=== PATIENT | male | born 1975 | race Caucasian/White ===

== ENCOUNTER 2022-08-17 10:25 | Outpatient (OUT) | payer MEDICAID, SELFPAY ==
[2022-08-17 21:49] LABS: Anion Gap 12.4; BUN Creatinine Ratio 14.3; Calcium 9.8 mg/dL (8.5-10.1); Carbon Dioxide 28.3 mmol/L (21.0-32.0); Chloride 104 mmol/L (98-107); Estimated GFR (African America >60 (>=60); Estimated GFR (Non-African Ame >60 (>=60); Glucose 88 mg/dL (74-106); Potassium 4.7 mmol/L (3.5-5.1); Sodium 140 mmol/L (136-145)
== END 2022-08-17 10:26 ==
LOC: LAB 10:29
PROVIDERS: PCP Family Medicine
DX: I10 Essential (primary) hypertension (principal)
CPT/HCPCS: 36415; 80048

== ENCOUNTER 2022-08-18 07:37 | Outpatient (OUT) | payer MEDICAID, SELFPAY ==
--- NOTE | 2022-08-18 07:45 | US_ITS ---
[address] [address] Patient Name: MARISELA HAHN MRN: [id number] date: 1975 Sex: M Assigned Patient Location: [place] Current Patient Location: Accession/Order Number: [id number] Exam Date: 08/18/2022 07:45 Report Date: 08/18/2022 12:55 At the request of: NON-STAFF PHYSICIAN Procedure: US renal doppler EXAMINATION: US renal doppler HISTORY: Essential Hypertension I10 COMPARISON: No relevant comparison available. TECHNIQUE: Ultrasound examination was performed of the kidneys and bladder. FINDINGS: Right Kidney: Height: 6.0 cm Length: 14.2 cm Width: 5.4 cm Right Renal Artery Proximal PSV: Obscured by bowel gas. Mid PSV: 197.3 cm/s Mid EDV: 52.0 cm/s Distal PSV: 211.9 cm/s Distal EDV: 57.9 cm/s Right Arcuate Artery Superior PSV: 29.2 cm/s Superior EDV: 12.2 cm/s Middle PSV: 17.4 cm/s Middle EDV: 9.1 cm/s Inferior PSV: 19.1 cm/s Inferior EDV: 8.7 cm/s Left Kidney: Height: 6.6 cm Length: 13.9 cm Width: 5.7 cm Left Renal Artery Proximal PSV: 157.1 cm/s Proximal EDV: 32.2 cm/s Mid PSV: 121.1 cm/s Mid EDV: 28.9 cm/s Distal PSV: 89.2 cm/s Distal EDV: 29.0 cm/s Left Arcuate Artery Superior PSV: 19.9 cm/s Superior EDV: 9.5 cm/s Middle PSV: 23.2 cm/s Middle EDV: 8.9 cm/s Inferior PSV: 19.3 cm/s Inferior EDV: 8.4 cm/s Aorta PSV: 133 cm/s Aorta EDV: 10 cm/s IMPRESSION: 1. Limited examination due to patient body habitus and overlying bowel gas. 2. 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 3. Blood flow velocity as detailed above. Electronically authenticated by: SOHAIL SHIPMAN Date: 08/18/2022 12:55
== END 2022-08-18 07:38 ==
LOC: US 07:38
PROVIDERS: PCP Family Medicine
DX: I10 Essential (primary) hypertension (principal)
CPT/HCPCS: 76775; 93975

== ENCOUNTER 2022-12-12 09:21 | Outpatient (RCR) | payer MEDICAID, SELFPAY | END 2023-01-03 16:44 | disposition home or self-care (01) | LOC: PT 09:21 | PROVIDERS: PCP Family Medicine; Visit Provider Anesthesiology | DX: M54.2 Cervicalgia (principal) | CPT/HCPCS: 20561; 97012; 97110; 97140; 97161 ==

== ENCOUNTER 2023-05-15 09:05 | Outpatient (OUT) | payer MEDICAID, SELFPAY ==
--- OUTSIDE RECORDS SUMMARY | 2023-05-15 09:08 | XMS_ITS | CCD ---
Author Name Unknown Address [address] [place] [address] Organization [facility] Care Team Providers Care Utility Worker [place] Name Role Phone NICOLASA BULLOCK Primary Care Unavailable BINDU CRAVEN Attending Unavailable BINDU CRAVEN Admitting Unavailable NONE, XXXX Primary Care Physician Unavailab NICOLASA Miller Primary Care Physician Nicolasa Bullock Unavailable KOBE, DR NICOLASA Brooks Attending Unavailable KOBE, DR NICOLASA Brooks Consulting Unavailable KOBE, DR NICOLASA Brooks Primary Care Unavailable BULLOCK, DR NICOLASA Brooks Admitting Unavailable BAILEY FRYE Admitting Unavailable KENNER, DR MARCELLA Emmanuel Consulting Unavailable KOBE, DR NICOLASA Brooks Primary Care Unavailable BAILEY FRYE Attending Unavailable HEJOSE L LEMON Consulting Unavailable BAILEY FRYE Consulting Unavailable MISC, DR ZAMORA Admitting Unavailable BULLOCK, DR NICOLASA Brooks Primary Care Unavailable MISC, DR ZAMORA Attending Unavailable MISC, DR ZAMORA Consulting Unavailable NALDO ., DR ONEILL Admitting Unavailable BULLOCK, DR NICOLASA Brooks Primary Care Unavailable HAY ., DR ONEILL Attending Unavailable HAY ., DR ONEILL Consulting Unavailable JOSE GENTILE Consulting Unavailable KOBE, DR NICOLASA Brooks Primary Care Unavailable ANTHONY HURTADO Admitting Unavailable ANTHONY HURTADO Attending Unavailable ANTHONY HURTADO Consulting Unavailable KOBE, DR NICOLASA Brooks Attending Unavailable BULLOCK, DR NICOLASA Brooks Consulting Unavailable KOBE, DR NICOLASA Brooks Admitting Unavailable KOBE, DR NICOLASA Brooks Primary Care Unavailable Sam GARDUNO Attending Unavailable Sam GARDUNO Attending Unavailable Sam GARDUNO Attending Unavailable Sam GARDUNO Admitting Unavailable MD Nicolasa Bullock Primary Care Provider [phone] MD Rivera Bermudez Attending Provider [phone] Rivera Bermudez Unavailable Deann Ortega Unavailable MD Nicolasa Bullock Primary Care Provider MD Rivera Bermudez Attending Provider [phone] DARRELL Ortega Attending Provider Pattie Hardin Unavailable MD Nicolasa Bullock Primary Care Provider MD Rivera Bermudez Attending Provider ANTHONY HURTADO Attending Unavailable ANTHONY HURTADO Attending Unavailable RUPERTO CANTRELL Attending Unavailable DONALD NGO Attending Unavailable [place] Attending Unavailable Nicolasa Bullock Primary Care Unavailable Rivera Bermudez Attending Unavailable Rivera Bermudez Admitting Unavailable Nicolasa Bullock Primary Care Unavailable Deann Ortega Attending Unavailable Deann Ortega Admitting Unavailable Rivera Bermudez Attending Unavailable Rivera Bermudez Admitting Unavailable Nicolasa Bullock Primary Care Unavailable Allergies Allergy Classification Reported Allergen(s) Allergy Type Date of Onset Reaction(s) Facility (7 sources) Cephalexin; Translations: [CEPHALEXIN] Drug Allergy 02-16-2020 Unknown [facility] Repository (12 sources) Cephalexin; Translations: [Keflex] Drug Allergy 09-26-2012 Unknown [facility] Repository Medications Current Medications Medication Drug Class(es) Dates Sig (Normalized) Sig (Original) acetaminophen 500 mg oral tablet (6 sources) Start: 04-26-2023 take 1 tablet by mouth every six hours as needed Acetaminophen Active 1 TAB PO Every 6 hours April 26, 2023 12:00am FreeTextSi tablet as needed Orally every 6 hrs; Note: Source Status: Taking; Provider: Lara Stafford ( ) take 1 tablet by mouth every six hours Acetaminophen 500 MG 1 tablet as needed Orally every 6 hrs Active acetaminophen 325 mg / HYDROcodone bitartrate 5 mg oral tablet (2 sources) Opioid Agonist Start: 08-13-2021 take 1 tablet by mouth every six hours for pain [place] 325 mg-5 mg oral tablet 1 tab(s), Oral, q6hr for pain, 10 tab(s), Refill(s) 0, Take 1 every 6 hours for pain, [id number], 185, cm, 08/13/21 10:20:00 EDT, Height/Length Dosing, 123, kg, 08/13/21 10:20:00 EDT, Weight Dosing Start Date: 08/13/21 Status: Ordered amLODIPine 5 mg oral tablet (5 sources) Dihydropyridine Calcium Channel Sisi Start: 08-13-2021 take 1 mg by mouth once daily amLODIPine 5 mg Tab mg tab(s), Oral, Daily, Refills(s) 0 Start Date: 08/13/21 Status: Ordered take 1 tablet by mouth twice ceasar ly amLODIPine Besylate 5 MG 5 mg. tablet Orally twice a day Active aspirin 81 mg delayed release oral tablet (6 sources) Platelet Aggregation Inhibitor, Nonsteroidal Anti-inflammatory Drug Start: 04-26-2023 take 1 tablet by mouth once daily Aspirin Active 81 MG PO Daily April 26, 2023 12:00am FreeTextSi tablet Orally Once a day; Note: Source Status: Taking; Provider: Lara Stafford ( ) take 1 tablet by giedon th every twenty-four hours Aspirin 81 MG 1 tablet Orally Once a day Active busPIRone hydrochloride 10 mg oral tablet (15 sources) Start: 04-26-2023 take 1 tablet by mouth twice daily Buspirone Active 1 TAB PO Twice daily April 26, 2023 12:00am FreeTextSi tablet Orally Twice a day; Note: Source Status: Taking; Provider: Lara Stafford ( ) Start: 08-13-2021 take 1 mg by mouth twice daily busPIRone 10 mg Tab mg tab(s), Oral, BID, Refills(s) 0 Start Date: 08/13/21 Status: Ordered carvedilol 25 mg oral tablet (15 sources) alpha-Adrenergic Sisi, beta-Adrenergic Sisi Start: 04-26-2023 take 1 tablet by mouth twice daily at mealtime Carvedilol Active 25 MG PO Twice daily April 26, 2023 12:00am FreeTextSi tablet with food Orally Twice a day; Note: Source Status: Taking; Provider: Lara Stafford ( ) Start: 08-13-2021 take 1 mg by mouth twice daily carvedilol 25 mg Tab mg tab(s), Oral, BID, Refills(s) 0 Start Date: 08/13/21 Status: Ordered chlorthalidone 25 mg oral tablet (12 sources) Thiazide-like Diuretic Start: 04-26-2023 take 1 tablet by mouth once daily at mealtime Chlorthalidone Active 25 MG PO Daily April 26, 2023 12:00am FreeTextSi tablet in the morning with food Orally Once a day; Note: Source Status: Taking; Provider: Lara Stafford ( ) take 1 tablet by gideon th every twenty-four hours Chlorthalidone 25 MG 1 tablet in the morning with food Orally Once a day Active Chlorthalidone 2 5 MG 1/2 tab q am Orally Once a day Active ciprofloxacin 500 mg oral tablet (1 source) Quinolone Antimicrobial Start: 08-13-2021 End: 08-18-2021 take 1 tablet by mouth twice daily at mealtime Cipro 500 mg Tab 500 mg = 1 tab(s), Oral, BID, Start with first meal after procedure is completed, X 5 day(s), # 10 tab(s), Refills(s) 0, Pharmacy: [id number], 185, cm, 08/13/21 10:20:00 EDT, Height/Length Dosing, 123, kg, 08/13/21 10:20:00 EDT, Weight Dosing Start Date: 08/13/21 Stop Date: 08/18/21 Status: Ordered diazePAM 10 mg oral tablet (2 sources) Benzodiazepine Start: 08-13-2021 take 1 tablet by mouth once daily Valium 10 mg Tab 10 mg = 1 tab(s), Oral, Daily, take 30 minutes prior to procedure, # 1 tab(s), Refills(s) 0, Pharmacy: [id number], 185, cm, 08/13/21 10:20:00 EDT, Height/Length Dosing, 123, kg, 08/13/21 10:20:00 EDT, Weight Dosing Start Date: 08/13/21 Status: Ordered escitalopram 20 mg oral tablet (17 sources) Serotonin Reuptake Inhibitor Start: 04-19-2023 End: 04-26-2023 take 1 tablet by mouth once daily Escitalopram Oxalate Active 20 MG PO Daily April 26, 2023 12:00am FreeTextSi tablet Orally Once a day; Note: Source Status: Taking; Refills: 3; Qty: 90 Tablet; Provider: Kobe Brooks Start: 08-13-2021 take 1 mg by mouth once daily escitalopram 10 mg Tab mg tab(s), Oral, Daily, Refills(s) 0 Start Date: 08/13/21 Status: Ordered lisinopril 40 mg oral tablet (17 sources) Angiotensin Converting Enzyme Inhibitor Start: 08-13-2021 End: 04-26-2023 take 1 tablet by mouth once daily Lisinopril Active 40 MG PO Daily April 26, 2023 12:00am FreeTextSig: Take 1 tablet by mouth once daily for 90 days; Note: Source Status: Taking; Refills: 2; Qty: 90 Tablet; Provider: Kobe Badlwin ( ) NIFEdipine 10 mg oral capsule (3 sources) Dihydropyridine Calcium Channel Sisi Start: 04-26-2023 take 10 mg by mouth twice daily Nifedipine Active 10 MG PO Twice daily April 26, 2023 12:00am Start: 04-19-2023 End: 04-26-2023 take 60 mg by mouth once daily Nifedipine Discontinued 60 MG PO Daily April 19, 2023 12:00am April 26, 2023 3:50pm NIFEdipine ER Osmotic (5 sources) NIFEdipine ER Os motic Active predniSONE 10 mg oral tablet (5 sources) Start: predniSONE 10 MG Take 3 tablets by mouth for 3 days then 2 tablets by mouth for 3 days then 1 tablet by mouth for 3 days Orally Once a day for 9 Feb, Active spironolactone 25 mg oral tablet (8 sources) Aldosterone Antagonist Start: End: Spironolactone Active 25 MG PO April 26, 2023 12:00am FreeTextSi tablet Orally; Note: Source Status: Taking; Provider: Lara Stafford ( ) sulfamethoxazole 800 mg / trimethoprim 160 mg oral tablet (2 sources) Dihydrofolate Reductase Inhibitor Antibacterial, Sulfonamide Antimicrobial Start: 023 take 1 tablet by mouth every twelve hours Bactrim DS 800-160 MG 1 tablet Orally Twice a day for 10 day(s) Apr, Active SZSTANDARD1-Topical (1 source) Start: 024 SZSTANDARD1-Topical Active TOPICAL April 26, 2023 12:00am SZSTANDARD1-Topical Cream Baclofen 2%, Cyclobenzaprine HCL 2%, Diclofenac Na 3%, Gabapentin 6%, Lidocaine HCL 2% Cream (8 sources) Start: 023 SZSTANDARD1-Topical Cream Baclofen 2%, Cyclobenzaprine HCL 2%, Diclofenac Na 3%, Gabapentin 6%, Lidocaine HCL 2% Cream NEEDED TOPICALLY APPLY 1-2 GRAMS FOR 2-3 MINUTES EVERY 6-8 HOURS for 30 days Nov, Active tamsulosin hydrochloride 0.4 mg oral capsule (2 sources) alpha-Adrenergic Sisi Start: 022 take 1 capsule by mouth once daily tamsulosin 0.4 mg Cap 0.4 mg = 1 cap(s), Oral, Daily, # 30 cap(s), Refills(s) 11, Pharmacy: [id number], 185, cm, 08/13/21 10:20:00 EDT, Height/Length Dosing, 123, kg, 08/13/21 10:20:00 EDT, Weight Dosing Start Date: 11/05/21 Status: Ordered tiZANidine 4 mg oral tablet (9 sources) Central alpha-2 Adrenergic Agonist Start: 024 Tizanidine Active 6 MG PO April 26, 2023 12:00am FreeTextSi/2-1 tablet as needed Orally at bedtime; Note: Source Status: Taking; Refills: 1; Qty: 30 tablets; Provider: Lara Suero Start: 12-05-2022 tiZANidine HCl 4 MG 1/2-1 tablet as needed Orally at bedtime for 30 days Nov, Active 24 hr venlafaxine 75 mg extended release oral capsule (17 sources) Serotonin and Norepinephrine Reuptake Inhibitor Start: 04-19-2023 End: 04-26-2023 take 1 capsule by mouth once daily Venlafaxine Active 75 MG PO Daily April 26, 2023 12:00am FreeTextSig: Take 1 capsule by mouth once daily; Note: Source Status: Taking; Refills: 0; Qty: 180 Capsule; Provider: Kobe Baldwin ( ) Start: 08-13-2021 take 1 mg by mouth once daily venlafaxine 150 mg Cap-ER mg cap(s), Oral, Daily, Refills(s) 0 Start Date: 08/13/21 Status: Ordered Start: 08-13-2021 take 1 mg by mouth once daily venlafaxine 150 mg Cap-ER mg cap(s), Oral, Daily, Refills(s) 0 Start Date: 08/13/21 Status: Ordered Completed/Discontinued Medications Medication Drug Class(es) Dates Sig (Normalized) Sig (Original) Acetaminophen / Codeine (2 sources) Opioid Agonist Start: 02-10-2016 take 1 tablet by mouth every six hours as needed for pain Tylenol with Codeine #3 300-30 MG 1 tablet as needed Orally every 6 hrs prn pain Jan, Not-Taking amoxicillin 875 mg oral tablet (2 sources) Penicillin-class Antibacterial Start: 02-10-2016 take 1 tablet by mouth every twelve hours Amoxicillin 875 MG 1 tablet Orally every 12 hrs for 10 day(s) Jan, Not-Taking buPROPion hydrochloride 75 mg oral tablet (2 sources) Aminoketone buPROPion HCl 75 MG Orally Twice a day Not-Taking Hydrochlorothiazide -12.5 mg 12.5 mg (2 sources) Hydrochlorothiaz i de-12.5 mg 12.5 mg Orally Once a day Not-Taking omeprazole 20 mg delayed release oral capsule (2 sources) Proton Pump Inhibitor Omeprazole 20 MG Orally Once a day Not-Taking Robaxin-750 750 MG (2 sources) Robaxin-750 750 MG 1 or 2 tablets Orally at bedtime as needed for muscle spasm Not-Taking simvastatin 20 mg oral tablet (2 sources) HMG-CoA Reductase Inhibitor Simvastatin 20 MG Orally Once a day Not-Taking triamcinolone acetonide 40 mg/ml injectable suspension (4 sources) Corticosteroid Start: 03-03-2023 Kenalog-40 Feb, 30 mg Problems Active Problems Problem Classification Problem Date Documented Date Episodic/Chronic Anxiety disorders (11 sources) Mixed anxiety and depressive disorder; Translations: [Anxiety disorder, unspecified] Chronic Contraceptive and procreative management (1 source) Contraception status; Translations: [Encounter for other general counseling and advice on contraception] Onset: 08-13-2021 Episodic Disorders of lipid metabolism (13 sources) Mixed hyperlipidemia; Translations: [Mixed hyperlipidemia] Onset: 11-24-2021 Chronic Diverticulosis and diverticulitis (11 sources) Diverticular disease of colon; Translations: [Diverticulosis of intestine, part unspecified, without perforation or abscess without bleeding] Chronic Essential hypertension (20 sources) Hypertensive disorder; Translations: [Essential hypertension] Onset: 05-21-2022 08-13-2021 Chronic Headache; including migraine (19 sources) Intractable chronic tension headache; Translations: [Chronic tension-type headache, intractable] Chronic Hyperplasia of prostate (5 sources) Benign prostatic hypertrophy without outflow obstruction; Translations: [Benign prostatic hyperplasia without lower urinary tract symptoms] Onset: 08-13-2021 Chronic Mood disorders (3 sources) Depressive disorder 08-13-2021 Chronic Nervous system congenital anomalies (3 sources) Spina bifida 08-13-2021 Chronic Other ear and sense organ disorders (3 sources) Hearing loss 08-13-2021 Chronic Other hereditary and degenerative nervous system conditions (11 sources) Resting tremor; Translations: [Other specified forms of tremor] Chronic Other hereditary and degenerative nervous system conditions (2 sources) Other specified forms of tremor; Translations: [OTHER SPECIFIED FORMS OF TREMOR] Onset: 08-16-2021 Chronic Other nervous system disorders (9 sources) Chronic pain; Translations: [Other chronic pain] 04-26-2023 Chronic Other nervous system disorders (4 sources) Other chronic pain; Translations: [Other chronic pain] Chronic Other nervous system disorders (1 source) Other chronic pain; Translations: [Other chronic pain] Onset: 04-19-2023 Chronic Other nutritional; endocrine; and metabolic disorders (2 sources) Morbid (severe) obesity due to excess calories; Translations: [Morbid (severe) obesity due to excess calories] Onset: 11-24-2021 Chronic Other nutritional; endocrine; and metabolic disorders (2 sources) Body mass index (BMI) 40.0-44.9, adult; Translations: [Body mass index (BMI) 40.0-44.9, adult] Onset: 11-24-2021 Chronic Other nutritional; endocrine; and metabolic disorders (11 sources) Abnormal weight gain; Translations: [Abnormal weight gain] Episodic Residual codes; unclassified (1 source) Transient alteration of awareness; Translations: [TRANSIENT ALTERATION OF AWARENESS] Onset: 07-20-2022 Episodic Spondylosis; intervertebral disc disorders; other back problems (13 sources) Cervical spondylosis; Translations: [Spondylosis without myelopathy or radiculopathy, cervical region] Onset: 02-17-2023 Chronic Sprains and strains (11 sources) Lumbar sprain; Translations: [Lumbar sprain] Episodic Syncope (17 sources) Syncope and collapse; Translations: [Syncope and collapse] Onset: 10-22-2021 Episodic Unclassified (3 sources) Patient encounter status 08-13-2021 Unclassified (1 source) Resistant hypertension; Translations: [Resistant hypertension] Onset: 05-21-2022 Past or Other Problems Problem Classification Problem Date Documented Da te Episodic/Chronic Headache; including migraine (1 source) Headache; including migraine Other aftercare (1 source) long-term (current) use of aspirin; Translations: [[facility] CURRENT USE OF ASPIRIN] Onset: 04-21-2022 Episodic Other connective tissue disease (3 sources) Pain in left finger(s); Translations: [PAIN IN LEFT FINGERS] Onset: 04-20-2022 Episodic Skin and subcutaneous tissue infections (2 sources) Cellulitis of left finger; Translations: [CELLULITIS OF LEFT FINGER] Onset: 04-21-2022 Episodic Spondylosis; intervertebral disc disorders; other back problems (7 sources) Occipital neuralgia; Translations: [Cervicalgia] Onset: 12-05-2022 Episodic Unclassified (1 source) Resistant hypertension; Translations: [Resistant hypertension] Onset: 04-21-2023 Results Test Name Value Interpretation Reference Range Facility Office Visiton 04-21-2023 Follow-up visit [id number] Alexei Hahn 1975 M Date Provider Department Center 04/21/2023 [facility] Family History Problem Relation Age of Onset Hypertension Mother Hypertension Father Hypertension Sister Other Maternal Grandfather Diabetes type II Maternal Grandfather Family Status - Relation Status Age at Mother Father Sister Maternal Grandfather Level of Service:42195 [place] OFFICE/OUTPATIENT ESTABLISHED MOD MDM 30 MIN Normal [facility] MR cervical spine wo conon 1 04-21-2022 MR cervical spine wo con [facility] [address] [address] MRI Report Signed Patient: Marisela Hahn MR#: [id number] : 1975 Acct:[id number] Age/Sex: 47 / M ADM Date: 02/17/23 Loc: Room: Type: [facility] Attending Dr: Deann Ortega NP Copies to: Deann Ortega NP Ordering Provider: Deann Ortega NP Date of Service: 02/17/23 MR/MR cervical spine wo con: [id number] EXAMINATION: MRI OF THE CERVICAL SPINE WITHOUT CONTRAST CLINICAL DATA: Frontal headache and neck pain for 2 years. TECHNIQUE: Multiecho imaging was performed in the sagittal and axial plane without contrast administration. Comparison: Cervical spine 12/05/2022 FINDINGS: Vertebral body heights appear maintained without abnormal bone marrow edema. No prevertebral soft tissue swelling. Cervicomedullary junction appears normal. No abnormal cord signal is seen. No paraspinal mass is noted. C2-3: No posterior disc pathology. No significant canal or neural foraminal stenosis. C3-4: No posterior disc pathology. No significant canal or neural foraminal stenosis. C4-5: No posterior disc pathology. No significant canal or neural foraminal stenosis. C5-6: Minimal disc osteophyte complex present causing no significant canal or neural foraminal stenosis. C6-7: Minimal disc osteophyte complex present causing no significant stenosis. Mild left-sided neural foraminal stenosis. C7-T1: Disc osteophyte complex present causing no significant canal or neural foraminal stenosis. MR/MR cervical spine wo con IMPRESSION: DEGENERATIVE CHANGES INVOLVING THE CERVICAL SPINE DESCRIBED ABOVE, WITHOUT SIGNIFICANT CANAL OR NEURAL FORAMINAL STENOSIS. Impression dictated by: Jorge Mosley Jr., D.ORas02/18/2023 8:57 AM Dictation Location: [place] [address] Transcribed By: [facility] 02/18/23856 Dictated By: Jorge Mosley Jr, DO 02/18/2353 Signed By: 02/18/2357 [facility] XR cervical spine w flex/ext on 12-05-2022 XR cervical spine w flex/ext [facility] [place] [address] XRay Report Signed Patient: Marisela Hahn MR#: [id number] : 1975 Acct:[id number] Age/Sex: 47 / M ADM Date: 12/05/22 Loc: XD Room: Type: [facility] Attending Dr: Rivear Bermudez MD Copies to: Rivera Bermudez MD Ordering Provider: Rivera Bermudez MD Date of Service: 12/05/22 XR/XR cervical spine w flex/ext: Neck pain CERVICAL SPINE 7 views: CLINICAL HISTORY: Persistent headaches. COMPARISON: None FINDINGS: Vertebral body heights appear maintained. There is straightening of the normal cervical lordosis which may relate to muscle spasm. Mild spondylosis C5-C7 with scattered endplate, uncovertebral and facet joint degenerative changes. No significant bony neural foraminal narrowing. No prevertebral soft tissue swelling. There is 3 mm of posterior subluxation of C4 on C5 and C5 on C6 which resolves on neutral and flexion imaging suggesting pathological motion. XR/XR cervical spine w flex/ext IMPRESSION: MILD SPONDYLOSIS C5-C7. POSTERIOR SUBLUXATION OF C4 ON C5 AND C5 ON C6 OF APPROXIMATELY 3 MM ON EXTENSION WHICH RESOLVES ON FLEXION AND NEUTRAL IMAGING SUGGESTIVE OF PATHOLOGICAL MOTION. Impression dictated by: Jorge Mosley Jr., D.O.12/05/2022 3:46 PM Dictation Location: [place] [address] Transcribed By: [facility] 12/05/22 1546 Dictated By: Jorge Mosley Jr, DO 12/05/22 1543 Signed By: 12/05/22 1546 [facility] Office Visiton 11-01-2022 Follow-up visit [id number] Alexei Hahn 1975 M Date Provider Department Center 11/01/2022 DONALD HATCH [facility] Family History Problem Relation Age of Onset Hypertension Mother Hypertension Father Hypertension Sister Other Maternal Grandfather Diabetes type II Maternal Grandfather Family Status - Relation Status Age at Mother Father Sister Maternal Grandfather Level of Service:75710 [place] OFFICE/OUTPATIENT ESTABLISHED MOD MDM 30-39 MIN [facility] 36on 09-05-2022 36 Reviewed his recent renal ultrasound with Dr. Severino, can let him know this showed no significant findings. Thank you! [facility] Telephoneon 09-05-2022 Telephone [id number] [facility] ic D 1975 M Provider Department Center 09/05/[address] Family History Problem Relation Age of Onset Hypertension Mother Hypertension Father Hypertension Sister Other Maternal Grandfather Diabetes type II Maternal Grandfather Family Status - Relation Status Age at Mother Father Sister Maternal Grandfather [facility] 36on 08-31-2022 36 Are we able to try t o send it to a pharmacy where he is located? Normal [facility] Office Visiton 08-17-2022 Follow-up visit [id number] Indio ic D 1975 M Provider Department Center 08/17/2022 RUPERTO DUNN Family History Problem Relation Age of Onset Hypertension Mother Hypertension Father Hypertension Sister Other Maternal Grandfather Diabetes type II Maternal Grandfather Family Status - Relation Status Age at Mother Father Sister Maternal Grandfather Level of Service:[id number] [place] OFFICE/OUTPATIENT ESTABLISHED MOD MDM 30-39 MIN Reason for Visit and Comments: Hypertension [[id number]] [facility] Office Visiton 08-09-2022 Follow-up visit [id number] Alexei Hahn ic D 1975 Provider Department Center 08/09/2022 ANTHONY PAZ Family History Problem Relation Age of Onset Hypertension Mother Hypertension Father Hypertension Sister Other Maternal Grandfather Diabetes type II Maternal Grandfather Family Status - Relation Status Age at Mother Father Sister Maternal Grandfather Level of Service:96924 [place] OFFICE/OUTPATIENT ESTABLISHED MOD MDM 30-39 MIN [facility] MRI BRAIN WO W CONon 023 MRI BRAIN WO W CON EXAM: MRI of the bra in without and with IV contrast utilizing 20 mL of IV gadolinium contrast. REASON FOR EXAM: Episodes of syncope and dizziness COMPARISON: None FINDINGS: No intracranial masses or abnormal enhancement. No abnormal restricted diffusion or evidence of evolving infarct. No evidence of intracranial hemorrhage. No hydrocephalus. Mild generalized cerebral and cerebellar volume loss. Minimal small vessel gliosis. Paranasal sinuses and mastoid air cells are clear. Remainder unremarkable. IMPRESSION: No acute intracranial abnormalities. Electronically authenticated by: JOSE L WATSON Date: 2022-07-15 08:08 Normal [facility] XR FOREIGN BODY EYEon 2022 XR FOREIGN BODY EYE EXAMINATION: XR FOREIGN BODY EYE HISTORY: Foreign body in eye COMPARISON: No relevant comparison available. FINDINGS: ORBITS: Negative for a metallic foreign body. OTHER: Negative. IMPRESSION: No metallic foreign body in orbits Electronically authenticated by: MARCELLA CLEVELAND Date: 2022-07-14 14:42 Normal [facility] PROF CHEM 8 (BAS METB)on Anion gap [Moles/Vol] 11.9 mmol/L Normal [facility] Comment on above: Performed By: #### B MP #### [facility] [address] [place] [address] [address] Tiana Luong Calcium [Mass/Vol] 9.3 mg/dL Normal 8.5-10.1 [facility] Comment on above: Performed By: #### B MP #### [facility] [address] [place] [address] Dr. Tiana Luong Chloride [Moles/Vol] 108 mmol/L Critically high 98-107 [facility] Comment on above: Performed By: #### B MP #### [facility] [address] [address] [address] Tiana Luong CO2 [Moles/Vol] 27.9 mmol/L Normal 21.0-32.0 [facility] Comment on above: Performed By: #### B MP #### [facility] [address] [address] [address] Tiana Luong Creatinine [Mass/Vol] 1.07 mg/dL Normal 0.70-1.30 [facility] Comment on above: Performed By: #### B MP #### [facility] [address] [address] [address] Tiana Luong EGFR-AF BURKINAN >60 Normal >=60 [facility] Comment on above: Performed By: #### B MP #### [facility] [address] [address] [address] Tiana Luong EGFR-NON AF BURKINAN >60 Normal >=60 [facility] Comment on above: Performed By: #### B MP #### [facility] [address] [address] [address] Tiana Luong Glucose [Mass/Vol] 99 mg/dL Normal 74-106 [facility] Comment on above: Performed By: #### B MP #### [facility] [address] [address] [address] Tiana Luong Potassium [Moles/Vol] 3.8 mmol/L Normal 3.5-5.1 [facility] Comment on above: Performed By: #### B MP #### [facility] [address] [address] [address] Tiana Luong Sodium [Moles/Vol] 144 mmol/L Normal 136-145 [facility] Comment on above: Performed By: #### B MP #### [facility] [address] [address] [address] Tiana Luong Urea nitrogen [Mass/Vol] 20.0 mg/dL Critically high 7.0-18.0 [facility] Comment on above: Performed By: #### B MP #### [facility] [address] [address] [address] Tiana Luong Urea nitrogen/Creatinin e [Mass ratio] 18.7 mg/mg Normal [facility] Comment on above: Performed By: #### B MP #### [facility] [address] [address] [address] Tiana Luong 36on 06-30-2022 36 Per notes from Anthony - patient was supposed to have had BMP done after May appointment, and then 1 month later. Patient still hasn't had 1st set of labs done. He is requesting refill of his spironolactone. Next appt is 08/09 w/ Anthony. Left message for patient to return call. Needs to get labs done now and then 1 month after, just before next appt on 08/09. We should only fill 2 months, if able, since, according to the notes, we are supposed to be monitoring his labs on this medication as well. [facility] Office Visiton 05-11-2022 Follow-up visit [id number] Alexei Hahn 1975 M Date Provider Department Center 05/11/2022 Kassandra6-ANTHONY HURTADO CARD [facility] Family History Problem Relation Age of Onset Hypertension Mother Hypertension Father Hypertension Sister Other Maternal Grandfather Diabetes type II Maternal Grandfather Family Status - Relation Status Age at Mother Father Sister Maternal Grandfather Level of Service:53501 [place] OFFICE/OUTPATIENT ESTABLISHED MOD MDM 30-39 MIN Reason for Visit and Comments: Follow-up [517020] Normal [facility] PROF CHEM 8 (BAS METB)on Anion gap [Moles/Vol] 12.9 mmol/L Normal [facility] Comment on above: Performed By: #### B MP #### [facility] [address] [place] [address] Dr. Tiana Luong Calcium [Mass/Vol] 9.2 mg/dL Normal 8.5-10.1 [facility] Comment on above: Performed By: #### B MP #### [facility] [address] [place] [address] Dr. Tiana Luong Chloride [Moles/Vol] 105 mmol/L Normal 98-107 [facility] Comment on above: Performed By: #### B MP #### [facility] [address] [place] [address] Dr. Tiana Luong CO2 [Moles/Vol] 26.1 mmol/L Normal 21.0-32.0 [facility] Comment on above: Performed By: #### B MP #### [facility] [address] [place] [address] Dr. Tiana Luong Creatinine [Mass/Vol] 1.17 mg/dL Normal 0.70-1.30 [facility] Comment on above: Performed By: #### B MP #### [facility] [address] [place] [address] Dr. Tiana Luong EGFR-AF BURKINAN >60 Normal >=60 [facility] Comment on above: Performed By: #### B MP #### [facility] [address] [place] [address] Dr. Tiana Luong EGFR-NON AF BURKINAN >60 Normal >=60 [facility] Comment on above: Performed By: #### B MP #### [facility] [address] [address] [address] Tiana Luong Glucose [Mass/Vol] 93 mg/dL Normal 74-106 [facility] Comment on above: Performed By: #### B MP #### [facility] [address] [place], [place] [address] Dr. Tiana Luong Potassium [Moles/Vol] 4.4 mmol/L Normal 3.5-5.1 [facility] Comment on above: Performed By: #### B MP #### [facility] [address] [address] [address] Tiana Luong Sodium [Moles/Vol] 140 mmol/L Normal 136-145 [facility] Comment on above: Performed By: #### B MP #### [facility] [address] [address] [address] Tiana Luong Urea nitrogen [Mass/Vol] 20.0 mg/dL Critically high 7.0-18.0 [facility] Comment on above: Performed By: #### B MP #### [facility] [address] [address] [address] Tiana Luong Urea nitrogen/Creatinin e [Mass ratio] 17.1 mg/mg Normal [facility] Comment on above: Performed By: #### B MP #### [facility] [address] [address] [address] Tiana Luong XR FINGER MIN 2 VIEWSon XR FINGER MIN 2 VIEWS EXAMINATION: XR FINGER MIN 2 VIEWS, 04/20/2022 1:47 PM EST HISTORY: Crush injury of left index finger COMPARISON: None. TECHNIQUE: 3 views of left second digit/index finger FINDINGS: Bones are of normal configuration, visualized joints are normally aligned, without acute fracture or dislocation. There is a tiny 1-2 mm corticated ossicle projecting along the ulnar aspect of the middle phalangeal base, only seen on the oblique view, possibly degenerative in etiology versus sequela of remote injury. No radiodense foreign body or appreciable soft tissue gas. IMPRESSION: 1. No acute osseous abnormalities. Electronically authenticated by: JOSE GENTILE Date: 2022-04-20 15:00 Normal [facility] Patient Educationon 11-17-19 Patient Education Infectious Disease Preventing HIV Infection and AIDS HIV (human immunodeficiency virus) infection is a long-term (chronic) viral infection. HIV kills white blood cells that help to control the body's defense (immune) system and fight infection. HIV spreads through semen, blood, breast milk, rectal fluid, and vaginal fluid. HIV is commonly spread through sexual contact and sharing needles or syringes, because these behaviors involve exchanging bodily fluids. Without treatment, HIV can turn into AIDS (acquired immunodeficiency syndrome), which is an advanced stage of HIV infection. AIDS is a very serious illness and can be life-threatening. What changes can I make to protect myself from HIV infection? Sexual contact To protect yourself from HIV through sexual contact: ? Use devices that prevent body fluids from passing between partners (barrier protection) every time you have sex. Barrier protection can be used during oral, vaginal, or anal sex. Commonly used barrier methods include: ? Male condom. ? Female condom. ? Dental dam. ? If you are at risk, ask your health care provider about taking medicine that can prevent HIV infection (pre-exposure prophylaxis, PrEP). ? Get tested for HIV and know the HIV status of your sexual partner(s). Avoid having sex with partners without a known HIV status. If you or your partner is HIV-positive, use protection during sex. ? Practice monogamy. This means you have only one sexual partner in your lifetime or only one partner at a time (serial monogamy). ? Get tested and treated for STIs (sexually transmitted infections). Having an STI increases your risk for getting HIV. The only way to completely prevent HIV from being spread through sexual contact is not to have any kind of sex (abstinence), including oral, vaginal, or anal sex. Drug use To protect yourself from HIV through drug use: ? Do not use drugs, especially drugs that are injected. ? Avoid having sex while under the influence of alcohol and drugs. Alcohol and drugs can affect your ability to make good decisions and may lead you to engage in high risk behaviors. ? Do not share needles or syringes with anyone else. If you do share needles or syringes, consider taking PrEP to prevent HIV infection. Blood and bodily fluid To protect yourself from HIV through exposure to blood and bodily fluids from a person who has HIV: ? Cover any sores or wounds on yourself or the person with HIV. ? If you need to touch blood or bodily fluids from an infected person, use gloves and wash your hands afterward. ? Do not share items that touch bodily fluids or blood, such as toothbrushes or razors. What can happen if I do not make these changes? If you do not make these changes: ? You put yourself at risk of getting HIV from an infected person. HIV is a serious, life-threatening illness that cannot be cured. Having HIV makes it easier to get sick and more difficult to get well. ? You can pass HIV on to others even if you don't know that you have it. An infected mother can also pass it to her children through , childbirth, or . ? You expose yourself to complications from the virus. Without treatment, the virus progresses. As it multiplies in your body, it causes the immune system to stop protecting you from infections and other health problems. You may get infections that you would not normally get if your immune system was healthy and working properly (opportunistic diseases). ? You put yourself at risk of side effects from HIV medicines. HIV medicines (antiretroviral therapy, ART) can help slow the virus from progressing and prevent its spread to others. People with HIV must take these medicines on a daily basis in order to live long, healthy lives. However, these medicines have side effects. Long-term use of ART medicines can lead to chronic health conditions, such as damage to the liver and kidneys, diabetes, and heart disease. People who take HIV medicines must use protection during sex because they can still pass the virus on to sexual partners. ? You could also put yourself at high risk for getting other sexually transmitted infections. ? You put yourself at risk of having an unintended . Where to find support To get support preventing HIV infection and AIDS: ? Talk with your health care provider. ? Visit your local health department or clinic. ? Consider joining a support group. Where to find more information Learn more about HIV and AIDS from: ? U.S. Department of Health and Human Services: www.aids.gov ? Centers for Disease Control and Prevention: ? More information about preventing HIV: www.cdc.gov/hiv/basics /prevention.html ? How to find a location where you can get sexual health materials and treatment for free or for a low cost: gettested.cdc.gov Summary ? HIV spreads through semen, blood, breast milk, rectal fluid, and vaginal fluid. ? HIV is commonly spread through sexual contact and sharing needles or (more content not included)... Normal [facility] Urology Office/Clinic Noteon 11-16-2021 Urology Office/Clinic Note Chief Complaint post op vasectomy HPI Staff Pt is here for f/u to vasectomy done 11/05/21. Dysuria: no Incomplete bladder emptying: no Hematuria: no Frequency: no Urgency: no Nocturia: 5x Stream: good no straining Leaking: no Post void dripping: no Wearing pads/ Depends: no Urge incontinence: no Stress incontinence: no Incontinence without Sensory Awareness: no Abdominal pain: a little sensitivity in the lower abdomen Flank pain: no Sexual complaints: no History of Present Illness I have reviewed and verified the staff HPI to be accurate for this encounter. I have reviewed the previous health record information and history for this patient from Dr. Garduno There have been no associated fever, chills, flank pain, or blood in the urine. Denies any urinary infections since last encounter. Review of Systems PHQ Score Initial Depression Screen Score: 0 ROS - Provider Constitutional: denies weight loss, denies hot flashes. Eyes: denies eye problems. Gastrointestinal: denies nausea, denies vomiting. Cardiovascular: denies chest pain or angina. Integumentary: no dryness Musculoskeletal: denies musculoskeletal symptoms. ENMT: denies otolaryngeal symptoms. Respiratory: no shortness of breath. Heme/Lymph: denies easy bleeding tendency, denies easy bruising tendency. Psychiatric: no confusion, no anxiety. Genitourinary: denies dysuria, denies hematuria, denies discharge, denies urinary frequency, denies urinary hesitancy, denies nocturia, denies incontinence, denies genital sores, denies decreased libido, and denies erectile dysfunction. Physical Exam Vitals & Measurements HR: 70(Peripheral) RR: 16 BP: 130/88 HT: 185 cm HT: 185.0 cm WT: 136 kg WT: 136.0 kg BMI: 39.74 General Appearance: alert, no distress, well nourished, well developed male. Genitourinary: normal scrotum, normal testes, normal urethra, normal epididymis, normal vas deferens/spermatic cord. Flank Pain: none. Bladder: nonpalpable. Assessment/Plan 1. Status post vasectomy (Z98.52: Vasectomy status) The patient tolerated the procedure well without complications. He should refrain from strenuous activity for the next 4-5 days and ice the scrotum as needed. The antibiotic course should be completed. The post-vasectomy instruction sheet is given to the patient. 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 Pain medicines have been provided. He is aware that he is not sterile until he has a negative semen analysis which will be checked after about two months and after 20-30 ejaculations. He should deliver the semen specimen to the lab within 30 min. of ejaculation and he will call one week later to get the results. 2. BPH without obstruction/lower urinary tract symptoms (N40.0: Benign prostatic hyperplasia without lower urinary tract symptoms) Cysto 11/05/21 Pt was started on Flomax 0.4mg qd Pt stated he was doing fine for a couple of days after starting this therapy and wasn't getting up as frequently. Pt stated now he is back to getting up 3-4x a night. Discussed with pt doing a voiding diary to see how much urine he is making at night. Pt stated his frequency is not too much bothersome during the day, only at night. Explained to pt to do this voiding diary for about 3-4 times at night. Explained to pt how to keep track of his urine output. At this time pt will continue taking Flomax therapy, and starting a different medication will be based on his voiding diary results. Pt is leaving for the winter so he will have a follow up appt via phone. Overall the patient tolerates the vasectomy well. He knows to get the semen analysis in a couple months. He is given the instruction sheet. Regarding his urinary difficulties. Not much help with Flomax. His main issue still has urgency and nocturia. Sheet to document urine and when he is voiding in the cup to measure. He would do this for couple days per week over the next 2 to 3 weeks to let me know results. He will be going to [place] over the next 2 to 3 weeks and we will have to contact him by phone to go over the results. He should remain on the Flomax 0.4mg. He knows that urine output may be the main issue but hopefully the voiding diary will help elucidate the etiology. He agrees with the plan as outlined. Follow-up With When Contact Information SHAAN HALE, Sam Velazco, URL [address] [facility] [address] [address]- Additional Instructions: Patient Education Preventing HIV Infection and AIDS I, Jada Crowder, personally scribed for Dr. Garduno on 11/16/2021 08:26:54. . Documentation recorded by the scribe, Jada Crowder, accurately reflects the services(s) I performed and decisions made by me. Authenticated by Dr. Garduno on 11/16/2021 08:27:25. Problem List/Past Medical History Ongoing BPH without obstruction/lower urinary tract symptoms Deafness Depression Hypertension Spina bifida (more content not included)... Normal [facility] Comment on above: Result Comment: Elec tronically Signed By: Sam GARDUNO MD\.br\Date and Time Signed: 11/16/21 08:29 EDT\.br\Electronically Co-Signed By: Jada Crowder\.br\Date and Time Co-Signed: 11/16/21 08:27 EDT Coding Summary.on 11-08-2021 Coding Summary. CD:[id number] Gh 0bWw+PGhlYWQ+UV4IVNBwF 48ukMDopN0QN5wYHV5YJXY UTZMTPH1FQC2zoOB1OHacJ 2VybiAv CgxasRMdDM51LWq6PLE2fY viPYrirC1rxDNnS1r7LsQk XG99kH05JVhiTXOkBrP7Hb ZpbjsgbWFy V4nlPcAroYRfDdr+PHRhYm xlIHdpZHRoPScxMDAlJyBz pTrjEW6lOu7yGAWuWHDvlY xhcHNlOiBj w0gzLNNzRGviWA0jlCytE5 YoiIR2ANMlo1v2Qq76yTN+ SVSuNBM2gLjwXLrsi016Ba Ajh2toOZJ6 jRFjIBvjHRD3J62al6F2NI CgUXGkUBE5kSS4nP3xwUog jehbB8CssXRhMqY6DMM1aK LucL3xsLxd wwkycF5kFxb+S42WWW9FFS JHNG1ELri0V3KgJpfyjEH+ QH16VLSaEK86eTXbaYQug7 nxiRq6AcYi XEDzWDX1lThdMAmqv2OwRZ PrX85zbRBbh9C3KTAvaNyk jMJtNgBcjOO7jF7aSKwncq ilg0ncisve Argvt1txrd17eC27Y15gJZ fuCUAhYJK0JWMtCPGddTqt vw4ctT6mDg8+TWpth8wpn7 sagIh7BrWo GUJldaKneUboRUN1b8CoIi 18Z8TkpRoyq4QcDyp7ff56 lCZfv8C6wBB7PAdcZKXguT 9eGAtkTwU6 AVEvCgDtrV71yPEtEEzbOn 0tlFzgpDkpLN0eEMLzncpp FVUitI7xRVRxaPDglZjzCI 4wNTBpbjtm b794WoJnRSW4URHpkOEcO2 PpuE7qAoWfETJmFINpO6Cg oDIlDMnsK631AWtmFwC6FK DiraYkU7Td WJAzoVxeQfQ0a3Q0Px7El0 CwbvvaOSF6GHgxNRK7FsF4 HiWuVrN0H4WrVvc1VBUzeJ otWM2qP7Bl BBUhgekzahdqnUJ3DIQyTM VzqA94pRFvBYmhOg5qt4I4 s181LBXhAWPciC77Mo4bhQ ogMTBwdCBU vK3iserqx6rguavtBrKxKC IrBAm1TVp8XDJxjJdxXvAb GQT4EkX0VZE0jXActU0doD drwsaeaA9h Oyc+N82jxF0kFKV8UOG4um mjBQWofwXnYH97QS68P4Wg PjwvdGFibGU+PGRpdiBzdH cbMX5zJdIj l6mjp3ZhQOrmZ1TsLXOqXA voLuf2GTZqVAC4eFF4hO8w MYGjZSecm3V4fWI7G8Mdcj Smhq0zr2wj OENjHTtlV32vbUKjw2X4KU LnkRZ3FHTktXdcJqVbtQ90 Oyc+FOJsuLcrx7KjLmcsk4 hcv6yilFv1 ZoHeZGVtdbZauQmzRYX8t8 OwGr90O53zSQfzVREjCUUg SMBlEONpcPudmh4emE9eWi 8+PGNvbCB3 nQN0pB6xXZStRaA3JCkfT7 00LhNbgHRyWzssv2dhv6kq oAx0LcPlKYCtbmCtpLahMM F7o9EqSg54 J10gZFjvIXUsDPRpXJBmOE ZswXzsrh0keD4xMs9+PC9j n5fyrz86bH08wVY+PHRkIH N9wEksVGbc XDHojU8bIIcdPcA0LUYhVo GevM69kYKrBTffYt6viKkc uFuoLK4yJDKvzgnov977Oe Qxl3qzANVh rKOmZTgsZAK6K08hg3L1WP PaPEPhFJV5cTO0sW4zpLgq bjogbGVmdDsgdmVydGljYW ebIEguP550 IHRvcDsnPlBhdGllbnQgTm LiYTi4P2XpDzs9DBZgyGos DG0riKYoCOvlVe1hnJhlfU auHU3tJOZg xbxgn096DsFyn5znOXCpnX XvGNnlBRD0D55js8R2MOUy WEPzZYQ5lDW7mY1hbHhwfk ogbGVmdDsg qtNgfJmhAHlzBBbrL092ZF RvcDsnPkJpcnRoIERhdGU6 MW77MW46cCQpm6S2gEF2G5 BhZGRpbmct edlkcZP0OOHsEYKbcQ72Ul 8mmJtoKv8uMGRgZVY7CIAe qHKnI5XimX4bVfEbTFNtVH WzH0XnnRSu HAvdI587XWpeAaH4KIKwpu YgG4WhEZTmeOlmHuJ3j0E7 Bx9UV0S4UQ39VG43bONjk4 N8kIF8C1Yg DROqewmwadpzsTR5XVHdZI TfwK46Oz6gsPikNo8nSXMj GBZ3DVHogVWfU7EcjI8zGi AjMDAwMDAw N3IvrJJzDWimL818XTadMo K0LUDazzUwK9SmACTkuPfb FdC4m3X5Xn9ELRq5GC02TL 87zUTte0R2 lWH9T6AqRMEjpwghsghajT V5PUPwFHOqsC14Ta1yjHly Gd7tDLMbXBH2PJGarPTbK8 QncX4tPkJa NIDsBZBvW7VhxLJjNBvxZ2 15MBeeFpV9CDDwwaOuS0Vz DQSfjZvaKgF7o4N2Lg5YYE VuVE84LDT3 vPH7MT72QF32R3PwSiqmfL FibGU+PHRhYmxlIHdpZHRo QQuvOKFtZmKwdLskPG0yZs 9yZGVyLWNv oKvtpSOsFwQvh0sxKEJoZT ooWK6nqLezB3IlcDN3NAZm f6b7Il25S60eO2RuwML+PG XukWA0eTW7 mF5dJkDbSeY6TWsaU035Yx XwoRAtLfwge1udt7kcuUz5 RoW2QBKwyvPebCdhBIH9w4 XcPw48D34o IHdpZHRoPSIxNSUiIHZhbG rsbl0toT4jWm7+PGNvbCB3 bDC7lZ7aQgDbHgH2AEbjF3 49InRvcCIv Pbcdo5kqq5coeKc2CtJtAX UhtgJvuHpaAMR7x6RwEf70 W5ThiFyvo3JeKsf4qz05mB Lfw5J1uQN4 R1EyXKBqmquuqVMkwZocRM 7dVLYjwhfhRYKlzT7eASPm R0w3QoOjAcT6DQatU0Tkgp X5UUJdjTHv PRzjOHT8O92sd1I7UOZgOU KaPKO9mQX6mI9jgVminwam bGVmdDsgdmVydGljYWwtYW nwW387UKGr nUwfYQFcmK1oUNZyvIYgnQ ldTV0wNKKcuxlyCitMXTaL GO7XFAPYOjdMIB42LP36kP Tji7Q6lUY9 R4HjUEVtymtlcguhuHV6XH FxEVSwsX27bMBqRYvgQb8v l2K8p613ONKjDOCroM15Oz 9udDogMTBw dWHVbU2epunac1sxulkxSj ThBKZnUEq0FPs3ANOpmVir RaKpQYC1YnS7VFO4qTUnyW 1hbGlnbjog pE5qMuu+QVDqLNJyTWx2Cg wvdGQ+WNOnKXF4eVvqAHdv ZLJkoH6cWITpY5t0NmGzOo P8FKecW0Of HHXfjqigPq22zR9qHsWeUi N7IOjiZ6ZazdL2LEOtzDUp KRrjMPA5O20vi7K0EIGnFW AeZTJ8fIN6 qD6ozCcqqlvhsIRhyYqhhy CcqVqrSSbkFYacS710CCEf gLkmOvV1XYocIOMuMN39HP 74xAYul4M4 mOS3I7DxKEFlenouhefysD N4ZMXiXIKpjM06jOGnVEdn An4da7O8x274PHOfLLFyxP 23Tv4nlFkm LQSokMLSmF8eoxrlk1dthh gsZiDrENXiDOz5TBq7WZRk aPbvTuUaEDB7ZhP8UOX0kJ DblF6dvLrd hnksiT0dUfs+TWFsZTwvdG Q+CNPoMHL0pNtzWEjjHZCn zZ8nTGLoD2i7FnOvJrH7SA bnM7AzVOKw mesrQd49fT8cHzXvUeT6XC vrG7WjioW5SLFgvJYgOXyr EGV4Y02zr3E6RAQgKZNlDH E4rYO2cW7j bGlnbjogbGVmdDsgdmVydG rtWWswAOdtW949NZTppQkv SrmdCjYXui6yGG6eWexjyL Q+KW34pb48 I3JgUzhmDfs4WYHxIMZ1nG T1fK5kUKKeSNvug9U6yOA5 R0YhevZdhe9uw2gpSLTcSP rpR86uqNHr w0J3BDOilRO5CSLdxNmiUd DbeL22Skg+TGBcwFvnx8Bp Svpdu6tmp7ifpHd3WbUvJO IgdmFsaWdu KGW3z8QyLg75P67zDGtqZW VrLEFuOCDtIEAvrRsdmr0d pD1hEl3+NKVjrEH3rOP1mS 5eJlAxEvN0 EKmxJ149XxZwtHSkRipvm2 gzw4ejoWq4JdSyOLGtplUk bAaoNSU8e9UnCg00D1PevG hmf9IsDjs2 rj92iZGcd5D0cJT2K6KuLX QnzejvaCQelLekIW8jKCZg nptoCZSrnW4iCDIsF3k6Vu GaIvE8WYyg N9VkotX8EJWceFUvXTUsmG QMrU8gugixn5zgepvpVuBz FTQeHKq6QIg3AXVczUbnVd LjEVE2HkY2 WFT2bSLyzK3hmZhboubknH 9wOyc+POe2m0weyBCbOW3q fJO5WT18ME65dJMep2D5yR N4V5VlASWz cprmliuinZR6PWFbAZEglB 82Rb8ysPvuRh6wLYPaTFX8 RBHahCPuI5XybS4vYrJpCR WdZBCoM4Af tPPfOJnhP488LVihTaI8QI IzarVmH5RhTGLtvDcrGeT1 r1T0Vh7MCG21VW30WS25yE Jtc4W5nVK8 R7PzXGDzvbnmbbjssST5UM QiRIPptF05Eu2ivHoePk0u DKQoFDB3RZBfuOJdZ5JqwI 9yOiAjMDAw FSMfS2PdbRNuWNfmC316HA ztLyO9TCDkpzBcP2DnWEXu tRmwRgK6m3X2Ei6VEu49QZ 23WH32iOCk l6R1iRZ7Q2TzZJTeucktmf eukUN9BYLlVRRcnQ02Ut7u xDrhEw1tSYTkRUS1FXExoO LrZ5DtfQ3z BgMfEOMpITZyM0JxaIBdFB fnA304YEjqVuM4MZUmrcCr O0QrILGbtSdbZgE6j6G5Jc 4XGNmxwxi4 M7LgPkeeyXE+XK39BMXfFB 73cZHduRXns7uweVf3QwUh HHZfVWM1sGbiNChir7KkRI SiY95qhNRv c2U6 (more content not included)... Normal [facility] Ambulatory Visit Summaryon 0 11-05-2021 Ambulatory Visit Summary MARISELA HAHN :1975 Visit Date:11/05/2021 Ambulatory Visit Instructions Your Diagnosis Encounter for vasectomy BPH without obstruction/lower urinary tract symptoms Your Care Team Attending Physician - SHAAN HALE, Sam Velazco Primary Care Physician - NONE, XXXX This Is Your Medications List tamsulosin (tamsulosin 0.4 mg Cap) Contact prescribing physician if questions or concerns acetaminophen-hydrocod one (B[place] 325 mg-5 mg oral tablet) amlodipine (amLODIPine 5 mg Tab) busPIRone (busPIRone 10 mg Tab) carvedilol (carvedilol 25 mg Tab) diazepam (Valium 10 mg Tab) escitalopram (escitalopram 10 mg Tab) lisinopril (lisinopril 40 mg Tab) venlafaxine (venlafaxine 150 mg Cap-ER) Procedures Performed Cystoscope (11/05/2021), Vasectomy (11/05/2021). What to do next Scheduled Follow-Up Appointments Monday 8:30 AM EDT With: SHAAN HALE, Sam Velazco Where: [facility] Consent for Procedure/Surger yon 11-05-2021 Consent for Procedure/Surgery [id number] 0CD:[id number] [facility] Patient Educationon 11-06-19 22 Patient Education Urology Vasectomy, Care After This sheet gives you information about how to care for yourself after your procedure. Your health care provider may also give you more specific instructions. If you have problems or questions, contact your health care provider. What can I expect after the procedure? After your procedure, it is common to have: ? Mild pain, swelling, redness, or discomfort in your scrotum. ? Some blood coming from your incisions or puncture sites for one or two days. ? Blood in your semen. Follow these instructions at home: Medicines ? Take zqga-xbs-jtxmown and prescription medicines only as told by your health care provider. ? Avoid taking NSAIDs such as aspirin and ibuprofen, because these medicines can make bleeding worse. Activity ? For the first 2 days after surgery, avoid physical activity and exercise that require a lot of energy. Ask your health care provider what activities are safe for you. ? Do not participate in sports or perform heavy physical labor until your pain has improved, or until your health care provider says it is okay. ? Do not ejaculate for at least 1 week after the procedure, or as long as directed. ? You may resume sexual activity 7?10 days after your procedure, or when your health care provider approves. Use a different method of control (contraception) until you have had test results that confirm that there is no sperm in your semen. Scrotal support ? Use scrotal support, such as a jock strap or underwear with a supportive pouch, as needed for one week after your procedure. ? If you feel discomfort in your scrotum, you may remove the scrotal support to see if the discomfort is relieved. Sometimes scrotal support can press on the scrotum and cause or worsen discomfort. ? If your skin gets irritated, you may add some germ-free (sterile), fluffed bandages or a clean washcloth to the scrotal support. General instructions ? Put ice on the injured area: ? Put ice in a plastic bag. ? Place a towel between your skin and the bag. ? Leave the ice on for 20 minutes, 2?3 times a day. ? Check your incisions or puncture sites every day for signs of infection. Check for: ? Redness, swelling, or pain. ? Fluid or blood. ? Warmth. ? Pus or a bad smell. ? Leave stitches (sutures) in place. The sutures will dissolve on their own and do not need to be removed. ? Keep all follow-up visits as told by your health care provider. This is important because you will need a test to confirm that there is no sperm in your semen. Multiple ejaculations are needed to clear out sperm that were beyond the vasectomy site. You will need one test result showing that there is no sperm in your semen before you can resume unprotected sex. This may take 2?4 months after your procedure. ? Do not drive for 24 hours if you were given a sedative to help you relax. Contact a health care provider if: ? You have redness, swelling, or more pain around your incision or puncture site, or in your scrotum area in general. ? You have bleeding from your incision or puncture site. ? You have pus or a bad smell coming from your incision or puncture site. ? You have a fever. ? Your incision or puncture site opens up. Get help right away if: ? You develop a rash. ? You have difficulty breathing. Summary ? After your procedure it is common to have mild pain, swelling, redness, or discomfort in your scrotum. ? Avoid physical activity and exercise that requires a lot of energy for the first 2 days after surgery. ? Put ice on the injured area. Leave the ice on for 20 minutes, 2?3 times a day. ? Do not drive for 24 hours if you were given a sedative to help you relax. This information is not intended to replace advice given to you by your health care provider. Make sure you discuss any questions you have with your health care provider. Document Released: 09/16/2005 Document Revised: 02/09/2018 Document Reviewed: 05/26/2017 [employer]2 Patient Education ? 2019 [email or web address]. Normal [facility] Urology Office/Clinic Noteon 11-05-2021 Urology Office/Clinic Note Chief Complaint Cysto/vasectomy HPI Staff This is a 46 year old male here for Cysto/vasectomy. History of Present Illness Tests reviewed: none. I have reviewed the previous health record information and history for this patient from Dr. Garduno. I have reviewed and verified the staff HPI to be accurate for this encounter. There have been no associated fever, chills, flank pain, or blood in the urine. Denies any urinary infections since last encounter. Review of Systems ROS - Provider Constitutional: denies weight loss, denies hot flashes. Eyes: denies eye problems. Gastrointestinal: denies nausea, denies vomiting. Cardiovascular: denies chest pain or angina. Integumentary: no dryness Musculoskeletal: denies musculoskeletal symptoms. ENMT: denies otolaryngeal symptoms. Respiratory: no shortness of breath. Heme/Lymph: denies easy bleeding tendency, denies easy bruising tendency. Psychiatric: no confusion, no anxiety. Genitourinary: denies dysuria, denies hematuria, denies discharge, denies urinary frequency, denies urinary hesitancy, denies nocturia, denies incontinence, denies genital sores, denies decreased libido, and denies erectile dysfunction. Procedure Operative Information Anesthesia Type: Local Procedure: Local Cystoscopy Complications: None Surgical risks, benefits, details of the procedure have been explained to the patient. Full informed consent has been obtained. Intraoperative Information Prepped: Patient is brought back to the endoscopy suite. Patient is placed in supine position. Patient prepped in the usual fashion with Betadine solution. 2% Xylocaine Jelly is placed per Urethra. After waiting several minutes, the Cystoscope is introduced. The Urethra is: Normal The Prostatic Urethra is: Moderate Hypertrophy, 3 cm, moderate lateral lobe, no median lobe The Bladder: no tumors, no stones, Trabeculated: Mild (1) The Ureteral orifices: Show efflux of clear urine Specimens Removed: None Removal: Cystoscope is removed. The patient tolerated it well. Postoperative Information Patient is discharged home with antibiotic coverage. Follow up arranged. Operative Information Anesthesia Type: Local Procedure: Bilateral Segmental Vasectomy Complications: None Surgical risks, benefits, details of the procedure have been explained to the patient. Full informed consent has been obtained. Intraoperative Information The patient is brought back to the operating room and placed in the supine position. He is prepped appropriately and draped. The skin and vas deferens are then anesthetized and the incision is made and carried down through the scrotal skin down to the level of the vas deferens which has been isolated. The bilateral segmental vasectomy is performed and the proximal and distal ends are ligated, isolated from each other, and allowed to fall back into the scrotal incision. The skin is then closed with interrupted sutures after hemostasis is achieved with electrocautery. Postoperative Information He tolerated the procedure well and is subsequently discharged home on oral antibiotics and with the discharge instructions. Assessment/Plan 1. Encounter for vasectomy (Z30.2: Encounter for sterilization) Vasectomy IO today without complications, pt tolerated well. The patient tolerated the procedure well without complications. He should refrain from strenuous activity for the next 4-5 days and ice the scrotum as needed. The antibiotic course should be completed. The post-vasectomy instruction sheet is given to the patient. 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 Pain medicines have been provided. He is aware that he is not sterile until he has a negative semen analysis which will be checked after about two months and after 20-30 ejaculations. He should deliver the semen specimen to the lab within 30 min. of ejaculation and he will call one week later to get the results. Pt to follow up in 2 weeks. 2. BPH without obstruction/lower urinary tract symptoms (N40.0: Benign prostatic hyperplasia without lower urinary tract symptoms) Cysto in office today. Pt voids about 500 cc twice per night. Will start Tamsulosin 0.4mg qd. Discussed the medication side effects, and the patient will monitor closely for these, as well as for symptom improvement. If severe side effects occur, the medication should be stopped and the office notified. Overall the patient tolerates the vasectomy and cystoscopy without difficulty. We discussed the options regarding his very minimal prostatic enlargement and the significant nocturia and BPH symptoms. He does have obstructive sleep apnea so it is certainly possible that increased urine output at night which she has actually documented, up to 1 L, may be the etiology of nocturia. He may be interested in seeking out a sleep study to see if he is a candidate for BiPAP/CPAP. He would however like to try some tamsulosin so we did speak about this and sent a prescription to the (more content not included)... Normal [facility] Comment on above: Result Comment: Elec tronically Signed By: Sam GARDUNO MD\.br\Date and Time Signed: 11/05/21 08:24 EDT\.br\Electronically Co-Signed By: Tomeka Montalvo\.br\Date and Time Co-Signed: 11/05/21 08:19 EDT ECHOCARDIO M/2D COMPLETEon 0 10-22-2021 ECHOCARDIO M/2D COMPLETE Patient: MARISELA HAHNRas Exam Date: 10/22/2021 : 1975 Gender:M Ordering : DR NICOLASA BULLOCK M.D. Admission #: [id number] Family : Order #: [id number] CLICK HERE TO VIEW EXAM ECHOCARDIOGRAM REPORT PROCEDURE: CARDIO PULMONARY ECHOCARDIO M/2D COMP INDICATIONS: Syncope COMPARISON: None. DESCRIPTION: COMPLETE ECHOCARDIOGRAM Real-time transthoracic echocardiography with 2D, M-mode, spectral and color flow Doppler performed. QUALITY: Technical quality was good. LEFT VENTRICLE: Normal chamber size. Moderate concentric left ventricular hypertrophy. The interventricular septum measures 1.7 cm in the posterior wall measures 1.6 cm. Global left ventricular systolic function is normal. LV EF: Calculated left ventricular ejection fraction is 58%. DIASTOLIC: Grade I diastolic dysfunction. ATRIAL SEPTUM: LEFT ATRIUM: Mild dilatation. RIGHT ATRIUM: Mild dilatation. RIGHT VENTRICLE: Normal chamber size. Normal right ventricular systolic function. TRICUSPID VALVE: Normal mobility and thickness. No stenosis with trivial regurgitation. No evidence of pulmonary hypertension. RVSP 29 mmHg. MITRAL VALVE: Normal mobility and thickness. No mitral valve prolapse. No evidence of mitral valve stenosis. There is no mitral annular calcification. Trivial mitral regurgitation. AORTIC VALVE: Normal trileaflet appearance. No visible sclerosis. Normal leaflet mobility. No evidence of aortic valve stenosis. No aortic regurgitation. AORTIC ROOT: Normal diameter and appearance. PULMONIC VALVE: Normal thickness and mobility. No stenosis. Trivial regurgitation. PERICARDIUM: No evidence of pericardial effusion. IVC: Collapses with inspirations. Normal size. PLEURA: CONCLUSION: 1. Moderate concentric left ventricular hypertrophy. 2. Normal ventricular systolic function. LVEF is 55 to 60%. 3. Mild diastolic dysfunction. 4. No significant valvular dysfunction. 5. Normal right-sided pressures. 6. No pericardial effusion. Dictated by: Edouard Severino M.D. on 10/22/2021 at 16:22 Approved by: Edouard Severino M.D. on 10/22/2021 at 16:29 Normal [facility] CBC AUTO DIFFon 08-06-2021 BASO # 0.0 103/ul Normal 0.0-0.1 [facility] Comment on above: Performed By: #### C BC #### [facility] [address] [place] [address] Dr. Tiana Luong Basophils/100 WBC (Bld) 0.8 % Normal 0.2-2.0 [facility] Comment on above: Performed By: #### C BC #### [facility] [address] [address] [address] Tiana Luong EO # 0.1 103/ul Normal 0.0-0.7 [facility] Comment on above: Performed By: #### C BC #### [facility] [address] [address] [address] Tiana Luong Eosinophils/100 WBC (Bld) 1.4 % Normal 0.9-7.0 [facility] Comment on above: Performed By: #### C BC #### [facility] [address] [address] [address] Tiana Luong Erythrocyte distribution width (RBC) [Ratio] 14.6 % Normal 11.0-15.0 [facility] Comment on above: Performed By: #### C BC #### [facility] [address] [place] [address] Dr. Tiana Luong Hematocrit (Bld) [Volume fraction] 49.2 % Normal 42.0-54.0 [facility] Comment on above: Performed By: #### C BC #### [facility] [address] [address] [address] Tiana Luong Hemoglobin (Bld) [Mass/Vol] 16.0 g/dL Normal 14.0-18.0 [facility] Comment on above: Performed By: #### C BC #### [facility] [address] [address] [address] Tiana Luong IG # 0.03 10e3/ul Normal 0.00-0.03 [facility] Comment on above: Performed By: #### C BC #### [facility] [address] [place] [address] Dr. Tiana Luong IG % 0.6 % Critically high 0.0-0.5 [facility] Comment on above: Performed By: #### C BC #### [facility] [address] [place] [address] Dr. Tiana Luong LYMPH # 0.9 103/ul Critically low 1.2-3.8 [facility] Comment on above: Performed By: #### C BC #### [facility] [address] [place] [address] Dr. Tiana Luong Lymphocytes/100 WBC (Bld) 18.8 % Critically low 20.5-60.0 [facility] Comment on above: Performed By: #### C BC #### [facility] [address] [place] [address] Dr. Tiana Luong MANUAL DIFF REQ NO Normal [facility] Comment on above: Performed By: #### C BC #### [facility] [address] [place] [address] Dr. Tiana Luong MCH (RBC) [Entitic mass] 28.4 pg Normal 25.9-34.0 [facility] Comment on above: Performed By: #### C BC #### [facility] [address] [place] [address] Dr. Tiana Luong MCHC (RBC) [Mass/Vol] 32.5 g/dL Normal 29.9-35.2 [facility] Comment on above: Performed By: #### C BC #### [facility] [address] [address] [address] Tiana Luong MCV (RBC) [Entitic vol] 87.4 fL Normal 80.0-94.0 [facility] Comment on above: Performed By: #### C BC #### [facility] [address] [address] [address] Tiana Luong MONO # 0.4 103/ul Normal 0.3-0.8 [facility] Comment on above: Performed By: #### C BC #### [facility] [address] [place] [address] Dr. Tiana Luong Monocytes/100 WBC (Bld) 8.7 % Normal 1.7-12.0 [facility] Comment on above: Performed By: #### C BC #### [facility] [address] [place] [address] Dr. Tiana Luong NEUT # 3.4 103/ul Normal 1.4-6.5 [facility] Comment on above: Performed By: #### C BC #### [facility] [address] [place] [address] Dr. Tiana Luong Neutrophils/100 WBC (Bld) 69.7 % Normal 43.0-75.0 [facility] Comment on above: Performed By: #### C BC #### [facility] [address] [place] [address] Dr. Tiana Luong Platelet mean volume (Bld) [Entitic vol] 9.7 fL Normal 9.5-13.5 [facility] Comment on above: Performed By: #### C BC #### [facility] [address] [place] [address] Dr. Tiana Luong PLT 167 103/ul Normal 150-450 [facility] Comment on above: Performed By: #### C BC #### [facility] [address] [place] [address] Dr. Tiana Luong RBC 5.63 106/ul Normal 4.70-6.10 [facility] Comment on above: Performed By: #### C BC #### [facility] [address] [place] [address] Dr. Tiana Luong WBC 4.9 103/ul Normal 4.0-11.0 [facility] Comment on above: Performed By: #### C BC #### [facility] [address] [place] [address] Dr. Tiana Luong FREE T4on 08-06-2021 Free T4 [Mass/Vol] 0.80 ng/dL Normal 0.76-1.46 [facility] Comment on above: Performed By: #### F T4 #### [facility] [address] [place] [address] Dr. Tiana Luong PROF 14(COMP METB)on 022 Albumin [Mass/Vol] 3.9 g/dL Normal 3.4-5.0 [facility] Comment on above: Performed By: #### C MP, TSH #### [facility] [address] [place] [address] Dr. Tiana Luong Albumin/Globulin [Mass ratio] 1.3 {ratio} Normal [facility] Comment on above: Performed By: #### C MP, TSH #### [facility] [address] [place] [address] Dr. Tiana Luong ALP [Catalytic activity/Vol] 60 U/L Normal 46-116 [facility] Comment on above: Performed By: #### C MP, TSH #### [facility] [address] [place] [address] Dr. Tiana Luong ALT [Catalytic activity/Vol] 21 U/L Normal 16-63 [facility] Comment on above: Performed By: #### C MP, TSH #### [facility] [address] [place] [address] Dr. Tiana Luong Anion gap [Moles/Vol] 11.0 mmol/L Normal [facility] Comment on above: Performed By: #### C MP, TSH #### [facility] [address] [place] [address] Dr. Tiana Luong AST [Catalytic activity/Vol] 17 U/L Normal 15-37 [facility] Comment on above: Performed By: #### C MP, TSH #### [facility] [address] [address] [address] Tiana Luong Bilirubin [Mass/Vol] 0.5 mg/dL Normal 0.2-1.0 [facility] Comment on above: Performed By: #### C MP, TSH #### [facility] [address] [place] [address] Dr. Tiana Luong Calcium [Mass/Vol] 9.0 mg/dL Normal 8.5-10.1 [facility] Comment on above: Performed By: #### C MP, TSH #### [facility] [address] [place] [address] Dr. Tiana Luong Chloride [Moles/Vol] 106 mmol/L Normal 98-107 [facility] Comment on above: Performed By: #### C MP, TSH #### [facility] [address] [place] [address] Dr. Tiana Luong CO2 [Moles/Vol] 27.2 mmol/L Normal 21.0-32.0 [facility] Comment on above: Performed By: #### C MP, TSH #### [facility] [address] [place] [address] Dr. Tiana Luong Creatinine [Mass/Vol] 0.93 mg/dL Normal 0.70-1.30 [facility] Comment on above: Performed By: #### C MP, TSH #### [facility] [address] [place] [address] Dr. Tiana Luong EGFR-AF BURKINAN >60 Normal >=60 [facility] Comment on above: Performed By: #### C MP, TSH #### [facility] [address] [place] [address] Dr. Tiana Luong EGFR-NON AF BURKINAN >60 Normal >=60 [facility] Comment on above: Performed By: #### C MP, TSH #### [facility] [address] [place] [address] Dr. Tiana Luong Globulin (S) [Mass/Vol] 3.1 g/dL Normal [facility] Comment on above: Performed By: #### C MP, TSH #### [facility] [address] [address] [address] Tiana Luong Glucose [Mass/Vol] 96 mg/dL Normal 74-106 [facility] Comment on above: Performed By: #### C MP, TSH #### [facility] [address] [address] [address] Tiana Luong Potassium [Moles/Vol] 4.2 mmol/L Normal 3.5-5.1 [facility] Comment on above: Performed By: #### C MP, TSH #### [facility] [address] [place] [address] Dr. Tiana Luong Protein [Mass/Vol] 7.0 g/dL Normal 6.4-8.2 [facility] Comment on above: Performed By: #### C MP, TSH #### [facility] [address] [place] [address] Dr. Tiana Luong Sodium [Moles/Vol] 140 mmol/L Normal 136-145 [facility] Comment on above: Performed By: #### C MP, TSH #### [facility] [address] [place] [address] Dr. Tiana Luong Urea nitrogen [Mass/Vol] 19.0 mg/dL Critically high 7.0-18.0 [facility] Comment on above: Performed By: #### C MP, TSH #### [facility] [address] [place] [address] Dr. Tiana Luong Urea nitrogen/Creatinin e [Mass ratio] 20.4 mg/mg Normal [facility] Comment on above: Performed By: #### C MP, TSH #### [facility] [address] [place] [address] Dr. Tiana Luong TSHon 08-06-2021 TSH 1.417 uIU/mL Normal 0.358-3.740 [facility] Comment on above: Performed By: #### C MP, TSH #### [facility] [address] [place] [address] Dr. Tiana Luong TSH RANGE SEE BELOW Normal [facility] Comment on above: Result Comment: <0.3 4 UIU/ml HYPERTHYROID 0.34-5.60 UIU/ml EUTHYROID >5.60 UIU/ml HYPOTHYROID Performed By: #### C MP, TSH #### [facility] [address] [address] [address] Tiana Luong COVID-19/INFLUENZA A,B ANGELI Aliciasergo 02-18-2020 COVID-19/INFLUENZA A,B MOLECULAR SARS-COV-2 (NATALYA): Not Detected INFLUENZA A (NATALYA): Not Detected INFLUENZA B (NATALYA): Not Detected Normal Not Detected [facility] Comment on above: Order Comment: This test was performed under the FDA's Emergency Use Authorization (EUA). Testing was performed using the Pooja melchor SARS-CoV-2 AND Influenza A/B Nucleic Acid Test on the melchor Natayla System. This test has not been approved for use in asymptomatic patients and its performance in this patient population has not been evaluated. Negative results do not rule out the presence of SARS-CoV-2, influenza A, and/or influenza B. Fact sheets for the EUA can be found at the following links: For Healthcare Providers: https://www.fda.gov/media/716431/download For Patients: https://www.fda.gov/media/580034/download Performed By: #### L [id number] #### [facility] [address] [address] Mike King MD [id number] PED CT DISSECTION WITH PELVISon 02-18-2020 CT DISSECTION WITH PELVIS EXAMINATION: CTA DISSECTION CHEST ABDOMEN PELVIS WITHOUT AND WITH CONTRAST 02/18/2020 12:25 am TECHNIQUE: CTA of the chest, abdomen and pelvis was performed before and after the administration of intravenous contrast as per dissection protocol. Multiplanar reformatted images are provided for review. MIP images are provided for review. Dose modulation, iterative reconstruction, and/or weight based adjustment of the mA/kV was utilized to reduce the radiation dose to as low as reasonably achievable. COMPARISON: None. HISTORY: ORDERING SYSTEM PROVIDED HISTORY: back pain worsening for 2 weeks; abdominal pain and tenderness; TECHNOLOGIST PROVIDED HISTORY: Illness/Other Acuity: Acute Reason for Exam: back pain worsening for 2 weeks; abdominal pain and tenderness Type of Encounter: Initial Additional signs and symptoms: n FINDINGS: CTA CHEST: There is no aortic aneurysm or dissection. The heart size is normal. There is no pericardial effusion or mediastinal hematoma. There is no adenopathy. The central airways are patent. There is no pneumothorax or pleural effusion. The lungs are clear. There is no acute osseous abnormality. CTA ABDOMEN/PELVIS: There is no aneurysm or dissection. No retroperitoneal hemorrhage is seen. There is fatty infiltration of the liver. The gallbladder is contracted. The spleen, pancreas and kidneys are grossly negative. There are bilateral adrenal gland nodules which measure 2.0 cm on the right and 1.7 cm on the left. Small bowel and the appendix are unremarkable. Sigmoid colon diverticula are noted without evidence for diverticulitis. There is no adenopathy or mesenteric stranding. The bladder is grossly negative. No acute osseous abnormality is identified. IMPRESSION: 1. No aneurysm or dissection. 2. No acute findings in the chest, abdomen or pelvis. 3. Indeterminate bilateral adrenal gland nodules, probably benign. Adrenal protocol CT scan or MRI is recommended in 12 months. 4. Diverticulosis without scan evidence for diverticulitis. Workstation ID: [id number] Dictated by: JENNIFER AGUILA on MonFeb 18, 2020 1:23:37 AM EST Transcribed by: JENNIFER AGUILA on MonFeb 18, 2020 1:23:37 AM EST Finalized by: JENNIFER AGUILA on MonFeb 18, 2020 1:23:[address] [facility] Comment on above: Order Comment: Injur y/Trauma or Illness?:Illness/Other How long have you had these symptoms (acute/chronic)?:Acute Reason for exam?:back pain worsening for 2 weeks; abdominal pain and tenderness Type of Exam?:Initial Additional signs and symptoms?:n XR LUMBAR SPINE 2-3 VIEWS (S TANDARD)on 02-17-2020 XR LUMBAR SPINE 2-3 VIEWS (STANDARD) EXAMINATION: THREE XRAY VIEWS OF THE LUMBAR SPINE 02/17/2020 9:16 pm COMPARISON: None. HISTORY: ORDERING SYSTEM PROVIDED HISTORY: back pain; TECHNOLOGIST PROVIDED HISTORY: Illness/Other Acuity: Acute Reason for Exam: back pain Cancer History: n Surgery, Radiation History: n Type of Encounter: Initial Additional signs and symptoms: x many weeks but much worse pain today FINDINGS: Three views of the lumbar spine demonstrate no acute fracture or dislocation. Alignment is anatomic. Moderate degenerative disc disease at L5-S1 with vacuum disc phenomena present. Xmwh-ci-rwvtpaoe facet arthropathy of the lumbar spine which is most pronounced distally. IMPRESSION: 1. No acute osseous abnormality of the lumbar spine. 2. Xabe-cj-oelmvlil degenerative changes which are most pronounced distally at L5-S1. Workstation ID: [id number] Dictated by: MAKENNA BOYKIN on MonFeb 17, 2020 9:29:23 PM EST Transcribed by: MAKENNA BOYKIN on MonFeb 17, 2020 9:29:23 PM EST Finalized by: MAKENNA BOYKIN on MonFeb 17, 2020 9:29:[address] [facility] Comment on above: Order Comment: Injur y/Trauma or Illness?:Illness/Other How long have you had these symptoms (acute/chronic)?:Acute Reason for exam?:back pain History of cancer?:n Surgeries, chemotherapy, or radiation?:n Type of Exam?:Initial Additional signs and symptoms?:x many weeks but much worse pain today Vital Signs Date Time Vital Sign Value Performing Clinician Facility 04-26-2023 15:53-0500 Body height 185.42 cm MD Nicolasa Bullock Work Phone: [facility] 04-26-2023 15:53-0500 Body mass index (BMI) [Ratio] 43.5 kg/m2 MD Nicolasa Bullock Work Phone: [facility] 04-26-2023 15:53-0500 Body weight 149.68 kg MD Nicolasa Bullock Work Phone: [facility] 04-26-2023 15:53-0500 Heart rate 84 /min MD Nicolasa Bullock Work Phone: [facility] 04-26-2023 15:53-0500 Respiratory rate 18 /min MD Nicolasa Bullock Work Phone: [facility] 04-26-2023 15:53-0500 SaO2% (BldA) [Mass fraction] 95 % MD Nicolasa Bullock Work Phone: [facility] 04-19-2023 09:23-0500 Diastolic blood pressure 88 mm[Hg] MD Nicolasa Bullock Work Phone: [facility] 04-19-2023 09:23-0500 Heart rate 82 /min MD Nicolasa Bullock Work Phone: [facility] 04-19-2023 09:23-0500 Respiratory rate 16 /min MD Nicolasa Bullock Work Phone: [facility] 04-19-2023 09:23-0500 SaO2% (BldA) [Mass fraction] 97 % MD Nicolasa Bullock Work Phone: [facility] 04-19-2023 09:23-0500 Systolic blood pressure 139 mm[Hg] MD Nicolasa Bullock Work Phone: [facility] 04-19-2023 08:05-0500 Body height 185.42 cm MD Nicolasa Bullock Work Phone: [facility] 04-19-2023 08:05-0500 Body weight 149.68 kg MD Nicolasa Bullock Work Phone: [facility] 04-03-2023 11:45-0500 Body height 181.61 cm MD Nicolasa Bullock Work Phone: [facility] 04-03-2023 11:45-0500 Diastolic blood pressure 92 mm[Hg] MD Nicolasa Bullock Work Phone: [facility] 04-03-2023 11:45-0500 Systolic blood pressure 156 mm[Hg] MD Nicolasa Bullock Work Phone: [facility] 03-03-2023 08:30-0500 Body height 181.61 cm Rivera Bermudez Other [facility] 03-03-2023 08:30-0500 Body mass index (BMI) [Ratio] 46.75 kg/m2 Rivera Bermudez Other [employer] [facility] [employer] Other 03-03-2023 08:30-0500 Body weight 154.22 kg Rivera Bermudez Other [facility] 03-03-2023 08:30-0500 Diastolic blood pressure 98 mm[Hg] Rivera Lara Other [facility] 03-03-2023 08:30-0500 Systolic blood pressure 150 mm[Hg] Riveraroge Bermudez Other [facility] 02-21-2023 09:00-0500 Body height 181.61 cm Riveraroge Bermudez Other [facility] 02-21-2023 09:00-0500 Body mass index (BMI) [Ratio] 46.48 kg/m2 Rviera Lara Other [facility] [employer] Other 02-21-2023 09:00-0500 Body weight 153.32 kg Rivera Bermudez Other [facility] [employer] Other 02-21-2023 09:00-0500 Body weight 153.31 kg MD Nicolasa Bullock Work Phone: [facility] 02-21-2023 09:00-0500 Diastolic blood pressure 90 mm[Hg] Riveraroge Bermudez Other [facility] 02-21-2023 09:00-0500 SaO2% (BldA) [Mass fraction] 97 % Rivera Lara Other [facility] [employer] Other 02-21-2023 09:00-0500 Systolic blood pressure 160 mm[Hg] Rivera Bermudez Other [facility] 02-20-2023 08:20-0500 Body height 181.61 cm Pattie Hardni Other [facility] 02-20-2023 08:20-0500 Body mass index (BMI) [Ratio] 46.34 kg/m2 Pattie Hardin Other [employer] Other 02-20-2023 08:20-0500 Body weight 152.86 kg Pattie Hardin Other [facility] 01-24-2023 13:30-0500 Body height 181.61 cm Deann Ortega Other [employer] Other 01-24-2023 13:30-0500 Body mass index (BMI) [Ratio] 46.64 kg/m2 Deann Ortega Other [employer] Other 01-24-2023 13:30-0500 Body weight 153.86 kg Deann Ortega Other [employer] Other 01-24-2023 13:30-0500 Diastolic blood pressure 96 mm[Hg] Deann Ortega Other [employer] Other 01-24-2023 13:30-0500 SaO2% (BldA) [Mass fraction] 98 % Deann Ortega Other [employer] Other 01-24-2023 13:30-0500 Systolic blood pressure 154 mm[Hg] Deann Ortega Other [employer] Other 11-02-2022 09:15-0400 Body height 181.61 cm Nicolasa Bullock Other [employer] Other 11-02-2022 09:15-0400 Body mass index (BMI) [Ratio] 45.38 kg/m2 Nicolasa Bullock Other [employer] Other 11-02-2022 09:15-0400 Body weight 149.69 kg Nicolasa Bullock Other [employer] Other 11-02-2022 09:15-0400 Diastolic blood pressure 86 mm[Hg] Nicolasa Bullock Other [employer] Other 11-02-2022 09:15-0400 Systolic blood pressure 150 mm[Hg] Nicolasa Bullock Other [employer] Other 05-16-2022 09:00-0500 Body height 181.61 cm Nicolasa Bullock Other [employer] Other 05-16-2022 09:00-0500 Body mass index (BMI) [Ratio] 43.73 kg/m2 Nicolasa Bullock Other [employer] Other 05-16-2022 09:00-0500 Body weight 144.24 kg Nicolasa Bullock Other [employer] Other 05-16-2022 09:00-0500 Diastolic blood pressure 100 mm[Hg] Nicolasa Bullock Other [employer] Other 05-16-2022 09:00-0500 SaO2% (BldA) [Mass fraction] 97 % Nicolasa Bullock Other [employer] Other 05-16-2022 09:00-0500 Systolic blood pressure 160 mm[Hg] Nicolasa Bullock Other [employer] Other 05-09-2022 09:00-0500 Body height 181.61 cm Nicolasa Bullock Other [employer] Other 05-09-2022 09:00-0500 Body mass index (BMI) [Ratio] 44.28 kg/m2 Nicolasa Bullock Other [employer] Other 05-09-2022 09:00-0500 Body weight 146.06 kg Nicolasa Bullock Other [employer] Other 05-09-2022 09:00-0500 Diastolic blood pressure 102 mm[Hg] Nicolasa Bullock Other [facility] [employer] Other 05-09-2022 09:00-0500 SaO2% (BldA) [Mass fraction] 97 % Nicolasa Bullock Other [facility] [employer] Other 05-09-2022 09:00-0500 Systolic blood pressure 162 mm[Hg] Nicolasa Bullock Other [facility] [employer] Other 11-16-2021 08:12-0400 Blood Pressure Location [employer] [facility] 11-16-2021 08:12-0400 Diastolic blood pressure 88 mm[Hg] Sam COOK [facility] 11-16-2021 08:12-0400 Heart rate 70 /min Sam [employer] [facility] 11-16-2021 08:12-0400 Respiratory rate 16 /min Sam [employer] [facility] 11-16-2021 08:12-0400 Systolic blood pressure 130 mm[Hg] Sam COOK [facility] 08-13-2021 10:19-0400 Blood Pressure Location Sam COOK [facility] 08-13-2021 10:19-0400 Diastolic blood pressure 89 mm[Hg] Sam COOK [facility] 08-13-2021 10:19-0400 Heart rate 77 /min Sam COOK [facility] 08-13-2021 10:19-0400 Systolic blood pressure 133 mm[Hg] Sam GARDUNO [facility] Encounters Encounter Date Encounter Type Care Provider Facility Start: 04-26-2023 End: 04-26-2023 ambulatory MD Nicolasa Bullock Work Phone: [facility] Work Phone: Start: 04-26-2023 End: 04-26-2023 Patient encounter procedure MD Nicolasa Bullock Work Phone: [facility] Work Phone: Start: 04-21-2023 End: 04-21-2023 ambulatory [facility] Start: 04-19-2023 (PROC) PROCEDURE Rivera Bermudez [facility] Start: 04-19-2023 End: 04-19-2023 ambulatory Rivera Bermudez Facility:[facility] Start: 04-19-2023 End: 04-19-2023 Admission to same day surgery center MD Nicolasa Bullock Work Phone: [facility] Work Phone: Start: 04-19-2023 End: 04-19-2023 ambulatory MD Nicolasa Bullock Work Phone: [facility] Work Phone: Start: 04-03-2023 End: 04-03-2023 Patient encounter procedure MD Nicolasa Bullock Work Phone: [facility]- Start: 03-03-2023 End: 03-03-2023 ambulatory Rivera Bermudez Other [employer] Other Start: 03-03-2023 Patient encounter procedure Rivera Bermudez [facility] Start: 03-03-2023 End: 03-03-2023 Patient encounter procedure MD Nicolasa Bullock Work Phone: [facility] Work Phone: Start: 02-28-2023 End: 02-28-2023 ambulatory Deann Ortega Other [employer] Other Start: 02-28-2023 Telephone encounter Deann Ortega [facility] Start: 02-21-2023 End: 02-21-2023 ambulatory Rivera Lara Other [employer] Other Start: 02-21-2023 Office outpatient vi sit 25 minutes Rivera Bermudez [facility] Start: 02-21-2023 End: 02-21-2023 Patient encounter procedure MD Nicolasa Bullock Work Phone: [facility] Work Phone: Start: 02-20-2023 End: 02-20-2023 ambulatory Pattie Hardin Other [employer] Other Start: 02-20-2023 Office outpatient ne w 45 minutes Pattie Hardin [facility] Start: 02-20-2023 End: 02-20-2023 Patient encounter procedure MD Nicolasa Bullock Work Phone: [facility] Work Phone: Start: 02-17-2023 End: 02-17-2023 ambulatory Nicolasa Bullock Facility:[facility] Start: 02-17-2023 End: 02-17-2023 ambulatory MD Nicolasa Bullock Work Phone: [facility] Work Phone: Start: 02-17-2023 End: 02-17-2023 Patient encounter procedure MD Nicolasa Bullock Work Phone: [facility] [place] Work Phone: Start: 01-24-2023 End: 01-24-2023 ambulatory Deann Ortega Other [employer] Other Start: 01-24-2023 Office outpatient vi sit 15 minutes Deannbecka Ortega [facility] Start: 01-24-2023 End: 01-24-2023 Patient encounter procedure MD Nicolasa Bullock Work Phone: [facility] Work Phone: Start: 12-06-2022 End: 12-06-2022 ambulatory Rivera Lara Other [facility] [employer] Other Start: 12-06-2022 Telephone encounter Rivera Bermudez [facility] Start: 12-05-2022 End: 12-05-2022 ambulatory Nicolasa Bullock Facility:[facility] Start: 12-05-2022 End: 12-05-2022 ambulatory MD Nicolasa Bullock Work Phone: [facility] Work Phone: Start: 12-05-2022 End: 12-05-2022 Patient encounter procedure MD Nicolasa Bullock Work Phone: [facility] Work Phone: Start: 11-02-2022 End: 11-02-2022 ambulatory Nicolasa Bullock Other [facility] [employer] Other Start: 11-02-2022 Office outpatient vi sit 15 minutes Nicolasa Bullock [facility] Start: 11-01-2022 End: 11-01-2022 ambulatory DONALD NGO [facility] Start: 08-17-2022 End: 08-17-2022 ambulatory RUPERTO CANTRELL [facility] Start: 08-09-2022 End: 08-09-2022 ambulatory ANTHONY [facility] Start: 07-20-2022 Encounter for other specified special examinations BAILEY FRYE [facility] Start: 07-14-2022 End: 07-15-2022 ambulatory BAILEY FRYE Facility:[facility] Start: 07-14-2022 End: 07-15-2022 Encounter for other specified special examinations BAILEY FRYE Facility:[facility] Start: 07-01-2022 End: 07-02-[address] DOCTOR NAVAS Facility:[facility] Start: 05-16-2022 End: 05-16-2022 ambulatory Nicolasa Bullock Other [employer] Other Start: 05-16-2022 Office outpatient vi sit 15 minutes Nicolasa Bullock [facility] Start: 05-11-2022 End: 05-12-[address] NICOLASA BULLOCK Facility:[facility] Start: 05-09-2022 End: 05-09-2022 ambulatory Nicolasa Bullock Other [employer] Other Start: 05-09-2022 Office outpatient vi sit 15 minutes Nicolasa Bullock [facility] Start: 04-20-2022 End: 04-20-[address] MAI HITCHCOCK . Facility:[facility] Start: 11-16-2021 End: 11-17-2021 ambulatory Sam GARDUNO Facility:[facility] Start: 11-16-2021 End: 11-16-2021 Patient encounter procedure Sam GARDUNO [facility] [place] Start: 11-05-2021 End: 11-06-2021 ambulatory Sam GARDUNO Facility:[facility] Start: 11-05-2021 End: 11-06-2021 ambulatory Sam GARDUNO Facility:[facility] Start: 11-05-2021 End: 11-05-2021 Lab Drop off Sam GARDUNO [facility] Start: 10-22-2021 End: 10-23-[address] NICOLASA BULLOCK Facility:[facility] Start: 08-13-2021 End: 08-13-2021 Patient encounter procedure Sam GARDUNO [facility] Start: 08-06-2021 End: 08-07-[address] NICOLASA BULLOCK Facility: Start: 02-17-2020 End: 02-18-2020 Emergency department patient visit NICOLASA BULLOCK [facility] Procedures Date Procedure Procedure Detail Performing Clinician Start: 04-19-2023 Local anesthetic lum bar facet joint nerve block MD Nicolasa Bullock Work Phone: Start: 02-17-2023 MRI of cervical spin e without contrast MD Nicolasa Bullock Work Phone: Start: 12-05-2022 X-ray of cervical spine MD Nicolasa Bullock Work Phone: Start: 11-16-2021 H/O: vasectomy Sam GARDUNO Start: 11-05-2021 Cystoscope, device (physical object) Sam GARDUNO Start: 11-05-2021 Vasectomy Sam LINCOLN Plan of Treatment Date Care Activity Detail Author Start: 04-19-2023 [facility] Start: 02-17-2023 MR Cervical spine WO contrast [facility] Start: 02-17-2023 MRI of cervical spin e without contrast MR cervical spine wo con [facility] Patient Education Lara Diagnostic Block F [facility] Work Phone: Patient referral [facility] Work Phone: Immunizations Immunization Date Immunization Notes Care Provider Fa jerry 08-12-2021 SARS-CoV-2 mRNA (tozinameran 5y-11y) vaccine Sam GARDUNO [facility] [place] 03-13-2021 SARS-CoV-2 mRNA (tozinameran 5y-11y) vaccine Sam GARDUNO [facility] 06-11-2020 SARS-CoV-2 mRNA (tozinameran 5y-11y) vaccine Sam GARDUNO [facility] [place] 05-11-2020 SARS-CoV-2 mRNA (tozinameran 5y-11y) vaccine Sam GARDUNO [facility] [place] Payers Date Payer Category Payer Self-pay 2021 Medicaid [id number]. [id number] 2020 Medicaid [id number] 1975 Unknown [id number] 2.16.8 [id number] 1975 Unknown [id number] 2.16.84 [id number] 1975 Unknown [id number] 2.16.84 [id number] 1975 Unknown [id number] 2.16.84 [id number] 1975 Unknown [id number] 2.16.84 [id number] 1975 Unknown [id number] 2.16.84 [id number] 1975 Unknown [id number] 2.16.84 [id number] 1975 Unknown [id number] 2.16.8 [id number] 1975 Unknown [id number] 2.16.8 [id number] 1975 Unknown [id number] 2.16.8 [id number] 1959 Unknown [id number] Unknown [id number] 2.16.8 [id number] Unknown [id number] 2.16.8 [id number] Unknown [id number] 2.16.8 [id number] Social History Date Type Detail Facility Start: 08-13-2021 Tobacco smoking status Never s moked tobacco (finding) [facility] Tobacco smoking status Never [facility] Sex Assigned At Male [facility] Start: 1975 Sex Assigned At Male F [facility] Start: 04-03-2023 Tobacco smoking stat NHIS Ex-smoker (finding) [facility] Goals Date Patient Goal Desired Activity /State Functional Status Date Assessment Result Facility 11-16-2021 Functional Status N/A [facility] Clinical Notes 08-13-2021 to 04-21-2023 Note Date & Type Note Facility 04-21-2023 Note [facility] CARDIOLOGY PROGR ESS NOTE HPI: Marisela Hahn is a 48 y.o. male here for f/U for uncontrolled HTN HPI Pt presents to clinic for HTN evaluation. Patient adamantly denies any cardiac complaints or concerns. Patient denies any chest pain or shortness of breath. Patient denies any lower extremity edema, orthopnea, or proximal nocturnal dyspnea. No near-syncope or syncope. No dizziness or lightheadedness. He states that his blood pressure is much better controlled at home. No additional complaints or concerns. He is not taking sprinolactone because he thinks it was not refilled in error. Review of Systems 10 point ROS is performed and is negative unless otherwise specified per HPI Visit Vitals BP (!) 140/93 (BP Location: Right arm, Patient Position: Sitting) Pulse 70 Ht 1.854 m (6' 1 ) Wt (!) 150 kg (330 lb) SpO2 97% BMI 43.54 kg/m??? Smoking Status Never BSA 2.78 m??? Allergies Allergen Reactions Keflex [Cephalexin] Rash Medications: Current Outpatient Medications on File Prior to Visit Medication Sig Dispense Refill aspirin 81 mg EC tablet Take 81 mg by mouth in the morning. busPIRone (Buspar) 10 mg tablet Take 10 mg by mouth in the morning and at bedtime. carvedilol (Coreg) 25 mg tablet Take 25 mg by mouth with breakfast and with evening meal. chlorthalidone (Hygroton) 25 mg tablet TAKE 1 TABLET BY MOUTH IN THE MORNING 90 tablet 3 escitalopram (Lexapro) 10 mg tablet Take 10 mg by mouth in the morning. lisinopril 40 mg tablet Take 40 mg by mouth in the morning. NIFEdipine XL (Procardia XL) 60 mg 24 hr tablet Take 1 tablet (60 mg) by mouth in the morning. Do not crush, chew, or split. Stop taking amlodipine. Start with taking nifedipine 60mg once daily. Continue to monitor BP. 180 tablet 3 tamsulosin (Flomax) 0.4 mg 24 hr capsule Take 0.4 mg by mouth in the morning. tiZANidine (Zanaflex) 4 mg tablet TAKE 1/2 TO 1 (ONE-HALF TO ONE) TABLET BY MOUTH AT BEDTIME venlafaxine XR (Effexor-XR) 150 mg 24 hr capsule Take 150 mg by mouth in the morning. Do not crush or chew. spironolactone (Aldactone) 25 mg tablet Take 1 tablet (25 mg) by mouth in the morning. (Patient not taking: Reported on 04/21/2023) 90 tablet 3 No current facility-administered medications on file prior to visit. Physical Exam: Constitutional: Appearance: Normal appearance. Without apparent distress, obese HENT: Head: Normocephalic and atraumatic. Nose: Nose normal. Mouth/Throat: Mouth: Mucous membranes are moist. Eyes: Extraocular Movements: Extraocular movements intact. Conjunctiva/sclera: Conjunctivae normal. Neck: Vascular: No JVD. Cardiovascular: Rate and Rhythm: Normal rate and regular rhythm. Pulses: Dorsalis pedis pulses are 3 on the right side and 3on the left side. Posterior tibial pulses are 3 on the right side and 3 on the left side. Heart sounds: Normal heart sounds, S1 normal and S2 normal. Pulmonary: Effort: Pulmonary effort is normal. Breath sounds: Normal breath sounds. Abdominal: General: Bowel sounds are normal. Palpations: Abdomen is soft. Musculoskeletal: General: Normal range of motion. Cervical back: Normal range of motion. Right lower leg: No edema. Left lower leg: No edema. Skin: General: Skin is warm and dry. Capillary Refill: Capillary refill takes less than 2 seconds. Neurological: General: No focal deficit present. Mental Status: he is alert and oriented to person, place, and time. Psychiatric: Mood and Affect: Mood normal. Behavior: Behavior normal. Thought Content: Thought content normal. Judgment: Judgment normal. Labs: 08/18/22 Last lab values have been reviewed CV Testing: ECHO 10/22/2021 Moderate LVH Normal ventricular systolic function, LVEF 55-60% Mild diastolic dysfunction No significant valvular dysfunction Normal right-sided pressures No pericardial effusion A/P: Resistant HTN Syncope and collapse Morbid Obesity Plan: -Blood pressure is much better improved as per patient report. At this time, would continue taking chlorthalidone, nifedipine, lisinopril and Coreg at current doses. He has been off Aldactone for at least several months. Will restart Aldactone 25 mg daily and check BMP in 5 to 7 days. -Instructed the patient to check his blood pressure 2 hours after taking his medications and to maintain a daily blood pressure log. He will contact cardiology if blood pressures above discuss target range. -Patient reports taking [id number] Motrin for musculoskeletal pain. This could be contributing to resistant hypertension. At this time, would recommend avoiding NSAIDs if able. -Additionally, would recommend sleep apnea testing for possible JESSICA as cause of resistant hypertension -Patient denies any recurrent syncope over the past several years. There were no arrhythmias noted on event monitor. -Emphasized the importance of daily exercise and lifestyle modification. Patient vo (more content not included)... [facility] 04-21-2023 Note Patient here for 6 m o follow up resistant hypertension and syncope. He has been getting neck injections with pain management to help with headaches. Says his BP averages around 150/90, but has been as low as 127 systolic. He doesn't think he's taking spironolactone and he isn't sure why. Review of Systems Constitutional: Positive for malaise/fatigue and night sweats. Musculoskeletal: Positive for back pain and stiffness. Neurological: Positive for headaches (improving) and tremors. All other systems reviewed and are negative. [facility] 03-03-2023 Evaluation note Encounter Date Diagnosis Assessment Notes Feb, Cervical spondylosis (ICD-10 - M47.812) Consider cervical facet medial branch RFA in the future if needed Feb, Occipital neuralgia (ICD-10 - M54.81) 47 y/o male here for follow up to discuss her chronic pain. He continues to complain of pain in the back of the skull. He also complains of neck pain. We will proceed with the bilateral greater and lesser occipital nerve block today as previously discussed. He is encouraged to follow up in 1 month to assess his response to this injection. Feb, Chronic pain (ICD-10 - G89.29) Continue with current treatment plan [facility] Other 12-12-2023 Evaluation note* Encounter Date Diagnosis Assessment Notes Treatment Notes Treatment Clinical Notes Feb, Cervical spondylosis (ICD-10 - M47.812) Pertinent imaging of the lumbar spine was reviewed and discussed in detail with the patient which showed mild arthritic changes. Different treatment options were discussed in detail with the patient and I recommend he continue to work on ROM exercises. I also recommend he use the previously prescribed topical cream as ordered. Feb, Occipital neuralgia (ICD-10 - M54.81) 47 year old male here for follow up to discuss chronic pain. He voices continued complaints of axial neck pain. He also has a temporal headache today. He was seen by Pattie Hardin yesterday and surgical intervention was not recommended. Pattie Hardin ordered blood work and a prednisone taper. He states he has not started the oral steroids yet. Different treatment options were discussed in detail with the patient, and I recommend we proceed with a bilateral greater & lesser occipital nerve block. Risks and benefits of procedure explained to patient; patient verbalizes understanding. Feb, Chronic pain (ICD-10 - G89.29) Continue with current treatment plan [facility] Other 12-11-2023 Evaluation note* Encounter Date Diagnosis Assessment Notes Treatment Notes Treatment Clinical Notes Feb, Cervicalgia (ICD-10 - M54.2) Independently reviewed the MRI of the cervical spine from 02/17/2023 [id number] with the patient and which shows at C5-C6 minimal disc osteophyte complex present causing no significant canal or neuroforaminal narrowing. At C6-C7 minimal disc osteophyte complex causing no significant stenosis mild left-sided neuroforaminal stenosis. C7-T1 disc osteophyte complex present causing no significant canal or neuroforaminal stenosis. I advised patient that i do not see any surgical interventions at this time. Patient has had significant complaints of recent syncopal episodes, dizziness, headaches, tremors which states has had a full complete cardiac workup and neurology workup. I reviewed the MRI of the brain from 07/14/2022 and which shows no intracranial masses or abnormality enhancements. No abnormal restriction diffusion is or evidence of evolving infarct. No evidence of intracranial hemorrhage. No hydrocephalus. Mild generalized cerebral and cerebellar volume loss. Minimal small vessel gliosis. Will get release of information from [facility] for continuity of care. Patient has completed physical therapy for neck pain 12/13/2019 3/7 sessions with minimal relief. Patient has seen Dr. Bermudez pain mangement, denies any injections at this time. Will order labs: CBC, CMP, Sed, [facility] and RF. Pharmacological management will order a prednisone taper dose. Follow up in 8 weeks. Feb, Mild degeneration of cervical intervertebral disc (ICD-10 - M50.30) Feb, Nonintractable episodic headache, unspecified headache type (ICD-10 - R51.9) [facility] Other 11-14-2023 Evaluation note* Encounter Date Diagnosis Assessment Notes Treatment Notes Treatment Clinical Notes Jan, Occipital neuralgia (ICD-10 - M54.81) If his pain persists we can consider proceeding with a bilateral occipital nerve block in the future, if applicable. Jan, Cervical spondylosis (ICD-10 - M47.812) 47 year old male here for follow up to discuss chronic pain. He voices continued complaints of neck pain with daily headaches that originate in the back of the head but can also be in the temples. He denies radicular symptoms. He recently completed 10 sessions of physical therapy with minimal relief of his symptoms. Anatomy of spine as well as different treatment options were discussed in detail with patient in regards to patients condition. He is encouraged to proceed with advanced imaging of the cervical spine for further evaluation. I will also send a referral to neurosurgery for consultation. He can continue with conservative treatment in the meantime. Jan, Chronic pain (ICD-10 - G89.29) Continue with current treatment plan [facility] Other 08-23-2023 Evaluation note* Encounter Date Diagnosis Assessment Notes Treatment Notes Treatment Clinical Notes Oct, Chronic tension-type headache, intractable (ICD-10 - G44.221) Patient already established with advanced neurology. We will forward notes to their office for review. Denies having a standing appointment. He will call their office for follow-up. Oct, Essential hypertension (ICD-10 - I10) Above goal. Established with cardiology. New medication changes noted. Advised low-salt diet advised daily exercise as tolerated. [facility] Other 08-22-2023 NoteD/W pt that with now controlled B/P and HTN he needs to speak with PCP regarding seeing a Headache specialist for his daily headaches and management. Reports he has been evaluated by neurology- has had MRI and testing in the past. [facility]08-22-2023 NoteAdmits occasional lightheadedness/dizziness but denied any syncopal episodes [facility] NoteRecommended weight loss- f/U with [facility]CPUn[facility]08-[facility]-2023 Note Hypertension is improved and overall well controlled Continue coreg, chlorthalidone, lisinopril, aldactone and nifedipine. Renal function and electrolytes normal Continue to monitor b/p at home and call if > 130/80 consistently RTC 6monthsUnOhio [facility] Hospital08-22-2023 NoteUTP CARDIOLOGY PROGRESS NOTE HPI: Marisela Hahn is a 47 y.o. male here for f/U for uncontrolled HTN HPI Pt presents to clinic for HTN evaluation. Review of his b/p log shows B/P has been much better controlled with just a couple outliers- but overall b/p is typically stuart than 130/80 Repeat labs since last visit show renal function was normal and electrolytes normal C/O headache daily with occasional vision changes, and is taking motrin daily for relief. Review of Systems Cardiovascular: Positive for near-syncope. Neurological: Positive for dizziness and headaches. Visit Vitals BP 150/89 (BP Location: Right arm, Patient Position: Sitting) Wt (!) 150 kg (331 lb) BMI 43.67 kg/m??? Smoking Status Never BSA 2.78 m??? Allergies Allergen Reactions Keflex [Cephalexin] Rash Medications: Current Outpatient Medications on File Prior to Visit Medication Sig Dispense Refill aspirin 81 mg EC tablet Take 81 mg by mouth in the morning. busPIRone (Buspar) 10 mg tablet Take 10 mg by mouth in the morning and at bedtime. carvedilol (Coreg) 25 mg tablet Take 25 mg by mouth with breakfast and with evening meal. chlorthalidone (Hygroton) 25 mg tablet Take 1 tablet (25 mg) by mouth in the morning. 30 tablet 5 escitalopram (Lexapro) 10 mg tablet Take 10 mg by mouth in the morning. lisinopril 40 mg tablet Take 40 mg by mouth in the morning. NIFEdipine XL (Procardia XL) 60 mg 24 hr tablet Take 1 tablet (60 mg) by mouth in the morning. Do not crush, chew, or split. Stop taking amlodipine. Start with taking nifedipine 60mg once daily. Continue to monitor BP. 180 tablet 3 spironolactone (Aldactone) 25 mg tablet Take 1 tablet (25 mg) by mouth in the morning. 90 tablet 3 tamsulosin (Flomax) 0.4 mg 24 hr capsule Take 0.4 mg by mouth in the morning. venlafaxine XR (Effexor-XR) 150 mg 24 hr capsule Take 150 mg by mouth in the morning. Do not crush or chew. No current facility-administered medications on file prior to visit. Physical Exam: Constitutional: Appearance: Normal appearance. Without apparent distress, obese HENT: Head: Normocephalic and atraumatic. Nose: Nose normal. Mouth/Throat: Mouth: Mucous membranes are moist. Eyes: Extraocular Movements: Extraocular movements intact. Conjunctiva/sclera: Conjunctivae normal. Neck: Vascular: No JVD. Cardiovascular: Rate and Rhythm: Normal rate and regular rhythm. Pulses: Dorsalis pedis pulses are 3 on the right side and 3on the left side. Posterior tibial pulses are 3 on the right side and 3 on the left side. Heart sounds: Normal heart sounds, S1 normal and S2 normal. Pulmonary: Effort: Pulmonary effort is normal. Breath sounds: Normal breath sounds. Abdominal: General: Bowel sounds are normal. Palpations: Abdomen is soft. Musculoskeletal: General: Normal range of motion. Cervical back: Normal range of motion. Right lower leg: No edema. Left lower leg: No edema. Skin: General: Skin is warm and dry. Capillary Refill: Capillary refill takes less than 2 seconds. Neurological: General: No focal deficit present. Mental Status: he is alert and oriented to person, place, and time. Psychiatric: Mood and Affect: Mood normal. Behavior: Behavior normal. Thought Content: Thought content normal. Judgment: Judgment normal. Labs: 08/18/22 Last lab values have been reviewed CV Testing: ECHO 10/22/2021 Moderate LVH Normal ventricular systolic function, LVEF 55-60% Mild diastolic dysfunction No significant valvular dysfunction Normal right-sided pressures No pericardial effusion No echocardiogram results found for the past 12 months Assessment/Plan: Resistant hypertension Hypertension is improved and overall well controlled Continue coreg, chlorthalidone, lisinopril, aldactone and nifedipine. Renal function and electrolytes normal Continue to monitor b/p at home and call if > 130/80 consistently RTC 6months Morbid obesity with body mass index (BMI) of 40.0 to 44.9 in adult (CMS/[facility]) Recommended weight loss- f/U with PCP Syncope and collapse Admits occasional lightheadedness/dizziness but denied any syncopal episodes since last visit Other headache syndrome D/W pt that with now controlled B/P and HTN he needs to speak with PCP regarding seeing a Headache specialist for his daily headaches and management. Reports he has been evaluated by neurology- has had MRI and testing in the past. [facility]06-07-2023 NotePatient here for 1 week follow up hypertension. He is scheduled for renal duplex tomorrow. He was started on chlorthalidone last week by Anthony Hurtado DNP. Had BMP drawn this morning so no result yet. Says his RAMOS has resolved. Denies lightheadedness/syncope and chest pain. Review of Systems Constitutional: Positive for malaise/fatigue, night sweats and weight loss (14# since 08/09/22). Cardiovascular: Positive for leg swelling. Musculoskeletal: Positive for back pain and stiffness.[facility]06-07-2023 NoteCardiovascular Medicine [facility] SUBJECTIVE Chief Complaint Patient presents with Hypertension Marisela Hahn is a 47 y.o. male here for follow-up on his hypertension. HPI He reports is BP remains elevated at home, running 160s/100s despite starting chlorthalidone. He is following with a neurologist. He will be started on tizanidine. He denies any cardiac sx's including CP, dyspnea, palpitations, dizziness/LH, orthopnea, PND, leg swelling, syncope. He is traveling this week to [place]. 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 Last HPI per DARRELL Hurtado: 05/11/2022 HPI: Marisela Hahn is a 47 y.o. year old with past medical history of refractory hypertension, syncope and obesity. patient was last seen November 24, 2021 for syncope and collapse. he typically hikes 5 miles multiple times a week in the last year has had several syncopal episodes. during his last visit he was given an event monitor for 3 days which has not showed any arrhythmia that could have caused his syncope nor did he have any syncopal events during the time of wearing the monitor. he states since last seen he has had a few syncopal episodes. he has refractory hypertension which appears to be well controlled on several medications which has been managed by PCP. he has not had any recent lab work done and was supposed to have lab work done from previous visit which was not completed after starting Aldactone. patient was moving to [place] at the time and then returned back to [place]. he denies chest pain, RAMOS, shortness of breath, orthopnea Patient Active Problem List Diagnosis Resistant hypertension Syncope and collapse Anxiety Mixed hyperlipidemia GERD (gastroesophageal reflux disease) Morbid obesity with body mass index (BMI) of 40.0 to 44.9 in adult ([facility]/HCC) Spina bifida ([facility]) Depressive disorder Benign prostatic hyperplasia Deafness Vasectomy evaluation Past Medical History: Diagnosis Date Anxiety Essential hypertension GERD (gastroesophageal reflux disease) Mixed hyperlipidemia Morbid obesity with BMI of 40.0-44.9, adult ([facility]/HCC) Syncope and collapse Family History Problem Relation Name Age of Onset Hypertension Mother Hypertension Father Hypertension Sister Other (CVA) Maternal Grandfather Diabetes type II Maternal Grandfather Social History Tobacco Use Smoking status: Never Smokeless tobacco: Never Substance Use Topics Alcohol use: Yes Comment: 1-2 drinks/week Drug use: Never Allergies Allergen Reactions Keflex [Cephalexin] Rash ROS Constitutional: Positive for malaise/fatigue, night sweats and weight loss (14# since 08/09/22). Cardiovascular: Positive for leg swelling. Musculoskeletal: Positive for back pain and stiffness. OBJECTIVE Visit Vitals BP (!) 147/98 (BP Location: Right arm, Patient Position: Sitting) Pulse 68 Ht 1.854 m (6' 1 ) Wt (!) 145 kg (319 lb) SpO2 96% BMI 42.09 kg/m??? Smoking Status Never BSA 2.73 m??? Medications: Current Outpatient Medications: aspirin 81 mg EC tablet, Take 81 mg by mouth in the morning., Disp: , Rfl: busPIRone (Buspar) 10 mg tablet, Take 10 mg by mouth in the morning and at bedtime., Disp: , Rfl: carvedilol (Coreg) 25 mg tablet, Take 25 mg by mouth with breakfast and with evening meal., Disp: , Rfl: chlorthalidone (Hygroton) 25 mg tablet, Take 1 tablet (25 mg) by mouth in the morning., Disp: 30 tablet, Rfl: 5 escitalopram (Lexapro) 10 mg tablet, Take 10 mg by mouth in the morning., Disp: , Rfl: lisinopril 40 mg tablet, Take 40 mg by mouth in the morning., Disp: , Rfl: spironolactone (Aldactone) 25 mg tablet, Take 1 tablet (25 mg) by mouth in the morning., Disp: 90 tablet, Rfl: 3 tamsulosin (Flomax) 0.4 mg 24 hr capsule, Take 0.4 mg by mouth in the morning., Disp: , Rfl: venlafaxine XR (Effexor-XR) 150 mg 24 hr capsule, Take 150 mg by mouth in the morning. Do not crush or chew., Disp: , Rfl: NIFEdipine XL (Procardia XL) 60 mg 24 hr tablet, Take 1 tablet (60 mg) by mouth in the morning. Do not crush, chew, or split. Stop taking amlodipine. Start with taking nifedipine 60mg once daily. Continue to monitor BP., Disp: 180 tablet, Rfl: 3 Physical Exam Constitutional: Appearance: Normal appearance. He is obese. HENT: Head: Normocephalic and atraumatic. Right Ear: External ear normal. Left Ear: External ear normal. Eyes: Extraocular Movements: Extraocular movements intact. Pupils: Pupils are equal, round, and reactive to light. Neck: Vascular: No carotid bruit. Cardiovascular: Rate and Rhythm: Normal rate and regular rhythm. Pulses: Normal pulses. Heart sounds: Normal heart sounds. Pulmonary: Effort: Pulmonary effort is normal. Breath sounds: Normal breath sounds. Abdominal: General: Bowel sounds are normal. Palpations: Abdomen is soft. Musculoskeletal: General: Norm (more content not included)...[facility] 08-09-2022 NotePatient here for follow up hypertension and event monitor. Denies chest pain and SOB. C/o fatigue and slight SOB w/ exertion. Says his BP usually runs around 156/100. Has daily headaches. Review of Systems Constitutional: Positive for malaise/fatigue and night sweats. HENT: Positive for nosebleeds. Cardiovascular: Positive for dyspnea on exertion ( slight ) and leg swelling (feet). Musculoskeletal: Positive for joint pain and stiffness. Neurological: Positive for headaches. All other systems reviewed and are negative.[facility] 08-09-2022 NoteUT Electrophysiology Note [facility] Reason for visit: follow up syncope last seen with event monitor HPI: Patient for follow-up regarding event monitor and hypertension. and monitor not show anything significant. Patient continues to be hypertensive despite starting chlorthalidone. denies chest pain, shortness of breath, RAMOS. 05/11/2022 HPI: Marisela Hahn is a 47 y.o. year old with past medical history of refractory hypertension, syncope and obesity. patient was last seen November 24, 2021 for syncope and collapse. he typically hikes 5 miles multiple times a week in the last year has had several syncopal episodes. during his last visit he was given an event monitor for 3 days which has not showed any arrhythmia that could have caused his syncope nor did he have any syncopal events during the time of wearing the monitor. he states since last seen he has had a few syncopal episodes. he has refractory hypertension which appears to be well controlled on several medications which has been managed by PCP. he has not had any recent lab work done and was supposed to have lab work done from previous visit which was not completed after starting Aldactone. patient was moving to [place] at the time and then returned back to [place]. he denies chest pain, RAMOS, shortness of breath, orthopnea PMH: Past Medical History: Diagnosis Date Anxiety Essential hypertension GERD (gastroesophageal reflux disease) Mixed hyperlipidemia Morbid obesity with BMI of 40.0-44.9, adult ([facility]) Syncope and collapse PSH: Past Surgical History: Procedure Laterality Date MYRINGOTOMY W/ TUBES SH: Social Determinants of Health Tobacco Use: Low Risk Smoking Tobacco Use: Never Smokeless Tobacco Use: Never Passive Exposure: Not on file Alcohol Use: Not on file Financial Resource Strain: Not on file Food Insecurity: Not on file Transportation Needs: Not on file Physical Activity: Not on file Stress: Not on file Social Connections: Not on file Intimate Partner Violence: Not on file Depression: Not on file Housing Stability: Not on file Allergies: Allergies Allergen Reactions Keflex [Cephalexin] Rash Weight: No weight available Visit Vitals Smoking Status Never Meds: Current Outpatient Medications on File Prior to Visit Medication Sig Dispense Refill amLODIPine (Norvasc) 5 mg tablet Take 10 mg by mouth in the morning and at bedtime. Per dr. bullock aspirin 81 mg EC tablet Take 81 mg by mouth in the morning. busPIRone (Buspar) 10 mg tablet Take 10 mg by mouth in the morning and at bedtime. carvedilol (Coreg) 25 mg tablet Take 25 mg by mouth with breakfast and with evening meal. chlorthalidone (Hygroton) 25 mg tablet Take 0.5 tablets (12.5 mg) by mouth in the morning. 15 tablet 5 escitalopram (Lexapro) 10 mg tablet Take 10 mg by mouth in the morning. lisinopril 40 mg tablet Take 40 mg by mouth in the morning. spironolactone (Aldactone) 25 mg tablet Take 1 tablet (25 mg) by mouth in the morning. 90 tablet 3 sulfamethoxazole-trimethoprim (Bactrim DS) 800-160 mg tablet Take 1 tablet by mouth in the morning and at bedtime. for 10 days tamsulosin (Flomax) 0.4 mg 24 hr capsule Take 0.4 mg by mouth in the morning. venlafaxine XR (Effexor-XR) 150 mg 24 hr capsule Take 150 mg by mouth in the morning. Do not crush or chew. No current facility-administered medications on file prior to visit. ROS: Cardio Basic Cardiovascular Symptoms: no lightheadedness, no leg edema, no syncope, no orthopnea, no PND, no claudication, Constitutional Constitutional: no fever, no night sweats, no significant weight gain, no significant weight loss, no exercise intolerance Eyes Eyes: no dry eyes, no irritation, no vision change ENMT Ears: no difficulty hearing, no ear pain Nose: no frequent nosebleeds, Mouth/Throat: no sore throat, no bleeding gums, no snoring, no dry mouth, no mouth ulcers, no oral abnormalities, no teeth problems Respiratory Respiratory: no cough, no wheezing, no coughing up blood, no sleep apnea Musculoskeletal Musculoskeletal: no muscle aches, no muscle weakness, joint pain+, no back pain, no swelling in the extremities Integumentary Skin no rash, no ulcer, no varicosities, no discoloration, no pruritus Neurologic Neurologic: no loss of consciousness, no weakness, no numbness, no seizures, no dizziness, no headaches Psychiatric Psych: no depression, feeling safe in relationship, no alcohol abuse, Hematologic/Lymphatic Hematologic/Lymphatic no swollen glands, no bruising Physical Exam: Constitutional General Appearance: well-nourished, well-developed, appears stated age Level of Distress: comfortable Psychiatric Mental Status: alert, normal affect Orientation: oriented to time, place, and person Insight: good judgement Eyes Lids and Conjunctivae: non-injected, no (more content not included)...[facility]03-11-2023 Note- we will get a 30-day event monitor as patient has had recent syncopal events and 3-day monitor did not find anything and he did not have events with [facility]03-11-2023 Note- discussed with patient the need to continue exercise but also pursue lifestyle changes related to dietUnBellevue Hospitalo [facility] [id number] Notepatient is hypertensive today - there is no appropriate follow-up with lab work and starting Aldactone despite his tolerance of the medication - will have patient get BMP first and repeat 2 weeks after starting chlorthalidone - following BMP we will start chlorthalidone; I will call patient once he gets his BMP and I received results on Monday start chlorthalidone - continue Aldactone 25 mg, lisinopril 40 mg, Coreg 25 mg twice daily, amlodipine 10 mg twice dailyUnOhio [facility] Hospital03-06-2023 Evaluation note* Encounter Date Diagnosis Assessment Notes Treatment Notes Treatment Clinical Notes May, Resting tremor (ICD-10 - G25.2) Will set up w Neurology for further diagnosis and treatment May, Essential hypertension (ICD-10 - I10) BP remains elevated. Will see cardio next month. On several medications. [facility] Other 03-01-2023 NoteUT Electrophysiology Note [facility] Reason for visit: follow up syncope last seen with event monitor HPI: Marisela Hahn is a 47 y.o. year old with past medical history of refractory hypertension, syncope and obesity. patient was last seen November 24, 2021 for syncope and collapse. he typically hikes 5 miles multiple times a week in the last year has had several syncopal episodes. during his last visit he was given an event monitor for 3 days which has not showed any arrhythmia that could have caused his syncope nor did he have any syncopal events during the time of wearing the monitor. he states since last seen he has had a few syncopal episodes. he has refractory hypertension which appears to be well controlled on several medications which has been managed by PCP. he has not had any recent lab work done and was supposed to have lab work done from previous visit which was not completed after starting Aldactone. patient was moving to [place] at the time and then returned back to [place]. he denies chest pain, RAMOS, shortness of breath, orthopnea PMH: Past Medical History: Diagnosis Date Anxiety Essential hypertension GERD (gastroesophageal reflux disease) Mixed hyperlipidemia Morbid obesity with BMI of 40.0-44.9, adult (CMS/HCC) Syncope and collapse PSH: Past Surgical History: Procedure Laterality Date MYRINGOTOMY W/ TUBES SH: Social Determinants of Health Tobacco Use: Low Risk Smoking Tobacco Use: Never Smokeless Tobacco Use: Never Passive Exposure: Not on file Alcohol Use: Not on file Financial Resource Strain: Not on file Food Insecurity: Not on file Transportation Needs: Not on file Physical Activity: Not on file Stress: Not on file Social Connections: Not on file Intimate Partner Violence: Not on file Depression: Not on file Housing Stability: Not on file Allergies: Allergies Allergen Reactions Keflex [Cephalexin] Rash Weight: 146kg Visit Vitals BP (!) 163/98 (BP Location: Right arm, Patient Position: Sitting, BP Cuff Size: Large adult) Pulse 63 Ht 1.854 m (6' 1 ) Wt (!) 146 kg (320 lb 12.8 oz) SpO2 96% BMI 42.32 kg/m??? Smoking Status Never BSA 2.74 m??? Meds: Current Outpatient Medications on File Prior to Visit Medication Sig Dispense Refill amLODIPine (Norvasc) 5 mg tablet Take 10 mg by mouth in the morning and at bedtime. Per dr. bullock aspirin 81 mg EC tablet Take 81 mg by mouth in the morning. busPIRone (Buspar) 10 mg tablet Take 10 mg by mouth in the morning and at bedtime. carvedilol (Coreg) 25 mg tablet Take 25 mg by mouth with breakfast and with evening meal. escitalopram (Lexapro) 10 mg tablet Take 10 mg by mouth in the morning. lisinopril 40 mg tablet Take 40 mg by mouth in the morning. meloxicam (Mobic) 7.5 mg tablet Take 7.5 mg by mouth in the morning and at bedtime. spironolactone (Aldactone) 25 mg tablet Take 1 tablet (25 mg) by mouth in the morning. 30 tablet 5 sulfamethoxazole-trimethoprim (Bactrim DS) 800-160 mg tablet Take 1 tablet by mouth in the morning and at bedtime. for 10 days tamsulosin (Flomax) 0.4 mg 24 hr capsule Take 0.4 mg by mouth in the morning. venlafaxine XR (Effexor-XR) 150 mg 24 hr capsule Take 150 mg by mouth in the morning. Do not crush or chew. [DISCONTINUED] nabumetone (Relafen) 750 mg tablet Take 750 mg by mouth every 12 (twelve) hours if needed. No current facility-administered medications on file prior to visit. ROS: Cardio Basic Cardiovascular Symptoms: no lightheadedness, no leg edema, no syncope, no orthopnea, no PND, no claudication, Constitutional Constitutional: no fever, no night sweats, no significant weight gain, no significant weight loss, no exercise intolerance Eyes Eyes: no dry eyes, no irritation, no vision change ENMT Ears: no difficulty hearing, no ear pain Nose: no frequent nosebleeds, Mouth/Throat: no sore throat, no bleeding gums, no snoring, no dry mouth, no mouth ulcers, no oral abnormalities, no teeth problems Respiratory Respiratory: no cough, no wheezing, no coughing up blood, no sleep apnea Musculoskeletal Musculoskeletal: no muscle aches, no muscle weakness, joint pain+, no back pain, no swelling in the extremities Integumentary Skin no rash, no ulcer, no varicosities, no discoloration, no pruritus Neurologic Neurologic: no loss of consciousness, no weakness, no numbness, no seizures, no dizziness, no headaches Psychiatric Psych: no depression, feeling safe in relationship, no alcohol abuse, Hematologic/Lymphatic Hematologic/Lymphatic no swollen glands, no bruising Physical Exam: Constitutional General Appearance: well-nourished, well-developed, appears stated age Level of Distress: comfortable Psychiatric Mental Status: alert, normal affect Orientation: oriented to time, place, and person Insight: good judgement Eyes Lids and Conjunctivae: non-injected, no xanthelasma ENMT (more content not included)...[facility]03-01-2023 NotePatient is here today for a follow up. Patient stated his hands and arms have been shacking for 5-10 minutes everyday Review of Systems Constitutional: Positive for malaise/fatigue, night sweats and weight gain. HENT: Positive for nosebleeds. Musculoskeletal: Positive for joint pain and stiffness. Neurological: Positive for dizziness and headaches. All other systems reviewed and are negative.[facility] 05-09-2022 Evaluation note* Encounter Date Diagnosis Assessment Notes Treatment Notes Treatment Clinical Notes Apr, Paronychia of finger of left hand (ICD-10 - L03.012) Restart antibiotic. Call if area worsens. Could need referral to ortho if continues. Apr, Essential hypertension (ICD-10 - I10) Continues to be elevated. Has first appt w cardio on 05/11. [email or web address] Other 09-06-2022 Evaluation + Plan note Diagnostic Tests Pending * Semen Analysis Post Vasectomy 11/16/21 [facility] 09-06-2022 Hospital Discharge instructions Patient Education 11/16/2021 08:12:46 Preventing HIV Infection and AIDS Preventing HIV Infection and AIDS HIV (human immunodeficiency virus) infection is a long-term (chronic) viral infection. HIV kills white blood cells that help to control the body's defense (immune) system and fight infection. HIV spreads through semen, blood, breast milk, rectal fluid, and vaginal fluid. HIV is commonly spread through sexual contact and sharing needles or syringes, because these behaviors involve exchanging bodily fluids. Without treatment, HIV can turn into AIDS (acquired immunodeficiency syndrome), which is an advanced stage of HIV infection. AIDS is a very serious illness and can be life-threatening. What changes can I make to protect myself from HIV infection? Sexual contact To protect yourself from HIV through sexual contact: Use devices that prevent body fluids from passing between partners (barrier protection) every time you have sex. Barrier protection can be used during oral, vaginal, or anal sex. Commonly used barrier methods include: ?Male condom. ?Female condom. ?Dental dam. If you are at risk, ask your health care provider about taking medicine that can prevent HIV infection (pre-exposure prophylaxis, PrEP). Get tested for HIV and know the HIV status of your sexual partner(s). Avoid having sex with partners without a known HIV status. If you or your partner is HIV-positive, use protection during sex. Practice monogamy. This means you have only one sexual partner in your lifetime or only one partnerat a time (serial monogamy). Get tested and treated for STIs (sexually transmitted infections). Having an STI increases your risk for getting HIV. The only way to completely prevent HIV from being spread through sexual contact is not to have any kind of sex (abstinence), including oral, vaginal, or anal sex. Drug use To protect yourself from HIV through drug use: Do not use drugs, especially drugs that are injected. Avoid having sex while under the influence of alcohol and drugs. Alcohol and drugs can affect your ability to make good decisions and may lead you to engage in high risk behaviors. Do not share needles or syringes with anyone else. If you do share needles or syringes, consider taking PrEP to prevent HIV infection. Blood and bodily fluid To protect yourself from HIV through exposure to blood and bodily fluids from a person who has HIV: Cover any sores or wounds on yourself or the person with HIV. If you need to touch blood or bodily fluids from an infected person, use gloves and wash your handsafterward. Do not share items that touch bodily fluids or blood, such as toothbrushes or razors. What can happen if I do not make these changes? If you do not make these changes: You put yourself at risk of getting HIV from an infected person. HIV is a serious, life-threateningillness that cannot be cured. Having HIV makes it easier to get sick and more difficult to get well. You can pass HIV on to others even if you don't know that you have it. An infected mother can also pass it to her children through , childbirth, or . You expose yourself to complications from the virus. Without treatment, the virus progresses. As itmultiplies in your body, it causes the immune system to stop protecting you from infections and other health problems. You may get infections that you would not normally get if your immune system washealthy and working properly (opportunistic diseases). You put yourself at risk of side effects from HIV medicines. HIV medicines (antiretroviral therapy,ART) can help slow the virus from progressing and prevent its spread to others. People with HIV must take these medicines on a daily basis in order to live long, healthy lives. However, these medicines have side effects. Long-term use of ART medicines can lead to chronic health conditions, such as damage to the liver and kidneys, diabetes, and heart disease. People who take HIV medicines must useprotection during sex because they can still pass the virus on to sexual partners. You could also put yourself at high risk for getting other sexually transmitted infections. You put yourself at risk of having an unintended . Where to find support To get support preventing HIV infection and AIDS: Talk with your health care provider. Visit your local health department or clinic. Consider joining a support group. Where to find more information Learn more about HIV and AIDS from: U.S. Department of Health and Human Services: www.aids.gov Centers for Disease Control and Prevention: ?More information about preventing HIV: www.cdc.gov/hiv/basics/prevention.html ?How to find a location where you can get sexual health materials and treatment for free or for a low cost: gettested.cdc.gov Summary HIV spreads through semen, blood, breast milk, rectal fluid, and vaginal fluid. HIV is commonly spread through sexual contact and sharing needles or syringes, because these behaviors lead to an exchange of bodily fluids. To protect yourself from HIV through sexual contact, use a barrier protection method every time youhave sex. Avoid having sex while under the influence of alcohol and drugs. These substances may lead you to engage in high risk behaviors. Get tested for HIV and make sure your sexual partner(s) get tested too. This information is not intended to replace advice given to you by your health care provider. Make sure you discuss any questions you have with your health care provider. Document Released: 02/14/2017 Document Revised: 06/21/2019 Document Reviewed: 02/14/2017 Peak Rx #2 Patient Education 2020 [email or web address]. Follow Up Care 08/13/2021 11:00:11 With:SHAAN HALE, Sam Velazco, URL Address: [address] [place], [place] [id number]- When: Unknown [facility] [id number] Hospital Discharge instructions Patient Education 08/13/2021 10:36:04 Vasectomy, Care After Vasectomy, Care After This sheet gives you information about how to care for yourself after your procedure. Your health care provider may also give you more specific instructions. If you have problems or questions, contact your health care provider. What can I expect after the procedure? After your procedure, it is common to have: Mild pain, swelling, redness, or discomfort in your scrotum. Some blood coming from your incisions or puncture sites for one or two days. Blood in your semen. Follow these instructions at home: Medicines Take lwhk-mbt-wubxvur and prescription medicines only as told by your health care provider. Avoid taking NSAIDs such as aspirin and ibuprofen, because these medicines can make bleeding worse. Activity For the first 2 days after surgery, avoid physical activity and exercise that require a lot of energy. Ask your health care provider what activities are safe for you. Do not participate in sports or perform heavy physical labor until your pain has improved, or untilyour health care provider says it is okay. Do not ejaculate for at least 1 week after the procedure, or as long as directed. You may resume sexual activity 7 10 days after your procedure, or when your health care provider approves. Use a different method of control (contraception) until you have had test results thatconfirm that there is no sperm in your semen. Scrotal support Use scrotal support, such as a jock strap or underwear with a supportive pouch, as needed for one week after your procedure. If you feel discomfort in your scrotum, you may remove the scrotal support to see if the discomfortis relieved. Sometimes scrotal support can press on the scrotum and cause or worsen discomfort. If your skin gets irritated, you may add some germ-free (sterile), fluffed bandages or a clean washcloth to the scrotal support. General instructions Put ice on the injured area: ?Put ice in a plastic bag. ?Place a towel between your skin and the bag. ?Leave the ice on for 20 minutes, 2 3 times a day. Check your incisions or puncture sites every day for signs of infection. Check for: ?Redness, swelling, or pain. ?Fluid or blood. ?Warmth. ?Pus or a bad smell. Leave stitches (sutures) in place. The sutures will dissolve on their own and do not need to be removed. Keep all follow-up visits as told by your health care provider. This is important because you will need a test to confirm that there is no sperm in your semen. Multiple ejaculations are needed to clear out sperm that were beyond the vasectomy site. You will need one test result showing that there is no sperm in your semen before you can resume unprotected sex. This may take 2 4 months after your procedure. Do not drive for 24 hours if you were given a sedative to help you relax. Contact a health care provider if: You have redness, swelling, or more pain around your incision or puncture site, or in your scrotum area in general. You have bleeding from your incision or puncture site. You have pus or a bad smell coming from your incision or puncture site. You have a fever. Your incision or puncture site opens up. Get help right away if: You develop a rash. You have difficulty breathing. Summary After your procedure it is common to have mild pain, swelling, redness, or discomfort in your scrotum. Avoid physical activity and exercise that requires a lot of energy for the first 2 days after surgery. Put ice on the injured area. Leave the ice on for 20 minutes, 2 3 times a day. Do not drive for 24 hours if you were given a sedative to help you relax. This information is not intended to replace advice given to you by your health care provider. Make sure you discuss any questions you have with your health care provider. Document Released: 09/16/2005 Document Revised: 02/09/2018 Document Reviewed: 05/26/2017 Peak Rx #2 Patient Education 2020 [email or web address]. Follow Up Care 06/07/2021 11:43:46 With:Sam GARDUNO MD, URL Address: [address] [place], [place] [id number]- When: Unknown [facility] Evaluation + Plan note Future Appointments Appointment Date:11/05/2021 07:30:00 AM Scheduled Provider:Sam GARDUNO MD Location:[facility] Appointment Type:URO Office Visit Appointment Date:11/16/2021 08:30:00 AM Scheduled Provider:Sam GARDUNO MD Location:[facility] Appointment Type:URO Office Visit [facility] Evaluation + Plan note Future Appointments Appointment Date:11/16/2021 08:30:00 AM Scheduled Provider:Sam GARDUNO [facility] assessment information available [facility] Work Phone: Evalubnpcx noteNo InformationNort [employer] Other Evaluzeynq note* Diagnosis Onset Date Resolution Status Cervical spondylosis acute Chronic pain acute Occipital neuralgia acute [facility] Work Phone: Hisjsaf general Narrative - Reported* Type Description Date Medical History Gastroesophageal reflux disease Medical History Hypercholesterolemia Medical History Depression Medical History Essential hypertension Medical History Anxiety and depression Medical History Syncope and collapse Medical History Resting tremor Medical History Abnormal weight gain Medical History Diverticulosis Medical History Hyperlipemia, mixed Surgical History MYRINGOTOMY WITH TUBE REPLACEME NT - BILATERAL 2019 Hospitalization History SEE SURGICAL HX [facility] [employer] Other Hiscbnx general Narrative - Reported* Type Description Date Medical History Gastroesophageal reflux disease Medical History Hypercholesterolemia Medical History Depression Medical History Essential hypertension Medical History Anxiety and depression Medical History Syncope and collapse Medical History Resting tremor Medical History Abnormal weight gain Medical History Diverticulosis Medical History Hyperlipemia, mixed Medical History anxiety Medical History obesity Surgical History MYRINGOTOMY WITH TUBE REPLACEME NT - BILATERAL 2018 Hospitalization History SEE SURGICAL HX [facility] [employer] Other Hospital course Narrative No data available for this section [facility] Hospital Discharge instructions No data available for this section [facility] No data available for this section [facility] Summary Purpose Family History No Family History Records FoundNo Family History Records FoundNo Family History Records FoundNo Family History Records FoundNo Family History Records Found Advance Directives No Advanced Directives Records Found Advance Directive Response Recorded Date/ Time Advance Directives No November 2:11pm Advance Directive Response Recorded Date/ Time Advance Directives No November 1:11pm Reason for Referral Reason *Waiting for appt Please evaluate and treat for cervical spodylosis- subluxaion on XR in notes Diagnosis 1 Cervical spondylosis (M47.812) Referral Organization [facility] Referring Provider First Name Deann Referring Provider Last Name Jordan Referring Provider Specialty Nurse Pract itioner Referred Organization [facility] uros[facility]gery Referred Provider Martín Bullock Referred Address [address],[phone] Referred Provider Specialty Neurological Surgery Referral Priority Routine General Notes Jose Gomez 01/25 04:00:11 PM > Referral received, sent P2P Clinical Notes Angel Carrillo 2022 02:20:15 PM >XR cervical spine 2022-12-05: MILD SPONDYLOSIS C5-C7. POSTERIOR SUBLUXATION OF C4 ON C5 AND C5 ON C6 OF APPROXIMATELY 3 MM ON EXTENSION WHICH RESOLVES ON FLEXION AND NEUTRAL IMAGING SUGGESTIVE OF PATHOLOGICAL MOTION. Reason 06/15/22 [place] office. Labs scanned in from 2021. Resting tremor. Also had labs last week from Cardiology. Thank you Diagnosis 1 Resting tremor (G25. 2) Referral Organization [facility] Fredy christie Referring Provider First Name Nicolasa Referring Provider Last Name Kobe Referring Provider Specialty Family [facility] Referred Organization [facility] Referred Provider Bailey Frye Referred Address [address] [place] Referred Provider Specialty Neurology Referral Priority Routine Referral Appointment Date 2022-06-15 General Notes Kaley Cabrera 03:23:11 PM >RECEIVED TODAY, ATTACHMENTS MADE, REFERRAL FAXED Kaley Cabrera 05/23/2022 10:08:54 AM >faxed first attempt letter Chief Complaint and Reason for Visit Chief Complaint M54.2 Chief Complaint M54.2 M47.812 Chief Complaint Follow Up After Pt F or Neck M47.812 Ref By Deann Ortega For For Cervical Spody Review Mri Colin Occipital Nb Follow Up After Occipital Nb Neck pain Chief Complaint M47.812 Ref By Deann Ortega For For Cervical Spody Review Mri Colin Occipital Nb Follow Up After Occipital Nb Neck pain FOLLOW UP AFTER CERVICAL FACET MBB Reason for Visit Cervical spondylosis Chronic pain Occipital neuralgia Additional Source Comments (unrecognized sect ion and content) No Status Records FoundNo Status Records FoundNo Status Records FoundNo Status Records FoundNo Status Records Found INFORMATION SOURCE (unrecogn ized section and content) DATE CREATED AUTHOR 02/21/2020 [facility] DATE CREATED AUTHOR AUTHOR'S ORGANIZ ATION 07/21/2022 [facility] DATE CREATED AUTHOR AUTHOR'S ORGANIZ ATION 08/23/2022 [facility] DATE CREATED AUTHOR AUTHOR'S ORGANIZ ATION 04/22/2023 [facility] DATE CREATED AUTHOR AUTHOR'S ORGANIZ ATION 04/26/2023 [facility] Care Team (unrecognized sect ion and content) Team Status: Active Member Role Status Dates Nicolasa Bullock MD Primary Care Provider Active Team Status: Inactive Member Role Status Dates Nicolasa Bullock MD Primary Care Provider Active Rivera Bermudez MD Attending Provider Active Personnel Name: NICOLASA BULLOCK MD Address: [address] [place] [address] REASON FOR VISIT (unrecogniz ed section and content) SMASHED FINGER, CHECK UP AFT ER ERCheck UpReferralPain management office noteReferralFOLLOW UP AFTER PT FOR NECKREVIEW MRIRef by Deann Ortega for for cervical spodylosis- subluxaion on XR in notes; [place] [facility] [place] NBr cervical facet mbb C2,C3,C4 Goals (unrecognized section and content) Goals may be documented in a n alternate section FOR RECORDS PERTAINING TO PATIENTS WHO ARE OR HAVE BEEN ENROLLED IN A CHEMICAL DEPENDENCY/SUBSTANCEABUSE PROGRAM, SOME INFORMATION MAY BE OMITTED. This clinical summary was aggregated from multiple sources. Caution should be exercised in using it in the provision of clinical care. This summary normalizes information from multiple sources, and as a consequence, information in this document may materially change the coding, format and clinical context of patient data. In addition, data may be omitted in some cases. CLINICAL DECISIONS SHOULD BE BASED ON THE PRIMARY CLINICAL RECORDS. [employer] provides no warranty or guarantee of the accuracy or completeness of information in this document.
[2023-05-15 09:42] LABS: Anion Gap 12.6; BUN Creatinine Ratio 15.5; Calcium 9.1 mg/dL (8.5-10.1); Carbon Dioxide 29.5 mmol/L (21.0-32.0); Chloride 103 mmol/L (98-107); Estimated GFR (African America >60 (>=60); Estimated GFR (Non-African Ame 59 (>=60); Glucose 97 mg/dL (74-106); Potassium 4.1 mmol/L (3.5-5.1); Sodium 141 mmol/L (136-145)
--- NOTE | 2023-05-15 10:00 | CA_ITS ---
Patient Name: MARISELA HAHN MR#: [id number] : 1975 Exam Date: 05/15/2023 Ordering Doctor: RICO ORONA M.D. ECHOCARDIOGRAM REPORT PROCEDURE: CA ECHO DOPPLER COMPLETE INDICATIONS: Syncope COMPARISON: None. DESCRIPTION: COMPLETE ECHOCARDIOGRAM Real-time transthoracic echocardiography with 2D, M-mode, spectral and color flow Doppler performed. QUALITY: Technical quality was good. LEFT VENTRICLE: Normal chamber size. Mildly increased left ventricular wall thickness. LV EF: Global left ventricular systolic function is normal; visually estimated ejection fraction is 60 to 65%. No regional wall motion abnormalities. DIASTOLIC: Normal diastolic function. ATRIAL SEPTUM: Inadequately seen. LEFT ATRIUM: Moderate dilatation. RIGHT ATRIUM: Mild dilatation. RIGHT VENTRICLE: Mild dilatation. Normal right ventricular systolic function. TRICUSPID VALVE: Normal mobility and thickness. No stenosis with trivial regurgitation. No evidence of pulmonary hypertension. RVSP 23mmHg MITRAL VALVE: Normal mobility and thickness. No evidence of mitral valve stenosis. There is no mitral annular calcification. Trivial mitral regurgitation. AORTIC VALVE: Normal trileaflet appearance. No visible sclerosis. Normal leaflet mobility. No evidence of aortic valve stenosis. No aortic regurgitation. AORTIC ROOT: Normal diameter and appearance. PULMONIC VALVE: Normal thickness and mobility. No stenosis. Trivial regurgitation. PERICARDIUM: No evidence of pericardial effusion. IVC: Collapses with inspirations. Normal size CONCLUSION: 1. Global left ventricular systolic function is normal; visually estimated ejection fraction is 60 to 65% 2. The right ventricle is mildly dilated with normal systolic function 3. Normal diastolic function 4. Mildly increased left ventricular wall thickness 5. Biatrial enlargement 6. Valves are poorly seen; no significant valvular abnormalities Adult Echocardiography Procedure Report Left Ventricle LVEDD (3.7 - 5.6 cm): 4.71 cm LVESD (2.2 - 4.0 cm): 3.31 cm LVIVS thickness (0.6 - 1.2 cm): 1.96 cm LVPW thickness (0.5 - 1.0 cm): 1.26 cm e': 0.11 m/s E - e': 4.58 LVOT Max Gradient: 1.99 mm[Hg] LVOT Area (cm2): 0.71 m/s Peak Velocity (LVOT): 0.71 m/s Mean Velocity (LVOT): 0.53 m/s LVOT Diameter 1.98 cm Left Ventricular Ejection Fraction: 60.99 % Left Atrium LA Volume Index (2D A2C): 47.79 ml/m2 Left Atrium Systolic Dimension: 4.82 cm Mitral Valve MV E to A Ratio: 0.92 Mitral Valve A-Wave Peak Velocity: 0.55 m/s Mitral Valve E-Wave Peak Velocity: 0.51 m/s Right Ventricle RV Internal Diastolic Dimension: 4.06 cm Aorta AO Root Diam: 3.73 cm Ascending Ao Diam: 3.36 cm Aortic Valve AoV Area (Peak Gera): 1.85 cm2, 1.85 cm2 AoV Area (VTI): 1.94 cm2, 1.94 cm2 Peak Velocity(Antegrade Flow): 1.17 m/s Peak Gradient(Antegrade Flow): 5.49 mm[Hg] Mean Velocity(Antegrade Flow): 0.84 m/s Mean Gradient(Antegrade Flow): 3.16 mm[Hg] Velocity Time Integral: 23.08 cm Tricuspid Valve Peak Velocity (Regurgitant Flow): 2.26 m/s, 1.93 m/s, 2.40 m/s Pulmonic Valve Mean Gradient: 1.85 mm[Hg], 1.77 mm[Hg] Mean Velocity: 0.63 m/s, 0.61 m/s Peak Velocity: 0.97 m/s Peak Gradient: 3.74 mm[Hg], 3.85 mm[Hg] Right Atrium Right Atrium Systolic Pressure: 74.67 ml, 74.67 ml Dictated by: Leonard Miranda M.D. on 05/15/2023 at 13:59 Approved by: Leonard Miranda M.D. on 05/15/2023 at 14:03
== END 2023-05-15 09:06 | disposition home or self-care (01) ==
LOC: LAB 09:05
PROVIDERS: PCP Family Medicine; Visit Provider Internal Medicine Cardiovascular Disease
DX: R55 Syncope and collapse (principal); I1A.0 Resistant hypertension
CPT/HCPCS: 36415; 80048; 93306

== ENCOUNTER 2023-08-27 21:00 | Outpatient (OUT) | payer MEDICAID, SELFPAY ==
--- OUTSIDE RECORDS SUMMARY | 2023-08-28 08:16 | XMS_ITS | CCD ---
Author Organization [facility] Care Team Providers Care Medical Education Coordinator Name Role Phone BENITO BULLOCK Primary Care Unavailable BINDU CRAVEN Attending Unavailable BINDU CRAVEN Admitting Unavailable NONE, XXXX Primary Care Physician Unavailab BENITO Miller Primary Care Physician Benito Bullock Unavailable DR BENITO BULLOCK Attending Unavailable BULLOCK, DR BENITO Brooks Consulting Unavailable BULLOCK, DR BENITO Brooks Primary Care Unavailable BULLOCK, DR BENITO Brooks Admitting Unavailable BAILEY FRYE Admitting Unavailable BUTTERNUT, DR MARCELLA Emmanuel Consulting Unavailable BULLOCK, DR BENITO Brooks Primary Care Unavailable BAILEY FRYE Attending Unavailable HEGG, JOSE L Consulting Unavailable BAILEY FRYE Consulting Unavailable MISC, DR ZAMORA Admitting Unavailable BULLOCK, DR BENITO Brooks Primary Care Unavailable MISC, DR ZAMORA Attending Unavailable MISC, DR ZAMORA Consulting Unavailable HAY ., DR ONEILL Admitting Unavailable BULLOCK, DR BENITO Brooks Primary Care Unavailable HAY ., DR ONEILL Attending Unavailable HAY ., DR ONEILL Consulting Unavailable JOSE GENTILE Consulting Unavailable KOBE, DR BENITO Brooks Primary Care Unavailable ANTHONY HURTADO Admitting Unavailable ANTHONY HURTADO Attending Unavailable ANTHONY HURTADO Consulting Unavailable BULLOCK, DR BENITO Brooks Attending Unavailable BULLOCK, DR BENITO Brooks Consulting Unavailable BULLOCK, DR BENITO Brooks Admitting Unavailable BULLOCK, DR BENITO Brooks Primary Care Unavailable Sam GARDUNO Attending Unavailable Sam GARDUNO Attending Unavailable Sam GARDUNO Attending Unavailable Sam GARDUNO Admitting Unavailable MD Benito Bullock Primary Care Provider [phone] MD Rivera Bermudez Attending Provider [phone] Rivera Bermudez Unavailable Deann Ortega Unavailable MD Benito Bullock Primary Care Provider MD Rivera Bermudez Attending Provider [phone] DARRELL Ortega Deann Attending Provider [phone] Pattie Hardin Unavailable MD Benito Bullock Primary Care Provider [phone] MD Rivera Bermudez Attending Provider [phone] MD Benito Bullock Primary Care Provider MD Rivera Bermudez Attending Provider RUPERTO CANTRELL Attending Unavailable ANTHONY HURTADO Attending Unavailable RICO ORONA Attending Unavailable RICO ORONA Attending Unavailable DONALD NGO Attending Unavailable MD Benito Bullock Primary Care Provider MD Rivera Bermudez Attending Provider [phone] NAM BEAR Attending Unavailable MARGO MAGALLON Attending Unavailable MD Benito Bullock Primary Care Provider MD Rivera Bermudez Attending Provider SUHAS Magallon-[employer] INSTRUCTOR-Joan Brooks Attending Provider Troy Bermudezif Pio Attending Unavailable Kobe Benito E Primary Care Unavailable Lara, Rivera S Admitting Unavailable Lara, Rivera S Attending Unavailable Bullock, Benito E Primary Care Unavailable Lara, Rivera S Admitting Unavailable Lara, Rivera S Admitting Unavailable Bullock, Benito E Primary Care Unavailable Lara, Rivera S Attending Unavailable Lara, Rivera S Attending Unavailable Ubllock, Benito E Primary Care Unavailable Lara, Rivera S Admitting Unavailable Ortega, Deann Attending Unavailable Kobe, Benito E Primary Care Unavailable Ortega, Deann Admitting Unavailable Lara, Rivera S Admitting Unavailable Bullock, Benito E Primary Care Unavailable Lara, Rivera S Attending Unavailable Kobe, Benito E Primary Care Unavailable Margo Magallon Attending Unavailable Margo Magallon Admitting Unavailable Allergies Allergy Classification Reported Allergen(s) Allergy Type Date of Onset Reaction(s) Facility (7 sources) Cephalexin; Translations: [CEPHALEXIN] Drug Allergy 02-16-2020 Unknown [facility] Repository (12 sources) Cephalexin; Translations: [Keflex] Drug Allergy 09-26-2012 Unknown [facility] Repository Medications Current Medications Medication Drug Class(es) Dates Sig (Normalized) Sig (Original) acetaminophen 500 mg oral tablet (13 sources) Start: 04-26-2023 take 1 tablet by mouth every six hours as needed Acetaminophen Active 1 TAB PO Every 6 hours April 26, 2023 1:00am FreeTextSi tablet as needed Orally every 6 hrs; Note: Source Status: Taking; Provider: Lara Stafford ( ) take 1 tablet by mouth every six hours Acetaminophen 500 MG 1 tablet as needed Orally every 6 hrs Active acetaminophen 325 mg / HYDROcodone bitartrate 5 mg oral tablet (2 sources) Opioid Agonist Start: 08-13-2021 take 1 tablet by mouth every six hours for pain [place] 325 mg-5 mg oral tablet 1 tab(s), Oral, q6hr for pain, 10 tab(s), Refill(s) 0, Take 1 every 6 hours for pain, [facility], 185, cm, 08/13/21 10:20:00 [...] aspirin 81 mg delayed release oral tablet (13 sources) Platelet Aggregation Inhibitor, Nonsteroidal Anti-inflammatory Drug Start: 04-26-2023 take 1 tablet by mouth once daily Aspirin Active 81 MG PO Daily April 26, 2023 1:00am FreeTextSi tablet Orally Once a day; Note: Source Status: Taking; Provider: Lara Stafford ( ) take 1 tablet by gideon th every twenty-four hours Aspirin 81 MG 1 tablet Orally Once a day Active chlorthalidone 25 mg oral tablet (19 sources) Thiazide-like Diuretic Start: 04-26-2023 take 1 tablet by mouth once daily at mealtime Chlorthalidone Active 25 MG PO Daily April 26, 2023 1:00am FreeTextSi tablet in the morning with food [...] day(s), # 10 tab(s), Refills(s) 0, Pharmacy: [facility] 1628, 185, cm, 08/13/21 10:20:00 [...] procedure, # 1 tab(s), Refills(s) 0, Pharmacy: [facility]28, 185, cm, 08/13/21 10:20:00 EDT, Height/Length Dosing, 123, kg, 08/13/21 10:20:00 EDT, Weight Dosing Start Date: 08/13/21 Status: Ordered NIFEdipine ER Osmotic (5 sources) NIFEdipine ER Osmotic Active predniSONE 10 mg oral tablet (5 sources) Start: 02-20-2023 predniSONE 10 MG Take 3 tablets by mouth for 3 days then 2 tablets by mouth for 3 days then 1 tablet by mouth for 3 days Orally Once a day for Feb, Active spironolactone 25 mg oral tablet (20 sources) Aldosterone Antagonist Start: 04-19-2023 End: 04-26-2023 take 1 tablet by mouth once daily Spironolactone Active 25 MG PO Daily April 26, 2023 1:00am FreeTextSi tablet Orally; Note: Source Status: Taking; Provider: Lara Stafford ( ) sulfamethoxazole 800 mg / trimethoprim 160 mg oral tablet (2 sources) Dihydrofolate Reductase Inhibitor Antibacterial, Sulfonamide Antimicrobial Start: 05-09-2022 take 1 tablet by mouth every twelve hours Bactrim DS 800-160 MG 1 tablet Orally Twice a day for 10 day(s) Apr, Active SZSTANDARD1-Topical (8 sources) Start: 04-26-2023 SZSTANDARD1-Topica l Active 1 DOSE TOPICAL April 26, 2023 1:00am Start: 04-26-2023 SZSTANDARD1-To pical Active TOPICAL April 26, 2023 12:00am SZSTANDARD1-Topical Cream Baclofen 2%, Cyclobenzaprine HCL 2%, Diclofenac Na 3%, Gabapentin 6%, Lidocaine HCL 2% Cream (8 sources) Start: 12-05-2022 SZSTANDARD1-Topical Cream Baclofen 2%, Cyclobenzaprine HCL 2%, Diclofenac Na 3%, Gabapentin 6%, Lidocaine HCL 2% Cream NEEDED TOPICALLY APPLY 1-2 GRAMS FOR 2-3 MINUTES EVERY 6-8 HOURS for 30 days Nov, Active tamsulosin hydrochloride 0.4 mg oral capsule (2 sources) alpha-Adrene rgic Sisi Start: 11-05-2021 take 1 capsule by mouth once daily tamsulosin 0.4 mg Cap 0.4 mg = 1 cap(s), Oral, Daily, # 30 cap(s), Refills(s) 11, Pharmacy: [facility], 185, cm, 08/13/21 10:20:00 EDT, Height/Length Dosing, 123, kg, 08/13/21 10:20:00 EDT, Weight Dosing Start Date: 11/05/21 Status: Ordered topiramate 25 mg oral capsule (7 sources) Start: 07-19-2023 take 2 tablets by mouth at bedtime Topiramate Active 25 MG PO .COMPLEX July 19, 2023 1:17pm 25 mg orally 1 tab in the AM and 2 tabs at HS; Start: 07-18-2023 End: 07-19-2023 take 25 mg by mouth twice daily Topiramate Discontinued 25 MG PO Twice daily July 18, 2023 12:00am July 19, 2023 1:17pm venlafaxine (20 sources) Serotonin and Norepinephrine Reuptake Inhibitor Start: 07-10-2023 take 1 capsule by mouth once daily Venlafaxine Active 0 .ROUTE .COMPLEX 180 July 10, 2023 12:23pm Take 1 capsule by mouth once daily Start: 04-19-2023 End: 07-10-2023 take 1 capsule by mouth once daily Venlafaxine Discontinued 75 MG PO Daily April 26, 2023 1:00am July 10, 2023 12:23pm FreeTextSig: Take 1 capsule by mouth once [...] 75 MG Orally Twice a day Not-Taking busPIRone hydrochloride 10 mg oral tablet (20 sources) Start: 04-26-2023 End: 07-18-2023 take 1 tablet by mouth twice daily Buspirone Discontinued 1 TAB PO Twice daily April 26, 2023 1:00am July 18, 2023 10:13am FreeTextSi tablet Orally Twice a day; Note: Source Status: Taking; Provider: Lara Stafford ( ) Start: 08-13-2021 take 1 mg by mouth twice daily busPIRone 10 mg Tab mg tab(s), Oral, BID, Refills(s) 0 Start Date: 08/13/21 Status: Ordered carvedilol 25 mg oral tablet (20 sources) alpha-Adrenergic Sisi, beta-Adrenergic Sisi Start: 04-26-2023 End: 07-18-2023 take 1 tablet by mouth once daily at mealtime Carvedilol Discontinued 25 MG PO Daily April 26, 2023 1:00am July 18, 2023 10:13am FreeTextSi tablet with food Orally Twice a day; Note: Source Status: Taking; Provider: Lara Stafford ( ) Start: 04-26-2023 take 1 tablet by gideon th twice daily at mealtime Carvedilol Active 25 MG PO Twice daily April 26, 2023 12:00am FreeTextSi tablet with food Orally Twice a day; Note: Source Status: Taking; Provider: Lara Stafford ( ) Start: 08-13-2021 take 1 mg by mouth twice daily carvedilol 25 mg Tab mg tab(s), Oral, BID, Refills(s) 0 Start Date: 08/13/21 Status: Ordered escitalopram 20 mg oral tablet (20 sources) Serotonin Reuptake Inhibitor Start: 04-19-2023 End: 06-16-2023 take 1 tablet by mouth once daily Escitalopram Oxalate Discontinued 20 MG PO Daily April 26, 2023 1:00am June 16, 2023 10:15am FreeTextSi tablet Orally Once a day; Note: Source Status: Taking; Refills: 3; Qty: 90 Tablet; Provider: Kobe Brooks Start: 08-13-2021 take 1 mg by mouth once daily escitalopram 10 mg Tab mg tab(s), Oral, Daily, Refills(s) 0 Start Date: 08/13/21 Status: Ordered Hydrochlorothiazide-12.5 mg 12.5 mg (2 sources) Hydrochlorothiaz jm-12.5 mg 12.5 mg Orally Once a day Not-Taking lisinopril 40 mg oral tablet (20 sources) Angiotensin Converting Enzyme Inhibitor Sta rt: 2 End : 4 take 40 mg by mouth once daily Lisinopril Discontinued 40 MG PO Daily April 19, 2023 1:00am April 26, 2023 4:50pm NIFEdipine 10 mg oral capsule (20 sources) Dihydropyridine Calcium Channel Sisi Sta rt: 4 End : 4 take 30 mg by mouth twice daily Nifedipine Discontinued 30 MG PO Twice daily June 16, 2023 10:16am July 18, 2023 10:13am Start: 06-16-2023 take 60 mg by mouth once daily Nifedipine Active 60 MG PO Daily June 16, 2023 12:00am Start: 04-26-2023 End: 06-16-2023 take 10 mg by mouth twice daily Nifedipine Discontinued 10 MG PO Twice daily April 26, 2023 1:00am June 16, 2023 10:17am Start: 04-19-2023 End: 04-26-2023 take 60 mg by mouth once daily Nifedipine Discontinued 60 MG PO Daily April 19, 2023 1:00am April 26, 2023 4:50pm omeprazole 20 mg delayed release oral capsule (2 sources) Proton Pump Inhibitor Omeprazole 20 MG Orally Once a day Not-Taking Robaxin-750 750 MG (2 sources) Robaxin-750 750 MG 1 or 2 tablets Orally at bedtime as needed for muscle spasm Not-Taking simvastatin 20 mg oral tablet (2 sources) HMG-CoA Reductase Inhibitor Simvastatin 20 MG Orally Once a day Not-Taking tiZANidine 4 mg oral tablet (16 sources) Central alpha-2 Adrenergic Agonist Start: 4 End: 4 take 0.5-1 tablets by mouth once daily as needed Tizanidine Discontinued 6 MG PO Daily April 26, 2023 1:00am June 16, 2023 10:17am FreeTextSi/2-1 tablet as needed Orally at bedtime; Note: Source Status: Taking; Refills: 1; Qty: 30 tablets; Provider: Lara Suero Start: 12-05-2022 tiZANidine HCl 4 MG 1/2-1 tablet as needed Orally at bedtime for 30 days Nov, Active triamcinolone acetonide 40 mg/ml injectable suspension (4 [...] Onset: 05-21-2022 08-13-2021 Chronic Headache; including migraine (20 sources) Intractable chronic tension headache; Translations: [Chronic tension-type headache, intractable] Chronic Hyperplasia of prostate (5 sources) Benign prostatic hypertrophy without outflow obstruction; Translations: [Benign prostatic hyperplasia without lower urinary tract symptoms] Onset: 08-13-2021 Chronic Mood disorders (11 sources) Depressive disorder; Translations: [Depression] 08-13-2021 Chronic Nervous system congenital anomalies (3 [...] Onset: 08-16-2021 Chronic Other nervous system disorders (20 sources) Chronic pain; Translations: [Other chronic pain] 04-26-2023 Chronic Other nervous system disorders (20 sources) Other chronic pain; Translations: [Other chronic pain] Onset: 05-31-2023 Chronic Other nervous system disorders (3 sources) Meralgia paresthetica; Translations: [Meralgia paresthetica, unspecified lower limb] 07-19-2023 Chronic Other nervous system disorders (4 sources) Meralgia paresthetica, unspecified lower limb; Translations: [Meralgia paresthetica] Onset: 08-18-2023 07-19-2023 Chronic Other nervous system disorders (1 source) [...] Spondylosis; intervertebral disc disorders; other back problems (20 sources) Cervical spondylosis; Translations: [Spondylosis without myelopathy or radiculopathy, cervical region] Onset: 02-17-2023 Chronic Sprains and strains (11 sources) Lumbar sprain; Translations: [Lumbar sprain] Episodic Syncope (17 sources) Syncope and collapse; Translations: [Syncope and collapse] Onset: 10-22-2021 Episodic Unclassified (3 sources) Patient encounter status 08-13-2021 Unclassified (1 source) Resistant hypertension; Translations: [Resistant hypertension] Onset: 05-21-2022 Unclassified (10 sources) Finding related to ability to perform occupation and employment activities; Translations: [Physically able to work] 06-16-2023 Past or Other Problems Problem Classification Problem Date Documented Da te Episodic/Chronic Headache; including migraine (1 source) Headache; including migraine Other aftercare (1 source) residential (current) use of aspirin; Translations: [LONGTERM CURRENT USE OF ASPIRIN] Onset: 04-21-2022 Episodic Other connective tissue disease (3 sources) Pain in left finger(s); Translations: [PAIN IN LEFT FINGERS] Onset: 04-20-2022 Episodic Skin and subcutaneous tissue infections (2 sources) Cellulitis of left finger; Translations: [CELLULITIS OF LEFT FINGER] Onset: 04-21-2022 Episodic Spondylosis; intervertebral disc disorders; other back problems (20 sources) Occipital neuralgia; Translations: [Cervicalgia] Onset: 12-05-2022 Episodic Unclassified (1 source) Resistant hypertension; Translations: [Resistant hypertension] Onset: 04-21-2023 Results Test Name Value Interpretation Reference Range Facility Folate [Mass/volume] in Seru m or PlasmaOrdered By: Margo Magallon on 08-22-2023 Folate [Mass/Vol] 17.7 ng/mL >5.9 [facility] Comment on above: Folate reference ran ge: >5.9 ng/mlThe WHO technical consultation on folate and vitamin [id number] has determined that folate concentrations lessthan 4 ng/ml are considered deficient. Thyrotropin [Units/volume] i n Serum or PlasmaOrdered By: Margo Magallon on 08-22-2023 TSH Qn 1.47 m[IU]/L Normal 0.45-5.33 [facility] Comment on above: Result Comment: PERF ORMED BY: [place] [address] PATHOLOGIST PRICE ACCURACY SUPERVISOR NATHANAEL MCCLELLAND M.D. Performed By: #### T SH3, [id number] #### [facility] [address] [place] [address] Vit. B12/Folate Profileon Folate 17.7 ng/mL Normal >5.9 [facility] Comment on above: Result Comment: Madalyn te reference range: >5.9 ng/ml The WHO technical consultation on folate and vitamin b12 deficiencies has determined that folate concentrations less than 4 ng/ml are considered deficient. Performed By: #### T SH3, [id number] #### [facility] [address] [place] [address] Vitamin B12 ser/plasOrdered By: Margo Magallon on 08-22-2023 Cobalamin (Vitamin B12) [Mass/Vol] 304 pg/mL Normal 180-914 [facility] Comment on above: Performed By: #### T SH3, [id number] #### [facility] [address] [id number] [facility] XR lumbar spine AP/LAT/FLX/E XTon 08-18-2023 XR lumbar spine AP/LAT/FLX/EXT [facility] [place] [address] [id number] XRay Report Signed Patient: Marisela Hahn MR#: [id number] 573 : 1975 Acct:[id number] Age/Sex: 48 / M ADM Date: 08/18/23 Loc: XD Room: Type: [facility] Attending Dr: Rivera Bermudez MD Copies to: Rivera Bermudez MD Ordering Provider: Rivera Bermudez MD Date of Service: 08/18/23 XR/XR lumbar spine AP/LAT/FLX/EXT: G57.10 - Meralgia paresthetica, unspecified lower limb AP with lateral neutral, flexion extension views Lumbar Spine HISTORY: Lateral left thigh pain COMPARISON: 10/02/2012 POSTSURGICAL CHANGES: None BONY ALIGNMENT: Stable HYPERMOBILITY:No hypermobility LISTHESIS:None FRACTURE: None DEGENERATIVE CHANGES: Similar extensive L5-S1 spondylosis. Multilevel hypertrophic facet changes. SOFT TISSUES: Unremarkable BONY MINERALIZATION:[place] te XR/XR lumbar spine AP/LAT/FLX/EXT IMPRESSION: No hypermobility. Extensive lower lumbar degeneration. Impression dictated by: Eligio Hidalgo M.D.08/18/2023 4:27 PM Dictation Location: [place] [address] Transcribed By: [facility] 08/18/23 1627 Dictated By: Eligio Hidalgo DO 08/18/23 1626 Signed By: 08/18/23 1627 Normal [facility] Office Visiton 06-12-2023 Follow-up visit [id number] Marisela Hahn 1975 M Date Provider Department Center 06/12/2023 3848-RICO ORONA CHUCK [place] Family History Problem Relation Age of Onset Hypertension Mother Hypertension Father Hypertension Sister Other Maternal Grandfather Diabetes type II Maternal Grandfather Family Status - Relation Status Age at Mother Father Sister Maternal Grandfather Level of Service:12750 ME OFFICE/OUTPATIENT ESTABLISHED LOW MDM 20 MIN Reason for Visit and Comments: Follow-up [390972] - Review labs and echo Normal [facility] Estimated glomerular filtrat ion rate (GFR) non- Americanon 05-15-2023 GFR/1.73 sq M.predicted among non-blacks MDRD (S/P/Bld) [Vol rate/Area] 59 mL/min/{1.73_m2} >=60 [facility] - Chemistry and C hemistry - challengeon 05-15-2023 Calcium [Mass/Vol] 9.1 mg/dL 8.5-10.1 [facility] Chloride [Moles/Vol] 103 mmol/L 98-107 [facility] CO2 [Moles/Vol] 29.5 mmol/L 21.0-32.0 [facility] Creatinine [Mass/Vol] 1.29 mg/dL 0.70-1.30 [facility] GFR/1.73 sq M.predicted MDRD (S/P/Bld) [Vol rate/Area] mL/min/{1.73_m2} >=60 [facility] Glucose [Mass/Vol] 97 mg/dL 74-106 [facility] Potassium [Moles/Vol] 4.1 mmol/L 3.5-5.1 [facility] Sodium [Moles/Vol] 141 mmol/L 136-145 [facility] Urea nitrogen [Mass/Vol] 20.0 mg/dL 7.0-18.0 [facility] Urea nitrogen/Creatinine [Mass ratio] 15.5 mg/mg [facility] Serum or plasma anion gap de terminationon 05-15-2023 Anion gap [Moles/Vol] 12.6 mmol/L [facility] Office Visiton 04-21-2023 Follow-up visit [id number] Marisela Hahn 1975 M Date Provider Department Center 04/21/2023 3848-RICO ORONA Family History Problem Relation Age of Onset Hypertension Mother Hypertension Father Hypertension Sister Other Maternal Grandfather Diabetes type II Maternal Grandfather Family Status - Relation Status Age at Mother Father Sister Maternal Grandfather Level of Service:21307 ME OFFICE/OUTPATIENT ESTABLISHED MOD MDM 30 MIN Normal [facility] MR cervical spine wo conon 1 04-21-2022 MR cervical spine wo con [facility] Main [address] [address] MRI Report Signed Patient: Marisela Hahn MR#: [id number] 573 : 1975 Acct:[id number] Age/Sex: 47 / M ADM Date: 02/17/23 Loc: MR Room: Type: [facility] Attending Dr: Deann Ortega SEAMAN OFFICER Copies to: Deann Ortega NP Ordering Provider: [...] STENOSIS. Impression dictated by: Jorge Mosley Jr., D.O.02/18/2023 8:57 AM Dictation Location: [place] [address] Transcribed By: [facility] 02/18/23 0857 Dictated By: Jorge Mosley Jr, DO 02/18/23 0853 Signed By: 02/18/23 0857 Normal [facility] XR cervical spine w flex/ext on 12-05-2022 XR cervical spine w flex/ext [facility] [place] [address] [place] [address] XRay Report Signed Patient: Marisela Hahn MR#: [id number] 573 : 1975 Acct:[id number] Age/Sex: 47 / M ADM Date: 12/05/22 Loc: XD Room: [facility] Att[facility] Dr: Rivera Bermudez MD Copies to: Rivera Bermudez MD [...] MOTION. Impression dictated by: Jorge Mosley Jr., D.ORas12/05/2022 3:46 PM Dictation Location: [place] [address] Transcribed By: [facility] 12/05/22 1546 Dictated By: Jorge Mosley Jr, DO 12/05/22 1543 Signed By: 12/05/22 1546 Normal [facility] Office Visiton 11-01-2022 Follow-up visit [id number] Marisela Hahn 1975 M Date Provider Department Center 11/01/2022 DONALD HATCH CARD [facility] Family History Problem Relation Age of Onset Hypertension Mother Hypertension Father Hypertension Sister Other Maternal Grandfather Diabetes type II Maternal Grandfather Family Status - Relation Status Age at Mother Father Sister Maternal Grandfather Level of Service:68608 ME OFFICE/OUTPATIENT ESTABLISHED MOD [facility] 30-39 MIN [facility] 36on 09-05-2022 36 Reviewed his recent renal ultrasound with Dr. Severino, can let him know this showed no significant findings. Thank you! [facility] Telephoneon 09-05-2022 Telephone [id number] Marisela Hahn 1975 M Date Provider Department Center 09/05/2022 RUPERTO DUNN CHUCK [facility] Family History Problem Relation Age of Onset Hypertension Mother Hypertension Father Hypertension Sister Other Maternal Grandfather Diabetes type II Maternal Grandfather Family Status - Relation Status Age at Mother Father Sister Maternal Grandfather [facility] 36on 08-31-2022 36 Are we able to try t o send it to a pharmacy where he is located? [facility] Office Visiton 08-17-2022 Follow-up visit [id number] Marisela Hahn 1975 M [facility] Provider Department Center 08/17/2022 RUPERTO DUNN Family History Problem Relation Age of Onset Hypertension Mother Hypertension Father Hypertension Sister Other Maternal Grandfather Diabetes type II Maternal Grandfather Family Status - Relation Status Age at Mother Father Sister Maternal Grandfather Level of Service:15016 ME OFFICE/OUTPATIENT ESTABLISHED MOD [facility] 30-39 MIN Reason for Visit and Comments: Hypertension [269405] [facility] Office Visiton 08-09-2022 Follow-up visit [id number] Marisela Hahn 1975 M [facility] Provider Department Center 08/09/2022 ANTHONY PAZ CHUCK [facility] Family History Problem Relation Age of Onset Hypertension Mother Hypertension Father Hypertension Sister Other Maternal Grandfather Diabetes type II Maternal Grandfather Family Status - Relation Status Age at Mother Father Sister Maternal Grandfather Level of Service:17437 ME OFFICE/OUTPATIENT ESTABLISHED MOD [facility] 30-39 MIN [facility] MRI BRAIN WO W CONon 023 MRI BRAIN WO W CON EXAM: MRI of the brain without and with IV contrast utilizing 20 [...] JOSE L WATSON Date: 2022-07-15 08:[address] [facility] XR FOREIGN BODY EYEon 2022 XR FOREIGN BODY EYE EXAMINATION: XR FOREIGN BODY EYE HISTORY: Foreign body in eye COMPARISON: No relevant comparison available. FINDINGS: ORBITS: Negative for a metallic foreign body. OTHER: Negative. IMPRESSION: No metallic foreign body in orbits Electronically authenticated by: MARCELLA CLEVELAND Date: 2022-07-14 14:[address] [facility] PROF CHEM 8 (BAS METB)on Anion gap [Moles/Vol] 11.9 mmol/L Normal [facility] Comment on above: Performed By: #### B MP #### [facility] [address] [place] [address] Dr[address] Tiana Luong Calcium [Mass/Vol] 9.3 mg/dL Normal 8.5-10.1 [facility] Comment on above: Performed By: #### B MP #### [facility] [address] [address] [address] Tiana Luong Chloride [Moles/Vol] 108 mmol/L Critically high 98-107 [facility] Comment on above: Performed By: #### B MP #### [facility] [address] [address] [address] Tiana Luong CO2 [Moles/Vol] 27.9 mmol/L Normal 21.0-32.0 [facility] Comment on above: Performed By: #### B MP #### [facility] [address] [address] [address] Tiana Luong Creatinine [Mass/Vol] 1.07 mg/dL Normal 0.70-1.30 [facility] Comment on above: Performed By: #### B MP #### [facility] [address] [address] [address] Tiana Luong EGFR-AF LIBYAN >60 Normal >=60 [facility] Comment on above: Performed By: #### B MP #### [facility] [address] [address] [address] Tiana Luong EGFR-NON AF LIBYAN >60 Normal >=60 [facility] Comment on above: Performed By: #### B MP #### [facility] [id number] Tiana Luong Glucose [Mass/Vol] 99 mg/dL Normal 74-106 [facility] Comment on above: Performed By: #### B MP #### [facility] [id number] Tiana Luong Potassium [Moles/Vol] 3.8 mmol/L Normal 3.5-5.1 [facility] Comment on above: Performed By: #### B MP #### [facility] [address] [address] [address] Tiana Luong Sodium [Moles/Vol] 144 mmol/L Normal 136-145 [facility] Comment on above: Performed By: #### B MP #### [facility] [address] [address] [address] Tiana Luong Urea nitrogen [Mass/Vol] 20.0 mg/dL Critically high 7.0-18.0 [facility] Comment on above: Performed By: #### B MP #### [facility] [id number] Tiana Luong Urea nitrogen/Creatinine [Mass ratio] 18.7 mg/mg Normal [facility] Comment on above: Performed By: #### B MP #### [facility] [id number] Tiana Luong 36on 06-30-2022 36 Per [...] his labs on this medication as well. Normal [facility] PROF CHEM 8 (BAS METB)on Anion gap [Moles/Vol] 12.9 mmol/L Normal [facility] Comment on above: Performed By: #### B MP #### [facility] [address] [address] [address] Tiana Luong Calcium [Mass/Vol] 9.2 mg/dL Normal 8.5-10.1 [facility] Comment on above: Performed By: #### B MP #### [facility] [address] [place] [address] Dr. Tiana Luong Chloride [Moles/Vol] 105 mmol/L Normal 98-107 [facility] Comment on above: Performed By: #### B MP #### [facility] [address] [place] [address] Dr. Tiana Luong CO2 [Moles/Vol] 26.1 mmol/L Normal 21.0-32.0 [facility] Comment on above: Performed By: #### B MP #### [facility] [address] [place] [address] Dr. Tiana Luong Creatinine [Mass/Vol] 1.17 mg/dL Normal 0.70-1.30 [facility] Comment on above: Performed By: #### B MP #### [facility] [address] [place] [address] Dr. Tiana Luong EGFR-AF LIBYAN >60 Normal >=60 [facility] Comment on above: Performed By: #### B MP #### [facility] [address] [address] [address] Tiana Luong EGFR-NON AF LIBYAN >60 Normal >=60 [facility] Comment on above: Performed By: #### B MP #### [facility] [address] [place] [address] Dr. Tiana Luong Glucose [Mass/Vol] 93 mg/dL Normal 74-106 [facility] Comment on above: Performed By: #### B MP #### [facility] [address] [address] [address] Tiana Luong Potassium [Moles/Vol] 4.4 mmol/L Normal 3.5-5.1 [facility] Comment on above: Performed By: #### B MP #### [facility] [address] [address] [address] Tiana Luong Sodium [Moles/Vol] 140 mmol/L Normal 136-145 [facility] Comment on above: Performed By: #### B MP #### [facility] [address] [address] [address] Tiana Luong Urea nitrogen [Mass/Vol] 20.0 mg/dL Critically high 7.0-18.0 [facility] Comment on above: Performed By: #### B MP #### [facility] [address] [address] [address] Tiana Luong Urea nitrogen/Creatinine [Mass ratio] 17.1 mg/mg Normal [facility] Comment on above: Performed By: #### B MP #### [facility] [address] [address] [address] Tiana Luong XR FINGER MIN 2 [...] by: JOSE GENTILE Date: 2022-04-20 15:00 Normal [facility] Patient Educationon 11-17-19 Patient Education [...] Prevention: ? More information about preventing HIV: www.cdc.gov/hiv/basic s/prevention.html ? How to find a location where you can get sexual health materials and treatment for free or for a low cost: gettested.cdc.gov Summary ? HIV spreads through semen, blood, breast milk, rectal fluid, and vaginal fluid. ? HIV is commonly spread through sexual contact and sharing needles or (more content not included)... [facility] Urology Office/Clinic Noteon 11-16-2021 Urology Office/Clinic Note [...] the patient. 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 Pain medicines have been provided. [...] know results. He will be going to [place] over the next 2 to 3 weeks [...] Information SHAAN HALE, Sam Velazco, URL [address] [facility] [address] [place] [id number]- Additional Instructions: Patient Education Preventing HIV Infection [...] Spina bifida (more content not included)... Normal [facility] Comment on above: Result Comment: Elec tronically Signed By: Sam GARDUNO MD\.br\Date and Time Signed: 11/16/21 08:29 EDT\.br\Electronically Co-Signed By: Jada Crowder\.br\Date and Time Co-Signed: 11/16/21 08:27 EDT Coding Summary.on 11-08-2021 Coding Summary. CD:[id number] G h0bWw+PGhlYWQ+RR8VYPU yP89fqPFogZ0FR9uCGD6V OBPBCJNRHP7MNJ4nkRP3A OsxD4VwbuYo PmpbeFZfBY42OTd5KLB6h QloXXdtyK1ikFAsX0f7Gy PyVI56jM35DSxzAEBxQkF 3LjZpbjsgbWFy C2cbFnNocRRaVel+PHRhY mxlIHdpZHRoPScxMDAlJy PniBvoUV3oSl2sTSMwOXK vbGxhcHNlOiBj o4lkAXJdQLhiTZ7yjIbhK 9IniDO5HLVbl5p3Yl24wM I+ZLZlQRK4cHrlVGubn62 4YpEtn2mhETU0 oSRcMXflVRS5W26hf4U0Q QRhCTRqQWE3uKS5qT9ocO hgzrxiF6WodSFmPmE3ICN 2eRNsgU8obWnf qrtwdD0uLqj+D60EXK1EB DEEZS8ZTyp6I3KdZnpdrN I+AE65DHEjQB89bOWabCK df8suqHo3QiWe TSUaSHJ9hGafHOvgw5RjQ JYfS70ymYUni5F1TLUgiT dziNImPeIrmTQ3pJ0cSKx onvjzq1hxqdjv Ieywj8bdvb59pQ65N01eA TrfKBHvLCP9FCIyXUBtiK mukb0vtF5cWp6+XDeci0i di8oijPq8ZaLw QGUiyqVyeQcgDHC8e3JuH i08P8QuzRvts2EtUrz1it 47wLRuf7V6aOH3LAuuJRV jiX7rCEtfQiB2 PDOuLyWeaK87jQJfTEhkS p5hgSygoFuxJZ9vGWSeas adCAVomT5iXBUbbROraFu fOO9bXYKojxty d887NoFmZQN4TUXarSOeM 9NlpD2nXmAcOWXzEIRqM2 PxnFSjUIqbH724RFbzOqL 6QERyxkXrM0Fn VPLhqZowLuD1g7E1Jh2Hg 6OkwivyNVZ1SSioFSU3Ha V8HeYqVwJ2B7HkQmm8HZV zyYnaRG9tT3Gg OQAgdywfaaeudGP3IPRzR JLcoX76zXGaOPwdAw6tr0 N8y762XLOzONMfwH61Qo8 udDogMTBwdCBU mG8xunxzz8dpyqvzSrMiQ EVtXDf5XLn7DIMkrCssMl HjLPM0SvH7XQG7dQThfV5 lbOwzwdvkhA7i Oyc+X85rhH5pXUD1DMJ6c zbrYADfeoQxGI71IU67L2 RyPjwvdGFibGU+PGRpdiB wkWuuJA2iWpAs n6kmn7LjDJgpX7GpVTKvN UjgJyg8SRBaHPC2iJS4gX 4cODFbFWeeg9B1xDL2W9N jcdBdrz3sh1to BLWlJUpuW64enWQjl9T7L XMzgVA8HOYuiMiyGuLlrY 93Oyc+YZWguEbsn0CaWfy fl9wwb5wpjTp4 SaRpJLEiecDoqXejZQI8g 3UyGw37M73nODwaVLKlLE XhCGPiGKOocWqbkt2cqJ8 wIi8+PGNvbCB3 nZW5zE9zBPGvNtT4ELhoH 594FvVkuNVgUjqdm5mqw6 vteWh2XmCyBCExrnEanSp wUAS8d0AhJu09 D00xBVaiXROgDREaDXGmI IZocYmihr8fzK4yUg5+PC 7ob2uwnd01mI19iDM+PHR qXOH4fKqxIVml CGJvzO6wLBobSpY3BJYkR fPgjH16eWVkDWcpXw6bfA vceKcqOK7sUDEozjkem75 1IdWqd4sfEYUt iVDjOKdyBCP6T01fv1C5S SYwVSLqZKM4fBE4dW6jiS lnbjogbGVmdDsgdmVydGl bLAljPMmjI961 IHRvcDsnPlBhdGllbnQgT nKnPNy9C5VcLfm7JVPrfA ovKS6kbEIuPVfhFx6hlXo koUdmGF1dHQCv gofvt444TtSie2bpYCIlp ZLzNTjwWBB2N42zj1O0AX AtFRKpZYJ6lHB9kA6hiRr nbjogbGVmdDsg vjRgnFuqSCtoMWiqN711K HRvcDsnPkJpcnRoIERhdG B6JO44AA10vCIya4N1tRW 2T0MoMUDoledo zbzlnOU6GSZgOVWmdT90H u1biRimXd7mCBFfRYF7VN IgwOOcF2CqmZ7aIzQfIES aAZFmU9NtpAQz VVzbV629DHzaLeL1NVLlj fRvB4AdTHKwxZlvVyW8w6 Z3Vt2GD5Y8EO21VW45lDD da0L2jEP2A2Dr MNRhsrkgwqntrHJ6YGYtD UHewW52Ak9xeRbpDn1oDC MzBEH6IMKosQBaU9IdxD7 yOiAjMDAwMDAw F1EizSCgPGorM612QFmkP bP7CWWylhCiE9OyXXKgjX lqVcJ4d8A1Rz6TBJm1CF3 1EU50iPQsy2A7 jBZ4D0CfYKRvliozaamic OH9OKOxPJZngO02Fz7ugS peTk2hXSZeAQQ8TOThnCN jX8JevY1ySmWj CLIrRYNsW6TxwWUiEDdnW 709MZqbEcM9HZBpfdAxI8 HaXGBxlHwuRuY4j7J3Ns9 QJCLxIU26MAA1 cWA9EN69BK23K9SrDfhgv GFibGU+PHRhYmxlIHdpZH RoPScxMDAlJyBzdHlsZT0 oUt5mZTSvFDTu pWgcnTNdAcLdy6ynPPKfL EetPI0mcKthS3EvmVI7CD Isl1f9Qk74J86qA0CfrVR +IGDloZT8yQZ1 hQ9yOgUnChB6LTbzU305M cMdsXKgCzmsw0arr4yafI g0DoY9BPKipgSgjAsrPKC 3c7AvOu91A24d IHdpZHRoPSIxNSUiIHZhb Fcfwl0peO3jMk8+PGNvbC B2cVH0dP0wMrZtMkN7RNk xD128MzPcaDPl Fysel9pxd0zjdTh0RmIxO KShkvEurPypSNL3z5ZyQr 67Z0ZorOryk9QcSol8oy6 4vNAmf6Z5uJY2 P5VcNYHbmqsnnVEibThaS Z9cDELousmrELEjmS1cCD YlF4j9HeGhTvN0NZshE7S iacK1GNQifFHn CJytAEB6D82pp8X9CTSeR IZrUCG3pRZ6zB7ozBzrfn ogbGVmdDsgdmVydGljYWw nQZqjU049SPRo cLyaIGRaqF6cWIBaoNDvk AgiFU3hVJTemhgiQjxWEQ fDIG6UWKBTThqAYH78FP0 8wXJmy2H4rLY0 M7VtIHJovbcwxbybnOK2K RUxHTLkpZ30cSRaLFexIa 7ua7M9c631CNJsYBSkpA9 8Oi4ucTumVMLl jKTAmA6ljbuwi0ynxyryV hZmTCQrHXr8BRi3NECnrP hfKhJwSZI9YeB8DWD9eGJ thP7enLtuuiqc hA9wNvh+CMLdMMOcTBa7P jwvdGQ+QZMsMEA6wKyrIO noPVLpgZ8yZCFgH0l8XzU wGpN4GDbfJ6Nu TFZrtpkcCb19aX5yViJmL dR4RBpyA5ZzfdO5GXHuyG DhPErtJVY3F32mq7H8PLB eELAwVZL0hOH2 kX9enTdcoqtfyVOskEdjk yDxfZkfXRnwFZwyA587DH VdwIxfEsZ0WZzxYKSyKJ9 2IO70vYIhe3S1 cSA1W5WuPXIswvxngkmev BO8MYTwACCmjD60xOXxAX jrDg8nx6C7e948XDAeIOJ lrI59Sr0uuXhu ZBNyhRJUiY0vpzgim4mby qldCqTzYRTkXMr5ETv8VM FsgHpeNoAvFFD7QaL0YPZ 8iAMheY5ytGrm wygxdE5xJll+TWFsZTwvd GQ+PPOeQUB9nLfcGIpmUR ImkK4uXQWqI3k9SnHmSeO 2OCxzM4RhEZNz pmxbFc40iK0fKfKtRrK4Z ClaC9EnjjG8HSPipDHaMC vfOGV2S57sw6Y0NKQtFGF uYWT5zVG7iA0t bGlnbjogbGVmdDsgdmVyd JrsAUogHHmwS823UITqhV lkDetdRrDCry2bWR6eYvl vdGQ+ZX29nt90 Y9BzTevqUhb5BJPoCIV5v BU5oT2gEZPoLJavg6E5bQ M9G6FdstEizm0rf2twVTR fKJtiS60weTUl t4V5RZZtrEY6SYKjrOncK vRdyC33Eaq+PGNvbGdyb3 YbUtjbp2xqh2lgpYz1SsW wJSIgdmFsaWdu ARA7u7OgHr93P36fPBceK HRoPSIzMCUiIHZhbGlnbj 8faD0zRj8+KREhcLJ2mLE 7iP7gWpJhCrW5 RRcmC139AqKzuEBgQtdgu 5ufl7lbdMl3ExOmCEVqov QfkJaxXZP5k6BzAm32I4C izQpsg5RbDtq8 cy58sCOme2V0dYL8X1LwJ AAtybnjlGYjuGbrKB9iRC IalfqsDFYuwY4cBXMvH3e 6QnHyBfD1WQub F9DckoX0YACxhURsEJMmd ORFdC3lmbhfu2eahmzaCu CfLLGfYMo1SVv3UUGatOq gEsKfCGU4QhL3 BDO5eBJloN1gdVrnlcdwg G9wOyc+VAn5x4iqaBFgBN 9qvLX8OS22CE07tRCsy3N 0vNH2T3AgMQBz allwceudhRA8SOUqISAfy D99Cv5nkRuvVm3zEZOfUF G1KMMfkIVbV9GgfX1lMfJ dJXZnPTVaQ5Mr vQOsQTjmL291XLxyCwV6I FNvkaQwS0NlMMWfaZciDl O5t9Y6Hq5ZTW31MM55FS9 2rWYna9H8xPF6 T5MsFAPahqldbldbiLC9I NYlTXTmdZ16Dh3xfJbbMn 7nDBSzSNT9CHOnlQDfW7V uiN1jJwVgVUWz MXPnV5SilJTqPSlmY580K IauDeK3EOOkeqLkM3MsCP IdoOhnAaH2j5B2Dt3IZm3 6MU26EP56kQYj h8Q4bFX2W2GqKZPbtuvxz ckfuQU7KIQnZNQikB62Mc 2vdBjeFf0tFGExPEB0RZJ xnMJuU7WvmQ5x PfQhQVRhXVKdG9OtuDPpG DpxO629BDkwRsK2EUYhwl HtP3NoTNOluHofKnF5b7G 4Hf9ILFukdzz7 R1IsXldspZK+XJ02AYFqQ D42jIWgrQFid5hwiUq7Zo NtEIErMUQ1yQllTLkyd2U iMKVzJ45qqIPs c2U6 (more content not included)... Normal [facility] Ambulatory Visit Summaryon 0 11-05-2021 Ambulatory Visit Summary JOVANIELVIRAIC :1975 Visit Date:11/05/2021 Ambulatory Visit Instructions Your Diagnosis Encounter for vasectomy BPH without obstruction/lower urinary tract symptoms Your Care Team Attending Physician - SHAAN HALE, Sam Velazco Primary Care Physician - NONE, XXXX This Is Your Medications List tamsulosin (tamsulosin 0.4 mg Cap) Contact prescribing physician if questions or concerns acetaminophen-hydroco done ([place] 325 mg-5 mg oral tablet) amlodipine (amLODIPine [...] HALE, Sam Velazco Where: [facility] Franky Normal [facility] Consent for Procedure/Surger yon 11-05-2021 Consent for Procedure/Surgery [id number]:127 Normal [facility] Patient Educationon 11-06-19 22 Patient Education Urology [...] these instructions at home: Medicines ? Take bieu-yng-xekuwti and prescription medicines only as told by [...] 09/16/2005 Document Revised: 02/09/2018 Document Reviewed: 05/26/2017 [employer] Patient Education ? 2020 [employer] Paula Rosen [facility] Urology Office/Clinic Noteon 11-05-2021 Urology Office/Clinic Note [...] the patient. 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 Pain medicines have been provided. [...] to the (more content not included)... Normal [facility] Comment on above: Result Comment: Elec tronically Signed By: Sam GARDUNO MD\.br\Date and Time Signed: 11/05/21 08:24 EDT\.br\Electronically Co-Signed By: Tomeka Montalvo\.br\Date and Time Co-Signed: 11/05/21 08:19 EDT ECHOCARDIO M/2D COMPLETEon 0 10-22-2021 ECHOCARDIO M/2D COMPLETE Patient: MARISELA HAHN Exam Date: 10/22/2021 : 1975 Gender:M Ordering : DR BENITO BULLOCK M.D. Admission #: [id number] Family : Order #: [id number] CLICK HERE TO VIEW EXAM ECHOCARDIOGRAM REPORT [...] M.D. on 10/22/2021 at 16:[address] [facility] CBC AUTO DIFFon 08-06-2021 BASO # 0.0 103/ul Normal 0.0-0.1 [facility] Comment on above: Performed By: #### C BC #### [facility] [address] [address] [address] Tiana Luong Basophils/100 WBC (Bld) 0.8 % Normal 0.2-2.0 [facility] Comment on above: Performed By: #### C BC #### [facility] [address] [address] [address] Tiana Luong EO # 0.1 103/ul Normal 0.0-0.7 [facility] Comment on above: Performed By: #### C BC #### [facility] [address] [address] [address] Tiana Luong Eosinophils/100 WBC (Bld) 1.4 % Normal 0.9-7.0 [facility] Comment on above: Performed By: #### C BC #### [facility] [address] [address] [address] Tiana Luong Erythrocyte distribution width (RBC) [Ratio] 14.6 % Normal 11.0-15.0 [facility] Comment on above: Performed By: #### C BC #### [facility] [address] [address] [address] Tiana Luong Hematocrit (Bld) [Volume fraction] 49.2 % Normal 42.0-54.0 [facility] Comment on above: Performed By: #### C BC #### [facility] [address] [address] [address] Tiana Luong Hemoglobin (Bld) [Mass/Vol] 16.0 g/dL Normal 14.0-18.0 [facility] Comment on above: Performed By: #### C BC #### [facility] [address] [place] [address] Dr. Tiana Luong IG # 0.03 10e3/ul Normal 0.00-0.03 [facility] Comment on above: Performed By: #### C BC #### [facility] [address] [place] [address] Dr. Tiana Luong IG % 0.6 % Critically high 0.0-0.[address] [facility] Comment on above: Performed By: #### C BC #### [facility] [address] [place] [address] Dr. Tiana uLong LYMPH # 0.9 103/ul Critically low 1.2-3.8 [facility] Comment on above: Performed By: #### C BC #### [facility] [address] [place] [address] Dr. Tiana Luong Lymphocytes/100 WBC (Bld) 18.8 % Critically low 20.5-60.0 [facility] Comment on above: Performed By: #### C BC #### [facility] [address] [place] [address] Dr. Tiana Luong MANUAL DIFF REQ NO Normal [facility] Comment on above: Performed By: #### C BC #### [facility] [address] [place] [address] Dr. Tiana Luong MCH (RBC) [Entitic mass] 28.4 pg Normal 25.9-34.0 [facility] Comment on above: Performed By: #### C BC #### [facility] [address] [place] [address] Dr. Tiana Luong MCHC (RBC) [Mass/Vol] 32.5 g/dL Normal 29.9-35.2 [facility] Comment on above: Performed By: #### C BC #### [facility] [address] [place] [address] Dr. Tiana Luong MCV (RBC) [Entitic vol] 87.4 fL Normal 80.0-94.0 [facility] Comment on above: Performed By: #### C BC #### [facility] [address] [address] [address] Tiana Luong MONO # 0.4 103/ul Normal 0.3-0.[address] [facility] Comment on above: Performed By: #### C BC #### [facility] [address] [address] [address] Tiana Luong Monocytes/100 WBC (Bld) 8.7 % Normal 1.7-12.0 [facility] Comment on above: Performed By: #### C BC #### [facility] [address] [address] [address] Tiana Luong NEUT # 3.4 103/ul Normal 1.4-6.[address] [facility] Comment on above: Performed By: #### C BC #### [facility] [address] [place] [address] Dr. Tiana Luong Neutrophils/100 WBC (Bld) 69.7 % Normal 43.0-75.0 [facility] Comment on above: Performed By: #### C BC #### [facility] [address] [place] [address] Dr. Tiana Luong Platelet mean volume (Bld) [Entitic vol] 9.7 fL Normal 9.5-13.5 [facility] Comment on above: Performed By: #### C BC #### [facility] [address] [place] [address] Dr. Tiana Luong PLT 167 103/ul Normal 150-[address] [facility] Comment on above: Performed By: #### C BC #### [facility] [address] [place] [address] Dr. Tiana Luong RBC 5.63 106/ul Normal 4.70-6.[address] [facility] Comment on above: Performed By: #### C BC #### [facility] [address] [place] [address] Dr. Tiana Luong WBC 4.9 103/ul Normal 4.0-11.[address] [facility] Comment on above: Performed By: #### C BC #### [facility] [address] [address] [address] Tiana Luong FREE T4on 08-06-2021 Free T4 [Mass/Vol] 0.80 ng/dL Normal 0.76-1.46 [facility] Comment on above: Performed By: #### F T4 #### [facility] [address] [place] [address] Dr. Tiana Luong PROF 14(COMP METB)on 022 Albumin [Mass/Vol] 3.9 g/dL Normal 3.4-5.0 [facility] Comment on above: Performed By: #### C MP, TSH #### [facility] [address] [place] [address] Dr. Tiana Luong Albumin/Globulin [Mass ratio] 1.3 {ratio} Normal [facility] Comment on above: Performed By: #### C MP, TSH #### [facility] [address] [place] [address] Dr. Tiana Luong ALP [Catalytic activity/Vol] 60 U/L Normal 46-116 [facility] Comment on above: Performed By: #### C MP, TSH #### [facility] [address] [place] [address] Dr. Tiana Luong ALT [Catalytic activity/Vol] 21 U/L Normal 16-63 [facility] Comment on above: Performed By: #### C MP, TSH #### [facility] [address] [address] [address] Tiana Luong Anion gap [Moles/Vol] 11.0 mmol/L Normal [facility] Comment on above: Performed By: #### C MP, TSH #### [facility] [address] [place] [address] Dr. Tiana Luong AST [Catalytic activity/Vol] 17 U/L Normal 15-37 [facility] Comment on above: Performed By: #### C MP, TSH #### [facility] [address] [place] [address] Dr. Tiana Luong Bilirubin [Mass/Vol] 0.5 mg/dL Normal 0.2-1.0 [facility] Comment on above: Performed By: #### C MP, TSH #### [facility] [address] [address] [address] Tiana Luong Calcium [Mass/Vol] 9.0 mg/dL Normal 8.5-10.1 [facility] Comment on above: Performed By: #### C MP, TSH #### [facility] [address] [address] [address] Tiana Luong Chloride [Moles/Vol] 106 mmol/L Normal 98-[address] [facility] Comment on above: Performed By: #### C MP, TSH #### [facility] [address] [address] [address] Tiana Luong CO2 [Moles/Vol] 27.2 mmol/L Normal 21.0-32.0 [facility] Comment on above: Performed By: #### C MP, TSH #### [facility] [address] [address] [address] Tiana Luong Creatinine [Mass/Vol] 0.93 mg/dL Normal 0.70-1.30 [facility] Comment on above: Performed By: #### C MP, TSH #### [facility] [address] [address] [address] Tiana Luong EGFR-AF LIBYAN >60 Normal >=60 [facility] Comment on above: Performed By: #### C MP, TSH #### [facility] [address] [address] [address] Tiana Luong EGFR-NON AF LIBYAN >60 Normal >=[address] [facility] Comment on above: Performed By: #### C MP, TSH #### [facility] [address] [address] [address] Tiana Luong Globulin (S) [Mass/Vol] 3.1 g/dL Normal [facility] Comment on above: Performed By: #### C MP, TSH #### [facility] [address] [address] [address] Tiana Luong Glucose [Mass/Vol] 96 mg/dL Normal 74-106 [facility] Comment on above: Performed By: #### C MP, TSH #### [facility] [address] [address] [address] Tiana Luong Potassium [Moles/Vol] 4.2 mmol/L Normal 3.5-5.1 [facility] Comment on above: Performed By: #### C MP, TSH #### [facility] [address] [place] [address] Dr. Tiana Luong Protein [Mass/Vol] 7.0 g/dL Normal 6.4-8.2 [facility] Comment on above: Performed By: #### C MP, TSH #### [facility] [address] [place] [address] Dr. Tiana Luong Sodium [Moles/Vol] 140 mmol/L Normal 136-145 [facility] Comment on above: Performed By: #### C MP, TSH #### [facility] [address] [place] [address] Dr. Tiana Luong Urea nitrogen [Mass/Vol] 19.0 mg/dL Critically high 7.0-18.0 [facility] Comment on above: Performed By: #### C MP, TSH #### [facility] [address] [place] [address] Dr. Tiana Luong Urea nitrogen/Creatinine [Mass ratio] 20.4 mg/mg Normal [facility] Comment on above: Performed By: #### C MP, TSH #### [facility] [address] [place] [address] Dr. Tiana Luong TSHon 08-06-2021 TSH 1.417 uIU/mL Normal 0.358-3.740 [facility] Comment on above: Performed By: #### C MP, TSH #### [facility] [address] [place] [address] Dr. Tiana Luong TSH RANGE SEE BELOW Normal [facility] Comment on above: Result Comment: <0.3 4 UIU/ml HYPERTHYROID 0.34-5.60 UIU/ml EUTHYROID >5.60 UIU/ml HYPOTHYROID Performed By: #### C MP, TSH #### [facility] [address] [place] [address] Dr. Tiana Luong COVID-19/INFLUENZA A,B ANGELI [place] 02-18-2020 COVID-19/INFLUENZA A,B MOLECULAR SARS-COV-2 (NATALYA): Not Detected INFLUENZA A (NATALYA): Not Detected INFLUENZA B (NATALYA): Not Detected Normal Not Detected [facility] Comment on above: Order Comment: This test was performed under the FDA's Emergency Use Authorization (EUA). Testing was performed using the Pooja melchor SARS-CoV-2 AND Influenza A/B Nucleic Acid Test on the melchor Natalya System. This test has not been approved for use in asymptomatic patients and its performance in this patient population has not been evaluated. Negative results do not rule out the presence of SARS-CoV-2, influenza A, and/or influenza B. Fact sheets for the EUA can be found at the following links: For Healthcare Providers: https://www.fda.gov/media/020225/download For Patients: https://www.fda.gov/media/832551/download Performed By: #### L [id number] #### PMC [place] [address] Mike King MD [id number] PED CT DISSECTION WITH PELVISon 02-18-2020 CT [...] 2020 1:23:[address] [facility] Comment on above: Order Comment: [...] at L5-S1 with vacuum disc phenomena present. Edpx-wv-zzfuimmy facet arthropathy of the lumbar spine which is most pronounced distally. IMPRESSION: 1. No acute osseous abnormality of the lumbar spine. 2. Qbgw-do-uwvjfvba degenerative changes which are most pronounced distally at L5-S1. Workstation ID: [id number] Dictated by: MAKENNA BOYKIN on MonFeb 17, 2020 9:29:23 PM EST Transcribed by: MAKENNA BOYKIN on MonFeb 17, 2020 9:29:23 PM EST Finalized by: MAKENNA BOYKIN on MonFeb 17, 2020 9:29:[address] [facility] Comment on above: Order Comment: Injur y/Trauma or Illness?:Illness/Other How long have you had these symptoms (acute/chronic)?:Acute Reason for exam?:back pain History of cancer?:n Surgeries, chemotherapy, or radiation?:n Type of Exam?:Initial Additional signs and symptoms?:x many weeks but much worse pain today Vital Signs Date Time Vital Sign Value Performing Clinician Facility 07-19-2023 13:16-0400 Body weight 151.1 kg MD Benito Bullock Work Phone: [facility] 07-19-2023 13:16-0400 Diastolic blood pressure 90 mm[Hg] MD Benito Bullock Work Phone: [facility] 07-19-2023 13:16-0400 Heart rate 92 /min MD Benito Bullock Work Phone: [facility] 07-19-2023 13:16-0400 SaO2% (BldA) [Mass fraction] 98 % MD Benito Bullock Work Phone: [facility] 07-19-2023 13:16-0400 Systolic blood pressure 150 mm[Hg] MD Benito Bullock Work Phone: [facility] 07-18-2023 10:06-0400 Body height 185.42 cm MD Benito Bullock Work Phone: [facility] 07-18-2023 10:06-0400 Body mass index (BMI) [Ratio] 43.2 kg/m2 MD Benito Bullock Work Phone: [facility] 07-18-2023 10:06-0400 Body weight 148.77 kg MD Benito Bullock Work Phone: [facility] 07-18-2023 10:06-0400 Diastolic blood pressure 85 mm[Hg] MD Benito Bullock Work Phone: [facility] 07-18-2023 10:06-0400 Heart rate 73 /min MD Benito Bullock Work Phone: [facility] 07-18-2023 10:06-0400 Systolic blood pressure 123 mm[Hg] MD Benito Bullock Work Phone: [facility] 06-21-2023 10:07-0400 Body height 185.42 cm MD Benito Bullock Work Phone: [facility] 06-21-2023 10:07-0400 Body mass index (BMI) [Ratio] 43.4 kg/m2 MD Benito Bullokc Work Phone: [facility] 06-21-2023 10:07-0400 Body weight 149.23 kg MD Benito Bullock Work Phone: [facility] 06-21-2023 10:07-0400 Diastolic blood pressure 92 mm[Hg] MD Benito Bullock Work Phone: [facility] 06-21-2023 10:07-0400 Heart rate 75 /min MD Benito Bullock Work Phone: [facility] 06-21-2023 10:07-0400 SaO2% (BldA) [Mass fraction] 97 % MD Benito Bullock Work Phone: [facility] 06-21-2023 10:07-0400 Systolic blood pressure 138 mm[Hg] MD Benito Bullock Work Phone: [facility] 06-16-2023 10:10-0400 Body height 185.42 cm MD Benito Bullock Work Phone: [facility] 06-16-2023 10:10-0400 Body mass index (BMI) [Ratio] 43.4 kg/m2 MD Benito Bullock Work Phone: [facility] 06-16-2023 10:10-0400 Body weight 149.23 kg MD Benito Bullock Work Phone: [facility] 06-16-2023 10:10-0400 Diastolic blood pressure 85 mm[Hg] MD Benito Bullock Work Phone: [facility] 06-16-2023 10:10-0400 Heart rate 78 /min MD Benito Bullock Work Phone: [facility] 06-16-2023 10:10-0400 Systolic blood pressure 122 mm[Hg] MD Benito Bullock Work Phone: [facility] 05-31-2023 10:50-0400 Diastolic blood pressure 79 mm[Hg] MD Benito Bullock Work Phone: [facility] 05-31-2023 10:50-0400 Heart rate 71 /min MD Benito Bullock Work Phone: [facility] 05-31-2023 10:50-0400 Respiratory rate 18 /min MD Benito Bullock Work Phone: [facility] 05-31-2023 10:50-0400 SaO2% (BldA) [Mass fraction] 96 % MD Benito Bullock Work Phone: [facility] 05-31-2023 10:50-0400 Systolic blood pressure 131 mm[Hg] MD Benito Bullock Work Phone: [facility] 05-31-2023 09:34-0400 Body height 185.42 cm MD Benito Bullock Work Phone: [facility] 05-31-2023 09:34-0400 Body weight 149.68 kg MD Benito Bullock Work Phone: [facility] 05-17-2023 15:27-0500 Diastolic blood pressure 102 mm[Hg] MD Benito Bullock Work Phone: [facility] 05-17-2023 15:27-0500 Heart rate 101 /min MD Bneito Bullock Work Phone: [facility] 05-17-2023 15:27-0500 SaO2% (BldA) [Mass fraction] 96 % MD Benito Bullock Work Phone: [facility] 05-17-2023 15:27-0500 Systolic blood pressure 158 mm[Hg] MD Benito Bullock Work Phone: [facility] 05-10-2023 10:22-0500 Diastolic blood pressure 96 mm[Hg] MD Benito Bullock Work Phone: [facility] 05-10-2023 10:22-0500 Heart rate 73 /min MD Benito Bullock Work Phone: [facility] 05-10-2023 10:22-0500 Respiratory rate 16 /min MD Benito Bullock Work Phone: [facility] 05-10-2023 10:22-0500 SaO2% (BldA) [Mass fraction] 98 % MD Benito Bullock Work Phone: [facility] 05-10-2023 10:22-0500 Systolic blood pressure 151 mm[Hg] MD Benito Bullock Work Phone: [facility] 05-10-2023 09:01-0500 Body height 185.42 cm MD Benito Bullock Work Phone: [facility] 05-10-2023 09:01-0500 Body weight 145.14 kg MD Benito Bullock Work Phone: [facility] 04-26-2023 15:53-0500 Body height 185.42 cm MD Benito Bullock Work Phone: [facility] 04-26-2023 15:53-0500 Body mass index (BMI) [Ratio] 43.5 kg/m2 MD Benito Bullock Work Phone: [facility] 04-26-2023 15:53-0500 Body weight 149.68 kg MD Benito Bullock Work Phone: [facility] 04-26-2023 15:53-0500 Heart rate 84 /min MD Benito Bullock Work Phone: [facility] 04-26-2023 15:53-0500 Respiratory rate 18 /min MD Benito Bullock Work Phone: [facility] 04-26-2023 15:53-0500 SaO2% (BldA) [Mass fraction] 95 % MD Benito Bullock Work Phone: [facility] 04-19-2023 09:23-0500 Diastolic blood pressure 88 mm[Hg] MD Benito Bullock Work Phone: [facility] 04-19-2023 09:23-0500 Heart rate 82 /min MD Benito Bullock Work Phone: [facility] 04-19-2023 09:23-0500 Respiratory rate 16 /min MD Benito Bullock Work Phone: [facility] 04-19-2023 09:23-0500 SaO2% (BldA) [Mass fraction] 97 % MD Benito Bullock Work Phone: [facility] 04-19-2023 09:23-0500 Systolic blood pressure 139 mm[Hg] MD Benito Bullock Work Phone: [facility] 04-19-2023 08:05-0500 Body height 185.42 cm MD Benito Bullock Work Phone: [facility] 04-19-2023 08:05-0500 Body weight 149.68 kg MD Benito Bullock Work Phone: [facility] 04-03-2023 11:45-0500 Body height 181.61 cm MD Benito Bullock Work Phone: [facility] 04-03-2023 11:45-0500 Diastolic blood pressure 92 mm[Hg] MD Benito Bullock Work Phone: [facility] 04-03-2023 11:45-0500 Systolic blood pressure 156 mm[Hg] MD Benito Bullock Work Phone: [facility] 03-03-2023 08:30-0500 Body height 181.61 cm Rivera Bermudez Other [facility] 03-03-2023 08:30-0500 Body mass index (BMI) [Ratio] 46.75 kg/m2 Rivera Lara Other [facility] [employer] Other 03-03-2023 08:30-0500 Body weight 154.22 kg Rivera Lara Other [facility] 03-03-2023 08:30-0500 Diastolic blood pressure 98 mm[Hg] Rivera Lara Other [facility] 03-03-2023 08:30-0500 Systolic blood pressure 150 mm[Hg] Rivera Lara Other [facility] 02-21-2023 09:00-0500 Body height 181.61 cm Riveraroge Bermudez Other [facility] 02-21-2023 09:00-0500 Body mass index (BMI) [Ratio] 46.48 kg/m2 Riveraroge Bermudez Other [facility] [employer] Other 02-21-2023 09:00-0500 Body weight 153.32 kg Rivera Lara Other [facility] [employer] Other 02-21-2023 09:00-0500 Body weight 153.31 kg MD Benito Bullock Work Phone: [facility] 02-21-2023 09:00-0500 Diastolic blood pressure 90 mm[Hg] Riveraroge Bermudez Other [facility] 02-21-2023 09:00-0500 SaO2% (BldA) [Mass fraction] 97 % Riveraroge Bermudez Other [facility] [employer] Other 02-21-2023 09:00-0500 Systolic blood pressure 160 mm[Hg] Rivera Lara Other [facility] 02-20-2023 08:20-0500 Body height 181.61 cm Pattie Hardin Other [facility] 02-20-2023 08:20-0500 Body mass index (BMI) [Ratio] 46.34 kg/m2 Pattie Hardin Other [employer] Other 02-20-2023 08:20-0500 Body weight 152.86 kg Pattie Hardin Other [facility] 01-24-2023 13:30-0500 Body height 181.61 cm Deann Ortega Other [employer] Other 01-24-2023 13:30-0500 Body mass index (BMI) [Ratio] 46.64 kg/m2 Deann Ortega Other [employer] Other 01-24-2023 13:30-0500 Body weight 153.86 kg Deann Ortega Other [employer] Other 01-24-2023 13:30-0500 Diastolic blood pressure 96 mm[Hg] Deann Ortega Other [employer] Other 01-24-2023 13:30-0500 SaO2% (BldA) [Mass fraction] 98 % Deann Ortega Other [employer] Other 01-24-2023 13:30-0500 Systolic blood pressure 154 mm[Hg] Deann Ortega Other [employer] Other 11-02-2022 09:15-0400 Body height 181.61 cm Benito Bullock Other [employer] Other 11-02-2022 09:15-0400 Body mass index (BMI) [Ratio] 45.38 kg/m2 Benito Bullock Other [employer] Other 11-02-2022 09:15-0400 Body weight 149.69 kg Benito Bullock Other [employer] Other 11-02-2022 09:15-0400 Diastolic blood pressure 86 mm[Hg] Benito Bullock Other [employer] Other 11-02-2022 09:15-0400 Systolic blood pressure 150 mm[Hg] Benito Bullock Other [employer] Other 05-16-2022 09:00-0500 Body height 181.61 cm Benito Bullock Other [employer] Other 05-16-2022 09:00-0500 Body mass index (BMI) [Ratio] 43.73 kg/m2 Benito Bullock Other [employer] Other 05-16-2022 09:00-0500 Body weight 144.24 kg Benito Bullock Other [employer] Other 05-16-2022 09:00-0500 Diastolic blood pressure 100 mm[Hg] Benito Bullock Other [employer] Other 05-16-2022 09:00-0500 SaO2% (BldA) [Mass fraction] 97 % Benito Bullock Other [employer] Other 05-16-2022 09:00-0500 Systolic blood pressure 160 mm[Hg] Benito Bullock Other [employer] Other 05-09-2022 09:00-0500 Body height 181.61 cm Benito Bullock Other [employer] Other 05-09-2022 09:00-0500 Body mass index (BMI) [Ratio] 44.28 kg/m2 Benito Bullock Other [employer] Other 05-09-2022 09:00-0500 Body weight 146.06 kg Benito Bullock Other [employer] Other 05-09-2022 09:00-0500 Diastolic blood pressure 102 mm[Hg] Benito Bullock Other [employer] Other 05-09-2022 09:00-0500 SaO2% (BldA) [Mass fraction] 97 % Benito Bullock Other [employer] Other 05-09-2022 09:00-0500 Systolic blood pressure 162 mm[Hg] Benito Bullock Other [employer] Other 11-16-2021 08:12-0400 Blood Pressure Location [employer] [facility] 11-16-2021 08:12-0400 Diastolic blood pressure 88 mm[Hg] [employer] [facility] 11-16-2021 08:12-0400 Heart rate 70 /min Sam [employer] [facility] 11-16-2021 08:12-0400 Respiratory rate 16 /min [employer] [facility] 11-16-2021 08:12-0400 Systolic blood pressure 130 mm[Hg] Sam [employer] [facility] 08-13-2021 10:19-0400 Blood Pressure Location [facility] 08-13-2021 10:19-0400 Diastolic blood pressure 89 mm[Hg] Sam GARDUNO [facility] 08-13-2021 10:19-0400 Heart rate 77 /min Sam GARDUNO [facility] 08-13-2021 10:19-0400 Systolic blood pressure 133 mm[Hg] Sam GARDUNO [facility] Encounters Encounter Date Encounter Type Care Provider Facility Start: 08-22-2023 End: 08-22-2023 Patient encounter procedure MD Benito Bullock Work Phone: [facility] Work Phone: Start: 08-22-2023 End: 08-22-2023 ambulatory MD Benito Bullock Work Phone: [facility] Work Phone: Start: 08-18-2023 End: 08-18-2023 Patient encounter procedure MD Benito Bullock Work Phone: [facility] Work Phone: Start: 08-18-2023 End: 08-18-2023 ambulatory MD Benito Bullock Work Phone: [facility] Work Phone: Start: 07-19-2023 End: 07-19-2023 ambulatory MD Benito Bullock Work Phone: [facility] Work Phone: Start: 07-19-2023 End: 07-19-2023 Patient encounter procedure MD Benito Bullock Work Phone: [facility] Work Phone: Start: 07-18-2023 End: 07-18-2023 ambulatory MARGO MAGALLON Not Available Start: 07-18-2023 End: 07-18-2023 ambulatory MD Benito Bullock Work Phone: [facility] Work Phone: Start: 07-18-2023 End: 07-18-2023 Patient encounter procedure MD Benito Bullock Work Phone: [facility] Work Phone: Start: 07-05-2023 End: 07-05-2023 ambulatory NAM BEAR Not Available Start: 07-03-2023 End: 07-03-2023 ambulatory NAM THEODOREBESTEN Not Available Start: 06-21-2023 End: 06-21-2023 ambulatory MD Benito Bullock Work Phone: [facility] Work Phone: Start: 06-21-2023 End: 06-21-2023 Patient encounter procedure MD Benito Bullock Work Phone: [facility] Work Phone: Start: 06-16-2023 End: 06-16-2023 ambulatory MD Benito Bullock Work Phone: [facility] Work Phone: Start: 06-16-2023 End: 06-16-2023 Patient encounter procedure MD Benito Bullock Work Phone: [facility] Work Phone: Start: 06-12-2023 End: 06-12-2023 ambulatory [facility] Start: 05-31-2023 Non-patient / Non-visit MD Sherri Bullock Work Phone: [facility] Work Phone: Start: 05-31-2023 End: 05-31-2023 Admission to same day surgery center MD Benito Bullock Work Phone: [facility] Work Phone: Start: 05-31-2023 End: 05-31-2023 ambulatory MD Benito Bullock Work Phone: [facility] Work Phone: Start: 05-17-2023 End: 05-17-2023 Patient encounter procedure MD Benito Bullock Work Phone: [facility] Work Phone: Start: 05-15-2023 Non-patient / Non-visit MD Sherri Bullock Work Phone: [facility] Work Phone: Start: 05-10-2023 Non-patient / Non-visit MD Sherri Bullock Work Phone: [facility] Work Phone: Start: 05-10-2023 End: 05-10-2023 Admission to same day surgery center MD Benito Bullock Work Phone: [facility] Work Phone: Start: 05-10-2023 End: 05-10-2023 ambulatory Rivera Bermudez Facility:[facility] Start: 04-26-2023 End: 04-26-2023 ambulatory MD Benito Bullock Work Phone: [facility] Work Phone: Start: 04-26-2023 End: 04-26-2023 Patient encounter procedure MD Benito Bullock Work Phone: [facility] Work Phone: Start: 04-21-2023 End: 04-[facility] Start[facility] 04-19-2023 (PROC) PROCEDURE Rivera Bermudez [facility] Start: 04-19-2023 End: 04-19-2023 Admission to same day surgery center MD Benito Bullock Work Phone: [facility] Work Phone: Start: 04-19-2023 End: 04-19-2023 ambulatory MD Benito Bullock Work Phone: [facility] Work Phone: Start: 04-03-2023 End: 04-03-2023 Patient encounter procedure MD Benito Bullock Work Phone: [facility]- Start: 03-03-2023 End: 03-03-2023 ambulatory Riveraroge Bermudez Other [employer] Other Start: 03-03-2023 Patient encounter procedure Riveraroge Bermudez [facility] Start: 03-03-2023 End: 03-03-2023 Patient encounter procedure MD Benito Bullock Work Phone: [facility] Work Phone: Start: 02-28-2023 End: 02-28-2023 ambulatory Deann Ortega Other [employer] Other Start: 02-28-2023 Telephone encounter Deann Ortega [facility] Start: 02-21-2023 End: 02-21-2023 ambulatory Riveraroge Bermudez Other [employer] Other Start: 02-21-2023 Office outpatient vi sit 25 minutes Rivera Lara [facility] Start: 02-21-2023 End: 02-21-2023 Patient encounter procedure MD Benito Bullock Work Phone: [facility] Work Phone: Start: 02-20-2023 End: 02-20-2023 ambulatory Pattie Hardin Other [employer] Other Start: 02-20-2023 Office outpatient ne w 45 minutes Pattie Hardin [facility] Start: 02-20-2023 End: 02-20-2023 Patient encounter procedure MD Benito Bullock Work Phone: [facility] Work Phone: Start: 02-17-2023 End: 02-17-2023 Patient encounter procedure MD Benito Bullock Work Phone: [facility] [place] Work Phone: Start: 02-17-2023 End: 02-17-2023 ambulatory MD Benito Bullock Work Phone: [facility] Work Phone: Start: 01-24-2023 End: 01-24-2023 ambulatory Deann Ortega Other [facility] [employer] Other Start: 01-24-2023 Office outpatient vi sit 15 minutes Deann Ortega [facility] Start: 01-24-2023 End: 01-24-2023 Patient encounter procedure MD Benito Bullock Work Phone: [facility] Work Phone: Start: 12-06-2022 End: 12-06-2022 ambulatory Rivera Bermudez Other [employer] Other Start: 12-06-2022 Telephone encounter Rivera Bermudez [facility] Start: 12-05-2022 End: 12-05-2022 Patient encounter procedure MD Benito Bullock Work Phone: [facility] [place] Work Phone: Start: 12-05-2022 End: 12-05-2022 ambulatory MD Benito Bullock Work Phone: [facility] Work Phone: Start: 11-02-2022 End: 11-02-2022 ambulatory Benito Bullock Other [employer] Other Start: 11-02-2022 Office outpatient vi sit 15 minutes Benito Bullock [facility] Start: 11-01-2022 End: 11-01-2022 ambulatory DONALD NGO [facility] Start: 08-17-2022 End: 08-17-2022 ambulatory RUPERTO CANTRELL [facility] Start: 08-09-2022 End: 08-09-2022 ambulatory ANTHONY HURTADO [facility] Start: 07-20-2022 Encounter for other specified special examinations BAILEY FRYE [facility] Start: 07-14-2022 End: 07-15-2022 ambulatory BAILEY FRYE Facility:[facility] Start: 07-14-2022 End: 07-15-2022 Encounter for other specified special examinations BAILEY FRYE Facility:[facility] Start: 07-01-2022 End: 07-02-[address] DOCTOR NAVAS Facility:[facility] Start: 05-16-2022 End: 05-16-2022 ambulatory Bentio Bullock Other [employer] Other Start: 05-16-2022 Office outpatient vi sit 15 minutes Benito Bullock [facility] Start: 05-11-2022 End: 05-12-[address] BENITO BULLOCK Facility:[facility] Start: 05-09-2022 End: 05-09-2022 ambulatory Benito Bullock Other [employer] Other Start: 05-09-2022 Office outpatient vi sit 15 minutes Benito Bullock [facility] Start: 04-20-2022 End: 04-20-[address] MAI HITCHCOCK . Facility:[facility] Start: 11-16-2021 End: 11-17-2021 ambulatory Sam GARDUNO Facility: [place] Start: 11-16-2021 End: 11-16-2021 Patient encounter procedure Sam GARDUNO [facility] Start: 11-05-2021 End: 11-06-2021 ambulatory Sam GARDUNO Facility:[facility] Start: 11-05-2021 End: 11-06-2021 ambulatory Sam GARDUNO Facility: [place] Start: 11-05-2021 End: 11-05-2021 Lab Drop off Sam GARDUNO [facility] Start: 10-22-2021 End: 10-23-[address] BENITO BULLOCK Facility:[facility] Start: 08-13-2021 End: 08-13-2021 Patient encounter procedure Sam GARDUNO [facility] Start: 08-06-2021 End: 08-07-[address] BENITO BULLOCK Facility: Start: 02-17-2020 End: 02-18-2020 Emergency department patient visit EBNITO BULLOCK [facility] Procedures Date Procedure Procedure Detail Performing Clinician Start: 08-18-2023 X-ray of lumbar spin e, four views MD Benito Bullock Work Phone: Start: 06-12-2023 Follow-up visit Follow-up RICO ORONA Start: 05-31-2023 Radiofrequency destr uction of peripheral nerve MD Benito Bullock Work Phone: Start: 05-10-2023 Local anesthetic lum bar facet joint nerve block MD Benito Bullock Work Phone: Start: 04-19-2023 Local anesthetic lum bar facet joint nerve block MD Benito Bullock Work Phone: Start: 02-17-2023 MRI of cervical spin e without contrast MD Benito Bullock Work Phone: Start: 12-05-2022 X-ray of cervical spine MD Benito Bullock Work Phone: Start: 11-16-2021 H/O: vasectomy Sam GARDUNO Start: 11-05-2021 Cystoscope, device (physical object) Sam GARDUNO Start: 11-05-2021 Vasectomy Sam [place] Plan of Treatment Date Care Activity Detail Author Start: 07-18-2023 Patient referral [facility] Work Phone: Start: 05-31-2023 [facility] Start: 05-10-2023 [facility] Start: 04-19-2023 [facility] Start: 02-17-2023 MR Cervical spine WO contrast [facility] Start: 02-17-2023 MRI of cervical spin e without contrast MR cervical spine wo con [facility] Patient Education [facility] Work Phone: Patient referral [facility] Work Phone: XR Lumbar spine 4 Views [facility] Immunizations Immunization Date Immunization Notes Care Provider Fa cility 12-05-2022 COVID-19 (PFIZER) 12Y and older MD Benito Bullock Work Phone: [facility] 11-15-2022 Influenza, injectabl e, Madin [place] Canine Kidney, preservative free, quadrivalent MD Benito Bullock Work Phone: [facility] 11-12-2021 influenza, injectabl e, quadrivalent, preservative free MD Benito Bullock Work Phone: [facility] 08-12-2021 COVID-19 Comirnaty (Pfizer) Tri-Sucrose 12+ MD Benito Bullock Work Phone: [facility] 08-12-2021 SARS-CoV-2 mRNA (tozinameran 5y-11y) vaccine Sam GARDUNO [facility] 03-13-2021 SARS-CoV-2 mRNA (tozinameran 5y-11y) vaccine Sam GARDUNO [facility] 11-24-2020 influenza, injectabl e, quadrivalent, preservative free MD Benito Bullock Work Phone: [facility] 11-24-2020 tetanus toxoid, redu latrice diphtheria toxoid, and acellular pertussis vaccine, adsorbed MD Benito Bullock Work Phone: [facility] 06-28-2020 COVID-19 mRNA Comirnatfeliz (Pfizer) MD Benito Bullock Work Phone: [facility] 06-11-2020 SARS-CoV-2 mRNA (tozinameran 5y-11y) vaccine Sam GARDUNO [facility] 06-07-2020 COVID-19 mRNA, Comirchristoph (Pfizer) MD Benito Bullock Work Phone: [facility] 05-11-2020 SARS-CoV-2 mRNA (tozinameran 5y-11y) vaccine Sam GARDUNO [facility] 02-16-2020 Influenza, injectabl e, Madin Tonya Canine Kidney, preservative free, quadrivalent MD Benito Bullock Work Phone: [facility] Payers Date Payer Category Payer Self-pay 2021 Medicaid [id number] . [id number] 2020 Medicaid [id number] 1975 Unknown [id number] 2.16.8 40.1.295485.3.579.2.902 1975 Unknown [id number] 2.16.84 0.1.885477.3.579.2.593 1975 Unknown [id number] 2.16.84 0.1.877411.3.579.2.593 1975 Unknown [id number] 2.16.84 0.1.611687.3.579.2.593 1975 Unknown [id number] 2.16.84 0.1.361238.3.579.2.593 1975 Unknown [id number] 2.16.84 0.1.254132.3.579.2.593 1975 Unknown [id number] 2.16.84 0.1.575933.3.579.2.593 1975 Unknown [id number] 2.16.8 40.1.379638.3.579.2.727 1975 Unknown [id number] 2.16.8 40.1.066198.3.579.2.727 1975 Unknown [id number] 2.16.8 40.1.927893.3.579.2.727 1975 Unknown [id number] 2.16.84 0.1.822053.3.579.2.1259 1975 Unknown [id number] 2.16.84 0.1.988890.3.579.2.1259 1975 Unknown [id number] 2.16.84 0.1.681741.3.579.2.1259 1959 Unknown [id number] Unknown [id number] 2.16.8 40.1.004155.3.579.2.531 Unknown [id number] 2.16.8 40.1.128168.3.579.2.531 Unknown [id number] 2.16.8 40.1.426176.3.579.2.531 Unknown [id number] 2.16.8 40.1.612412.3.579.2.531 Unknown [id number] 2.16.8 40.1.952825.3.579.2.531 Unknown [id number] 2.16.8 40.1.063103.3.579.2.531 Unknown [id number] 2.16.8 40.1.390658.3.579.2.531 Social History Date Type Detail Facility Start: 08-13-2021 End: 05-10-2023 Tobacco smoking status Never smoked tobacco (finding) [facility] Tobacco smoking status Never [facility] Sex Assigned At Male [facility] Start: 1975 Sex Assigned At Male F [facility] Start: 04-03-2023 Tobacco smoking stat us NHIS Ex-smoker (finding) [facility] Goals Date Patient Goal Desired Activity /State Functional Status Date Assessment Result Facility 11-16-2021 Functional Status N/A [facility] Clinical Notes 08-13-2021 to 06-12-2023 Note Date & Type Note Facility 06-12-2023 Note [facility] CARDIOLOGY PROGR ESS NOTE HPI: Marisela Hahn is a 48 y.o. male here for f/U for uncontrolled HTN HPI Pt presents to clinic for follow up regarding HTN. He states that overall, his blood pressures have been well-controlled at home. He denies any significant derangements in blood pressure. He adamantly denies any cardiac complaints or concerns. Patient denies any chest pain or shortness of breath. Patient denies any lower extremity edema, orthopnea, or proximal nocturnal dyspnea. No near-syncope or syncope. No dizziness or lightheadedness. All of his medications as prescribed. No issues with medications. No dizziness or lightheadedness. Review of Systems 10 point ROS is performed and is negative unless otherwise specified per HPI Visit Vitals BP 118/90 (BP Location: Left arm, Patient Position: Sitting, BP Cuff Size: Adult) Pulse 76 Resp 11 Ht 1.854 m (6' 1 ) Wt 129 kg (283 lb 9.6 oz) SpO2 98% BMI 37.42 kg/m??? Smoking Status Never BSA 2.58 m??? Allergies Allergen Reactions Keflex [Cephalexin] Rash [...] mouth in the morning. 90 tablet 3 spironolactone (Aldactone) 25 mg tablet Take 1 tablet (25 mg) by mouth in the morning. 90 tablet 3 tamsulosin (Flomax) 0.4 mg 24 hr capsule Take 0.4 mg by mouth in the morning. tiZANidine (Zanaflex) 4 mg tablet TAKE 1/2 TO 1 (ONE-HALF TO ONE) TABLET BY MOUTH AT BEDTIME topiramate (Topamax) 25 mg tablet 25 mg. venlafaxine XR (Effexor-XR) 150 mg 24 hr [...] right-sided pressures No pericardial effusion A/P: Resistant HTN, well controlled Syncope and collapse Morbid Obesity Plan: -Blood pressure is well controlled on current medications. Continue taking chlorthalidone, nifedipine, lisinopril and Coreg at current doses. Continue aldactone 25 mg daily. -Reminded patient to check his blood pressure 2 hours after taking his medications and to maintain a daily blood pressure log. He will contact cardiology if blood pressures above discuss target range. -Reminded patient to avoid NSAIDs if able. -Emphasized importance of sleep apnea testing for possible JESSICA as cause of resistant hypertension. There is evidence of atrial enlargement on echo which could be a result of JESSICA. -Patient denies any recurrent syncope over the past several years. There were no arrhythmias noted on event monitor. -Emphasized the importance of daily exercise and lifestyle modific (more content not included)... [facility] 05-31-2023 Procedure note [facility] 04-21-2023 Note [facility] CARDIOLOGY PROGR ESS NOTE [...] above discuss target range. -Patient reports taking edas-nod-jzyijut Motrin for musculoskeletal pain. This could be [...] modification. Patient vo (more content not included)... [facility] 04-21-2023 Note Patient here for 6 [...] All other systems reviewed and are negative. [facility] 03-03-2023 Evaluation note Encounter Date Diagnosis [...] - G89.29) Continue with current treatment plan [facility] Other 12-12-2023 Evaluation note* Encounter Date Diagnosis [...] - G89.29) Continue with current treatment plan [facility] Other 12-11-2023 Evaluation note* Encounter Date Diagnosis Assessment Notes Treatment Notes Treatment Clinical Notes Feb, Cervicalgia (ICD-10 - M54.2) Independently reviewed the MRI of the cervical spine from 02/17/2023 [id number] with the patient and which shows at [...] with minimal relief. Patient has seen Dr. Lara chauhan, denies any injections at this time. Will order labs: CBC, CMP, Sed, JOSE E and RF. Pharmacological management will order a prednisone taper dose. Follow up in 8 weeks. Feb, Mild degeneration of cervical intervertebral disc (ICD-10 - M50.30) Feb, Nonintractable episodic headache, unspecified headache type (ICD-10 - R51.9) [facility] Other 11-14-2023 Evaluation note* Encounter Date Diagnosis [...] - G89.29) Continue with current treatment plan [facility] Other 08-23-2023 Evaluation note* Encounter Date Diagnosis [...] low-salt diet advised daily exercise as tolerated. [facility] Other 08-22-2023 NoteD/W pt that with now controlled B/P and HTN he needs to speak with PCP regarding seeing a Headache specialist for his daily headaches and management. Reports he has been evaluated by neurology- has had MRI and testing in the past. [facility]08-22-2023 NoteAdmits occasional lightheadedness/dizziness but denied any syncopal episodes since [facility] NoteRecommended weight loss- f/U with PCPUnPrem[facility]08-22-2023 Note Hypertension is improved and overall well controlled Continue coreg, chlorthalidone, lisinopril, aldactone and nifedipine. Renal function and electrolytes normal Continue to monitor b/p at home and call if > 130/80 consistently RTC 6monthsUnPremier Health [facility]08-22-2023 NoteUTP CARDIOLOGY PROGRESS NOTE HPI: Marisela Hahn [...] (BMI) of 40.0 to 44.9 in adult ([facility]) Recommended weight loss- f/U with PCP Syncope [...] had MRI and testing in the past. [facility]06-07-2023 NoteCardiovascular Medicine [facility] SUBJECTIVE Chief Complaint Patient presents with [...] syncope. He is traveling this week to [place]. 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 Last HPI per DARRELL Hurtado: 05/11/2022 [...] after starting Aldactone. patient was moving to [place] at the time and then returned back to [place]. he denies chest pain, RAMOS, shortness of breath, orthopnea Patient Active Problem List Diagnosis Resistant hypertension Syncope and collapse Anxiety Mixed hyperlipidemia GERD (gastroesophageal reflux disease) Morbid obesity with body mass index (BMI) of 40.0 to 44.9 in adult ([facility]) Spina bifida ([facility]) Depressive disorder Benign prostatic hyperplasia Deafness Vasectomy evaluation Past Medical History: Diagnosis Date Anxiety Essential hypertension GERD (gastroesophageal reflux disease) Mixed hyperlipidemia Morbid obesity with BMI of 40.0-44.9, adult ([facility]) Syncope and collapse Family History Problem Relation [...] soft. Musculoskeletal: General: Norm (more content not included)...[facility] 08-17-2022 NotePatient here for 1 week follow up [...] swelling. Musculoskeletal: Positive for back pain and stiffness.[facility]05-30-2023 NotePatient here for follow up hypertension and [...] headaches. All other systems reviewed and are negative.[facility] 08-09-2022 NoteUT Electrophysiology Note [facility] Reason for visit: follow up syncope last seen with event monitor HPI: Patient for follow-up regarding event monitor and hypertension. and monitor not show anything significant. Patient continues to be hypertensive despite starting chlorthalidone. denies chest pain, shortness of breath, RAMOS. 05/11/2022 HPI: Marisela Lencho Hahn is a 47 y.o. year old [...] after starting Aldactone. patient was moving to [place] at the time and then returned back to [place]. he denies chest pain, RAMOS, shortness of breath, orthopnea PMH: Past Medical History: Diagnosis Date Anxiety Essential hypertension GERD (gastroesophageal reflux disease) Mixed hyperlipidemia Morbid obesity with BMI of 40.0-44.9, adult ([facility]) Syncope and collapse PSH: Past Surgical History: [...] and Conjunctivae: non-injected, no (more content not included)...[facility]03-06-2023 Evaluation note* Encounter Date Diagnosis Assessment Notes Treatment Notes Treatment Clinical Notes May, Resting tremor (ICD-10 - G25.2) Will set up w Neurology for further diagnosis and treatment May, Essential hypertension (ICD-10 - I10) BP remains elevated. Will see cardio next month. On several medications. [facility] Other 02-27-2023 Evaluation note* Encounter Date Diagnosis Assessment Notes Treatment Notes Treatment Clinical Notes Apr, Paronychia of finger of left hand (ICD-10 - L03.012) Restart antibiotic. Call if area worsens. Could need referral to ortho if continues. Apr, Essential hypertension (ICD-10 - I10) Continues to be elevated. Has first appt w cardio on 05/11. [facility] Other 09-06-2022 Evaluation + Plan note Diagnostic Tests Pending * Semen Analysis Post Vasectomy 11/16/21 [facility] 09-06-2022 Hospital Discharge instructions Patient Education 11/16/2021 [...] 02/14/2017 Document Revised: 06/21/2019 Document Reviewed: 02/14/2017 Elsevier Patient Education 2020 [employer] Follow Up Care 08/13/2021 11:00:11 With:SHAAN HALE, Sam Velazco, URL Address: [address] [address]- When: Unknown [facility] [id number] Hospital Discharge instructions Patient Education 08/13/2021 10:36:04 [...] Follow these instructions at home: Medicines Take ftlg-lab-hdycogk and prescription medicines only as told by [...] 09/16/2005 Document Revised: 02/09/2018 Document Reviewed: 05/26/2017 [employer] Patient Education 2020 [employer] Follow Up Care 06/07/2021 11:43:46 With:SHAAN HALE, Sam Velazco, URL Address: [address] [place] [id number]- When: Unknown [facility] Chief complaint+Reason for visit Narrative* Chief Complaint Arthritis Arthritis Form for work follow up after cervical facet RFA mental health referral 6 week follow up after cervical facet RFA G57.10 Reason for Visit Physically able to w ork Cervical spondylosis Chronic pain Occipital neuralgia Chronic tension-type headache, intractable Depression Essential hypertension Cervical spondylosis Chronic pain Meralgia paraesthetica [facility] Work Phone: Chief complaint+Reason for visit Narrative* Chief Complaint Arthritis Arthritis Form for work follow up after cervical facet RFA mental health referral 6 week follow up after cervical facet RFA G57.10 F09 Reason for Visit Physically able to w ork Cervical spondylosis Chronic pain Occipital neuralgia Chronic tension-type headache, intractable Depression Essential hypertension Cervical spondylosis Chronic pain Meralgia paraesthetica [facility] Work Phone: evaluation + Plan note Future Appointments Appointment Date:11/05/2021 07:30:00 AM Scheduled Provider:Sam GARDUNO MD Location:[facility] Appointment Type:URO Office Visit Appointment Date:11/16/2021 08:30:00 AM Scheduled Provider:Sam GARDUNO MD Location[facility] JOSLYN Wilkins Appointment Type:URO Office Visit [facility] Evaluation + Plan note Future Appointments Appointment Date:11/16/2021 08:30:00 AM Scheduled Provider:Sam GARDUNO [facility] noteNo assessment information available [facility] Work Phone: evaluation noteNo InformationNosaint [facility] [employer] Other evaluation note* Diagnosis Onset Date Resolution Status Cervical spondylosis acute Chronic pain acute Occipital neuralgia acute [facility] Work Phone: evaluation note* Diagnosis Onset Date Resolution Status Cervical spondylosis acute Chronic pain acute Occipital neuralgia acute Cervical spondylosis acute Chronic pain acute Occipital neuralgia acute [facility] Work Phone: evaluation note* Diagnosis Onset Date Resolution Status Cervical spondylosis acute Chronic pain acute Occipital neuralgia acute Cervical spondylosis acute Chronic pain acute Occipital neuralgia acute Physically able to work acut e Cervical spondylosis acute Chronic pain acute Occipital neuralgia acute [facility] Work Phone: evaluation note* Diagnosis Onset Date Resolution Status Cervical spondylosis acute Chronic pain acute Occipital neuralgia acute Cervical spondylosis acute Chronic pain acute Occipital neuralgia acute Physically able to work acut e Cervical spondylosis acute Chronic pain acute Occipital neuralgia acute Chronic tension-type headache, intractable acute Depression acute Essential hypertension acute [facility] Work Phone: Evaluation note* Diagnosis Onset Date Resolution Status Cervical spondylosis acute Chronic pain acute Occipital neuralgia acute Cervical spondylosis acute Chronic pain acute Occipital neuralgia acute Physically able to work acut e Cervical spondylosis acute Chronic pain acute Occipital neuralgia acute Chronic tension-type headache, intractable acute Depression acute Essential hypertension acute Cervical spondylosis acute Chronic pain acute Meralgia paraesthetica acute [facility] Work Phone: Evaluation note* Diagnosis Onset Date Resolution Status Physically able to work acut e Cervical spondylosis acute Chronic pain acute Occipital neuralgia acute Chronic tension-type headache, intractable acute Depression acute Essential hypertension acute Cervical spondylosis acute Chronic pain acute Meralgia paraesthetica acute [facility] Work Phone: History general Narrative - Reported* Type Description Date Medical History Gastroesophageal reflux disease Medical History Hypercholesterolemia Medical History Depression Medical History Essential hypertension Medical History Anxiety and depression Medical History Syncope and collapse Medical History Resting tremor Medical History Abnormal weight gain Medical History Diverticulosis Medical History Hyperlipemia, mixed Surgical History MYRINGOTOMY WITH TUBE REPLACEME NT - BILATERAL 2019 Hospitalization History SEE SURGICAL [facility] Other [place] general Narrative - Reported* Type Description Date [...] BILATERAL 2019 Hospitalization History SEE SURGICAL HX [facility] Other Hospital course Narrative No data available for this section [facility] Hospital Discharge instructions No data available for this section [facility] instructionsAmb[facility] Orders* Referral to Psychiatry Time Frame: 07/18/23, Location: None [facility] Work Phone: Progress note No data available for this section [facility] Summary Purpose Family History No Family History Records Found Relationship Condition Age at Onset Recorded Date/T pavan father Hypertension Unknown Not Specified Hypertension Unknown Advance Directives No Advanced Directives Records Found Advance Directive Response Recorded Date/ Time Advance Directives No November 2:11pm Advance Directive Response Recorded Date/ Time Advance Directives No November 1:11pm Reason for Referral Reason *Waiting for appt Please evaluate and treat for cervical spodylosis- subluxaion on XR in notes Diagnosis 1 Cervical spondylosis (M47.812) Referral Organization [facility] Pain Managemen t Referring Provider First Name Deann Referring Provider Last Name Jordan Referring Provider Specialty Nurse Pract itioner Referred Organization [facility] urosurgery Referred Provider Martín Bullock Referred Address [address] ,[place], [place],[address] Referred Provider Specialty Neurological Surgery Referral Priority Routine General Notes Jose Gomez 01/25 04:00:11 PM > Referral received, sent P2P Clinical Notes Angel Carrillo 2022 02:20:15 PM >XR cervical spine 2022-12-05: MILD SPONDYLOSIS C5-C7. POSTERIOR SUBLUXATION OF C4 ON C5 AND C5 ON C6 OF APPROXIMATELY 3 MM ON EXTENSION WHICH RESOLVES ON FLEXION AND NEUTRAL IMAGING SUGGESTIVE OF PATHOLOGICAL MOTION. Reason 06/15/22 [place] office. Labs scanned in from 2021. Resting tremor. Also had labs last week from Cardiology. Thank you Diagnosis 1 Resting tremor (G25. 2) Referral Organization [facility] Referring Provider First Name Benito Referring Provider Last Name Kobe Referring Provider Specialty [facility] Referred Organization [facility] Referred Provider Bailey Frye Referred Address [address], [place], [place],[address] Referred Provider Specialty Neurology Referral Priority Routine [...] Visit Cervical spondylosis Chronic pain Occipital neuralgia Chief Complaint Follow Up After Occi pital Nb Neck pain FOLLOW UP AFTER CERVICAL FACET MBB NECK PAIN NECK PAIN follow up after cervical mbb Arthritis Arthritis Reason for Visit Cervical spondylosis Chronic pain Occipital neuralgia Cervical spondylosis Chronic pain Occipital neuralgia Chief Complaint Follow Up After Occi pital Nb Neck pain FOLLOW UP AFTER CERVICAL FACET MBB NECK PAIN NECK PAIN follow up after cervical mbb Arthritis Arthritis Form for work Reason for Visit Cervical spondylosis Chronic pain Occipital neuralgia Cervical spondylosis Chronic pain Occipital neuralgia Chief Complaint Follow Up After Occi pital Nb Neck pain FOLLOW UP AFTER CERVICAL FACET MBB NECK PAIN NECK PAIN follow up after cervical mbb Arthritis Arthritis Form for work follow up after cervical facet RFA Reason for Visit Cervical spondylosis Chronic pain Occipital neuralgia Cervical spondylosis Chronic pain Occipital neuralgia Physically able to work Cervical spondylosis Chronic pain Occipital neuralgia Chief Complaint FOLLOW UP AFTER CERV ICAL FACET MBB NECK PAIN NECK PAIN follow up after cervical mbb Arthritis Arthritis Form for work follow up after cervical facet RFA mental health referral Reason for Visit Cervical spondylosis Chronic pain Occipital neuralgia Cervical spondylosis Chronic pain Occipital neuralgia Physically able to work Cervical spondylosis Chronic pain Occipital neuralgia Chronic tension-type headache, intractable Depression Essential hypertension Chief Complaint FOLLOW UP AFTER CERV ICAL FACET MBB NECK PAIN NECK PAIN follow up after cervical mbb Arthritis Arthritis Form for work follow up after cervical facet RFA mental health referral 6 week follow up after cervical facet RFA Reason for Visit Cervical spondylosis Chronic pain Occipital neuralgia Cervical spondylosis Chronic pain Occipital neuralgia Physically able to work Cervical spondylosis Chronic pain Occipital neuralgia Chronic tension-type headache, intractable Depression Essential hypertension Cervical spondylosis Chronic pain Meralgia paraesthetica Additional Source Comments (unrecognized sect ion and content) No Status Records FoundNo Status Records FoundNo Status Records FoundNo Status Records FoundNo Status Records FoundNo Status Records Found INFORMATION SOURCE (unrecogn ized section and content) DATE CREATED AUTHOR 02/21/2020 [facility] DATE CREATED AUTHOR AUTHOR'S ORGANIZ ATION 07/21/2022 [facility] DATE CREATED AUTHOR AUTHOR'S ORGANIZ ATION 08/23/2022 Silas Martinez [facility] DATE CREATED AUTHOR AUTHOR'S ORGANIZ ATION 06/12/2023 [facility] DATE CREATED AUTHOR AUTHOR'S ORGANIZ ATION 08/15/2023 [facility] EPIC DATE CREATED AUTHOR AUTHOR'S ORGANIZ ATION 08/23/2023 [facility] Care Team (unrecognized sect ion and content) Team Status: Active Member Role Status Dates Benito Bullock MD Primary Care Provider Active Team Status: Inactive Member Role Status Dates Bentio Bullock MD Primary Care Provider Active Rivera Bermudez MD Attending Provider Active Personnel Name: BENITO BULLOCK MD Address: [address] [place] [address]- REASON FOR VISIT (unrecogniz ed section and content) SMASHED FINGER, CHECK UP AFT ER ERCheck UpReferralPain management office noteReferralFOLLOW UP AFTER PT FOR NECKREVIEW MRIRef by Deann Ortega for for cervical spodylosis- subluxaion on XR in notes; [place] [facility] NBr cervical facet mbb [...] BE BASED ON THE PRIMARY CLINICAL RECORDS. [employer] provides no warranty or guarantee of the accuracy or completeness of information in this document.
== END 2023-08-27 21:01 | disposition home or self-care (01) ==
LOC: SLEEP 08-28 08:04
PROVIDERS: PCP Nurse Practitioner Family; Visit Provider Nurse Practitioner Family
DX: G47.33 Obstructive sleep apnea (adult) (pediatric) (principal)
CPT/HCPCS: 95810

== ENCOUNTER 2024-01-03 17:43 | Emergency (ER) | payer MEDICAID, SELFPAY ==
[2024-01-03 17:52] VITALS: BP 172/95; PULSE 54; TEMP 37.7; O2SAT 94; BMI 41.6
--- NOTE | 2024-01-03 18:01 | ED_ITS ---
HPI - Abdominal Pain General Chief Complaint: Abdominal Pain Stated Complaint: Abdominal Pain Time Seen by Provider: 01/03/24 17:50 Source: patient Mode of arrival: walk-in Limitations: no limitations History of Present Illness HPI narrative: Patient is a 48-year-old male who presents to the emergency department for 2-1/2-week history of low abdominal cramping. He reports most of his pain over the suprapubic abdomen. He denies any back or flank pain. He denies urinary symptoms or diarrhea. He states he has a hemorrhoid so he chronically intermittently has some blood in his stool that is not new or different. He denies any fevers or upper respiratory symptoms. He denies previous abdominal surgeries. No medications taken prior to arrival Related Data Home Medications ?Medication ?Instructions ?Recorded ?Confirmed aspirin 81 mg capsule 81 mg PO DAILY 01/03/24 01/03/24 chlorthalidone 25 mg tablet mg 01/03/24 escitalopram oxalate 20 mg tablet mg 01/03/24 lisinopril 40 mg tablet mg 01/03/24 nifedipine 60 mg tablet,extended mg PO 01/03/24 release 24 hr potassium chloride 20 mEq 10 meq PO DAILY 01/03/24 01/03/24 tablet,extended release(part/cryst) spironolactone 25 mg tablet mg 01/03/24 topiramate 25 mg tablet mg 01/03/24 venlafaxine 75 mg capsule,extended mg PO 01/03/24 release 24 hr Allergies Allergy/AdvReac Type Severity Reaction Status Date / Time cephalexin (From Keflex) Allergy Mild Rash Verified 01/03/24 17:48 Review of Systems ROS Constitutional Denies: fever or chills Ears, nose, mouth, and throat Denies: throat pain or nasal congestion Respiratory Denies: shortness of breath Gastrointestinal Reports: abdominal pain; Denies: nausea, vomiting, diarrhea or constipation Genitourinary Denies: painful urination Musculoskeletal Denies: back pain Integumentary/Breast Denies: rash Neurological Denies: numbness in extremities or weakness in extremities Hematologic/Lymphatic Denies: easy bruising or easy bleeding Exam Narrative Exam Narrative: Gen.: Awake, alert, in no distress Head: Normocephalic, atraumatic ENT: Moist mucous membranes Respiratory: No respiratory distress Gastrointestinal: Abdomen is soft, nondistended and tender to palpation in the suprapubic abdomen with no guarding or rebound Extremities: Moves extremities equally Psych: Normal mood and affect Neuro: No focal neuro deficit Skin: Warm, dry, intact Constitutional Vital Signs, click to edit/add: Last Vital Signs Temp 99.9 F 01/03/24 17:52 Pulse 54 L 01/03/24 17:52 Resp 16 01/03/24 17:52 BP 143/75 H 01/03/24 19:02 Pulse Ox 94 L 01/03/24 17:52 O2 Del Method Room Air 01/03/24 17:52 Course Vital Signs Vital signs: Vital Signs Temperature 99.9 F 01/03/24 17:52 Pulse Rate 54 L 01/03/24 17:52 Respiratory Rate 16 01/03/24 17:52 Blood Pressure 172/95 H 01/03/24 17:52 Pulse Oximetry 94 L 01/03/24 17:52 Oxygen Delivery Method Room Air 01/03/24 17:52 Temperature 99.9 F 01/03/24 17:52 Pulse Rate 54 L 01/03/24 17:52 Respiratory Rate 16 01/03/24 17:52 Blood Pressure 143/75 H 01/03/24 19:02 Pulse Oximetry 94 L 01/03/24 17:52 Oxygen Delivery Method Room Air 01/03/24 17:52 MDM - Abdominal Pain MDM Narrative Medical decision making narrative: 2015: Labs and CT resulted showing the patient has mild leukocytosis with bandemia and evidence of acute appendicitis with perforation and 4 cm periappendiceal abscess. He was initially given Toradol and Levsin for pain, remedicated with Dilaudid and Zofran. Case discussed with Dr. Mcqueen for general surgery who related that due to the periappendiceal abscess with perforation, the patient is better served at a tertiary care facility with IR so the drain can be placed. He was treated with IV Zosyn for antibiotic coverage and he was noted to have hypokalemia, he was given normal saline with IV potassium. Patient was given CT results from attending physician, he is agreeable to transfer to [facility] for general surgery evaluation. 2039: This patient was accepted by general surgery, Dr. Lovell. He requested the patient be transferred to the emergency department, patient was accepted by ER physician, Dr. Campos. Patient will be transported with IV potassium, he received IV Zosyn and pain is well-controlled at this time. Critical care time 35 minutes. SHARED APC VISIT, PHYSICIAN ATTESTATION: [id number] I performed a substantive part of the MDM during the patient?s E/M visit. I personally evaluated and examined the patient. I personally made or approved the documented management plan and acknowledge its risk of complications. Medical Records Attestation: I reviewed the patient's medical records. Lab Data Attestation: I reviewed the patient's lab results. Labs: Lab Results 01/03/24 01/03/24 Range/Units 18:00 19:30 WBC 13.6 H (4.0-11.0) 10^3/uL RBC 5.01 (4.70-6.10) 10^6/uL Hgb 14.2 (14.0-18.0) g/dL Hct 42.8 (42.0-54.0) % MCV 85.4 (80.0-94.0) fL MCH 28.3 (25.9-34.0) pg MCHC 33.2 (29.9-35.2) g/dL RDW 13.2 (11.0-15.0) % Plt Count 313 (150-450) 10^3/uL MPV 9.7 (9.5-13.5) fL Seg Neuts % (Manual) 73.0 (43.0-75.0) Band Neutrophils % 2.0 (0-5) % Lymphocytes % (Manual) 13.0 L (20.5-60.0) % Monocytes % (Manual) 12.0 (1.7-12.0) % Eosinophils % (Manual) 0.0 L (0.9-7.0) % Basophils % (Manual) 0.0 L (0.2-2.0) % Neutrophils # (Manual) 9.92 H (1.4-6.5) 10^3/uL Band Neutrophils # 0.3 (0.0-0.3) 10^3/uL Lymphocytes # (Manual) 1.76 (1.20-3.80) 10^3/uL Monocytes # (Manual) 1.63 H (0.30-0.80) 10^3/uL Eosinophils # (Manual) 0.00 (0.00-0.70) 10^3/uL Basophils # (Manual) 0.00 (0.00-0.10) 10^3/uL Anisocytosis 1+ Microcytosis 1+ PT 11.4 (9.0-11.6) sec INR 1.08 Sodium 139 (136-145) mmol/L Potassium 3.0 L (3.5-5.1) mmol/L Chloride 101 (98-107) mmol/L Carbon Dioxide 24.5 (21.0-32.0) mmol/L Anion Gap 16.5 BUN 24.0 H (7.0-18.0) mg/dL Creatinine 1.49 H (0.70-1.30) mg/dL Est GFR ( Amer) >60 (>=60 mL/min/1.73m^2) Est GFR (Non-Af Amer) 50 L (>=60 mL/min/1.73m^2) BUN/Creatinine Ratio 16.1 Glucose 164 H (74-106) mg/dL Lactate 1.1 (0.4-2.0) mmol/L Calcium 9.7 (8.5-10.1) mg/dL Total Bilirubin 0.4 (0.2-1.0) mg/dL AST 13 L (15-37) U/L ALT 32 (16-63) U/L Alkaline Phosphatase 81 (46-116) U/L Total Protein 7.8 (6.4-8.2) g/dL Albumin 3.2 L (3.4-5.0) g/dL Globulin 4.6 g/dL Albumin/Globulin Ratio 0.7 Lipase 48.0 (16.0-77.0) U/L Urine Color Yellow (YELLOW) Urine Clarity Clear (CLEAR) Urine pH 5.5 (5.0-9.0) Ur Specific [place] 1.015 (1.005-1.025) Urine Protein Negative (NEG/TRACE) mg/dL Urine Glucose (UA) Negative (NEGATIVE) mg/dL Urine Ketones Negative (NEGATIVE) mg/dL Urine Occult Blood Negative (NEGATIVE) Urine Nitrite Negative (NEGATIVE) Urine Bilirubin Negative (NEGATIVE) Urine Urobilinogen 0.2 (0.2-1.0) EU/dL Ur Leukocyte Esterase Negative (NEGATIVE) Imaging Data CT scan - abdomen: Attestation: I have reviewed the pertinent imaging results. Radiologist's impression: ITS Impressions Abdomen/Pelvis CT 01/03/24 18:29 Impression: 1. Evidence of acute appendicitis with distorted appendiceal wall concerning for appendiceal perforation. A 4.0 x 3.3 x 3.6 cm periappendiceal abscess is seen. 2. Stable bilateral adrenal adenomas. Degenerative disc disease at L5-S1 level. Electronically authenticated by: JESUS TENA Date: 01/03/2024 20:03 Critical Care Time Critical Care Time Critical Care Time: Yes Total Critical Care Time: 35 Attestation: 35 minutes of critical care time assessed for evaluation and management of a surgical abdomen with transfer to tertiary care facility Discharge Plan Discharge Chief Complaint: Abdominal Pain Clinical Impression: Acute perforated appendicitis, Abdominal pain Patient Disposition: [facility] Time of Disposition Decision: 20:20 Discharge Location: [facility] Condition: Good Mode of Transportation: EMS
--- OUTSIDE RECORDS SUMMARY | 2024-01-03 18:10 | XMS_ITS | CCD ---
Author Organization [facility] Care Team Providers Care Repairer Helper Name Role Phone BENITO BULLOCK Primary Care Unavailable BINDU CRAVEN Attending Unavailable BINDU CRAVEN Admitting Unavailable NONE, XXXX Primary Care Physician Unavailab BENITO Miller Primary Care Physician Benito Bullock Unavailable KOBE, DR BENITO Brooks Attending Unavailable BULLOCK, DR BENITO Brooks Consulting Unavailable BULLOCK, DR BENITO Brooks Primary Care Unavailable BULLOCK, DR BENITO Brooks Admitting Unavailable BAILEY FRYE Admitting Unavailable WICHITA, DR MARCELLA Emmanuel Consulting Unavailable BULLOCK, DR [...] DR BENITO Brooks Primary Care Unavailable ANTHONY HERNANDEZ Admitting Unavailable ANTHONY HERNANDEZ Attending Unavailable ANTHONY HERNANDEZ Consulting Unavailable BULLOCK, DR BENITO Brooks Attending Unavailable BULLOCK, DR BENITO Brooks Consulting Unavailable BULLOCK, DR BENITO Brooks Admitting Unavailable BULLOCK, DR BENITO Brooks Primary Care Unavailable Sam GARDUNO Attending Unavailable Sam GARDUNO Attending Unavailable Sam GARDUNO Attending Unavailable Sam GARDUNO Admitting Unavailable MD Benito Bullock Primary Care Provider [phone] MD Rivera Bermudez Attending Provider [phone] Rivera Bermudez Unavailable Deann Ortega Unavailable MD Benito Bullock Primary Care Provider MD Rivera Bermudez Attending Provider [phone] Jordan, DARRELL Deann Attending Provider Lashawn Pattie Unavailable MD Benito Bullock Primary Care Provider MD Rivera Bermudez Attending Provider [phone] MD Benito Bullock Primary Care Provider MD Rivera Bermudez Attending Provider [phone] MD Benito Bullock Primary Care Provider MD Rivera Bermudez Attending Provider [phone] MD Benito Bullock Primary Care Provider MD Rivera Bermudez Attending Provider STEVE Magallon Attending Provider Lara, Rivera S Admitting Unavailable Lara, Rivera [...] Unavailable Bullock, Benito E Primary Care Unavailable Ortega, Deann Admitting Unavailable Ortega, Deann Attending Unavailable Bullock, Benito E Primary Care Unavailable Lara, Rivera S Admitting Unavailable Lara, Rivera S Attending Unavailable Bullock, Benito E Primary Care Unavailable Magallon, Margo E Admitting Unavailable Magallon, Margo E Attending Unavailable Bullock, Benito E Primary Care Unavailable MD Benito Bullock Primary Care Provider [phone] MD Rivera Bermudez Attending Provider NAM BEAR Attending Unavailable MAGALLON, MARGO Attending Unavailable ANJU DUNCAN Attending Unavailable MAGALLON, MARGO Attending Unavailable OSCAR DUNCANMY Attending Unavailable BAILEY FRYE Attending Unavailable RICO ORONA Attending Unavailable RICO ORONA Attending Unavailable RICO ORONA Attending Unavailable Allergies Allergy Classification Reported Allergen(s) Allergy Type Date of Onset Reaction(s) Facility (7 sources) Cephalexin; Translations: [CEPHALEXIN] Drug Allergy 02-16-[address] [facility] Repository (12 sources) Cephalexin; Translations: [Keflex] Drug Allergy 09-26-2012 Unknown [facility] Repository Medications Current Medications Medication Drug Class(es) Dates Sig (Normalized) Sig (Original) acetaminophen 325 mg / HYDROcodone bitartrate 5 mg oral tablet (2 sources) Opioid Agonist Start: 08-13-2021 take 1 tablet by mouth every six hours for pain [place] 325 mg-5 mg oral tablet 1 tab(s), Oral, q6hr for pain, 10 tab(s), Refill(s) 0, Take 1 every 6 hours for pain, [facility], 185, cm, 08/13/21 10:20:00 [...] aspirin 81 mg delayed release oral tablet (15 sources) Platelet Aggregation Inhibitor, Nonsteroidal Anti-inflammatory Drug [...] day Active chlorthalidone 25 mg oral tablet (20 sources) Thiazide-like Diuretic Start: 04-26-2023 take 1 [...] day(s), # 10 tab(s), Refills(s) 0, Pharmacy: [facility] 1628, 185, cm, 08/13/21 10:20:00 [...] procedure, # 1 tab(s), Refills(s) 0, Pharmacy: [facility] 1628, 185, cm, 08/13/21 10:20:00 EDT, Height/Length Dosing, 123, kg, 08/13/21 10:20:00 EDT, Weight Dosing Start Date: 08/13/21 Status: Ordered escitalopram 20 mg oral tablet (20 sources) Serotonin Reuptake Inhibitor Start: 09-11-2023 take 20 mg by mouth once daily Escitalopram Oxalate Active 20 MG PO Daily September 11, 2023 12:00am Start: 04-19-2023 End: 06-16-2023 take 1 tablet [...] Refills(s) 0 Start Date: 08/13/21 Status: Ordered NIFEdipine ER [...] oral tablet (20 sources) Aldosterone Antagonist Start: End: take 1 tablet by mouth once daily Spironolactone Active 25 MG PO Daily April 26, 2023 1:00am FreeTextSi tablet Orally; Note: Source Status: Taking; Provider: Lara Stafford ( ) sulfamethoxazole 800 mg / trimethoprim 160 mg oral tablet (2 sources) Dihydrofolate Reductase Inhibitor Antibacterial, Sulfonamide Antimicrobial Start: take 1 tablet by mouth every twelve hours Bactrim DS 800-160 MG 1 tablet Orally Twice a day for 10 day(s) Apr, Active SZSTANDARD1-Topical (10 sources) Start: SZSTANDARD1-Topical Active 1 DOSE TOPICAL April 26, 2023 [...] cap(s), Oral, Daily, # 30 cap(s), Refills(s) Pharmacy: [facility], 185, cm, 08/13/21 10:20:00 EDT, Height/Length Dosing, 123, kg, 08/13/21 10:20:00 EDT, Weight Dosing Start Date: 11/05/21 Status: Ordered topiramate 25 mg oral capsule (11 sources) Start: 07-19-2023 take 2 tablets by [...] Sig (Original) acetaminophen 500 mg oral tablet (15 sources) Start: 04-26-2023 End: 09-11-2023 take 1 tablet by mouth every six hours as needed Acetaminophen Discontinued 1 TAB PO Every 6 hours April 26, 2023 1:00am September 11, 2023 1:11pm FreeTextSi tablet as needed Orally every 6 hrs; Note: Source Status: Taking; Provider: Lara Stafford ( ) take 1 tablet by mouth every six hours Acetaminophen 500 MG 1 tablet as needed Orally every 6 hrs Active Acetaminophen / Codeine (2 sources) Opioid Agonist [...] Start: 04-26-2023 take 1 tablet by gideon twice daily at mealtime Carvedilol Active 25 [...] day Not-Taking tiZANidine 4 mg oral tablet (18 sources) Central alpha-2 Adrenergic Agonist Start: 4 End: take 0.5-1 tablets by mouth once daily [...] and advice on contraception] Onset: 08-13-2021 Episodic Delirium, dementia, and amnestic and other cognitive disorders (1 source) Unspecified mental disorder due to known physiological condition; Translations: [Unspecified mental disorder due to known physiological condition] Onset: 08-22-2023 Chronic Disorders of lipid metabolism (11 sources) Mixed hyperlipidemia; Translations: [Mixed hyperlipidemia] Chronic Diverticulosis and diverticulitis (11 sources) Diverticular disease of colon; Translations: [Diverticulosis of intestine, part unspecified, without perforation or abscess without bleeding] Chronic Essential hypertension (20 sources) Hypertensive disorder; Translations: [Essential hypertension] Onset: 07-01-2022 08-13-2021 Chronic Headache; including migraine (20 sources) Intractable chronic tension headache; Translations: [Chronic tension-type headache, intractable] Chronic Hyperplasia of prostate (5 sources) Benign prostatic hypertrophy without outflow obstruction; Translations: [Benign prostatic hyperplasia without lower urinary tract symptoms] Onset: 08-13-2021 Chronic Mood disorders (15 sources) Depressive disorder; Translations: [Depression] 08-13-2021 Chronic [...] Onset: 05-31-2023 Chronic Other nervous system disorders (5 sources) Meralgia paresthetica; Translations: [Meralgia paresthetica, unspecified lower limb] 07-19-2023 Chronic Other nervous system disorders (6 sources) Meralgia paresthetica, unspecified lower limb; Translations: [...] or radiculopathy, cervical region] Onset: 02-17-2023 Chronic Spondylosis; intervertebral disc disorders; other back problems (20 sources) Occipital neuralgia; Translations: [Cervicalgia] Onset: 12-05-2022 Episodic Sprains and strains (11 sources) Lumbar sprain; Translations: [Lumbar sprain] Episodic Unclassified (3 sources) Patient encounter status 08-13-2021 Unclassified (13 sources) Finding related to ability to perform occupation and employment activities; Translations: [Physically able to work] 06-16-2023 Unclassified (1 source) Resistant hypertension; Translations: [Resistant hypertension] Onset: 05-21-2022 Past or Other Problems Problem Classification Problem Date Documented Da te Episodic/Chronic Headache; including migraine (1 source) Headache; including migraine Other aftercare (1 source) detention (current) use of aspirin; Translations: [CORRECTION CURRENT USE OF ASPIRIN] Onset: 04-21-2022 Episodic Other connective tissue disease (3 sources) Pain in left finger(s); Translations: [PAIN IN LEFT FINGERS] Onset: 04-20-2022 Episodic Skin and subcutaneous tissue infections (2 sources) Cellulitis of left finger; Translations: [CELLULITIS OF LEFT FINGER] Onset: 04-21-2022 Episodic Syncope (17 sources) Syncope and collapse; Translations: [Syncope and collapse] Onset: 10-22-2021 Episodic Unclassified (1 source) Resistant hypertension; Translations: [Resistant hypertension] Onset: 04-21-2023 Results Test Name Value Interpretation Reference Range Facility Office Visiton 12-11-2023 Follow-up visit [id number] Marisela Hahn 1975 M Date Provider Department Center 12/11/2023 Tej8-R[place] CHUCK [facility]n Family History Problem Relation Age of Onset Hypertension Mother Hypertension Father Hypertension Sister Other Maternal Grandfather Diabetes type II Maternal Grandfather Family Status - Relation Status Age at Mother Father Sister Maternal Grandfather Level of Service:78278 SD OFFICE/OUTPATIENT ESTABLISHED LOW MDM 20 MIN Normal [facility] Folate [Mass/volume] in Seru m or PlasmaOrdered By: Margo Magallon on 08-22-2023 Folate [Mass/Vol] 17.7 ng/mL >5.9 [facility] Comment on above: Folate reference ran ge: >5.9 ng/mlThe WHO technical consultation on folate and vitamin [id number] has determined that folate concentrations lessthan 4 ng/ml are considered deficient. Thyrotropin [Units/volume] i n Serum or PlasmaOrdered By: Margo Magallon on 08-22-2023 TSH Qn 1.47 m[IU]/L 0.45-5.33 [facility] Comment on above: Result Comment: PERF ORMED BY: [place] [address] PATHOLOGIST [employer] POLISHER NATHANAEL MCCLELLAND M.D. Performed By: #### T SH3, [id number] #### [address] Vit. B12/Folate Profileon Folate 17.7 ng/mL Normal >5.9 [facility] Comment on above: Result Comment: Madalyn te reference range: >5.9 ng/ml The WHO technical consultation on folate and vitamin b12 deficiencies has determined that folate concentrations less than 4 ng/ml are considered deficient. Performed By: #### T SH3, [id number] #### [address] Vitamin B12 ser/plasOrdered By: Margo Magallon on 08-22-2023 Cobalamin (Vitamin B12) [Mass/Vol] 304 pg/mL 180-914 [facility] Comment on above: Performed By: #### T SH3, [id number] #### [address] XR lumbar spine AP/LAT/FLX/E XTon 08-18-2023 XR lumbar spine AP/LAT/FLX/EXT [facility] [place] [address] [place] [address] XRay Report Signed Patient: Marisela Hahn MR#: [id number] : 1975 Acct:[id number] Age/Sex: 48 / M ADM Date: 08/18/23 Loc: XD Room: Type: [facility] Attending Dr: Rivera Bermudez MD Copies to: [...] Eligio Hidalgo M.D.08/18/2023 4:27 PM Dictation Location: [facility]--08 Transcribed By: [facility] 08/18/23 1627 Dictated By: Eligio Hidalgo DO 08/18/23 1626 Signed By: 08/18/23 1627 Normal [facility] Office Visiton 06-12-2023 Follow-up visit [id number] Marisela Hahn 1975 M Date Provider Department Center 06/12/2023 3848-[facility] [facility] [facility] Family History Problem Relation Age of Onset Hypertension Mother Hypertension Father Hypertension Sister Other Maternal Grandfather Diabetes type II Maternal Grandfather Family Status - Relation Status Age at Mother Father Sister Maternal Grandfather Level of Service:21008 SD OFFICE/OUTPATIENT ESTABLISHED LOW MDM 20 MIN Reason for Visit and Comments: Follow-up [620269] - Review labs and echo Normal [facility] Estimated glomerular filtrat ion rate (GFR) non- Americanon 05-15-2023 GFR/1.73 sq M.predicted among non-blacks MDRD (S/P/Bld) [Vol rate/Area] 59 mL/min/{1.73_m2} >=60 [facility] Laboratory - Chemistry and C hemistry - challengeon 05-15-2023 Calcium [Mass/Vol] 9.1 mg/dL 8.5-10.1 [facility] Chloride [Moles/Vol] 103 mmol/L 98-107 [facility] CO2 [Moles/Vol] 29.5 mmol/L 21.0-32.0 [facility] Creatinine [Mass/Vol] 1.29 mg/dL 0.70-1.30 [facility] GFR/1.73 sq M.predicted MDRD (S/P/Bld) [Vol rate/Area] mL/min/{1.73_m2} >=60 [facility] Glucose [Mass/Vol] 97 mg/dL 74-106 [facility] Potassium [Moles/Vol] 4.1 mmol/L 3.5-5.1 [facility] Sodium [Moles/Vol] 141 mmol/L 136-145 [facility] Urea nitrogen [Mass/Vol] 20.0 mg/dL 7.0-18.0 [facility] Urea nitrogen/Creatinine [Mass ratio] 15.5 mg/mg [facility] Serum or plasma anion gap de terminationon 05-15-2023 Anion gap [Moles/Vol] 12.6 mmol/L [facility] Office Visiton 04-21-2023 Follow-up visit [id number] Marisela Hahn 1975 M Date Provider Department [facility] Family History Problem Relation Age of Onset Hypertension Mother Hypertension Father Hypertension Sister Other Maternal Grandfather Diabetes type II Maternal Grandfather Family Status - Relation Status Age at Mother Father Sister Maternal Grandfather Level of Service:08931 SD OFFICE/OUTPATIENT ESTABLISHED MOD MDM 30 MIN Normal [facility] MR cervical spine wo conon 1 04-21-2022 MR cervical spine wo con [facility] [address] MRI Report Signed Patient: Marisela Hahn MR#: [id number] : 1975 Acct:[id number] Age/Sex: 47 / M ADM Date: 02/17/23 Loc: MR Room: Type: [facility] Attending Dr: Deann Ortega RANGE AIDE Copies to: Deann Ortega NP Ordering Provider: [...] Mosley Jr., D.ORas02/18/2023 8:57 AM Dictation Location: [place] [address] Transcribed By: [facility] 02/18/23 0857 Dictated By: Jorge Mosley Jr, DO 02/18/23 0853 Signed By: 02/18/23 0857 Normal [facility] XR cervical spine w flex/ext on 12-05-2022 XR cervical spine w flex/ext [facility] [place] [address] [place] [address] XRay Report Signed Patient: Marisela Hahn MR#: [id number] : 1975 Acct:[id number] Age/Sex: 47 / M ADM Date: 12/05/22 Loc: XD Room: Type: [facility] Attending Dr: Rivera Bermudez MD Copies to: [...] Mosley Jr., D.O.12/05/2022 3:46 PM Dictation Location: [place] [address] Transcribed By: [facility] 12/05/22 154 Dictated By: Jorge Mosley Jr, DO 12/05/22 154 Signed By: 12/05/22 154 Normal [facility] MRI BRAIN WO W CONon 023 MRI [...] JOSE L WATSON Date: 2022-07-15 08:08 Normal [facility] XR FOREIGN BODY EYEon 2022 XR FOREIGN BODY EYE EXAMINATION: XR FOREIGN BODY EYE HISTORY: Foreign body in eye COMPARISON: No relevant comparison available. FINDINGS: ORBITS: Negative for a metallic foreign body. OTHER: Negative. IMPRESSION: No metallic foreign body in orbits Electronically authenticated by: MARCELLA CLEVELAND Date: 2022-07-14 14:42 Normal [facility] PROF CHEM 8 (BAS METB)on Anion gap [Moles/Vol] 11.9 mmol/L Normal [facility] Comment on above: Performed By: #### B MP #### [facility] [address] [address] [address] Tiana Luong Calcium [Mass/Vol] 9.3 mg/dL Normal 8.5-10.1 [facility] Comment on above: Performed By: #### B MP #### [facility] [address] [address] [address] Tiana Luong Chloride [Moles/Vol] 108 mmol/L Critically high 98-107 [facility] Comment on above: Performed By: #### B MP #### [facility] [address] [address] [address] Tiana Luong CO2 [Moles/Vol] 27.9 mmol/L Normal 21.0-32.0 [facility] Comment on above: Performed By: #### B MP #### [facility] [address] [address] [address] Tiana Luong Creatinine [Mass/Vol] 1.07 mg/dL Normal 0.70-1.30 [facility] Comment on above: Performed By: #### B MP #### [facility] [address] [place] [address] Dr. Tiana Luong EGFR-AF PALAUAN >60 Normal >=60 [facility] Comment on above: Performed By: #### B MP #### [facility] [address] [address] [address] Tiana Luong EGFR-NON AF PALAUAN >60 Normal >=60 [facility] Comment on above: Performed By: #### B MP #### [facility] [address] [place] [address] Dr. Tiana Luong Glucose [Mass/Vol] 99 mg/dL Normal 74-106 [facility] Comment on above: Performed By: #### B MP #### [facility] [address] [address] [address] Tiana Luong Potassium [Moles/Vol] 3.8 mmol/L Normal 3.5-5.1 [facility] Comment on above: Performed By: #### B MP #### [facility] [address] [address] [address] Tiana Luong Sodium [Moles/Vol] 144 mmol/L Normal 136-145 [facility] Comment on above: Performed By: #### B MP #### [facility] [address] [address] [address] Tiana Luong Urea nitrogen [Mass/Vol] 20.0 mg/dL Critically high 7.0-18.0 [facility] Comment on above: Performed By: #### B MP #### [facility] [address] [place] [address] Dr. Tiana Luong Urea nitrogen/Creatinine [Mass ratio] 18.7 mg/mg Normal [facility] Comment on above: Performed By: #### B MP #### [facility] [address] [place] [address] Dr. Tiana Luong PROF CHEM 8 (BAS METB)on Anion gap [Moles/Vol] 12.9 mmol/L Normal [facility] Comment on above: Performed By: #### B MP #### [facility] [address] [place] [address] Dr. Tiana Luong Calcium [Mass/Vol] 9.2 mg/dL Normal 8.5-10.1 [facility] Comment on above: Performed By: #### B MP #### [facility] [address] [place] [address] Dr. Tiana Luong Chloride [Moles/Vol] 105 mmol/L Normal 98-107 [facility] Comment on above: Performed By: #### B MP #### [facility] [address] [place] [address] Dr. Tiana Luong CO2 [Moles/Vol] 26.1 mmol/L Normal 21.0-32.0 [facility] Comment on above: Performed By: #### B MP #### [facility] [address] [place] [address] Dr. Tiana Luong Creatinine [Mass/Vol] 1.17 mg/dL Normal 0.70-1.30 [facility] Comment on above: Performed By: #### B MP #### [facility] [address] [place] [address] Dr. Tiana Luong EGFR-AF PALAUAN >60 Normal >=60 [facility] Comment on above: Performed By: #### B MP #### [facility] [address] [place] [address] Dr. Tiana Luong EGFR-NON AF PALAUAN >60 Normal >=60 [facility] Comment on above: Performed By: #### B MP #### [facility] [address] [address] [address] Tiana Luong Glucose [Mass/Vol] 93 mg/dL Normal 74-106 [facility] Comment on above: Performed By: #### B MP #### [facility] [id number] Taina Luong Potassium [Moles/Vol] 4.4 mmol/L Normal 3.5-5.1 [facility] Comment on above: Performed By: #### B MP #### [facility] [address] [address] [address] Tiana Luong Sodium [Moles/Vol] 140 mmol/L Normal 136-145 [facility] Comment on above: Performed By: #### B MP #### [facility] [address] [address] [address] Tiana Luong Urea nitrogen [Mass/Vol] 20.0 mg/dL Critically high 7.0-18.0 [facility] Comment on above: Performed By: #### B MP #### [facility] [address] [place], [place] [id number] Dr. Tiana Luong Urea nitrogen/Creatinine [Mass ratio] 17.1 mg/mg Normal [facility] Comment on above: Performed By: #### B MP #### [facility] [address] [address] [address] Tiana Luong XR FINGER MIN 2 [...] by: JOSE GENTILE Date: 2022-04-20 15:00 Normal [facility] Patient Educationon 11-17-19 22 Patient Education Infectious Disease Preventing HIV Infection [...] needles or (more content not included)... Normal [facility] Urology Office/Clinic Noteon 11-16-2021 Urology Office/Clinic [...] the patient. 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 Pain medicines have been provided. [...] know results. He will be going to [place] over the next 2 to 3 weeks and we will have to contact him by phone to go over the results. He should remain on the Flomax 0.4mg. He knows that urine output may be the main issue but hopefully the voiding diary will help elucidate the etiology. He agrees with the plan as outlined. Follow-up With When Contact Information Sam GARDUNO MD, URL [address] [address]- Additional Instructions: Patient Education Preventing HIV Infection and AIDS I, Jada Crowder, personally scribed for Dr. Garduno on 11/16/2021 08:26:54. . Documentation recorded by the scribeJada, accurately reflects the services(s) I performed and decisions made by me. Authenticated by Dr. Garduno on 11/16/2021 08:27:25. Problem List/Past Medical History Ongoing BPH without obstruction/lower urinary tract symptoms Deafness Depression Hypertension Spina bifida (more content not included)... Normal [facility] Comment on above: Result Comment: Elec tronically Signed By: Sam GARDUNO MD\.br\Date and Time Signed: 11/16/21 08:29 EDT\.br\Electronically Co-Signed By: Jada Crowder\.br\Date and Time Co-Signed: 11/16/21 08:27 EDT Coding Summary.on 11-08-2021 Coding Summary. CD:[id number] G h0bWw+PGhlYWQ+EG4MXJF fE35ucBPkhX6BE6vWWQ1Y VUTSPYCTYO3EAQ3ziFG3I TixC2FimoZk LucxoDYbYZ10WMj5SVX3q CpoHBvleX8ewKDeM1r9Qx SfLU22pM51JWoeZXYaOlT 3LjZpbjsgbWFy A9icBfWigEKhQhu+PHRhY mxlIHdpZHRoPScxMDAlJy FmbAiqFX5aUi7jDOZbEUT vbGxhcHNlOiBj m0htPJEkFHmpKR0hnNzmE 4NwdPU1RFDog4u0Ik18xE I+UTBcGUY0bIwlMGnqc80 9ViQsi4tiBQP6 bFVgJBzvSVJ7Y15pa5K8F GFxCTErHPE8cHV7qX1dnM joximpJ7KapSMlYpG5JMB 6lYZjaP3wjTih xazqyF4aXug+L97QWD7WN XFVSF0JHlk0V9FgDcgcmM I+VU94IRMoFR16cIDhuAN hu6btyRk3WtFs YMFdTPJ2hNtaZGeld3MjE PNwM95nqODfb0M6XYYulW eukJIgIoNcxRS5fE2uBXu flkarz3uydpbm Vniky1gdug58xM39K00gZ KslOWLuYJH2QTMiVCLfjO oqjk9koA8gZu7+RWzpy6y ct4flzYc6YfOa VWFevpRokKjiGOX5w4QmQ e06D9BzeSzuh6NtOem6vn 17fSXzu9P5zCY3UUzaYSG ulJ7lDYthDvU1 MLDiXvSmhG86jXGlDBtmB k2zrOkxvGohJK8nLQMygv iuZCQyzY1vBVMgvYUvwSj vLZ3dWQYcaemk j788DcDpOOG2PKObgCQdI 5JoqI0nIbOcSIZnDLBuA0 DivKRaKKgyJ069DEjcCvW 3YQYznlDqX8Uv OKBguVqoPqF2z9B6Fe2Jc 1MlxgzqREK0XKjzAPF7Wz V7MhWsGhF7V0NdCad0UNK jpHenIP8nE3Ax MNVnktkahmyyjBX8QZVoJ HZjwE77iWRrYYqzIs5qx7 X6v869LGCsJOYwkU09Ll0 udDogMTBwdCBU sM8ldqiey1kbqvteYhYbH ISmFIx4LJl4VNLcvClwRo PoMOA3LeN6ZXN8wLUvvW0 kvYxffodlrK4c Oyc+D77zkG6uOQM1GAO2q copPKIabqZaBC53PZ24G9 RyPjwvdGFibGU+PGRpdiB baVueKH6gRmCr u8vze0RnSHykL9SqRNGmN VanTne9JGMnNLG7jJK4kR 3iQISpMUqgj2T3sML9B8I hmoQsuj4rg6is KXJrZIebW80jpVEft6U4S OChgMB5HZTooZjqOfZarS 93Oyc+KLPprEmlv4LdTnb xn1jum6ucpNg5 MdJyDVGfniLzpSazJUE8x 7YrUj41L67nOQngNCNhWT MnZBWuRWTheTkljp2xpQ5 wIi8+PGNvbCB3 gHX5aO4fQAUyAlQ1OCeiH 964MbPddDKfUfohm7whp1 ajbJa1XlIiKVTehdRwuHs xCFM0d8GrWz76 B85zVJjyWPCzNSWtZFTzS COwoOkjmc4bfM8zTs6+PC 5tt7juxz87iH51qPX+PHR iWVY2rCanUWok RUUvvA1nCGznRsD5JSLxM aWncG59gFHeKQogTk5ejK rakCpuBV0sTYIfiooxz34 2BzNiq6vzUORc nKEkDWzoVNS5I84pb1H7H GHpPBRbGFK9jUC8mH8hyF lnbjogbGVmdDsgdmVydGl hSFzwBDqbW484 IHRvcDsnPlBhdGllbnQgT rOqHGe9G7XyPmg7LUIxrS eeLZ6auRMiELpcYj2bnTd msUocTM6xAYNh euvcq097SsUhw8fhMEHwj TXuOJdmEUC9B71yj3V5NW PvFPIgRNS8rFP7zT9xwXa nbjogbGVmdDsg gtGvrIvpIQtrPXubH554Q HRvcDsnPkJpcnRoIERhdG J0ZY07JW05uLYjt9H2zPU 4M2OdHIYztfmz wjmfkYX4ZOMdIRMhzY82H q6veVetXx4oOQJhAEV3JD RtaNCxO2DelV1bFgKsKAY cBIPkV9QprESf USuxQ568YIjpPsO0CAQtw vVwU4KvNZYlyJccJxK9p7 R9Ng9WF0C0LW48AS86sVA tx5M2zYK9P0Ro MAOcxydvsadcaIX0OHYzW PFqpI75Gd0lnKhjWy2lNY FrYBR2JHVtpPDaS5MunF2 yOiAjMDAwMDAw F5YjdPQrQSmzH756AIixF sX0LMMfnbErQ5NwSQJusF yoXeI2c8K7Ds7WBKs5KQ1 7IV62uMUce3I2 rYN3C8JlRVZieiqgclrrq NW5JZIzPOFcnJ66Dq6kbR vjTt0vQVEsWAD3CYTrvPA oT2CjpB6uTeKr GLGfLKVmO5UxgPWzFZxcG 324AIvpTmK4JRUkibYcJ2 FyAEMxiDpbWnB5c7C6Js9 KGYKoDW45BML5 eUV5OJ02YZ02S2AwScbbw GFibGU+PHRhYmxlIHdpZH RoPScxMDAlJyBzdHlsZT0 wCc4dVHJxJMXa aNpixHCrZxIuq8xoFSJtK FyfQY7ifLbaQ9NemYN6YQ Oxp4z2Gm91G21pJ5FwiWD +YQPwsXF6cXT6 pF5hDxTaGyJ9RXryA267E mVpkAUiYcdrk4wfi8ecjX l9HsC5SJXcjvQzoPbcBEH 5m0RmDy26V55a IHdpZHRoPSIxNSUiIHZhb Eblmf2wuJ5kTn8+PGNvbC M7iGF0tF1jLpXiMqZ8DYn tF146QvOmoYTn Yoeyr3okj9buuNk2KuWkF KHcpxHnbJdkSWZ1n6TkAg 50U1TkrHuee6SsXmk7qm0 8dOUvy8N1cAT4 V8BfAEMmritvtCKtpUxvE Q6gNCXocdjgSILioB7sLN EpV5i3IpHtKpT9CZdyU8T xtaG9BSPvyGHe BAxlIJN8N61wi3O5GIQfW NSeRHV9qTX1hZ5pbOhljs ogbGVmdDsgdmVydGljYWw sDBmoJ128EWNj cWmgYUEvlN7aCCYulZNfi OmoDP8nACPqzmhuAkpHNM aXCD7GAAWSMycSZE11EF7 9tOIlk9W2eAC0 N9LyYSGpcmaxzwrrmMR8D KHcDYEalP27lHVgBSztLv 4zk8G0q270HUHpJGImqX4 7Sk0udFppWWQc lWBSjC7wyljih2jxymvhT bWfTBQpWUz8UWh8VXQbdM szJnBcCED1IaQ6LDK1tQJ waA5ovFkqwzfm iI4oKfh+VOGlYWNwWSh1Y jwvdGQ+DAGgAWG3mCjzFE wiVZJaeQ1bVPDaM6i9NjT kTrW0POthB3Wk ZIOekutcYh54kP7kVvPiZ gR9BMkaZ0GpydD5YFTpoZ CkUPrvWAR8G07er2P2WMR pYFWfWEJ7mUP3 wU0xoRpqnoohgIUpqNjox sRofDjrXXojPMkqS328QH QzdBrxNeF1OAunRPOsLO3 5JU55tLOyd8Q5 qKQ5O2IaDPGfhykfurfga XJ8YECgVIIdvV40hBCzGL yqIf6gd2L3b689JWYjDBN ikP57Dz5whGaf AWGkfFSEeN0xokgvy0obx pugEjMoVCHxFPr5FYn5TG CwfHbkWrPeYCU2QcL3WME 1bLRntR3pxLtq hhfdzV3yCku+TWFsZTwvd GQ+YEHeHXF1vPwaTNbgYH FplR1kJBNxY9z8XaSzVxH 3XQbpB9RpIMKs gdfnUy48bX3pRdBsDdF3T MyeG7HnqxK4FHZwmWZgSL riHRE8B28ci4C8RKJtIIO nHHU2uKD6lC6z bGlnbjogbGVmdDsgdmVyd OdaILjaIZeuE471RILpzM yeEezbQpEBcy6zQW9oAva vdGQ+CD68to76 T5CeOqfcBpw5HWXuZMG7h YB2cU7jWCTbIMeys8G3qB W7O1DjezMrbt2bo9gwYHT lCJhkI17drMPm m4I5SUPxxPE0OUSmbEyaH wMeoQ05Nbg+PGNvbGdyb3 EgRycvl6uhs8tflKn4PcT wJSIgdmFsaWdu DZR1f7UzUn28D32lEJigF HRoPSIzMCUiIHZhbGlnbj 5nyH5dNc5+ONRqkLG9yPE 5zC3pFlNmYcD6 RQvfA907ItQkvCLpOwiro 0dvj8qlwDg8PcMuXKRbdd SwrMzuBBK1z1UlHx36N8Y cjXcxi7QnYqo7 kh14vZGxi2E8fXW1S0XsZ HLxglnrhBXgxIbaFL6eCI ZyvbisXOGjzG1fDCMiX6v 8QcUcBhE8RRlm N2BxpmE4ZQKlsUWcSWVaf OZGfL1hnwtvm0zrmumyBe AjMMZmWIz1YBh7ZYTucKx aBtWpMPO9NkW1 MZH4bMLtlE8qkEiupxfca G9wOyc+MTc1m5ejtEPqBN 4iyKL7XK33UZ76ySKpr4J 8sDA3W1TkDEWh fqxkjyynmOL5MHGeXBUxj P02Bg6opLliDv5fFETcJB Q1WOZvmKHiZ9JllO3jYcV xSGRcASShI7Eb uKUzRHrzO368AXrcIsX6I RXbxkRbP9AhNJMptUmeLj J6x7B6Il3UPD34WE17AE5 2fDDtw2N0zLH1 L3VdABVupglakuirlIY8T ZFwPQJzoZ92Ip0oxQsuHg 6kTQYxLOW4SMPrqMLgI5C suZ1hAuDfFDQq XFUjD3IazKGvYGjsZ306N IlkUcT1AZAtnsIqO4SeJR MwyQgaEcI5b5M9Co7KAi1 2KR61CR96uHCa g6C2qZA6K4ZtSLXnnrdnm jfkcPP4IEYtNFFypK70Sy 6cfKhjEm5gKGHyGNG7BIS xeUMsQ4AsmV1d MrQoVQDmMAQyQ6HquABcX CjwH256RYkfAlV6RHTvvj EdV5LoGLYpfOhrJhE9e5T 3Xq9SNGvryrn5 U6FrFqehoUM+OQ80ZUKmU Y50yMPrvLGzc1vbyZw3Oe ZpGVVqLCU1qEehYQyvd5N wZPKzX42fyKDl c2U6 (more content not included)... Normal [facility] Ambulatory Visit Summaryon 0 11-05-2021 Ambulatory Visit Summary MARISELA HAHN :1975 Visit Date:11/05/2021 Ambulatory Visit Instructions Your Diagnosis Encounter for vasectomy BPH without obstruction/lower urinary tract symptoms Your Care Team Attending Physician - SHAAN HALE, Sam Velazco Primary Care Physician - NONE, XXXX This Is Your Medications List tamsulosin (tamsulosin 0.4 mg Cap) Contact prescribing physician if questions or concerns acetaminophen-hydroco done ([place] 325 mg-5 mg oral tablet) amlodipine (amLODIPine [...] HALE, Sam Velazco Where: [facility] Consent for Procedure/Surger yon 11-05-2021 Consent for Procedure/Surgery [id number] [facility] Patient Educationon 11-06-19 22 Patient Education Urology [...] these instructions at home: Medicines ? Take ypun-gfx-qsnugjl and prescription medicines only as told by [...] 09/16/2005 Document Revised: 02/09/2018 Document Reviewed: 05/26/2017 [employer] Patient Education ? 2019 [employer]. Paula Rosen [facility] Urology Office/Clinic Noteon 11-05-2021 Urology Office/Clinic [...] the patient. 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 Pain medicines have been provided. [...] to the (more content not included)... Normal [facility] Comment on above: Result Comment: Elec tronically Signed By: Sam GARDUNO MD\.br\Date and Time Signed: 11/05/21 08:24 EDT\.br\Electronically Co-Signed By: Tomeka Montalvo.br\Date and Time Co-Signed: 11/05/21 08:19 EDT ECHOCARDIO M/2D COMPLETEon 0 10-22-2021 ECHOCARDIO M/2D COMPLETE Patient: MARISELA HAHN Exam Date: 10/22/2021 : 1975 Gender:M Ordering : DR BENITO BULLOCK M.D. Admission #: [id number] Family : Order #: [id number] CLICK HERE TO VIEW EXAM ECHOCARDIOGRAM REPORT [...] M.D. on 10/22/2021 at 16:29 Normal [facility] CBC AUTO DIFFon 08-06-2021 BASO # 0.0 103/ul Normal 0.0-0.1 [facility] Comment on above: Performed By: #### C BC #### [facility] [address] [place] [address] Dr. Tiana Luong Basophils/100 WBC (Bld) 0.8 % Normal 0.2-2.0 [facility] Comment on above: Performed By: #### C BC #### [facility] [address] [place] [address] Dr. Tiana Luong EO # 0.1 103/ul Normal 0.0-0.7 [facility] Comment on above: Performed By: #### C BC #### [facility] [address] [place] [address] Dr. Tiana Luong Eosinophils/100 WBC (Bld) 1.4 % Normal 0.9-7.0 [facility] Comment on above: Performed By: #### C BC #### [facility] [address] [place] [address] Dr. Tiana Luong Erythrocyte distribution width (RBC) [Ratio] 14.6 % Normal 11.0-15.0 [facility] Comment on above: Performed By: #### C BC #### [facility] [address] [place] [address] Dr. Tiana Luong Hematocrit (Bld) [Volume fraction] 49.2 % Normal 42.0-54.0 [facility] Comment on above: Performed By: #### C BC #### [facility] [address] [address] [address] Tiana Luong Hemoglobin (Bld) [Mass/Vol] 16.0 g/dL Normal 14.0-18.0 [facility] Comment on above: Performed By: #### C BC #### [facility] [address] [address] [address] Tiana Luong IG # 0.03 10e3/ul Normal 0.00-0.03 [facility] Comment on above: Performed By: #### C BC #### [facility] [address] [place] [address] Dr. Tiana Luong IG % 0.6 % Critically high 0.0-0.5 [facility] Comment on above: Performed By: #### C BC #### [facility] [address] [address] [address] Tiana Luong LYMPH # 0.9 103/ul Critically low 1.2-3.8 [facility] Comment on above: Performed By: #### C BC #### [facility] [address] [place] [address] Dr. Tiana Luong Lymphocytes/100 WBC (Bld) 18.8 % Critically low 20.5-60.0 [facility] Comment on above: Performed By: #### C BC #### [facility] [address] [address] [address] Tiana Luong MANUAL DIFF REQ NO Normal [facility] Comment on above: Performed By: #### C BC #### [facility] [address] [address] [address] Tiana Luong MCH (RBC) [Entitic mass] 28.4 pg Normal 25.9-34.0 [facility] Comment on above: Performed By: #### C BC #### [facility] [address] [place] [address] Dr. Tiana Luong MCHC (RBC) [Mass/Vol] 32.5 g/dL Normal 29.9-35.2 [facility] Comment on above: Performed By: #### C BC #### [facility] [address] [place] [address] Dr. Tiana Luong MCV (RBC) [Entitic vol] 87.4 fL Normal 80.0-94.0 [facility] Comment on above: Performed By: #### C BC #### [facility] [address] [place] [address] Dr. Tiana Luong MONO # 0.4 103/ul Normal 0.3-0.8 [facility] Comment on above: Performed By: #### C BC #### [facility] [address] [place] [address] Dr. Tiana Luong Monocytes/100 WBC (Bld) 8.7 % Normal 1.7-12.0 [facility] Comment on above: Performed By: #### C BC #### [facility] [address] [place] [address] Dr. Tiana Luong NEUT # 3.4 103/ul Normal 1.4-6.5 [facility] Comment on above: Performed By: #### C BC #### [facility] [address] [place] [address] Dr. Tiana Luong Neutrophils/100 WBC (Bld) 69.7 % Normal 43.0-75.0 [facility] Comment on above: Performed By: #### C BC #### [facility] [address] [place] [address] Dr. Tiana Luong Platelet mean volume (Bld) [Entitic vol] 9.7 fL Normal 9.5-13.5 [facility] Comment on above: Performed By: #### C BC #### [facility] [address] [place] [address] Dr. Tiana Luong PLT 167 103/ul Normal 150-450 [facility] Comment on above: Performed By: #### C BC #### [facility] [address] [place] [address] Dr. Tiana Luong RBC 5.63 106/ul Normal 4.70-6.10 [facility] Comment on above: Performed By: #### C BC #### [facility] [address] [place] [address] Dr. Tiana Luong WBC 4.9 103/ul Normal 4.0-11.0 [facility] Comment on above: Performed By: #### C BC #### [facility] [address] [place] [address] Dr. Tiana Lunog FREE T4on 08-06-2021 Free T4 [Mass/Vol] 0.80 ng/dL Normal 0.76-1.46 [facility] Comment on above: Performed By: #### F T4 #### [facility] [address] [place] [address] Dr. Tiana Luong PROF 14(COMP METB)on 022 Albumin [Mass/Vol] 3.9 g/dL Normal 3.4-5.0 [facility] Comment on above: Performed By: #### C MP, TSH #### [facility] [address] [place] [address] Dr. Tiana Luong Albumin/Globulin [Mass ratio] 1.3 {ratio} Normal [facility] Comment on above: Performed By: #### C MP, TSH #### [facility] [address] [place] [address] Dr. Tiana Luong ALP [Catalytic activity/Vol] 60 U/L Normal 46-116 [facility] Comment on above: Performed By: #### C MP, TSH #### [facility] [address] [place] [address] Dr. Tiana Luong ALT [Catalytic activity/Vol] 21 U/L Normal 16-63 [facility] Comment on above: Performed By: #### C MP, TSH #### [facility] [address] [place] [address] Dr. Tiana Luong Anion gap [Moles/Vol] 11.0 mmol/L Normal [facility] Comment on above: Performed By: #### C MP, TSH #### [facility] [address] [place] [address] Dr. Tiana Luong AST [Catalytic activity/Vol] 17 U/L Normal 15-37 [facility] Comment on above: Performed By: #### C MP, TSH #### [facility] [address] [place] [address] Dr. Tiana Luong Bilirubin [Mass/Vol] 0.5 mg/dL Normal 0.2-1.0 [facility] Comment on above: Performed By: #### C MP, TSH #### [facility] [address] [place] [address] Dr. Tiana Luong Calcium [Mass/Vol] 9.0 mg/dL Normal 8.5-10.1 [facility] Comment on above: Performed By: #### C MP, TSH #### [facility] [address] [place] [address] Dr. Tiana Luong Chloride [Moles/Vol] 106 mmol/L Normal 98-107 [facility] Comment on above: Performed By: #### C MP, TSH #### [facility] [address] [place] [address] Dr. Tiana Luong CO2 [Moles/Vol] 27.2 mmol/L Normal 21.0-32.0 [facility] Comment on above: Performed By: #### C MP, TSH #### [facility] [address] [place] [address] Dr. Tiana Luong Creatinine [Mass/Vol] 0.93 mg/dL Normal 0.70-1.30 [facility] Comment on above: Performed By: #### C MP, TSH #### [facility] [address] [place] [address] Dr. Tiana Luong EGFR-AF PALAUAN >60 Normal >=60 [facility] Comment on above: Performed By: #### C MP, TSH #### [facility] [address] [place] [address] Dr. Tiana Luong EGFR-NON AF PALAUAN >60 Normal >=60 [facility] Comment on above: Performed By: #### C MP, TSH #### [facility] [address] [place] [address] Dr. Tiana Luong Globulin (S) [Mass/Vol] 3.1 g/dL Normal [facility] Comment on above: Performed By: #### C MP, TSH #### [facility] [address] [address] [address] Tiana Luong Glucose [Mass/Vol] 96 mg/dL Normal 74-106 [facility] Comment on above: Performed By: #### C MP, TSH #### [facility] [address] [place] [address] Dr. Tiana Luong Potassium [Moles/Vol] 4.2 mmol/L Normal 3.5-5.1 [facility] Comment on above: Performed By: #### C MP, TSH #### [facility] [address] [place] [address] Dr. Tiana Luong Protein [Mass/Vol] 7.0 g/dL Normal 6.4-8.2 [facility] Comment on above: Performed By: #### C MP, TSH #### [facility] [address] [place] [address] Dr. iTana Luong Sodium [Moles/Vol] 140 mmol/L Normal 136-145 [facility] Comment on above: Performed By: #### C MP, TSH #### [facility] [address] [place] [address] Dr. Tiana Luong Urea nitrogen [Mass/Vol] 19.0 mg/dL Critically high 7.0-18.0 [facility] Comment on above: Performed By: #### C MP, TSH #### [facility] [address] [place] [address] Dr. Tiana Luong Urea nitrogen/Creatinine [Mass ratio] 20.4 mg/mg Normal [facility] Comment on above: Performed By: #### C MP, TSH #### [facility] [address] [place] [address] Dr. Tiana Luong TSHon 08-06-2021 TSH 1.417 uIU/mL Normal 0.358-3.740 [facility] Comment on above: Performed By: #### C MP, TSH #### [facility] [address] [place] [address] Dr. Tiana Luong TSH RANGE SEE BELOW Normal [facility] Comment on above: Result Comment: <0.3 4 UIU/ml HYPERTHYROID 0.34-5.60 UIU/ml EUTHYROID >5.60 UIU/ml HYPOTHYROID Performed By: #### C MP, TSH #### [facility] [address] [address] [address] Tiana Luong COVID-19/INFLUENZA A,B ANGELI [place] 02-18-2020 COVID-19/INFLUENZA A,B MOLECULAR SARS-COV-2 (NATALYA): Not Detected INFLUENZA A (NATALYA): Not Detected INFLUENZA B (NATALYA): Not Detected Normal Not Detected [facility] Comment on above: Order Comment: [...] at the following links: For Healthcare Providers: https://www.fda.gov/media/512528/download For Patients: https://www.fda.gov/media/558995/download Performed By: #### L [id number] #### [facility] [facility] [id number] [address] Mike King MD [id number] PED CT DISSECTION WITH PELVISon 02-18-2020 CT [...] 2020 1:23:[address] [facility] Comment on above: Order Comment: [...] at L5-S1 with vacuum disc phenomena present. Fmwt-yd-jqjecusp facet arthropathy of the lumbar spine which is most pronounced distally. IMPRESSION: 1. No acute osseous abnormality of the lumbar spine. 2. Tifj-da-tbsbiwns degenerative changes which are most pronounced distally at L5-S1. Workstation ID: [id number] Dictated by: MAKENNA BOYKIN on MonFeb 17, 2020 9:29:23 PM EST Transcribed by: MAKENNA BOYKIN on MonFeb 17, 2020 9:29:23 PM EST Finalized by: MAKENNA BOYKIN on MonFeb 17, 2020 9:29:[address] [facility] Comment on above: Order Comment: Injur y/Trauma or Illness?:Illness/Other How long have you had these symptoms (acute/chronic)?:Acute Reason for exam?:back pain History of cancer?:n Surgeries, chemotherapy, or radiation?:n Type of Exam?:Initial Additional signs and symptoms?:x many weeks but much worse pain today Vital Signs Date Time Vital Sign Value Performing Clinician Facility 10-16-2023 09:10-0400 Body weight 145.26 kg MD Benito Bullock Work Phone: [facility] 10-16-2023 09:10-0400 Diastolic blood pressure 90 mm[Hg] MD Benito Bullock Work Phone: [facility] 10-16-2023 09:10-0400 Heart rate 83 /min MD Benito Bullock Work Phone: [facility] 10-16-2023 09:10-0400 SaO2% (BldA) [Mass fraction] 98 % MD Benito Bullock Work Phone: [facility] 10-16-2023 09:10-0400 Systolic blood pressure 142 mm[Hg] MD Benito Bullock Work Phone: [facility] 09-11-2023 13:04-0400 Body height 185.42 cm MD Benito Bullock Work Phone: [facility] 09-11-2023 13:04-0400 Body mass index (BMI) [Ratio] 41.9 kg/m2 MD Benito Bullock Work Phone: [facility] 09-11-2023 13:04-0400 Body weight 144.24 kg MD Benito Bullock Work Phone: [facility] 09-11-2023 13:04-0400 Diastolic blood pressure 85 mm[Hg] MD Benito Bullock Work Phone: [facility] 09-11-2023 13:04-0400 Heart rate 79 /min MD Benito Bullock Work Phone: [facility] 09-11-2023 13:04-0400 Systolic blood pressure 135 mm[Hg] MD Benito Bullock Work Phone: [facility] 07-19-2023 13:16-0400 Body weight 151.1 kg MD Benito Bullock Work Phone: [facility] 07-19-2023 13:16-0400 Diastolic blood pressure 90 mm[Hg] MD Benito Bullock Work Phone: [facility] 07-19-2023 13:16-0400 Heart rate 92 /min MD Benito Bullock Work Phone: [facility] 07-19-2023 13:16-0400 SaO2% (BldA) [Mass fraction] 98 % MD Benito Bullock Work Phone: [facility] 07-19-2023 13:16-0400 Systolic blood pressure 150 mm[Hg] MD Benito Bullock Work Phone: [facility] 07-18-2023 10:06-0400 Body height 185.42 cm MD Benito Bullock Work Phone: [facility] 07-18-2023 10:06-0400 Body mass index (BMI) [Ratio] 43.2 kg/m2 MD Benito Bullock Work Phone: [facility] 07-18-2023 10:06-0400 Body weight 148.77 kg MD Benito Bullock Work Phone: [facility] 07-18-2023 10:06-0400 Diastolic blood pressure 85 mm[Hg] MD Benito Bullock Work Phone: [facility] 07-18-2023 10:06-0400 Heart rate 73 /min MD Benito Bullock Work Phone: [facility] 07-18-2023 10:06-0400 Systolic blood pressure 123 mm[Hg] MD Benito Bullock Work Phone: [facility] 06-21-2023 10:07-0400 Body height 185.42 cm MD Benito Bullock Work Phone: [facility] 06-21-2023 10:07-0400 Body mass index (BMI) [Ratio] 43.4 kg/m2 MD Benito Bullock Work Phone: [facility] 06-21-2023 10:07-0400 Body weight 149.23 kg MD Benito Bullock Work Phone: [facility] 06-21-2023 10:07-0400 Diastolic blood pressure 92 mm[Hg] MD Benito Bullock Work Phone: [facility] 06-21-2023 10:07-0400 Heart rate 75 /min MD Benito Bullock Work Phone: [facility] 06-21-2023 10:07-0400 SaO2% (BldA) [Mass fraction] 97 % MD Benito Bullock Work Phone: [facility] 06-21-2023 10:07-0400 Systolic blood pressure 138 mm[Hg] MD Benito Bullock Work Phone: [facility] 06-16-2023 10:10-0400 Body height 185.42 cm MD Benito Bullock Work Phone: [facility] 06-16-2023 10:10-0400 Body mass index (BMI) [Ratio] 43.4 kg/m2 MD Benito Bullock Work Phone: [facility] 06-16-2023 10:10-0400 Body weight 149.23 kg MD Benito Bullock Work Phone: [facility] 06-16-2023 10:10-0400 Diastolic blood pressure 85 mm[Hg] MD Benito Bullock Work Phone: [facility] 06-16-2023 10:10-0400 Heart rate 78 /min MD Benito Bullock Work Phone: [facility] 06-16-2023 10:10-0400 Systolic blood pressure 122 mm[Hg] MD Benito Bullock Work Phone: [facility] 05-31-2023 10:50-0400 Diastolic blood pressure 79 mm[Hg] MD Benito Bullock Work Phone: [facility] 05-31-2023 10:50-0400 Heart rate 71 /min MD Benito Bullock Work Phone: [facility] 05-31-2023 10:50-0400 Respiratory rate 18 /min MD Benito Bullock Work Phone: [facility] 05-31-2023 10:50-0400 SaO2% (BldA) [Mass fraction] 96 % MD Benito Bullock Work Phone: [facility] 05-31-2023 10:50-0400 Systolic blood pressure 131 mm[Hg] MD Benito Bullock Work Phone: [facility] 05-31-2023 09:34-0400 Body height 185.42 cm MD Benito Bullock Work Phone: [facility] 05-31-2023 09:34-0400 Body weight 149.68 kg MD Benito Bullock Work Phone: [facility] 05-17-2023 15:27-0500 Diastolic blood pressure 102 mm[Hg] MD Benito Bullock Work Phone: [facility] 05-17-2023 15:27-0500 Heart rate 101 /min MD Benito Bullock Work Phone: [facility] 05-17-2023 15:27-0500 SaO2% (BldA) [Mass fraction] 96 % MD Benito Bullock Work Phone: [facility] 05-17-2023 15:27-0500 Systolic blood pressure 158 mm[Hg] MD Benito Bullock Work Phone: [facility] 05-10-2023 10:22-0500 Diastolic blood pressure 96 mm[Hg] MD Benito Bullock Work Phone: [facility] 05-10-2023 10:22-0500 Heart rate 73 /min MD Benito Bullock Work Phone: [facility] 05-10-2023 10:22-0500 Respiratory rate 16 /min MD Benito uBllock Work Phone: [facility] 05-10-2023 10:22-0500 SaO2% (BldA) [Mass fraction] 98 % MD Benito Bullock Work Phone: [facility] 05-10-2023 10:22-0500 Systolic blood pressure 151 mm[Hg] MD Benito Bullock Work Phone: [facility] 05-10-2023 09:01-0500 Body height 185.42 cm MD Benito Bullock Work Phone: [facility] 05-10-2023 09:01-0500 Body weight 145.14 kg MD Benito Bullock Work Phone: [facility] 04-26-2023 15:53-0500 Body height 185.42 cm MD Benito Bullock Work Phone: [facility] 04-26-2023 15:53-0500 Body mass index (BMI) [Ratio] 43.5 kg/m2 MD Benito Bullock Work Phone: [facility] 04-26-2023 15:53-0500 Body weight 149.68 kg MD Benito Bullokc Work Phone: [facility] 04-26-2023 15:53-0500 Heart rate 84 /min MD Benito Bullock Work Phone: [facility] 04-26-2023 15:53-0500 Respiratory rate 18 /min MD Benito Bullock Work Phone: [facility] 04-26-2023 15:53-0500 SaO2% (BldA) [Mass fraction] 95 % MD Benito Bullock [facility] Phone: [facility] [facility] 04-19-[facility]23 09:23-0500 Diastolic blood pressure 88 mm[Hg] MD Benito Bullock Work Phone: [facility] 04-19-2023 09:23-0500 Heart rate 82 /min MD Benito Bullock Work Phone: [facility] 04-19-2023 09:23-0500 Respiratory rate 16 /min MD Benito Bullock Work Phone: [facility] 04-19-2023 09:23-0500 SaO2% (BldA) [Mass fraction] 97 % MD Benito Bullock Work Phone: [facility] 04-19-2023 09:23-0500 Systolic blood pressure 139 mm[Hg] MD Benito Bullock Work Phone: [facility] 04-19-2023 08:05-0500 Body height 185.42 cm MD Benito Bullock Work Phone: [facility] 04-19-2023 08:05-0500 Body weight 149.68 kg MD Benito Bullock Work Phone: [facility] 04-03-2023 11:45-0500 Body height 181.61 cm MD Benito Bullock Work Phone: [facility] 04-03-2023 11:45-0500 Diastolic blood pressure 92 mm[Hg] MD Benito Bullock Work Phone: [facility] 04-03-2023 11:45-0500 Systolic blood pressure 156 mm[Hg] MD Benito Bullock Work Phone: [facility] 12-22-2023 08:30-0500 Body height 181.61 cm Rivera Bermudez Other [facility] 03-03-2023 08:30-0500 Body mass index (BMI) [Ratio] 46.75 kg/m2 Rivera Lara Other [facility] Other 03-03-2023 08:30-0500 Body weight 154.22 kg Riveraroge Bermudez Other [facility] 03-03-2023 08:30-0500 Diastolic blood pressure 98 mm[Hg] Rivera Lara Other [facility] 03-03-2023 08:30-0500 Systolic blood pressure 150 mm[Hg] Rivera Lara Other [facility] 02-21-2023 09:00-0500 Body height 181.61 cm Riveraroge Bermudez Other [facility] 02-21-2023 09:00-0500 Body mass index (BMI) [Ratio] 46.48 kg/m2 Riveraroge Bermudez Other [facility] Other 02-21-2023 09:00-0500 Body weight 153.32 kg Rivera Lara Other [facility] Other 02-21-2023 09:00-0500 Body weight 153.31 kg MD Benito Bullock Work Phone: [facility] 02-21-2023 09:00-0500 Diastolic blood pressure 90 mm[Hg] Rivera Lara Other [facility] 02-21-2023 09:00-0500 SaO2% (BldA) [Mass fraction] 97 % Rivera Lara Other [facility] Other 02-21-2023 09:00-0500 Systolic blood pressure 160 mm[Hg] Rivera Lara Other [facility] 02-20-2023 08:20-0500 Body height 181.61 cm Pattie Hardin Other [facility] 02-20-2023 08:20-0500 Body mass index (BMI) [Ratio] 46.34 kg/m2 Pattie Hardin Other [employer] Other 02-20-2023 08:20-0500 Body weight 152.86 kg Pattie Hardin Other [facility] 01-24-2023 13:30-0500 Body height 181.61 cm Deann Ortega Other [employer] Other 01-24-2023 13:30-0500 Body mass index (BMI) [Ratio] 46.64 kg/m2 Deann Ortega Other [employer] Other 01-24-2023 13:30-0500 Body weight 153.86 kg Deann Ortega Other [employer] Other 01-24-2023 13:30-0500 Diastolic blood pressure 96 mm[Hg] Deann Ortega Other [employer] Other 01-24-2023 13:30-0500 SaO2% (BldA) [Mass fraction] 98 % Deann Ortega Other [employer] Other 01-24-2023 13:30-0500 Systolic blood pressure 154 mm[Hg] Deann Ortega Other [employer] Other 11-02-2022 09:15-0400 Body height 181.61 cm Benito Bullock Other [employer] Other 11-02-2022 09:15-0400 Body mass index (BMI) [Ratio] 45.38 kg/m2 Benito Bullock Other [employer] Other 11-02-2022 09:15-0400 Body weight 149.69 kg Benito Bullock Other [employer] Other 11-02-2022 09:15-0400 Diastolic blood pressure 86 mm[Hg] Benito Bullock Other [employer] Other 11-02-2022 09:15-0400 Systolic blood pressure 150 mm[Hg] Benito Bullock Other [employer] Other 05-16-2022 09:00-0500 Body height 181.61 cm Benito Bullock Other [employer] Other 05-16-2022 09:00-0500 Body mass index (BMI) [Ratio] 43.73 kg/m2 Benito Bullock Other [employer] Other 05-16-2022 09:00-0500 Body weight 144.24 kg Benito Bullock Other [employer] Other 05-16-2022 09:00-0500 Diastolic blood pressure 100 mm[Hg] Benito Bullock Other [employer] Other 05-16-2022 09:00-0500 SaO2% (BldA) [Mass fraction] 97 % Benito Bullock Other [employer] Other 05-16-2022 09:00-0500 Systolic blood pressure 160 mm[Hg] Benito Bullock Other [employer] Other 05-09-2022 09:00-0500 Body height 181.61 cm Benito Bullock Other [employer] Other 05-09-2022 09:00-0500 Body mass index (BMI) [Ratio] 44.28 kg/m2 Benito Bullock Other [employer] Other 05-09-2022 09:00-0500 Body weight 146.06 kg Benito Bullock Other [employer] Other 05-09-2022 09:00-0500 Diastolic blood pressure 102 mm[Hg] Benito Bullock Other [employer] Other 05-09-2022 09:00-0500 SaO2% (BldA) [Mass fraction] 97 % Benito Bullock Other [employer] Other 05-09-2022 09:00-0500 Systolic blood pressure 162 mm[Hg] Benito Bullock Other [employer] Other 11-16-2021 08:12-0400 Blood Pressure Location [employer] [facility] 11-16-2021 08:12-0400 Diastolic blood pressure 88 mm[Hg] Sam [employer] [facility] 11-16-2021 08:12-0400 Heart rate 70 /min [employer] [facility] 11-16-2021 08:12-0400 Respiratory rate 16 /min [employer] [facility] 11-16-2021 08:12-0400 Systolic blood pressure 130 mm[Hg] [employer] [facility] 08-13-2021 10:19-0400 Blood Pressure Location Sam GARDUNO [facility] 08-13-2021 10:19-0400 Diastolic blood pressure 89 mm[Hg] Sam GARDUNO [facility] 08-13-2021 10:19-0400 Heart rate 77 /min Sam GARDUNO [facility] 08-13-2021 10:19-0400 Systolic blood pressure 133 mm[Hg] Sam GARDUNO [facility] Encounters Encounter Date Encounter Type Care Provider Facility Start: 12-11-2023 End: 12-11-2023 ambulatory R[facility]BOROLencho [facility] Start: 10-30-2023 End: 10-30-2023 ambulatory BAILEY FRYE Not Available Start: 10-16-2023 End: 10-16-2023 ambulatory MD Benito Bullock Work Phone: [facility] Work Phone: Start: 10-16-2023 End: 10-16-2023 Patient encounter procedure MD Benito Bullock Work Phone: [facility] Work Phone: Start: 09-13-2023 End: 09-13-2023 ambulatory ANJU DUNCAN Not Available Start: 09-11-2023 Patient encounter status MD Benito Bullock Work Phone: [facility] Start: 09-11-2023 End: 09-11-2023 ambulatory MD Benito Bullock Work Phone: [facility] Work Phone: Start: 09-11-2023 End: 09-11-2023 Encounter for general adult medical examination without abnormal findings MD Benito Bullock Work Phone: [facility] Start: 09-11-2023 End: 09-11-2023 Patient encounter procedure MD Benito Bullock Work Phone: [facility] Work Phone: Start: 08-30-2023 End: 08-30-2023 ambulatory MARGO MAGALLON Not Available Start: 08-29-2023 End: 08-29-2023 ambulatory ANJU DUNCAN Not Available Start: 08-22-2023 End: 08-22-2023 Patient encounter procedure MD Benito Bullock Work Phone: [facility] [place] Work Phone: Start: 08-22-2023 End: 08-22-2023 ambulatory MD Benito Bullock Work Phone: [facility] Work Phone: Start: 08-18-2023 End: 08-18-2023 Patient encounter procedure MD Benito Bullock Work Phone: [facility] [place] Work Phone: Start: 08-18-2023 End: 08-18-2023 ambulatory MD Benito Bullock Work Phone: [facility] Work Phone: Start: 07-19-2023 End: 07-19-2023 ambulatory MD Benito Bullock Work Phone: [facility] Work Phone: Start: 07-19-2023 End: 07-19-2023 Patient encounter procedure MD Benito Bullock Work Phone: [facility] Work Phone: Start: 07-18-2023 End: 07-18-2023 ambulatory MARGO SHERITA Not Available Start: 07-18-2023 End: 07-18-2023 ambulatory MD Benito Bullock Work Phone: [facility] Work Phone: Start: 07-18-2023 End: 07-18-2023 Patient encounter procedure MD Benito Bullock Work Phone: [facility] Work Phone: Start: 07-05-2023 End: 07-05-2023 ambulatory NAM DENBESTEN Not Available Start: 07-03-2023 End: 07-03-2023 ambulatory NAM DENBESTEN Not Available Start: 06-21-2023 End: 06-21-2023 ambulatory MD Benito Bullock Work Phone: [facility] Work Phone: Start: 06-21-2023 End: 06-21-2023 Patient encounter procedure MD Benito Bullock Work Phone: [facility] Work Phone: Start: 06-16-2023 End: 06-16-2023 ambulatory MD Benito Bullock Work Phone: [facility] Work Phone: Start: 06-16-2023 End: 06-16-2023 Patient encounter procedure MD Benito Bullock Work Phone: [facility] Work Phone: Start: 06-12-2023 End: 06-12-2023 ambulatory [facility] Start: 05-31-2023 Non-patient / Non-visit MD Sherri Bullock Work Phone: [facility] Work Phone: Start: 05-31-2023 End: 05-31-2023 Admission to same day surgery center MD Benito Bullock Work Phone: [facility] Work Phone: Start: 05-31-2023 End: 05-31-2023 ambulatory MD Benito Bullock Work Phone: [facility] Work Phone: Start: 05-17-2023 End: 05-17-2023 Patient encounter procedure MD Benito Bullock Work Phone: [facility] Work Phone: Start: 05-15-2023 Non-patient / Non-visit MD Sherri Bullock Work Phone: [facility] Work Phone: Start: 05-10-2023 Non-patient / Non-visit MD Sherri Bullock Work Phone: [facility] Work Phone: Start: 05-10-2023 End: 05-10-2023 Admission to same day surgery center MD Benito Bullock Work Phone: [facility] Work Phone: Start: 05-10-2023 End: 05-10-2023 ambulatory Rivera Bermudez Facility:[facility] Start: 04-26-2023 End: 04-26-2023 ambulatory MD Benito Bullock Work Phone: [facility] Work Phone: Start: 04-26-2023 End: 04-26-2023 Patient encounter procedure MD Benito Bullock Work Phone: [facility] Work Phone: Start: 04-21-2023 End: 04-21-2023 [facility] Start: 04-19-2023 (PROC) PROCEDURE Rivera Bermudez [facility] Start: 04-19-2023 End: 04-19-2023 Admission to same day surgery center MD Benito Bullock Work Phone: [facility] Work Phone: Start: 04-19-2023 End: 04-19-2023 ambulatory MD Benito Bullock Work Phone: [facility] Work Phone: Start: 04-03-2023 End: 04-03-2023 Patient encounter procedure MD Benito Bullock Work Phone: [facility]- Start: 03-03-2023 End: 03-03-2023 ambulatory Rivera Bermudez Other [employer] Other Start: 03-03-2023 Patient encounter procedure Rivera Bermudez [facility] Start: 03-03-2023 End: 03-03-2023 Patient encounter procedure MD Benito Bullock Work Phone: [facility] Work Phone: Start: 02-28-2023 End: 02-28-2023 ambulatory Deann Ortega Other [employer] Other Start: 02-28-2023 Telephone encounter Deann Ortega [facility] Start: 02-21-2023 End: 02-21-2023 ambulatory Riveraroge Bermudez Other [employer] Other Start: 02-21-2023 Office outpatient vi sit 25 minutes Riveraroge Bermudez [facility] Start: 02-21-2023 End: 02-21-2023 Patient encounter procedure MD Benito Bullock Work Phone: [facility] Work Phone: Start: 02-20-2023 End: 02-20-2023 ambulatory Pattie Hardin Other [employer] Other Start: 02-20-2023 Office outpatient ne w 45 minutes Pattie Hardin [facility] Start: 02-20-2023 End: 02-20-2023 Patient encounter procedure MD Benito Bullock Work Phone: [facility] Work Phone: Start: 02-17-2023 End: 02-17-2023 Patient encounter procedure MD Benito Bullock Work Phone: [facility] [place] Work Phone: Start: 02-17-2023 End: 02-17-2023 ambulatory MD Benito Bullock Work Phone: [facility] Work Phone: Start: 01-24-2023 End: 01-24-2023 ambulatory Deann Ortega Other [employer] Other Start: 01-24-2023 Office outpatient vi sit 15 minutes Deann Ortega [facility] Start: 01-24-2023 End: 01-24-2023 Patient encounter procedure MD Benito Bullock Work Phone: [facility] Work Phone: Start: 12-06-2022 End: 12-06-2022 ambulatory Rivera Bermudez Other [employer] Other Start: 12-06-2022 Telephone encounter Rivera Bermudez [facility] Start: 12-05-2022 End: 12-05-2022 Patient encounter procedure MD Benito Bullock Work Phone: [facility] [place] Work Phone: Start: 12-05-2022 End: 12-05-2022 ambulatory MD Benito Bullock Work Phone: [facility] Work Phone: Start: 11-02-2022 End: 11-02-2022 ambulatory Benito Bullock Other [employer] Other Start: 11-02-2022 Office outpatient vi sit 15 minutes Benito Bullock [facility] Start: 07-20-2022 Encounter for other specified special examinations BAILEY FRYE [facility] Start: 07-14-2022 End: 07-15-2022 ambulatory BAILEY FRYE Facility: Start: 07-14-2022 End: 07-15-2022 Encounter for other specified special examinations BAILEY FRYE Facility:[facility] Start: 07-01-2022 End: 07-02-[address] DOCTOR NAVAS Facility:[facility] Start: 05-16-2022 End: 05-16-2022 ambulatory Benito Bullock Other [employer] Other Start: 05-16-2022 Office outpatient vi sit 15 minutes Benito Bullock [facility] Start: 05-11-2022 End: 05-12-[address] BENITO BULLOCK Facility:[facility] Start: 05-09-2022 End: 05-09-2022 ambulatory Benito Bullock Other [employer] Other Start: 05-09-2022 Office outpatient vi sit 15 minutes Benito Bullock [facility] Start: 04-20-2022 End: 04-20-[address] MAI Mcginnis Facility:[facility] Start: 11-16-2021 End: 11-17-2021 ambulatory Sam GARDUNO Facility:[facility] [place] Start: 11-16-2021 End: 11-16-2021 Patient encounter procedure Sam GARDUNO [facility] Start: 11-05-2021 End: 11-06-2021 ambulatory Sam GARDUNO Facility:[facility] Start: 11-05-2021 End: 11-06-2021 ambulatory Sam GARDUNO Facility:[facility] [place] Start: 11-05-2021 End: 11-05-2021 Lab Drop off Sma GARDUNO [facility] Start: 10-22-2021 End: 10-23-[address] BENITO BULLOCK Facility:[facility] Start: 08-13-2021 End: 08-13-2021 Patient encounter procedure Sam GARDUNO [facility] Start: 08-06-2021 End: 08-07-[address] BENITO BULLOCK Facility: Start: 02-17-2020 End: 02-18-2020 Emergency department patient visit BENITO BULLOCK [facility] Procedures Date Procedure Procedure Detail Performing Clinician Start: 08-18-2023 X-ray of lumbar spin e, four views MD Benito Bullock Work Phone: Start: 06-12-2023 Follow-up visit Follow-up RINALELencho ORONA Start: 05-31-2023 Radiofrequency destr uction of [...] Activity Detail Author Start: 07-18-2023 Patient referral [facility] Work Phone: Start: 05-31-2023 [facility] Start: 05-10-2023 [facility] Start: 04-19-2023 [facility] Start: 02-17-2023 MR Cervical spine WO contrast [facility] Start: 02-17-2023 MRI of cervical spin e without contrast MR cervical spine wo con [facility] Patient Education [facility] Work Phone: Patient referral [facility] Work Phone: XR Lumbar spine 4 Views [facility] Immunizations Immunization Date Immunization Notes Care Provider Fa jerry 12-05-2022 COVID-19 (PFIZER) 12Y and older MD Benito Bullock Work Phone: [facility] 11-15-2022 Influenza, injectabl e, Madin [place] Canine Kidney, preservative free, quadrivalent MD Benito Bullock Work Phone: [facility] 11-12-2021 influenza, injectabl e, quadrivalent, preservative free MD Benito Bullock Work Phone: [facility] 08-12-2021 COVID-19 Comirnaty (Pfizer) Tri-Sucrose 12+ MD Benito Bullock Work Phone: [facility] 08-12-2021 SARS-CoV-2 mRNA (tozinameran 5y-11y) vaccine Sam GARDUNO [facility] 03-13-2021 SARS-CoV-2 mRNA (tozinameran 5y-11y) vaccine Sam SHAAN [facility] 11-24-2020 influenza, injectabl e, quadrivalent, preservative free MD Benito Bullock Work Phone: [facility] 11-24-2020 tetanus toxoid, redu latrice diphtheria toxoid, and acellular pertussis vaccine, adsorbed MD Benito Bullock Work Phone: [facility] 06-28-2020 COVID-19 mRNA, Comirnaty (Pfizer) MD Benito Bullock Work Phone: [facility] 06-11-2020 SARS-CoV-2 mRNA (tozinameran 5y-11y) vaccine Sam GARDUNO [facility] 06-07-2020 COVID-19 mRNA, Judah (Pfizer) MD Benito Bullock Work Phone: [facility] 05-11-2020 SARS-CoV-2 mRNA (tozinameran 5y-11y) vaccine Sam GARDUNO [facility] 02-16-2020 Influenza, injectabl e, Madin Tonya Canine Kidney, preservative free, quadrivalent MD Benito Bullock Work Phone: [facility] Payers Date Payer Category Payer Self-pay 2021 Medicaid [id number]. [id number] 2020 Medicaid [id number] 1975 Unknown [id number] 2.16.8 [id number] 1975 Unknown [id number] 2.16.84 0.1.261109.3.579.2.593 1975 Unknown [id number] 2.16.84 0.1.173859.3.579.2.593 1975 Unknown [id number] 2.16.84 0.1.278229.3.579.2.593 1975 Unknown [id number] 2.16.84 0.1.504695.3.579.2.593 1975 Unknown [id number] 2.16.84 0.1.343558.3.579.2.593 1975 Unknown [id number] 2.16.84 0.1.650762.3.579.2.593 1975 Unknown [id number] 2.16.8 40.1.107383.3.579.2.727 1975 Unknown [id number] 2.16.8 40.1.593338.3.579.2.727 1975 Unknown [id number] 2.16.8 40.1.226587.3.579.2.727 1975 Unknown [id number] 2.16.84 0.1.378883.3.579.2.9 1975 Unknown [id number] 2.16.84 0.1.780625.3.579.2.9 1975 Unknown [id number] 2.16.84 0.1.342433.3.579.2.1258 1975 Unknown [id number] 2.16.84 0.1.736202.3.579.2.1258 1975 Unknown [id number] 2.16.84 0.1.443395.3.579.2.1258 1975 Unknown [id number] 2.16.84 0.1.602569.3.579.2.9 1975 Unknown [id number] 2.16.84 0.1.016607.3.579.2.9 1959 Unknown [id number] Unknown [id number] 2.16.8 40.1.577970.3.579.2.531 Unknown [id number] 2.16.8 40.1.524206.3.579.2.531 Unknown [id number] 2.16.8 40.1.040215.3.579.2.531 Unknown [id number] 2.16.8 40.1.232547.3.579.2.531 Unknown [id number] 2.16.8 40.1.061726.3.579.2.531 Unknown [id number] 2.16.8 40.1.434803.3.579.2.531 Unknown [id number] 2.16.8 40.1.160990.3.579.2.531 Social History Date Type Detail Facility Start: 08-13-2021 End: 05-10-2023 Tobacco smoking status Never smoked tobacco (finding) [facility] Tobacco smoking status Never [facility] Sex Assigned At Male Execut [facility] Start: 1975 Sex Assigned At Male F [facility] Start: 04-03-2023 Tobacco smoking stat us NHIS Ex-smoker (finding) [facility] Goals Date Patient Goal Desired Activity /State Functional Status Date Assessment Result Facility 11-16-2021 Functional Status N/A [facility] [place] Clinical Notes 08-13-2021 to 12-11-2023 Note Date & Type Note Facility 12-11-2023 Note [facility] PRO[facility] ESS NOTE HPI: Marisela Hahn is a 48 y.o. male here for f/U for uncontrolled HTN HPI Pt presents to clinic for follow up regarding HTN. He is doing well. Patient adamantly denies any cardiac complaints or concerns. Patient denies any chest pain or shortness of breath. Patient denies any lower extremity edema, orthopnea, or proximal nocturnal dyspnea. No near-syncope or syncope. No dizziness or lightheadedness. Patient states that carvedilol was changed to nifedipine. BP is well-controlled at home. He denies any dizziness or lightheadedness. No problems with his medications. Review of Systems 10 point ROS is performed and is negative unless otherwise specified per HPI Visit Vitals BP 130/75 Pulse 72 Ht 1.854 m (6' 1 ) Wt (!) 143 kg (316 lb) SpO2 98% BMI 41.69 kg/m??? Smoking Status Never BSA 2.71 m??? Allergies Allergen Reactions Keflex [Cephalexin] Rash Medications: Current Outpatient Medications on File Prior to Visit Medication Sig Dispense Refill aspirin 81 mg EC tablet Take 81 mg by mouth in the morning. chlorthalidone (Hygroton) 25 mg tablet TAKE 1 TABLET BY MOUTH IN THE MORNING 90 tablet 3 escitalopram (Lexapro) 10 mg tablet Take 20 mg by mouth in the morning. lisinopril 40 mg tablet Take 40 mg by mouth in the morning. NIFEdipine XL (Procardia XL) 60 mg 24 hr tablet Take 1 tablet (60 mg) by mouth in the morning. Do not crush, chew, or split. Stop taking amlodipine. Start with taking nifedipine 60mg once daily. Continue to monitor BP. 90 tablet 3 spironolactone (Aldactone) 25 mg tablet Take 1 tablet (25 mg) by mouth in the morning. 90 tablet 3 topiramate (Topamax) 25 mg tablet 25 mg. venlafaxine XR (Effexor-XR) 150 mg 24 hr capsule Take 75 mg by mouth in the morning. Do not crush or chew. busPIRone (Buspar) 10 mg tablet Take 10 [...] TO ONE) TABLET BY MOUTH AT BEDTIME [DISCONTINUED] carvedilol (Coreg) 25 mg tablet Take 25 mg by mouth with breakfast and with evening meal. No current facility-administered medications on file prior [...] medications. Continue taking chlorthalidone, nifedipine, lisinopril and Spironolactone at current doses. -Reminded patient to check his blood pressure [...] of daily exercise and lifestyle modification. Patient voices understand -Optimize medical management -Aggressive risk factor modification -Plan of care discussed with patient. (more content not included)... [facility] 06-12-2023 Note [facility] CARDIOLOGY PROGR ESS NOTE [...] and lifestyle modific (more content not included)... [facility] 05-31-2023 Procedure note [facility] 04-21-2023 Note Patient here for [...] All other systems reviewed and are negative. [facility] 04-21-2023 Note [facility] CARDIOLOGY PROGR [...] above discuss target range. -Patient reports taking [id number] Motrin for musculoskeletal pain. This could be [...] modification. Patient vo (more content not included)... [facility] 03-03-2023 Evaluation note Encounter Date Diagnosis Assessment [...] - G89.29) Continue with current treatment plan [employer] Other 12-12-2023 Evaluation note* Encounter Date Diagnosis [...] - G89.29) Continue with current treatment plan [employer] Other 12-11-2023 Evaluation note* Encounter Date Diagnosis Assessment Notes Treatment Notes Treatment Clinical Notes Feb, Cervicalgia (ICD-10 - M54.2) Independently reviewed the MRI of the cervical spine from 02/17/2023 [id number] with the patient and which shows at [...] headache, unspecified headache type (ICD-10 - R51.9) [employer] Other 11-14-2023 Evaluation note* Encounter Date Diagnosis [...] - G89.29) Continue with current treatment plan [employer] Other 08-23-2023 Evaluation note* Encounter Date Diagnosis [...] low-salt diet advised daily exercise as tolerated. [employer] Other 03-06-2023 Evaluation note* Encounter Date Diagnosis Assessment Notes Treatment Notes Treatment Clinical Notes May, Resting tremor (ICD-10 - G25.2) Will set up w Neurology for further diagnosis and treatment May, Essential hypertension (ICD-10 - I10) BP remains elevated. Will see cardio next month. On several medications. [employer] Other 02-27-2023 Evaluation note* Encounter Date Diagnosis Assessment Notes Treatment Notes Treatment Clinical Notes Apr, Paronychia of finger of left hand (ICD-10 - L03.012) Restart antibiotic. Call if area worsens. Could need referral to ortho if continues. Apr, Essential hypertension (ICD-10 - I10) Continues to be elevated. Has first appt w cardio on 05/11. [employer] Other 09-06-2022 Evaluation + Plan note Diagnostic Tests Pending * Semen Analysis Post Vasectomy 11/16/21 [facility] [place] 09-06-2022 Hospital Discharge instructions Patient Education 11/16/2021 [...] 02/14/2017 Document Revised: 06/21/2019 Document Reviewed: 02/14/2017 [employer] Patient Education 2019 [place]. Follow Up Care 08/13/2021 11:00:11 With:SHAAN HALE, Sam Velazco, URL Address: [address] [place], [place] [id number]- When: Unknown [facility] [id number] Hospital Discharge instructions Patient Education 08/13/2021 10:36:04 [...] Follow these instructions at home: Medicines Take ioxe-aky-qzbdgsn and prescription medicines only as told by [...] 09/16/2005 Document Revised: 02/09/2018 Document Reviewed: 05/26/2017 [employer] Patient Education 2020 [employer]. Follow Up Care 06/07/2021 11:43:46 With:SHAAN HALE, Sam Velazco, URL Address: [address] [place], [place] [id number]- When: Unknown [facility] chief complaint+Reason for visit Narrative* Chief Complaint Arthritis Arthritis Form for work follow up after cervical facet RFA mental health referral 6 week follow up after cervical facet RFA G57.10 Reason for Visit Physically able to w ork Cervical spondylosis Chronic pain Occipital neuralgia Chronic tension-type headache, intractable Depression Essential hypertension Cervical spondylosis Chronic pain Meralgia paraesthetica [facility] Work Phone: chief complaint+Reason for visit Narrative* Chief Complaint Arthritis Arthritis Form for work follow up after cervical facet RFA mental health referral 6 week follow up after cervical facet RFA G57.10 F09 Reason for Visit Physically able to w ork Cervical spondylosis Chronic pain Occipital neuralgia Chronic tension-type headache, intractable Depression Essential hypertension Cervical spondylosis Chronic pain Meralgia paraesthetica [facility] Work Phone: chief complaint+Reason for visit Narrative* Chief Complaint Form for work follow up after cervical facet RFA mental health referral 6 week follow up after cervical facet RFA G57.10 F09 Wellness Reason for Visit Physically able to w ork Cervical spondylosis Chronic pain Occipital neuralgia Chronic tension-type headache, intractable Depression Essential hypertension Cervical spondylosis Chronic pain Meralgia paraesthetica [facility] Work Phone: Chief complaint+Reason for visit Narrative* Chief Complaint mental health referr al 6 week follow up after cervical facet RFA G57.10 F09 Wellness review imaging Reason for Visit Chronic tension-type headache, intractable Depression Essential hypertension Cervical spondylosis Chronic pain Meralgia paraesthetica Wellness examination Chronic pain Lumbar radiculopathy Lumbosacral spondylosis [facility] Work Phone: Evaluation + Plan note Future Appointments Appointment Date:11/05/2021 07:30:00 AM Scheduled Provider:Sam GARDUNO MD Location:[facility] Appointment Type:URO Office Visit Appointment Date:11/16/2021 08:30:00 AM Scheduled Provider:Sam GARDUNO MD Location:[facility] Appointment Type:URO Office Visit [facility] Evaluation + Plan note Future Appointments Appointment Date:11/16/2021 08:30:00 AM Scheduled Provider:Sam GARDUNO MD Location:[facility] Appointment Type:URO [facility] assessment information available [facility] Work Phone: evaluation noteNo InformationNort Woto Other evalunxpro note* Diagnosis Onset Date Resolution Status Cervical spondylosis acute Chronic pain acute Occipital neuralgia acute [facility] Work Phone: Evaluation note* Diagnosis Onset Date Resolution Status Cervical spondylosis acute Chronic pain acute Occipital neuralgia acute Cervical spondylosis acute Chronic pain acute Occipital neuralgia acute [facility] Work Phone: Evaluation note* Diagnosis Onset Date Resolution Status Cervical spondylosis acute Chronic pain acute Occipital neuralgia acute Cervical spondylosis acute Chronic pain acute Occipital neuralgia acute Physically able to work acut e Cervical spondylosis acute Chronic pain acute Occipital neuralgia acute [facility] Work Phone: Evaluation note* Diagnosis Onset Date Resolution Status Cervical spondylosis acute Chronic pain acute Occipital neuralgia acute Cervical spondylosis acute Chronic pain acute Occipital neuralgia acute Physically able to work acut e Cervical spondylosis acute Chronic pain acute Occipital neuralgia acute Chronic tension-type headache, intractable acute Depression acute Essential hypertension acute [facility] Work Phone: Evaluation note* Diagnosis Onset Date Resolution Status Cervical spondylosis acute Chronic pain acute Occipital neuralgia acute Cervical spondylosis acute Chronic pain acute Occipital neuralgia acute Physically able to work acut e Cervical spondylosis acute Chronic pain acute Occipital neuralgia acute Chronic tension-type headache, intractable acute Depression acute Essential hypertension acute Cervical spondylosis acute Chronic pain acute Meralgia paraesthetica acute [facility] Work Phone: Evaluation note* Diagnosis Onset Date Resolution Status Physically able to work acut e Cervical spondylosis acute Chronic pain acute Occipital neuralgia acute Chronic tension-type headache, intractable acute Depression acute Essential hypertension acute Cervical spondylosis acute Chronic pain acute Meralgia paraesthetica acute [facility] Work Phone: Evaluation note* Diagnosis Onset Date Resolution Status Chronic tension-type headache, intractable acute Depression acute Essential hypertension acute Cervical spondylosis acute Chronic pain acute Meralgia paraesthetica acute Wellness examination acute Chronic pain acute Lumbar radiculopathy acute Lumbosacral spondylosis acut e [facility] Work Phone: Hiswdtx general Narrative - Reported* Type Description Date Medical History Gastroesophageal reflux disease Medical History Hypercholesterolemia Medical History Depression Medical History Essential hypertension Medical History Anxiety and depression Medical History Syncope and collapse Medical History Resting tremor Medical History Abnormal weight gain Medical History Diverticulosis Medical History Hyperlipemia, mixed Surgical History MYRINGOTOMY WITH TUBE REPLACEME NT - BILATERAL 2019 Hospitalization History SEE SURGICAL HX [facility] Other Hisejbe general Narrative - Reported* Type Description Date [...] BILATERAL 2019 Hospitalization History SEE SURGICAL HX [facility] Other Hospital course Narrative No data available for this section [facility] Hospital Discharge instructions No data available for this section [facility] instructionsAmbulatory Orders* Referral to Psychiatry Time Frame: 07/18/23, Location: None [facility] Work Phone: Progress note No data available for this section [facility] Summary Purpose Family History No Family History Records Found Relationship Condition Age at Onset Recorded Date/T pavan father Hypertension Unknown Not Specified Hypertension Unknown Relationship Condition Age at Onset Recorded Date/T pavan father Hypertension Unknown mother Hypertension Unknown Advance Directives No Advanced Directives Records Found Advance Directive Response Recorded Date/ Time Advance Directives No November 2:11pm Advance Directive Response Recorded Date/ Time Advance Directives No November 1:11pm Reason for Referral Reason *Waiting for appt Please evaluate and treat for cervical spodylosis- subluxaion on XR in notes Diagnosis 1 Cervical spondylosis (M47.812) Referral Organization [facility] Pain Managemen t Referring Provider First Name Deann Referring Provider Last Name Jordan Referring Provider Specialty Nurse Pract itioner Referred Organization [facility] u[facility] Referred Provider Martín Bullock Referred Address [address] ,[place],[address] Referred Provider Specialty Neurological Surgery Referral Priority Routine General Notes Jose Gomez 01/25 04:00:11 PM > Referral received, sent P2P Clinical Notes Angel Carrillo 2022 02:20:15 PM >XR cervical spine 2022-12-05: MILD SPONDYLOSIS C5-C7. POSTERIOR SUBLUXATION OF C4 ON C5 AND C5 ON C6 OF APPROXIMATELY 3 MM ON EXTENSION WHICH RESOLVES ON FLEXION AND NEUTRAL IMAGING SUGGESTIVE OF PATHOLOGICAL MOTION. Reason 06/15/22 Mobile office. Labs scanned in from 2021. Resting tremor. Also had labs last week from Cardiology. Thank you Diagnosis 1 Resting tremor (G25. 2) Referral Organization [facility] Referring Provider First Name Benito Referring Provider Last Name Kobe Referring Provider Specialty Family Medi cine Referred Organization [facility] Referred Provider Bailey Frye Referred Address [address] [place],[phone] Referred Provider Specialty Neurology Referral Priority Routine Referral Appointment Date 2022-06-15 General Notes ArdenJasiel leachya 03:23:11 PM >RECEIVED TODAY, ATTACHMENTS MADE, REFERRAL FAXED ArdenJasiel leachya 05/23/2022 10:08:54 AM >faxed first attempt letter [...] CREATED AUTHOR AUTHOR'S ORGANIZ ATION 07/21/2022 [facility] DATE CREATED AUTHOR AUTHOR'S ORGANIZ ATION 08/23/2022 [facility] DATE CREATED AUTHOR AUTHOR'S ORGANIZ ATION 09/03/2023 [facility] DATE CREATED AUTHOR AUTHOR'S ORGANIZ ATION 10/31/2023 [facility] EPIC DATE CREATED AUTHOR AUTHOR'S ORGANIZ ATION 12/11/2023 [facility] Care Team (unrecognized sect ion and content) Team Status: Active Member Role Status Dates Benito Bullock MD Primary Care Provider Active Team Status: Inactive Member Role Status Dates Benito Bullock MD Primary Care Provider Active Rivera eBrmudez MD Attending Provider Active Personnel Name: BENITO BULLOCK MD Address: [address] [place] [address] REASON FOR VISIT (unrecogniz ed section and content) SMASHED FINGER, CHECK UP AFT ER ERCheck UpReferralPain management office noteReferralFOLLOW UP AFTER PT FOR NECKREVIEW MRIRef by Deann Ortega for for cervical spodylosis- subluxaion on XR in notes; MRI done [facility] 02/17/[facility] NBr cervical facet mbb [...] BE BASED ON THE PRIMARY CLINICAL RECORDS. [facility] [employer] [facility]. provides no warranty or guarantee of the accuracy or completeness of information in this document.
[2024-01-03 18:11] LABS: Hematocrit 42.8 % (42.0-54.0); Hemoglobin 14.2 g/dL (14.0-18.0); Mean Corpuscular HGB Conc 33.2 g/dL (29.9-35.2); Mean Corpuscular Hemoglobin 28.3 pg (25.9-34.0); Mean Corpuscular Volume 85.4 fL (80.0-94.0); Mean Platelet Volume 9.7 fL (9.5-13.5); Platelet Count 313 10^3/uL (150-450); Red Blood Count 5.01 10^6/uL (4.70-6.10); Red Cell Distribution Width 13.2 % (11.0-15.0); White Blood Count 13.6 10^3/uL (4.0-11.0)
[2024-01-03] MEDS: KETOROLAC TROMETHAMINE 30 MG/ML VIAL IVP (18:15)
[2024-01-03] MEDS: 0.9 % SODIUM CHLORIDE 500 ML IV (18:16)
[2024-01-03] MEDS: HYOSCYAMINE SULFATE 0.125 MG TAB.SUBL SL (18:16)
[2024-01-03 18:21] LABS: INR 1.08; Prothrombin Time 11.4 sec (9.0-11.6)
[2024-01-03 18:26] LABS: Alanine Aminotransferase 32 U/L (16-63); Albumin Globulin Ratio 0.7; Albumin Level 3.2 g/dL (3.4-5.0); Alkaline Phosphatase 81 U/L (46-116); Anion Gap 16.5; Aspartate Amino Transferase 13 U/L (15-37); BUN Creatinine Ratio 16.1; Bilirubin Total 0.4 mg/dL (0.2-1.0); Calcium 9.7 mg/dL (8.5-10.1); Carbon Dioxide 24.5 mmol/L (21.0-32.0); Chloride 101 mmol/L (98-107); Estimated GFR (African America >60 (>=60 mL/min/1.73m^2); Estimated GFR (Non-African Ame 50 (>=60 mL/min/1.73m^2); Globulin 4.6 g/dL; Glucose 164 mg/dL (74-106); Sodium 139 mmol/L (136-145); Total Protein 7.8 g/dL (6.4-8.2)
[2024-01-03 18:29] LABS: Lactate/Lactic Acid 1.1 mmol/L (0.4-2.0)
--- NOTE | 2024-01-03 18:29 | CT_ITS ---
[address] [address] Patient Name: MARISELA HAHN MRN: [id number] date: 1975 Sex: M Assigned Patient Location: ER Current Patient Location: Accession/Order Number: [id number] Exam Date: 01/03/2024 18:20 Report Date: 01/03/2024 20:03 At the request of: SENAIT CASPER Procedure: CT abdomen pelvis w con Indication: Abdominal pain Comparison: 02/18/2020 exam Procedure: Axial images were made from the diaphragms through the symphysis pubis. No oral contrast was given prior to scanning. 100 mL Omnipaque 300 Intravenous contrast was given. Dose reduction techniques were achieved by using automated exposure control and/or adjustment of mA and/or kV according to patient size and/or use of iterative reconstruction technique. Findings: Liver/Biliary System: No liver masses. No intra or extrahepatic biliary dilatation. No gallstones or cholecystitis. Pancreas/Spleen: No evidence of acute pancreatitis. Pancreatic duct is not dilated. No pancreatic lesions are seen. No splenomegaly or splenic masses. Kidneys/Adrenals: Normal symmetrical nephrograms. No renal masses. No renal or ureteral stones are seen. No hydronephrosis or hydroureter bilaterally. Stable bilateral adrenal adenomas. Aorta/Vessels: No evidence of aortic aneurysm. Patent IVC, renal veins, hepatic veins and portal venous system. Bowel/Fluid/Nodes: Diffusely inflamed appendix with periappendiceal fat stranding consistent with acute appendicitis. The appendix wall is distorted concerning for appendiceal perforation. A 4.0 x 3.3 x 3.6 cm periappendiceal abscess is seen. An appendicolith is seen. No small bowel dilatation or wall thickening. No evidence of bowel obstruction. No ascites. No adenopathy. Lung bases: Clear. Other findings: No aggressive osseous lesions are seen. Degenerative disc disease at L5-S1 level. Pelvis: Bladder, seminal vesicles and prostate are unremarkable. No pelvic adenopathy or masses. Other Findings: No aggressive osseous lesions are seen. CT/CT abdomen pelvis w con Impression: 1. Evidence of acute appendicitis with distorted appendiceal wall concerning for appendiceal perforation. A 4.0 x 3.3 x 3.6 cm periappendiceal abscess is seen. 2. Stable bilateral adrenal adenomas. Degenerative disc disease at L5-S1 level. Electronically authenticated by: JESUS TENA Date: 01/03/2024 20:03
[2024-01-03 18:33] LABS: Anisocytosis 1+; Band Neutrophils Absolute 0.3 10^3/uL (0.0-0.3); Lymphocytes Absolute Manual 1.76 10^3/uL (1.20-3.80); Microcytosis 1+; Monocytes Absolute Manual 1.63 10^3/uL (0.30-0.80); Segmented Neut Absolute Manual 9.92 10^3/uL (1.4-6.5)
[2024-01-03 19:02] VITALS: BP 143/75
[2024-01-03 19:38] LABS: Bilirubin Urine NEGATIVE (NEGATIVE); Blood Urine NEGATIVE (NEGATIVE); Clarity Urine CLEAR (CLEAR); Color Urine YELLOW (YELLOW); Glucose Urine UA NEGATIVE (NEGATIVE); Ketones Urine NEGATIVE (NEGATIVE); Leukocyte Esterase Urine NEGATIVE (NEGATIVE); Nitrite Urine NEGATIVE (NEGATIVE); Protein Urine NEGATIVE (NEG/TRACE); Specific Gravity Urine 1.015 (1.005-1.025); Urobilinogen Urine 0.2 EU/dL (0.2-1.0); pH Urine 5.5 (5.0-9.0)
[2024-01-03 19:39] LABS: Urine Microscopic Indicated NO
[2024-01-03] MEDS: ONDANSETRON PF 4 MG/2 ML VIAL IV (20:29)
[2024-01-03] MEDS: PIPERACILLIN SODIUM/TAZOBACTAM 4.5 GM in 0.9 % SODIUM CHLORIDE 50 ML IV (20:29)
[2024-01-03] MEDS: HYDROMORPHONE HCL 1 MG/ML CARTRIDGE IV (20:29)
[2024-01-03] MEDS: POTASSIUM CHLORIDE IN 0.9%NACL 1,000 ML 250 ML IV (20:29)
[2024-01-03] MEDS: ACETAMINOPHEN 650 MG RECTAL SUPPOSITORY PR (21:59)
[2024-01-03 22:23] VITALS: BP 159/80; PULSE 99; TEMP 37.9; O2SAT 98
== END 2024-01-03 22:23 | disposition short-term general hospital (02) ==
PROVIDERS: Physician Assistant; Emergency Provider Emergency Medicine; PCP Family Medicine
DX: R10.9 Unspecified abdominal pain (principal); K35.33 Acute appendicitis with perforation, localized peritonitis, and gangrene, with abscess; E87.6 Hypokalemia
CPT/HCPCS: 36415; 74177; 80053; 81003; 83605; 83690; 85007; 85027; 85610; 96365; 96366; 96368; 96375; 99285; J1171; J1885; J2405; J2543; Q9967

== ENCOUNTER 2024-02-19 08:05 | Outpatient (OUT) | payer MEDICAID, SELFPAY ==
--- NOTE | 2024-02-19 08:08 | CT_ITS ---
[address] [address] Patient Name: MARISELA HAHN MRN: [id number] date: 1975 Sex: M Assigned Patient Location: CT Current Patient Location: CT Accession/Order Number: [id number] Exam Date: 02/19/2024 08:45 Report Date: 02/19/2024 11:36 At the request of: BENITO BULLOCK Procedure: CT abdomen wo/w con EXAMINATION: CT abdomen wo/w con HISTORY: Adrenal Nodules E27.9 COMPARISON: CT abdomen pelvis 01/03/2024 TECHNIQUE: Axial, Coronal, and Sagittal images were obtained without and/or with IV contrast as indicated by examination type. Dose reduction techniques were achieved by using automated exposure control and/or adjustment of mA and/or kV according to patient size and/or use of iterative reconstruction technique FINDINGS: LUNG BASES: No visible pulmonary or pleural disease. LIVER: No enlargement, atrophy, abnormal density, or significant focal lesion. BILIARY: No visible dilatation or calcification. PANCREAS: No lesion, fluid collection, ductal dilatation, or atrophy. SPLEEN: No enlargement or focal lesion. ADRENALS: Right adrenal nodule 2.8 cm in maximum diameter. Density without contrast, venous, and delayed phase correspond to 13, 50, and 22 Hounsfield units respectively. Absolute washout is 75%; relative washout 56%. Left adrenal nodule 2.3 cm in diameter. Density without contrast, venous phase, and delayed phase correspond to 9, 41, and 15 Hounsfield units respectively. Absolute washout is 81%; relative washout 63% KIDNEYS: No mass, obstruction, or calcification. BOWEL/MESENTERY: No visible mass, obstruction, or bowel wall thickening. AORTA/VASCULAR: No aneurysm or dissection. RETROPERITONEUM: No mass or adenopathy. ABDOMINAL WALL: No mass or hernia. BONES: No bony lesion or fracture. OTHER: Negative. CT/CT abdomen wo/w con IMPRESSION: 1. Stable bilateral adrenal nodules which are most compatible with benign adrenal adenomas. Electronically authenticated by: SOHAIL SHIPMAN Date: 02/19/2024 11:36
== END 2024-02-19 08:06 | disposition home or self-care (01) ==
LOC: CT 08:05
PROVIDERS: PCP Family Medicine; Visit Provider Family Medicine
DX: E27.9 Disorder of adrenal gland, unspecified (principal)
CPT/HCPCS: 74170; Q9967

== ENCOUNTER 2024-04-22 22:33 | Emergency (ER) | payer MEDICAID, SELFPAY ==
--- OUTSIDE RECORDS SUMMARY | 2024-04-22 22:40 | XMS_ITS | CCD ---
Author Organization [facility] Care Team Providers Care Cement Side Laster Name Role Phone BENITO BULLOCK Primary Care Unavailable BINDU CRAVEN Attending Unavailable BINDU CRAVEN Admitting Unavailable NONE, XXXX Primary Care Physician Unavailab BENITO Miller Primary Care Physician [phone] BENITO BULLOCK Attending Unavailable BULLOCK, DR BENITO Brooks Consulting Unavailable BULLOCK, DR BENITO Brooks Primary Care Unavailable BULLOCK, DR BENITO Brooks Admitting Unavailable BAILEY FRYE Admitting Unavailable FILLEY, DR MARCELLA Emmanuel Consulting Unavailable BULLOCK, DR [...] DR BENITO Brooks Primary Care Unavailable Sam JARRELL Attending Unavailable Sam JARRELL Attending Unavailable Sam JARRELL Attending Unavailable Sam JARRELL Admitting Unavailable MD Benito Bullock Primary Care Provider [phone] MD Rivera Bermudez Attending Provider [phone] Rivera Bermudez Unavailable Deann Ortega Unavailable MD Benito Bullock Primary Care Provider MD Rivera Bremudez Attending Provider [phone] Jordan, DARRELL Deann Attending Provider [phone] HardinPattie Unavailable MD Benito Bullock Primary Care Provider MD Rivera Bermudez Attending Provider MD Benito Bullock Primary Care Provider MD Rivera Bermudez Attending Provider MD Benito Bullock Primary Care Provider MD Rivera Bermudez Attending Provider MD Benito Bullock Primary Care Provider MD Rivera Bermudez Attending Provider STEVE Rincon Attending Provider Lara, Rivera S Admitting Unavailable [...] Unavailable Bullock, Benito E Primary Care Unavailable RinconMargo plasencia E Admitting Unavailable Margo Rincon E Attending Unavailable Kobe, Benito E Primary Care Unavailable MD Benito Bullock Primary Care Provider [phone] MD Rivera Bermudez Attending Provider [phone] Benito Bulolck MD Primary Care Provider [phone] Bailey Frye DO Unavailable Sergey RAMÍREZ, Margo Unavailable Jeff Salinas DO Unavailable SERGEY, MARGO Attending Unavailable NAM BEAR Attending Unavailable SERGEY, MARGO Attending Unavailable DAKOTA, ANJU Attending Unavailable RINCON, MARGO Attending Unavailable DAKOTA, ANJU Attending Unavailable BAILEY FRYE Attending Unavailable RINCON, MARGO Attending Unavailable RINCON, MARGO Referring Unavailable JEFF SALINAS Attending Unavailable AURORA, POPPY Referring Unavailable AURORA, POPPY Referring Unavailable KINGSTON, RAFY Referring Unavailable KINGSTON, RAFY Referring Unavailable LUANNE FINK Admitting Unavailable SARAHANNA Attending Unavailable JAMISON, BRITTNI Admitting Unavailable JAMISON, BRITTNI Attending Unavailable CODEY, EDWARDO Admitting Unavailable CODEY, EDWARDO Attending Unavailable POPPY GARNER Referring Unavailable ALEC RODRIGES Admitting Unavailable ALEC RODRIGES Attending Unavailable ELTAHAWY, EHAB Referring Unavailable ALGHOTHANI, RICO Attending Unavailable SARAH, NANA T Referring Unavailable QUEVEDO, RAFY Attending Unavailable ALGHOTHIVAN, RICO Attending Unavailable RICARDOAMANDA Attending Unavailable QUEVEDO, RAFY Attending Unavailable JAMISON, BRITTNI Attending Unavailable AURORA, POPPY Referring Unavailable TOFMARIAH SEWELL Referring Unavailable Allergies Allergy Classification Reported Allergen(s) Allergy Type Date of Onset Reaction(s) Facility (15 sources) Cephalexin; Translations: [CEPHALEXIN] Drug Allergy 02-16-2020 [facility] Repository (12 sources) Cephalexin; Translations: [Keflex] Drug Allergy 09-26-2012 Unknown [facility] Repository Medications Current Medications Medication Drug Class(es) Dates Sig (Normalized) Sig (Original) acetaminophen 325 mg / HYDROcodone bitartrate 5 mg oral tablet (2 sources) Opioid Agonist Start: 08-13-2021 take 1 tablet by mouth every six hours for pain [place] 325 mg-5 mg oral tablet 1 tab(s), Oral, q6hr for pain, 10 tab(s), Refill(s) 0, Take 1 every 6 hours for pain, [id number], 185, cm, 08/13/21 10:20:00 EDT, Height/Length Dosing, 123, kg, 08/13/21 10:20:00 EDT, Weight Dosing Start Date: 08/13/21 Status: Ordered amLODIPine 5 mg oral tablet (13 sources) Dihydropyridine Calcium Channel Sisi Start: 08-13-2021 take 1 mg by mouth once daily amLODIPine 5 mg Tab mg tab(s), Oral, Daily, Refills(s) 0 Start Date: 08/13/21 Status: Ordered take 1 tablet by mouth twice ceasar ly amLODIPine Besylate 5 MG 5 mg. tablet Orally twice a day Active aspirin 81 mg delayed release oral tablet (20 sources) Platelet Aggregation Inhibitor, Nonsteroidal Anti-inflammatory Drug Start: 04-26-2023 take 1 tablet by mouth once daily Aspirin 81 mg tablet,delayed release (DR/EC) Active 81 MG PO Daily April 26, 2023 12:00am FreeTextSi tablet Orally Once a day; Note: Source Status: Taking; Provider: Lara Stafford ( ) take 1 tablet by gideon th every twenty-four hours Aspirin 81 MG 1 tablet Orally Once a day Active chlorthalidone 25 mg oral tablet (20 sources) Thiazide-like Diuretic Start: 01-25-2023 take 1 tablet by mouth once daily at mealtime Chlorthalidone 25 mg tablet Active 25 MG PO Daily April 26, 2023 12:00am FreeTextSi tablet in the morning with food Orally Once a day; Note: Source Status: Taking; Provider: Lara Stafford ( ) Chlorthalidone 2 5 MG 1/2 tab q am Orally Once a day Active ciprofloxacin 500 mg oral tablet (1 source) Quinolone Antimicrobial Start: 08-13-2021 End: 08-18-2021 take 1 tablet by mouth twice daily at mealtime Cipro 500 mg Tab 500 mg = 1 tab(s), Oral, BID, Start with first meal after procedure is completed, X 5 day(s), # 10 tab(s), Refills(s) 0, Pharmacy: [id number], 185, cm, 08/13/21 10:20:00 [...] procedure, # 1 tab(s), Refills(s) 0, Pharmacy: [id number], 185, cm, 08/13/21 10:20:00 EDT, Height/Length Dosing, 123, kg, 08/13/21 10:20:00 EDT, Weight Dosing Start Date: 08/13/21 Status: Ordered 1.5 ml fremanezumab-vfrm 150 mg/ml auto-injector (2 sources) Start: 04-09-2024 End: 10-06-2024 fremanezumab (Ajovy) 225 MG/1.5ML auto-injector Indications: Chronic migraine without aura without status migrainosus, not intractable (CMS/HCC) Inject 1 pen (225 mg) under the skin every 30 (thirty) days 1.5 mL 5 04/09/2024 10/06/2024 Active NIFEdipine ER Osmotic (5 sources) NIFEdipine ER Osmotic Active potassium gluconate 2.35 meq oral tablet (3 sources) Start: 02-14-2024 take 1 tablet by mouth twice daily Potassium Gluconate 550 mg (90 mg) tablet Active 550 MG PO Twice daily February 14, 2024 9:28am Start: 01-11-2024 End: 02-14-2024 take 1 tablet by mouth once daily Potassium Gluconate 550 mg (90 mg) tablet Discontinued 550 MG PO Daily January 10, 2024 11:00pm February 14, 2024 9:29am predniSONE 10 mg oral tablet (5 sources) [...] 1 tablet by mouth once daily Spironolactone 25 mg tablet Active 25 MG PO Daily April 26, 2023 12:00am FreeTextSi tablet Orally; Note: Source Status: Taking; Provider: Lara Stafford ( ) sulfamethoxazole 800 mg / trimethoprim 160 mg oral tablet (2 sources) Dihydrofolate Reductase Inhibitor Antibacterial, Sulfonamide Antimicrobial Start: 05-09-2022 take 1 tablet by mouth every twelve hours Bactrim DS 800-160 MG 1 tablet Orally Twice a day for 10 day(s) Apr, Active SZSTANDARD1-Topical Cream Baclofen 2%, Cyclobenzaprine HCL 2%, Diclofenac Na 3%, Gabapentin 6%, Lidocaine HCL 2% Cream (8 sources) Start: 12-05-2022 SZSTANDARD1-Topical Cream Baclofen 2%, Cyclobenzaprine HCL 2%, Diclofenac Na 3%, Gabapentin 6%, Lidocaine HCL 2% Cream NEEDED TOPICALLY APPLY 1-2 GRAMS FOR 2-3 MINUTES EVERY 6-8 HOURS for 30 days Nov, Active tamsulosin hydrochloride 0.4 mg oral capsule (10 sources) alpha-Adrenergic Sisi Start: 11-05-2021 take 1 capsule by mouth once daily tamsulosin 0.4 mg Cap 0.4 mg = 1 cap(s), Oral, Daily, # 30 cap(s), Refills(s) 11, Pharmacy: [id number], 185, cm, 08/13/21 10:20:00 EDT, Height/Length Dosing, 123, kg, 08/13/21 10:20:00 EDT, Weight Dosing Start Date: 11/05/21 Status: Ordered take 1 capsule by [facility] every twenty-four hours in the morning tamsulosin (Flomax) 0.4 MG 24 hr capsule Take 0.4 mg by mouth in the morning. Active topiramate 25 mg oral capsule (20 sources) Start: 04-11-2024 take 1 capsule by mouth twice daily Topiramate 25 mg capsule, sprinkle Active 25 MG PO Twice daily April 11, 2024 1:25pm Start: 02-13-2024 End: 04-13-2024 take 1 tablet by mouth once daily in the morning topiramate 50 MG tablet Indications: Chronic daily headache Take 50 mg by mouth in the morning and 50 mg before bedtime. 60 tablet 1 02/13/2024 04/13/2024 Active Start: 11-15-2023 End: 02-13-2024 take 1 tablet by mouth once daily in the morning, then take 2 tablets by mouth in the evening topiramate (Topamax) 25 MG tablet Indications: Chronic daily headache , Nonintractable headache, unspecified chronicity pattern, unspecified headache type TAKE 1 TABLET BY MOUTH IN THE MORNING AND 2 IN THE EVENING 90 tablet 2 11/15/2023 02/13/2024 Discontinued (Dose adjustment) Start: 07-19-2023 End: 04-11-2024 take 2 tablets by mouth at bedtime Topiramate 25 mg capsule, sprinkle Discontinued 25 MG PO .COMPLEX July 19, 2023 12:17pm April 11, 2024 1:25pm 25 mg orally 1 tab in the AM and 2 tabs at HS; Start: 07-18-2023 End: 07-19-2023 take 1 capsule by mouth twice daily Topiramate 25 mg capsule, sprinkle Discontinued 25 MG PO Twice daily July 17, 2023 11:00pm July 19, 2023 12:17pm 24 hr venlafaxine 75 mg extended release oral capsule (20 sources) Serotonin and Norepinephrine Reuptake Inhibitor Start: 04-11-2024 take 1 capsule by mouth once daily Venlafaxine 75 mg capsule,extended release 24hr Active 0 .ROUTE .COMPLEX 90 April 11, 2024 1:33pm Take 1 capsule by mouth once daily Start: 07-10-2023 End: 04-11-2024 take 1 capsule by mouth once daily Venlafaxine 75 mg capsule,extended release 24hr Discontinued 0 .ROUTE .COMPLEX 180 July 10, 2023 11:23am April 11, 2024 1:33pm Take 1 capsule by mouth once daily Start: 07-10-2023 take 1 capsule by [facility] once daily Venlafaxine Active 0 .ROUTE .COMPLEX 180 July 10, 2023 12:23pm Take 1 capsule by mouth once daily Start: 04-19-2023 End: 07-10-2023 take 1 capsule by mouth once daily Venlafaxine 75 mg capsule,extended release 24hr Discontinued 75 MG PO Daily April 26, 2023 12:00am July 10, 2023 11:23am FreeTextSig: Take 1 capsule by mouth once [...] Sig (Original) acetaminophen 500 mg oral tablet (20 sources) Start: 04-26-2023 End: 09-11-2023 take 1 tablet by mouth every six hours as needed Acetaminophen 500 mg tablet Discontinued 1 TAB PO Every 6 hours April 26, 2023 12:00am September 11, 2023 12:11pm FreeTextSi tablet as needed Orally every 6 [...] 10 mg oral tablet (20 sources) Start: 08-13-2021 End: 07-18-2023 take 1 tablet by mouth twice daily Buspirone 10 mg tablet Discontinued 1 TAB PO Twice daily April 26, 2023 12:00am July 18, 2023 9:13am FreeTextSi tablet Orally Twice a day; Note: Source Status: Taking; Provider: Lara Stafford ( ) carvedilol 25 mg oral tablet (20 sources) alpha-Adrenergic Sisi, beta-Adrenergic Sisi Start: 04-26-2023 End: 07-18-2023 take 1 tablet by mouth once daily at mealtime Carvedilol 25 mg tablet Discontinued MG PO Daily April 26, 2023 12:00am July 18, 2023 9:13am FreeTextSi tablet with food Orally Twice a [...] 08/13/21 Status: Ordered take 1 tablet by gideon th in the morning carvedilol (Coreg) 12.5 MG tablet Take 12.5 mg by mouth in the morning and 12.5 mg in the evening. Active escitalopram 20 mg oral tablet (20 sources) Serotonin Reuptake Inhibitor Start: 07-02-2023 End: 04-11-2024 take 1 tablet by mouth once daily Escitalopram Oxalate 20 mg tablet Discontinued 20 MG PO Daily September 10, 2023 11:00pm April 11, 2024 1:33pm Start: 04-19-2023 End: 06-16-2023 take 1 tablet by mouth once daily Escitalopram Oxalate 20 mg tablet Discontinued 20 MG PO Daily April 26, 2023 12:00am June 16, 2023 9:15am FreeTextSi tablet Orally Once a day; Note: [...] Enzyme Inhibitor Sta rt: 2 End : take 1 tablet by mouth once daily Lisinopril 40 mg tablet Discontinued 40 MG PO Daily April 26, 2023 12:00am October 16, 2023 3:30pm FreeTextSig: Take 1 tablet by mouth once daily for 90 days; Note: Source Status: Taking; Refills: 2; Qty: 90 Tablet; Provider: Kobe Baldwin ( ) NIFEdipine 10 mg oral capsule (20 sources) Dihydropyridine Calcium Channel Sisi Sta rt: End : take 3 capsules by mouth twice daily Nifedipine 10 mg capsule Discontinued 30 MG PO Twice daily June 16, 2023 9:16am July 18, 2023 9:13am Start: 06-16-2023 End: 07-18-2023 take 30 mg by mouth twice daily Nifedipine Discontinue d 30 MG PO Twice daily June 16, 2023 10:16am July 18, 2023 10:13am Start: 06-16-2023 take 1 tablet by gideon th once daily Nifedipine 60 mg tablet extended release Active 60 MG PO Daily June 15, 2023 11:00pm Start: 04-26-2023 End: 06-16-2023 take 1 capsule by mouth twice daily Nifedipine 10 mg capsule Discontinued 10 MG PO Twice daily April 26, 2023 12:00am June 16, 2023 9:17am Start: 04-19-2023 End: 04-26-2023 take 1 tablet by mouth once daily Nifedipine 60 mg tablet extended release 24hr Discontinued 60 MG PO Daily April 19, 2023 12:00am April 26, 2023 3:50pm omeprazole 20 mg delayed release oral capsule (2 sources) Proton Pump Inhibitor Omeprazole 20 MG Orally Once a day Not-Taking Robaxin-750 750 MG (2 sources) Robaxin-750 750 MG 1 or 2 tablets Orally at bedtime as needed for muscle spasm Not-Taking simvastatin 20 mg oral tablet (2 sources) HMG-CoA Reductase Inhibitor Simvastatin 20 MG Or ally Once a day Not-Taking SZSTANDARD1-Topical (12 sources) Start: 04-26-2023 End: 01-11-2024 SZSTANDARD1-Topical Discontinued 1 DOSE TOPICAL April 26, 2023 12:00am January 11, 2024 12:28pm Start: 04-26-2023 End: 01-11-2024 SZSTANDARD1-Topical Disconti nued 1 DOSE TOPICAL April 26, 2023 1:00am January 11, 2024 1:28pm Start: 04-26-2023 SZSTANDARD1-To pical Active 1 DOSE TOPICAL April 26, 2023 1:00am Start: 04-26-2023 SZSTANDARD1-To pical Active TOPICAL April 26, 2023 12:00am tiZANidine 4 mg oral tablet (20 sources) Central alpha-2 Adrenergic Agonist Start: 04-26-2023 End: 06-16-2023 take 0.5-1 tablets by mouth once daily as needed Tizanidine Discontinued 6 MG PO Daily April 26, 2023 1:00am June 16, 2023 10:17am FreeTextSi/2-1 tablet as needed Orally at bedtime; Note: Source Status: Taking; Refills: 1; Qty: 30 tablets; Provider: Lara Suero Start: 12-05-2022 End: 06-16-2023 take 0.5-1 tablets by mouth once daily as needed Tizanidine 4 mg tablet Discontinued 6 MG PO Daily April 26, 2023 12:00am June 16, 2023 9:17am FreeTextSi/2-1 tablet as needed Orally at bedtime; Note: Source Status: Taking; Refills: 1; Qty: 30 tablets; Provider: Lara Suero triamcinolone acetonide 40 mg/ml injectable suspension (4 sources) Corticosteroid Start: 03-03-2023 Kenalog-40 Feb, 30 mg Problems Active Problems Problem Classification Problem Date Documented Date Episodic/Chronic Anxiety disorders (20 sources) Mixed anxiety and depressive disorder; Translations: [Anxiety disorder, unspecified] Onset: 08-29-2023 08-29-2023 Chronic Appendicitis and other appendiceal conditions (8 sources) Abscess of appendix; Translations: [Acute appendicitis with perforation and localized peritonitis, with abscess] Onset: 01-03-2024 01-19-2024 Episodic Contraceptive and procreative management (1 source) Contraception status; Translations: [Encounter for other general counseling and advice on contraception] Onset: 08-13-2021 Episodic Delirium, dementia, and amnestic and other cognitive disorders (13 sources) Unspecified mental disorder due to known physiological condition; Translations: [Cognitive disorder] Onset: 07-01-2023 02-13-2024 Chronic Disorders of lipid metabolism (11 sources) [...] tract symptoms] Onset: 08-13-2021 Chronic Mood disorders (20 sources) Depressive disorder; Translations: [Depression] Onset: 09-13-2023 08-13-2021 Chronic Nervous system congenital anomalies (3 sources) Spina bifida 08-13-2021 Chronic Other circulatory disease (4 sources) Orthostatic hypotension; Translations: [Orthostatic hypotension] 02-13-2024 Episodic Other ear and sense organ disorders (3 sources) Hearing loss 08-13-2021 Chronic Other endocrine disorders (1 source) Adrenal mass; Translations: [Disorder of adrenal gland, unspecified] 01-19-2024 Chronic Other endocrine disorders (1 source) Disorder of adrenal gland, unspecified; Translations: [Unspecified disorder of adrenal glands] 02-14-2024 Chronic Other hereditary and degenerative nervous system conditions (19 sources) Resting tremor; Translations: [Other specified forms of tremor] Onset: 07-01-2023 07-01-2023 Chronic Other hereditary and degenerative nervous system conditions (2 sources) Other specified forms of tremor; Translations: [OTHER SPECIFIED FORMS OF TREMOR] Onset: 08-16-2021 Chronic Other hereditary and degenerative nervous system conditions (8 sources) Essential tremor; Translations: [Essential tremor] Onset: 07-01-2023 10-24-2023 Chronic Other lower respiratory disease (2 sources) Snoring; Translations: [Snoring] 03-25-2024 Episodic Other nervous system disorders (20 sources) Chronic pain; Translations: [Other chronic pain] 04-26-2023 Chronic Other nervous system disorders (20 sources) Other chronic pain; Translations: [Other chronic pain] Onset: 05-31-2023 Chronic Other nervous system disorders (7 sources) Meralgia paresthetica; Translations: [Meralgia paresthetica, unspecified lower limb] 07-19-2023 Chronic Other nervous system disorders (6 sources) Meralgia paresthetica, unspecified lower limb; Translations: [Meralgia paresthetica] Onset: 08-18-2023 07-19-2023 Chronic Other nervous system disorders (1 source) Other chronic pain; Translations: [Other chronic pain] Onset: 04-19-2023 Chronic Other nervous system disorders (12 sources) Tremor; Translations: [Tremor, unspecified] Onset: 07-18-2023 02-13-2024 Episodic Other nutritional; endocrine; and metabolic disorders (11 sources) Abnormal weight gain; Translations: [Abnormal weight gain] Episodic Residual codes; unclassified (6 sources) Obstructive sleep apnea syndrome; Translations: [Obstructive sleep apnea (adult) (pediatric)] 02-13-2024 Chronic Residual codes; unclassified (2 sources) Hypersomnia; Translations: [Hypersomnia, unspecified] 03-25-2024 Chronic Residual codes; unclassified (13 sources) Transient alteration of awareness; Translations: [Transient alteration of awareness] Onset: 07-20-2022 02-13-2024 Episodic Spondylosis; intervertebral disc disorders; other back problems (20 sources) Cervical spondylosis; Translations: [Spondylosis without myelopathy or radiculopathy, cervical region] Onset: 02-17-2023 Chronic Spondylosis; intervertebral disc disorders; other back problems (20 sources) Occipital neuralgia; Translations: [Cervicalgia] Onset: 12-05-2022 Episodic Sprains and strains (11 sources) Lumbar sprain; Translations: [Lumbar sprain] Episodic Syncope (19 sources) Syncope and collapse; Translations: [Syncope and collapse] Onset: 10-22-2021 Episodic Unclassified (3 sources) Patient encounter status 08-13-2021 Unclassified (15 sources) Finding related to ability to perform occupation and employment activities; Translations: [Physically able to work] 06-16-2023 Unclassified (2 sources) Hospital Follow-up; Translations: [Hospital Follow-up] Onset: 02-12-2024 Unclassified (1 source) Resistant hypertension; Translations: [Resistant hypertension] Onset: 01-04-2024 Unclassified (2 sources) Consult; Translations: [Consult] Onset: 01-11-2024 Past or Other Problems Problem Classification Problem Date Documented Da te Episodic/Chronic Headache; including migraine (20 sources) Chronic daily headache; Translations: [Chronic daily headache] Onset: 07-01-2023 02-13-2024 Episodic Headache; including migraine (1 source) Headache; including migraine Other aftercare (1 source) senior care (current) use of aspirin; 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] Onset: 04-21-2022 Episodic Other connective tissue disease (3 sources) Pain in left finger(s); Translations: [PAIN IN LEFT FINGERS] Onset: 04-20-2022 Episodic Skin and subcutaneous tissue infections (2 sources) Cellulitis of left finger; Translations: [CELLULITIS OF LEFT FINGER] Onset: 04-21-2022 Episodic Unclassified (1 source) Resistant hypertension; Translations: [Resistant hypertension] Onset: 01-17-2024 Results Test Name Value Interpretation Reference Range Facility [facility] 04-17-2024 [facility] Electrophysiology Consult Note [facility] - [facility] Reason for visit: syncope HPI: Marisela Hahn is a 49 y.o. year old with past medical history of spina bifida, morbid obesity, GERD, HTN, syncope, recent perforated appendicitis and associated abscess s/p IR drain placement and removal, here for follow up on syncope and event monitor findings. Patient underwent stress test during admission due to symptoms of sharp chest pain, stress test showed transient ischemic dilatation without perfusion defects. CTA coronary was done that showed minimal coronary artery calcifications. Patient today states he has been feeling well at home. Denies any episodes of syncope since he has been home. He states that nothing precipitates the episodes of syncope, denies chest pain, shortness of breath, dizziness or lightheadedness. Patient states he felt a few instances of palpitations while wearing the monitor. Event monitor showed prevalence of sinus rhythm 99% of the time. Few short episodes of SVT. PMH: Past Medical History: Diagnosis Date Anxiety Essential hypertension GERD (gastroesophageal reflux disease) Mixed hyperlipidemia Morbid obesity with BMI of 40.0-44.9, adult ([facility]) Morbid obesity with body mass index (BMI) of 40.0 to 44.9 in adult ([facility]) 11/24/2021 Resistant hypertension 11/24/2021 Spina bifida ([facility]) 05/11/2022 Syncope and collapse Tobacco dependence 11/24/2021 PSH: Past Surgical History: Procedure Laterality Date MYRINGOTOMY W/ TUBES TONSILLECTOMY SH: Social Determinants of Health Tobacco Use: Low Risk (04/16/2024) Patient History Smoking Tobacco Use: Never Smokeless Tobacco Use: Never Passive Exposure: Not on file Alcohol Use: Not At Risk (02/01/2024) AUDIT-C Frequency of Alcohol Consumption: Monthly or less Average Number of Drinks: 1 or 2 Frequency of Binge Drinking: Never Financial Resource Strain: Low Risk (02/01/2024) Overall Financial Resource Strain (CARDIA) Difficulty of Paying Living Expenses: Not hard at all Food Insecurity: No Food Insecurity (02/01/2024) Hunger Vital Sign Worried About Running Out of Food in the Last Year: Never true Ran Out of Food in the Last Year: Never true Transportation Needs: No Transportation Needs (02/01/2024) Transportation Lack of Transportation (Medical): No Lack of Transportation (Non-Medical): No Physical Activity: Not on file Stress: Stress Concern Present (02/01/2024) [employer] [place] [employer] - Occupational Stress Questionnaire Feeling of Stress : To some extent Social Connections: Moderately Isolated (02/01/2024) Social Connection and Isolation Panel [NHANES] Frequency of Communication with Friends and Family: More than three times a week Frequency of Social Gatherings with Friends and Family: More than three times a week Attends Rastafari Services: Never Active Member of Clubs or Organizations: Yes Attends Club or Organization Meetings: 1 to 4 times per year Marital Status: Intimate Partner Violence: Not At Risk (04/03/2024) Humiliation, Afraid, Rape, and Kick questionnaire Fear of Current or Ex-Partner: No Emotionally Abused: No Physically Abused: No Sexually Abused: No Depression: Not at risk (04/03/2024) PHQ-2 PHQ-2 Score: 0 Housing Stability: Low Risk (02/01/2024) Housing Stability Vital Sign Unable to Pay for Housing in the Last Year: No Number of Times Moved in the Last Year: 1 Homeless in the Last Year: No Utilities: Not At Risk (02/01/2024) [facility] Utilities Threatened with loss of utilities: No Health Literacy: Not on file Allergies: Allergies Allergen Reactions Keflex [Cephalexin] Rash Weight: No weight available Visit Vitals Smoking Status Never Meds: Current Facility-Administered Medications on File Prior to Encounter Medication Dose Route Frequency Provider Last Rate Last Admin [COMPLETED] fentaNYL (Sublimaze) 50 mcg/mL injection - ADS Override Pull [COMPLETED] midazolam (Versed) 1 mg/mL injection - ADS Override Pull [DISCONTINUED] lactated Ringer's infusion 30 mL/hr intravenous Continuous Pato Cruz MD Stopped at 04/16/24 1155 [DISCONTINUED] sodium chloride flush 10 mL 10 mL intravenous q8h PRN Pato Cruz MD Current Outpatient Medications on File Prior to Encounter Medication Sig Dispense Refill [] acetaminophen (Tylenol) 500 mg tablet Take 2 tablets (1,000 mg) by mouth every 8 (eight) hours for 290 doses. 30 tablet 0 aspirin 81 mg EC tablet Take 81 mg by mouth at bedtime. bisacodyl (Dulcolax) 5 mg EC tablet Take all 4 tablets together at 1pm the day prior to your colonoscopy. 4 tablet 0 chlorthalidone (Hygroton) 25 mg tablet Take 1 tablet (25 mg) by mouth in the morning. 90 tablet 3 escitalopram (Lexapro) 10 mg tablet Take 20 mg by mouth in the morning. ibuprofen 200 mg tablet Take 200 mg by mouth every 6 (six) hours if needed for mild pain (1-3 (more content not included)... [facility] NURSNOTEon 04-17-2024 NURSNOTE RN educated pt on d/ c instructions. This included: site care, limited physical activity, resume normal diet, future appointments, and medications. RN educated pt on when to notify physician and when to go to the hospital. RN educated pt on importance of removing dressing in 5 days after the procedure and monitoring site for infection. RN encouraged pt to voice any questions or concerns, and answered any questions or concerns if pt verbalized. Pt walked off of unit with all of belongings. [facility] HISTOLOGY - TISSUE EXAMon LAB AP CASE REPORT [facility] Comment on above: Order Comment: Pre-o p diagnosis:Perforated appendicitis [K35.32] Result Comment: Surg ical Pathology Case: [id number] Authorizing Provider: Brittni Swift MD Collected: 04/16/2024 1136 Ordering Location: [facility] Received: 04/16/2024 1359 [facility] Pathologist: Jeff Carvalho MD Specimen: Large Intestine, Sigmoid Colon Performed By: #### L [id number] ####[facility] ([facility])[address] [facility] [place] [address] LAB AP CLINICAL INFORMATION [facility] Comment on above: Order Comment: Pre-o p diagnosis:Perforated appendicitis [K35.32] Result Comment: Post -Op Diagnoses K35.32 - Perforated appendicitis [ICD-10-CM] Performed By: #### L [id number] ####[facility] ([facility])[address] [facility] [place] [address] LAB AP GROSS DESCRIPTION [facility] Comment on above: Order Comment: Pre-o p diagnosis:Perforated appendicitis [K35.32] Result Comment: A. L arge Intestine, Sigmoid Colon. Part A is received in formalin labeled Marisela Indio and sigmoid colon. It consists of a 0.8 x 0.7 x 0.5 cm garcía-pink polyp. The resection margin is inked black. The specimen is bisected to reveal garcía-pink, smooth cut surfaces. The specimen is submitted entirely in 1 cassette. Magalys Hunt, Pathologists' Inner Layer Scrubber Tender student Jocelyn Nguyễn, Pathologists' Inner Layer Scrubber Tender student Performed By: #### L [id number] ####[facility] [place] [place] [address] LAB AP MICROSCOPIC DESCRIPTION Microscopic examination performed. [facility] Comment on above: Order Comment: Pre-o p diagnosis:Perforated appendicitis [K35.32] Performed By: #### L [id number] ####[facility] [place] [address] LAB AP REPORT FINAL DIAGNOSIS NARRATIVE [facility] Comment on above: Order Comment: Pre-o p diagnosis:Perforated appendicitis [K35.32] Result Comment: [place] n, sigmoid polyp, biopsy: - Tubular adenoma - Completely excised Performed By: #### L [id number] ####[facility] ([facility])[address] [place] [address] HPon 04-16-2024 Marisela Hahn is a 48 y.o. male who presents for Colonoscopy (Wants to see if he needs a colonoscopy ). Marisela Hahn is a 48 y.o. male who presents for Colonoscopy scheduling. 2 weeks ago he had a perforated appendicitis and had a drain placed. The drain is now removed. Overall he feels that the pain has improved but notes some continued RLQ soreness. He denies any other complains. No fevers or chills. His last colonoscopy was 2019 and he does not note any abnormalities. He denies family hx of colon cancer. All of his images and studies were reviewed and the case was discussed with Dr. Quevedo. Review of Systems Constitutional: Negative. HENT: Negative. Eyes: Negative. Respiratory: Negative. Cardiovascular: Negative. Gastrointestinal: Positive for abdominal pain. Genitourinary: Negative. Musculoskeletal: Negative. Neurological: Negative. Hematological: Negative. Objective Visit Vitals BP 130/73 Pulse 85 Temp 36.4 ???C (97.6 ???F) Physical Exam Constitutional: Appearance: Normal appearance. HENT: Head: Normocephalic and atraumatic. Nose: Nose normal. Cardiovascular: Rate and Rhythm: Normal rate. Pulmonary: Effort: Pulmonary effort is normal. Abdominal: General: Abdomen is flat. Palpations: Abdomen is soft. Tenderness: There is abdominal tenderness (RLQ). Musculoskeletal: General: Normal range of motion. Cervical back: Normal range of motion. Skin: General: Skin is warm. Neurological: General: No focal deficit present. Mental Status: He is alert and oriented to person, place, and time. Psychiatric: Mood and Affect: Mood normal. Behavior: Behavior normal. Thought Content: Thought content normal. Judgment: Judgment normal. Assessment/Plan There are no diagnoses linked to this encounter. -Plan to order CT abd pelvis with contrast for continued RLQ pain. Will check a CBC. -Plan for colonoscopy after 6 weeks of no abd pain Normal [facility] OPNOTEon 04-16-2024 OPNOTE COLONOSCOPY with hot snare polypectomy Operative Note Date: 04/16/2024 Location: [facility] OR Name: Marisela Hahn, : 1975, Diagnosis Pre-op Diagnosis * Perforated appendicitis [K35.32] Post-op Diagnosis * Perforated appendicitis [K35.32] Procedures * COLONOSCOPY with hot snare polypectomy Surgeons Primary: Brittni Swift MD Procedure Summary Anesthesia: Monitor Anesthesia Care ASA: II Estimated Blood Loss: 1 mL Total IV Fluids: 250 mL Drains: * None in log * Specimens ID Source Type Tests Collected By Collected At Frozen? Priority Lab ID A Large Intestine, Sigmoid Colon Polyp HISTOLOGY - TISSUE EXAM Brittni Swift MD 04/16/24 1136 Routine Staff: Pediatric Surgeon: Mando Correa RN Scrub Person: Nayeli Cortes CST Indications: Marisela Hahn is an 49 y.o. male who is having surgery for Perforated appendicitis [K35.32]. Procedure Details: The patient was seen in the preoperative area. The risks, benefits, complications, treatment options, non-operative alternatives, expected recovery and outcomes were discussed with the patient. The possibilities of reaction to medication, pulmonary aspiration, injury to surrounding structures, bleeding, recurrent infection, the need for additional procedures, failure to diagnose a condition, and creating a complication requiring transfusion or operation were discussed with the patient. The patient concurred with the proposed plan, giving informed consent. The site of surgery was properly noted/marked if necessary per policy. The patient has been actively warmed in preoperative area. Preoperative antibiotics are not indicated. Venous thrombosis prophylaxis are not indicated. Patient was brought into the operating room placed in left lateral decubitus position under MAC anesthesia. On direct visualization of the anal canal patient has large external skin tags on digital rectal exam no other masses or lesions were palpated. On entrance to the scope patient noted to have a fair prep the cecum was reached without difficulty. 1cm pedunculated polyp seen in sigmoid and removed with hot snare. The removal of the scope took greater than 6 minutes. Patient tolerated procedure well taken to postanesthesia care unit in stable condition they should have a repeat colonoscopy in 1 year due to size of polyp. Findings: sigmoid polyp Complications: None; patient tolerated the procedure well. Disposition: PACU - hemodynamically stable. Condition: stable Brittni Swift [facility] POCT GLUCOSE METER UNSOLICIT ED RESULTSon 04-16-2024 Glucose [Mass/Vol] 88 mg/dL Normal 70-[address] [facility] Comment on above: Order Comment: Waive d Testing in the ED is performed under the ED CLIA certificate #[id number]. Result Comment: jenc [email or web address] Performed By: #### L [id number] ####[facility] ([facility])[address] [place] [address] 36on 04-15-2024 36 Patient has been cleared for surgery by PCP and Cardiology Per Gas Appliance Servicer Helper office they do not give clearances its up to the PCP Patient is scheduled to have colonoscopy 04/16/24 Please advise if its ok to schedule Appendectomy [facility] 36on 04-09-2024 36 PCP office returned call she states clearance request was never received Letter refaxed to [phone] [facility] 36 Lmom for PCP office to return call Neurologist office states they do not give surgery clearance patient would need to follow up with PCP for clearance [facility] 36on 04-05-[address] Ricardo ellis rt note on 04/03/24: #Preoperative cardiovascular clearance -From a cardiac perspective pt may proceed with surgery for appendicitis repair, he is a moderate risk for a low risk procedure. He may hold aspirin for 5-7 days prior if absolutely needed and resume post op, with the knowledge that there is a risk for stroke with holding anticoagulation. Please monitor hemodynamics carefully and prevent any major fluid shifts. Sleeve Presser Operator will call PCP and Neurology for clearance Monday [facility] 36 Added to my note! [facility] 3604-04-2024 36 Yes- I looked for clearance request in media and did not see one yesterday. If they would fax over a request I would be happy to sign, or I can put clearance in my note from yesterday if they prefer. [facility] 36 This patient is scheduled for a colonoscopy with Dr. Swift on 04/16/24 and will be scheduled for an appendectomy after with Dr. Quevedo. Looking for cardiology clearance on this patient. [facility] 36 This patient was see n on 02/12/24 Per note clearance letter was suppose to be sent to PCP Cardiology and nephrology Please confirm if letters were sent out, nothing is scanned in media Patient would like to be scheduled for surgery [facility] Follow-Upon 04-03-2024 Follow-Up [id number] IndioEr ic D 1975 M Date Provider Department Center 04/03/2024 [id number] SILVA [facility] Family History Problem Relation Age of Onset Hypertension Mother Hypertension Father Hypertension Sister Other Maternal Grandfather Diabetes type II Maternal Grandfather Family Status - Relation Status Age at Mother Father Sister Maternal Grandfather Level of Service:86912 [place] OFFICE/OUTPATIENT ESTABLISHED MOD MDM 30 MIN Reason for Visit and Comments: Hospital Follow-up [832] - Event monitor results. Patient states he is doing fine. [facility] Telephoneon 04-03-2024 Telephone [id number] IndioEr ic D 1975 M Date Provider Department Center 04/03/2024 [id number] DANIEL [facility] [place] Family History Problem Relation Age of Onset Hypertension Mother Hypertension Father Hypertension Sister Other Maternal Grandfather Diabetes type II Maternal Grandfather Family Status - Relation Status Age at Mother Father Sister Maternal Grandfather [facility] Follow-Upon 02-12-2024 Follow-Up [id number] Indio ic D 1975 M Date Provider Department Center 02/12/2024 [id number] QUEVEDO [facility] [place] Family History Problem Relation Age of Onset Hypertension Mother Hypertension Father Hypertension Sister Other Maternal Grandfather Diabetes type II Maternal Grandfather Family Status - Relation Status Age at Mother Father Sister Maternal Grandfather Level of Service:70928 SC OFFICE/OUTPATIENT ESTABLISHED LOW MDM 20 MIN Reason for Visit and Comments: Hospital Follow-up [832] - Marisela is here for a hospital follow up for Perforated appendicitis- per D/C note Will need appendectomy no earlier than 6 weeks after initial appendicitis episode.- Dr. Contreras seen patient in hospital. [facility] BASIC METABOLIC PANELon 11-2 Anion gap [Moles/Vol] 13 mmol/L Normal 7-20 [facility] Comment on above: Performed By: #### L [id number] ####[facility] [place] [address] Calcium [Mass/Vol] 9.0 mg/dL Normal 8.6-10.[address] [facility] Comment on above: Performed By: #### L [id number] ####[facility] ([facility] [place] [address] Chloride [Moles/Vol] 108 mmol/L High 98-107 [facility] Comment on above: Performed By: #### L [id number] ####[facility] ([facility])[address] [place] [address] CO2 [Moles/Vol] 22 mmol/L Normal 21-31 [facility] Comment on above: Performed By: #### L [id number] ####[facility] [facility] [address] Creatinine [Mass/Vol] 1.13 mg/dL Normal 0.70-1.30 [facility] Comment on above: Performed By: #### L [id number] ####[facility] ([facility])[address] [place] [address] GLOMERULAR FILTRATION RATE ML/MIN/1.73 SQ M.PREDICTED 80.2 mL/min/1.73m*2 Normal >60.0 [facility] Comment on above: Result Comment: The [facility]???s estimated glomerular filtration rate (eGFR) will no longer include consideration of race in its calculation. The National Kidney Foundation???s eGFR Task Force developed new recommendations for the estimation of the glomerular filtration rate in the [place] They recommend immediate implementation of the new equation refit without the race variable in all laboratories because the calculation does not include race. In addition to not including race in the calculation and reporting, it included diversity in its development, and has acceptable performance characteristics and potential consequences that do not disproportionately affect any one group of individuals. Performed By: #### L [id number] ####[facility] ([facility] [place] [address] Glucose [Mass/Vol] 93 mg/dL Normal 70-[address] [facility] Comment on above: Performed By: #### L [id number] ####[facility] ([facility])[address] [place] [address] Potassium [Moles/Vol] 3.5 mmol/L Normal 3.5-5.1 [facility] Comment on above: Performed By: #### L [id number] ####[facility] ([facility])[address] [place] [address] Sodium [Moles/Vol] 139 mmol/L Normal 136-[address] [facility] Comment on above: Performed By: #### L [id number] ####[facility] ([facility])[address] [place] [address] Urea nitrogen [Mass/Vol] 16 mg/dL Normal 7-25 [facility] Comment on above: Performed By: #### L [id number] ####[facility] ([facility])[address] [place] [address] UREA NITROGEN/CREATININE (MASS RATIO) IN SER/PLAS 14.2 Normal [facility] Comment on above: Performed By: #### L [id number] ####[facility] ([facility])[address] [place] [address] CBC WITH AUTO DIFFERENTIALon 02-07-2024 Basophils (Bld) [#/Vol] 0.04 10*3/uL Normal 0.00-0.20 [facility] Comment on above: Performed By: #### L [id number] #### [facility] ([facility]) [address] [place] [address] Basophils/100 WBC (Bld) 0.7 % Normal 0.0-1.0 [facility] Comment on above: Performed By: #### L [id number] #### [facility] ([facility]) [address] [place] [address] Eosinophils (Bld) [#/Vol] 0.19 10*3/uL Normal 0.00-0.50 [facility] Comment on above: Performed By: #### L [id number] #### [facility] ([facility]) [address] [place] [address] Eosinophils/100 WBC (Bld) 3.4 % Normal 0.0-6.0 [facility] Comment on above: Performed By: #### L [id number] #### [facility] ([facility]) [address] [place] [address] Erythrocyte distribution width (RBC) [Ratio] 14.4 % Normal 11.5-15.0 [facility] Comment on above: Performed By: #### L [id number] #### [facility] ([facility]) [address] [place] [address] ERYTHROCYTE MEAN CORPUSCULAR HEMOGLOBIN CONCENTRATION (G/DL) BY AUTOMATED 32.9 g/dL Normal 32.0-35.0 [facility] Comment on above: Performed By: #### L [id number] #### [facility] ([facility]) [address] [place] [address] Hematocrit (Bld) [Volume fraction] 43.5 % Normal 39.0-55.0 [facility] Comment on above: Performed By: #### L [id number] #### [facility] ([facility]) [address] [place] [address] Hemoglobin (Bld) [Mass/Vol] 14.3 g/dL Normal 13.0-17.0 [facility] Comment on above: Performed By: #### L [id number] #### [facility] [address] [place] [address] Immature granulocytes (Bld) [#/Vol] 0.08 10*3/uL Normal 0.00-0.20 [facility] Comment on above: Performed By: #### L [id number] #### [facility]) [address] [place] [address] Immature granulocytes/100 WBC (Bld) 1.4 % High 0.0-1.0 [facility] Comment on above: Performed By: #### L [id number] #### [facility]) [address] [place] [address] Lymphocytes (Bld) [#/Vol] 1.63 10*3/uL Normal 1.20-4.00 [facility] Comment on above: Performed By: #### L [id number] #### [facility]) [address] [place] [address] Lymphocytes/100 WBC (Bld) 29.1 % Normal 20.0-45.0 [facility] Comment on above: Performed By: #### L [id number] #### [facility]) [address] [place] [address] MCH (RBC) [Entitic mass] 28.4 pg Normal 27.0-33.0 [facility] Comment on above: Performed By: #### L [id number] #### [facility]) [address] [place] [address] MCV (RBC) [Entitic vol] 86.5 fL Normal 82.0-98.0 [facility] Comment on above: Performed By: #### L [id number] #### [facility]) [address] [place] [address] Monocytes (Bld) [#/Vol] 0.55 10*3/uL Normal 0.10-1.00 [facility] Comment on above: Performed By: #### L [id number] #### [facility]) [address] [place] [address] Monocytes/100 WBC (Bld) 9.8 % Normal 5.0-12.0 [facility] Comment on above: Performed By: #### L [id number] #### [facility]) [address] [place] [address] Neutrophils (Bld) [#/Vol] 3.12 10*3/uL Normal 1.60-7.60 [facility] Comment on above: Performed By: #### L [id number] #### [facility] ([facility]) [address] [place] [address] Neutrophils/100 WBC (Bld) 55.6 % Normal 40.0-72.0 [facility] Comment on above: Performed By: #### L [id number] #### [facility] ([facility]) [address] [place] [address] NRBC (PER 100 WBCS) BY AUTOMATED COUNT 0.0 % Normal 0 [facility] Comment on above: Performed By: #### L [id number] #### [facility] ([facility]) [address] [place] [address] PLATELETS (10*3/UL) IN BLOOD AUTOMATED COUNT 210 10*3/uL Normal 150-400 [facility] Comment on above: Performed By: #### L [id number] #### [facility] ([facility]) [address] [place] [address] RBC (Bld) [#/Vol] 5.03 10*6/uL Normal 4.20-5.70 [facility] Comment on above: Performed By: #### L [id number] #### [facility] ([facility]) [address] [place] [address] WBC (Bld) [#/Vol] 5.61 10*3/uL Normal 4.00-10.60 [facility] Comment on above: Performed By: #### L [id number] #### [facility] ([facility]) [address] [place] [address] BASIC METABOLIC PANELon 11-2 -2023 Anion gap [Moles/Vol] 11 mmol/L Normal 7-20 [facility] Comment on above: Performed By: #### L [id number] ####[facility] ([facility])[address] [place] [address] Calcium [Mass/Vol] 9.0 mg/dL Normal 8.6-10.[address] [facility] Comment on above: Performed By: #### L [id number] ####[facility] ([facility])[address] [place] [address] Chloride [Moles/Vol] 110 mmol/L High 98-107 [facility] Comment on above: Performed By: #### L [id number] ####[facility] ([facility])[address] [place] [address] CO2 [Moles/Vol] 22 mmol/L Normal 21-31 [facility] Comment on above: Performed By: #### L [id number] ####[facility] ([facility])[address] [place] [address] Creatinine [Mass/Vol] 1.14 mg/dL Normal 0.70-1.30 [facility] Comment on above: Performed By: #### L [id number] ####[facility] ([facility])[address] [place] [address] GLOMERULAR FILTRATION RATE ML/MIN/1.73 SQ M.PREDICTED 79.3 mL/min/1.73m*2 Normal >60.0 [facility] Comment on above: Result Comment: The [facility]???s estimated glomerular filtration rate (eGFR) will no longer include consideration of race in its calculation. The National Kidney Foundation???s eGFR Task Force developed new recommendations for the estimation of the glomerular filtration rate in the [place] They recommend immediate implementation of the new equation refit without the race variable in all laboratories because the calculation does not include race. In addition to not including race in the calculation and reporting, it included diversity in its development, and has acceptable performance characteristics and potential consequences that do not disproportionately affect any one group of individuals. Performed By: #### L [id number] ####[facility] ([facility])[address] [place] [address] Glucose [Mass/Vol] 121 mg/dL High 70-[address] [facility] Comment on above: Performed By: #### L [id number] ####[facility] ([facility])[address] [place] [address] Potassium [Moles/Vol] 3.2 mmol/L Low 3.5-5.1 [facility] Comment on above: Performed By: #### L [id number] ####[facility])[address] [place] [address] Sodium [Moles/Vol] 140 mmol/L Normal 136-[address] [facility] Comment on above: Performed By: #### L [id number] ####[facility] [place] [address] Urea nitrogen [Mass/Vol] 16 mg/dL Normal 7-25 [facility] Comment on above: Performed By: #### L [id number] ####[facility] ([facility])[address] [place] [address] UREA NITROGEN/CREATININE (MASS RATIO) IN SER/PLAS 14.0 Normal [facility] Comment on above: Performed By: #### L [id number] ####[facility] ([facility])[address] [place] [address] CBC WITH AUTO DIFFERENTIALon 02-06-2024 Basophils (Bld) [#/Vol] 0.04 10*3/uL Normal 0.00-0.20 [facility] Comment on above: Performed By: #### L [id number] ####[facility] ([facility])[address] [place] [address] Basophils/100 WBC (Bld) 0.6 % Normal 0.0-1.0 [facility] Comment on above: Performed By: #### L [id number] ####[facility] ([facility])[address] [place] [address] Eosinophils (Bld) [#/Vol] 0.14 10*3/uL Normal 0.00-0.50 [facility] Comment on above: Performed By: #### L [id number] ####[facility] [place] [address] Eosinophils/100 WBC (Bld) 2.3 % Normal 0.0-6.0 [facility] Comment on above: Performed By: #### L [id number] ####[facility] [place] [address] Erythrocyte distribution width (RBC) [Ratio] 14.2 % Normal 11.5-15.0 [facility] Comment on above: Performed By: #### L [id number] ####[facility] ([facility])[address] [place] [address] ERYTHROCYTE MEAN CORPUSCULAR HEMOGLOBIN CONCENTRATION (G/DL) BY AUTOMATED 32.4 g/dL Normal 32.0-35.0 [facility] Comment on above: Performed By: #### L [id number] ####[facility] [place] [address] Hematocrit (Bld) [Volume fraction] 44.4 % Normal 39.0-55.0 [facility] Comment on above: Performed By: #### L [id number] ####[facility] ([facility])[address] [place] [address] Hemoglobin (Bld) [Mass/Vol] 14.4 g/dL Normal 13.0-17.0 [facility] Comment on above: Performed By: #### L [id number] ####[facility] ([facility])[address] [place] [address] Immature granulocytes (Bld) [#/Vol] 0.06 10*3/uL Normal 0.00-0.20 [facility] Comment on above: Performed By: #### L [id number] ####[facility] ([facility])[address] [place] [address] Immature granulocytes/100 WBC (Bld) 1.0 % Normal 0.0-1.0 [facility] Comment on above: Performed By: #### L [id number] ####[facility] ([facility])[address] [place] [address] Lymphocytes (Bld) [#/Vol] 1.38 10*3/uL Normal 1.20-4.00 [facility] Comment on above: Performed By: #### L [id number] ####[facility] ([facility])[address] [place] [address] Lymphocytes/100 WBC (Bld) 22.4 % Normal 20.0-45.0 [facility] Comment on above: Performed By: #### L [id number] ####[facility] [place] [address] MCH (RBC) [Entitic mass] 28.3 pg Normal 27.0-33.0 [facility] Comment on above: Performed By: #### L [id number] ####[facility] ([facility])[address] [place] [address] MCV (RBC) [Entitic vol] 87.2 fL Normal 82.0-98.0 [facility] Comment on above: Performed By: #### L [id number] ####[facility] ([facility])[address] [place] [address] Monocytes (Bld) [#/Vol] 0.63 10*3/uL Normal 0.10-1.00 [facility] Comment on above: Performed By: #### L [id number] ####[facility] ([facility])[address] [place] [address] Monocytes/100 WBC (Bld) 10.2 % Normal 5.0-12.0 [facility] Comment on above: Performed By: #### L [id number] ####[facility] ([facility])[address] [place] [address] Neutrophils (Bld) [#/Vol] 3.91 10*3/uL Normal 1.60-7.60 [facility] Comment on above: Performed By: #### L [id number] ####[facility] ([facility])[address] [place] [address] Neutrophils/100 WBC (Bld) 63.5 % Normal 40.0-72.0 [facility] Comment on above: Performed By: #### L [id number] ####[facility] ([facility])[address] [place] [address] NRBC (PER 100 WBCS) BY AUTOMATED COUNT 0.0 % Normal 0 [facility] Comment on above: Performed By: #### L [id number] ####[facility] ([facility])[address] [place] [address] PLATELETS (10*3/UL) IN BLOOD AUTOMATED COUNT 223 10*3/uL Normal 150-400 [facility] Comment on above: Performed By: #### L [id number] ####[facility] ([facility])[address] [place] [address] RBC (Bld) [#/Vol] 5.09 10*6/uL Normal 4.20-5.70 [facility] Comment on above: Performed By: #### L [id number] ####[facility] ([facility])[address] [place] [address] WBC (Bld) [#/Vol] 6.16 10*3/uL Normal 4.00-10.60 [facility] Comment on above: Performed By: #### L [id number] ####[facility] ([facility])[address] [place] [address] 30on 02-05-2024 30 Daily Case Managemen t Update Multidisciplinary rounds have been completed. Barriers to Discharge: Per GS. Continue Zosyn while in the hospital followed by 2 weeks of PO augmentin upon discharge. Appendectomy in 2 weeks. TTE WNL. Plan f or Coronary CT today. Will likely need event monitor vs loop recorder on discharge for further evaluation of syncope. Diet: Dietary Orders (From admission, onward) Start Ordered 02/05/241713 Regular Diet Diet effective now Question: Room Service? Answer: Yes 02/05/24 1713 02/05/24 1714 Special Kitchen Request Once Comments: Please send up a tray around 630pm 02/05/24 1714 02/01/24 1634 Special Kitchen Request Once Comments: Stuffed shells, chocolate cake, whole grain dinner roll. 02/01/24 1634 Physician Expected Discharge Date: 02/03/2024 Discharge Delays: PT Six Click Score: 24 OT Six Click Score: PT Recommendations: OT Recommendations: Is expected discharge disposition appropriate for patient?: Yes New Consults: Consult Orders (From admission, onward) Start Ordered 02/01/24 1256 Inpatient consult to Hospitalist Once Specialty: Internal Medicine Provider: (Not yet assigned) Question Answer Comment Consulting Group HOSPITALIST (ADMIT/FLOAT) Reason for Consult? syncope, appendicitis Level of Consultation Consultation and Management 02/01/24 1256 Normal [facility] BASIC METABOLIC PANELon 11-2 Anion gap [Moles/Vol] 12 mmol/L Normal 7-20 [facility] Comment on above: Performed By: #### L [id number] ####[facility] ([facility])[address] [facility] [place] [address] Calcium [Mass/Vol] 9.2 mg/dL Normal 8.6-10.[address] [facility] Comment on above: Performed By: #### L [id number] ####[facility] [place] [facility] [address] Chloride [Moles/Vol] 109 mmol/L High 98-107 [facility] Comment on above: Performed By: #### L [id number] ####[facility] [place] [address] CO2 [Moles/Vol] 23 mmol/L Normal 21-31 [facility] Comment on above: Performed By: #### L [id number] ####[facility] [place] [place] [address] Creatinine [Mass/Vol] 1.35 mg/dL High 0.70-1.30 [facility] Comment on above: Performed By: #### L [id number] ####[facility] [place] [address] GLOMERULAR FILTRATION RATE ML/MIN/1.73 SQ M.PREDICTED 64.8 mL/min/1.73m*2 Normal >60.0 [facility] Comment on above: Result Comment: The [facility]???s estimated glomerular filtration rate (eGFR) will no longer include consideration of race in its calculation. The National Kidney Foundation???s eGFR Task Force developed new recommendations for the estimation of the glomerular filtration rate in the [place] They recommend immediate implementation of the new equation refit without the race variable in all laboratories because the calculation does not include race. In addition to not including race in the calculation and reporting, it included diversity in its development, and has acceptable performance characteristics and potential consequences that do not disproportionately affect any one group of individuals. Performed By: #### L [id number] ####[facility] ([facility])[address] [place] [address] Glucose [Mass/Vol] 90 mg/dL Normal 70-[address] [facility] Comment on above: Performed By: #### L [id number] ####[facility] ([facility])[address] [place] [address] Potassium [Moles/Vol] 3.5 mmol/L Normal 3.5-5.1 [facility] Comment on above: Performed By: #### L [id number] ####[facility] ([facility])[address] [place] [address] Sodium [Moles/Vol] 140 mmol/L Normal 136-[address] [facility] Comment on above: Performed By: #### L [id number] ####[facility] ([facility])[address] [place] [address] Urea nitrogen [Mass/Vol] 15 mg/dL Normal 7-25 [facility] Comment on above: Performed By: #### L [id number] ####[facility] ([facility])[address] [place] [address] UREA NITROGEN/CREATININE (MASS RATIO) IN SER/PLAS 11.1 Normal [facility] Comment on above: Performed By: #### L [id number] ####[facility] ([facility])[address] [place] [address] CBC WITH AUTO DIFFERENTIALon 02-05-2024 Basophils (Bld) [#/Vol] 0.04 10*3/uL Normal 0.00-0.20 [facility] Comment on above: Performed By: #### L [id number] ####[facility] ([facility])[address] [place] [address] Basophils/100 WBC (Bld) 0.8 % Normal 0.0-1.0 [facility] Comment on above: Performed By: #### L [id number] ####[facility] ([facility])[address] [place] [address] Eosinophils (Bld) [#/Vol] 0.19 10*3/uL Normal 0.00-0.50 [facility] Comment on above: Performed By: #### L [id number] ####[facility] ([facility])[address] [place] [address] Eosinophils/100 WBC (Bld) 3.8 % Normal 0.0-6.0 [facility] Comment on above: Performed By: #### L [id number] ####[facility] ([facility])[address] [place] [address] Erythrocyte distribution width (RBC) [Ratio] 14.0 % Normal 11.5-15.0 [facility] Comment on above: Performed By: #### L [id number] ####[facility] ([facility])[address] [place] [address] ERYTHROCYTE MEAN CORPUSCULAR HEMOGLOBIN CONCENTRATION (G/DL) BY AUTOMATED 32.5 g/dL Normal 32.0-35.0 [facility] Comment on above: Performed By: #### L [id number] ####[facility] ([facility])[address] [place] [address] Hematocrit (Bld) [Volume fraction] 44.0 % Normal 39.0-55.0 [facility] Comment on above: Performed By: #### L [id number] ####[facility] [place] [address] Hemoglobin (Bld) [Mass/Vol] 14.3 g/dL Normal 13.0-17.0 [facility] Comment on above: Performed By: #### L [id number] ####[facility] ([facility])[address] [place] [address] Immature granulocytes (Bld) [#/Vol] 0.05 10*3/uL Normal 0.00-0.20 [facility] Comment on above: Performed By: #### L [id number] ####[facility] ([facility])[address] [place] [address] Immature granulocytes/100 WBC (Bld) 1.0 % Normal 0.0-1.0 [facility] Comment on above: Performed By: #### L [id number] ####[facility] ([facility])[address] [place] [address] Lymphocytes (Bld) [#/Vol] 1.46 10*3/uL Normal 1.20-4.00 [facility] Comment on above: Performed By: #### L [id number] ####[facility] [place] [address] Lymphocytes/100 WBC (Bld) 28.9 % Normal 20.0-45.0 [facility] Comment on above: Performed By: #### L [id number] ####[facility] ([facility])[address] [place] [address] MCH (RBC) [Entitic mass] 28.1 pg Normal 27.0-33.0 [facility] Comment on above: Performed By: #### L [id number] ####[facility] ([facility])[address] [place] [address] MCV (RBC) [Entitic vol] 86.4 fL Normal 82.0-98.0 [facility] Comment on above: Performed By: #### L [id number] ####[facility] ([facility])[address] [place] [address] Monocytes (Bld) [#/Vol] 0.49 10*3/uL Normal 0.10-1.00 [facility] Comment on above: Performed By: #### L [id number] ####[facility] ([facility])[address] [place] [address] Monocytes/100 WBC (Bld) 9.7 % Normal 5.0-12.0 [facility] Comment on above: Performed By: #### L [id number] ####[facility] ([facility])[address] [place] [address] Neutrophils (Bld) [#/Vol] 2.82 10*3/uL Normal 1.60-7.60 [facility] Comment on above: Performed By: #### L [id number] ####[facility] ([facility])[address] [place] [address] Neutrophils/100 WBC (Bld) 55.8 % Normal 40.0-72.0 [facility] Comment on above: Performed By: #### L [id number] ####[facility] [place] [address] NRBC (PER 100 WBCS) BY AUTOMATED COUNT 0.0 % Normal 0 [facility] Comment on above: Performed By: #### L [id number] ####[facility] [place] [address] PLATELETS (10*3/UL) IN BLOOD AUTOMATED COUNT 201 10*3/uL Normal 150-400 [facility] Comment on above: Performed By: #### L [id number] ####[facility] ([facility])[address] [place] [address] RBC (Bld) [#/Vol] 5.09 10*6/uL Normal 4.20-5.70 [facility] Comment on above: Performed By: #### L [id number] ####[facility] ([facility])[address] [place] [address] WBC (Bld) [#/Vol] 5.05 10*3/uL Normal 4.00-10.60 [facility] Comment on above: Performed By: #### L [id number] ####[facility] [place] [address] CTA HEART CORONARY W IV CONT RAST W OR WO FFRCTon 02-05-2024 CTA HEART CORONARY W IV CONTRAST W OR WO FFRCT Nonenhanced CT of the chest for calcium scoring. Enhanced CTA of the coronary arteries with 3-D reformats. Evaluation of the ejection fraction and wall motion. Indication: Chest pain Procedure: High-resolution Computed Tomographic imaging of the chest was performed with particular attention paid to the coronary arteries. Images from the examination were analyzed for the presence and extent of coronary artery calcification, using coronary calcium quantification software. Following the intravenous injection of 100 cc of Omnipaque 350, a gated CTA of the coronary arteries was obtained. In addition, 3-D reformatted images were constructed under concurrent physician supervision on an independent workstation for evaluation of the coronary arteries. Computer software was used for left ventricular analysis, and computation of the ejection fraction and analysis of the LV wall motion.Automated exposure control was utilized. Nonenhanced chest CT findings: Enhanced CTA of the coronary arteries: The ascending aorta measures 37 mm and is appropriate No mediastinal or hilar mass or adenopathy. No consolidation pleural effusion or suspicious lung nodules at the levels imaged No cardiomegaly. Coronary arteries show appropriate course without malignant variation Coronary artery evaluation: Left Main: Minimal calcific plaque without stenosis. LAD: Minimal calcific plaque proximally without stenosis Circumflex: No stenosis. Right coronary: Minimal calcified plaque proximally. No significant stenosis Left ventricle wall appears prominent. I recommend correlation with echocardiography results to make certain patient does not have diffuse left ventricular hypertrophy. IMPRESSION: Impression: Minimal coronary artery calcifications but no stenosis identified Left ventricle wall appears prominent. I recommend correlation with echocardiography results to make certain patient does not have diffuse left ventricular hypertrophy. All CT scans at this facility use dose modulation, iterative reconstruction, and/or weight based dosing when appropriate to reduce radiation dose to as low as reasonably achievable. Electronically signed: Nicho Blue. 8 Invalid Interpretation Code [facility] BASIC METABOLIC PANELon 11-2 Anion gap [Moles/Vol] 10 mmol/L Normal 7-20 [facility] Comment on above: Performed By: #### L [id number] ####[facility] ([facility])[address] [place] [address] Calcium [Mass/Vol] 9.1 mg/dL Normal 8.6-10.[address] [facility] Comment on above: Performed By: #### L [id number] ####[facility] ([facility])[address] [place] [address] Chloride [Moles/Vol] 110 mmol/L High 98-107 [facility] Comment on above: Performed By: #### L [id number] ####[facility] ([facility])[address] [place] [address] CO2 [Moles/Vol] 24 mmol/L Normal 21-31 [facility] Comment on above: Performed By: #### L [id number] ####[facility] ([facility])[address] [place] [address] Creatinine [Mass/Vol] 1.46 mg/dL High 0.70-1.30 [facility] Comment on above: Performed By: #### L [id number] ####[facility] ([facility])[address] [place] [address] GLOMERULAR FILTRATION RATE ML/MIN/1.73 SQ M.PREDICTED 59.0 mL/min/1.73m*2 Low >60.0 [facility] Comment on above: Result Comment: The [facility]???s estimated glomerular filtration rate (eGFR) will no longer include consideration of race in its calculation. The National Kidney Foundation???s eGFR Task Force developed new recommendations for the estimation of the glomerular filtration rate in the [place] They recommend immediate implementation of the new equation refit without the race variable in all laboratories because the calculation does not include race. In addition to not including race in the calculation and reporting, it included diversity in its development, and has acceptable performance characteristics and potential consequences that do not disproportionately affect any one group of individuals. Performed By: #### L [id number] ####[facility] ([facility])[address] [place] [address] Glucose [Mass/Vol] 91 mg/dL Normal 70-[address] [facility] Comment on above: Performed By: #### L [id number] ####[facility] ([facility])[address] [place] [address] Potassium [Moles/Vol] 3.7 mmol/L Normal 3.5-5.1 [facility] Comment on above: Performed By: #### L [id number] ####[facility] ([facility])[address] [place] [address] Sodium [Moles/Vol] 140 mmol/L Normal 136-[address] [facility] Comment on above: Performed By: #### L [id number] ####[facility] ([facility])[address] [place] [address] Urea nitrogen [Mass/Vol] 16 mg/dL Normal 7-25 [facility] Comment on above: Performed By: #### L [id number] ####[facility] ([facility])[address] [place] [address] UREA NITROGEN/CREATININE (MASS RATIO) IN SER/PLAS 11.0 Normal [facility] Comment on above: Performed By: #### L [id number] ####[facility] ([facility])[address] [place] [address] CBC WITH AUTO DIFFERENTIALon 02-04-2024 Basophils (Bld) [#/Vol] 0.04 10*3/uL Normal 0.00-0.20 [facility] Comment on above: Performed By: #### L [id number] ####[facility] ([facility])[address] [place] [address] Basophils/100 WBC (Bld) 0.8 % Normal 0.0-1.0 [facility] Comment on above: Performed By: #### L [id number] ####[facility] ([facility])[address] [place] [address] Eosinophils (Bld) [#/Vol] 0.16 10*3/uL Normal 0.00-0.50 [facility] Comment on above: Performed By: #### L [id number] ####[facility] ([facility])[address] [place] [address] Eosinophils/100 WBC (Bld) 3.0 % Normal 0.0-6.0 [facility] Comment on above: Performed By: #### L [id number] ####[facility] ([facility])[address] [place] [address] Erythrocyte distribution width (RBC) [Ratio] 14.2 % Normal 11.5-15.0 [facility] Comment on above: Performed By: #### L [id number] ####[facility] ([facility])[address] [place] [address] ERYTHROCYTE MEAN CORPUSCULAR HEMOGLOBIN CONCENTRATION (G/DL) BY AUTOMATED 31.7 g/dL Low 32.0-35.0 [facility] Comment on above: Performed By: #### L [id number] ####[facility] ([facility])[address] [place] [address] Hematocrit (Bld) [Volume fraction] 42.6 % Normal 39.0-55.0 [facility] Comment on above: Performed By: #### L [id number] ####[facility] ([facility])[address] [place] [address] Hemoglobin (Bld) [Mass/Vol] 13.5 g/dL Normal 13.0-17.0 [facility] Comment on above: Performed By: #### L [id number] ####[facility] ([facility])[address] [place] [address] Immature granulocytes (Bld) [#/Vol] 0.03 10*3/uL Normal 0.00-0.20 [facility] Comment on above: Performed By: #### L [id number] ####[facility] ([facility])[address] [place] [address] Immature granulocytes/100 WBC (Bld) 0.6 % Normal 0.0-1.0 [facility] Comment on above: Performed By: #### L [id number] ####[facility] ([facility])[address] [place] [address] Lymphocytes (Bld) [#/Vol] 1.49 10*3/uL Normal 1.20-4.00 [facility] Comment on above: Performed By: #### L [id number] ####[facility] ([facility])[address] [place] [address] Lymphocytes/100 WBC (Bld) 28.4 % Normal 20.0-45.0 [facility] Comment on above: Performed By: #### L [id number] ####[facility] ([facility])[address] [place] [address] MCH (RBC) [Entitic mass] 27.7 pg Normal 27.0-33.0 [facility] Comment on above: Performed By: #### L [id number] ####[facility] ([facility])[address] [place] [address] MCV (RBC) [Entitic vol] 87.5 fL Normal 82.0-98.0 [facility] Comment on above: Performed By: #### L [id number] ####[facility] ([facility])[address] [place] [address] Monocytes (Bld) [#/Vol] 0.55 10*3/uL Normal 0.10-1.00 [facility] Comment on above: Performed By: #### L [id number] ####[facility] ([facility])[address] [place] [address] Monocytes/100 WBC (Bld) 10.5 % Normal 5.0-12.0 [facility] Comment on above: Performed By: #### L [id number] ####[facility])[address] [place] [address] Neutrophils (Bld) [#/Vol] 2.98 10*3/uL Normal 1.60-7.60 [facility] Comment on above: Performed By: #### L [id number] ####[facility])[address] [place] [address] Neutrophils/100 WBC (Bld) 56.7 % Normal 40.0-72.0 [facility] Comment on above: Performed By: #### L [id number] ####[facility] ([facility])[address] [place] [address] NRBC (PER 100 WBCS) BY AUTOMATED COUNT 0.0 % Normal 0 [facility] Comment on above: Performed By: #### L [id number] ####[facility] ([facility])[address] [place] [address] PLATELETS (10*3/UL) IN BLOOD AUTOMATED COUNT 202 10*3/uL Normal 150-400 [facility] Comment on above: Performed By: #### L [id number] ####[facility] ([facility])[address] [place] [address] RBC (Bld) [#/Vol] 4.87 10*6/uL Normal 4.20-5.70 [facility] Comment on above: Performed By: #### L [id number] ####[facility] ([facility])[address] [place] [address] WBC (Bld) [#/Vol] 5.25 10*3/uL Normal 4.00-10.60 [facility] Comment on above: Performed By: #### L [id number] ####[facility] ([facility])[address] [place] [address] 30on 02-03-2024 30 The patient is Moderately Stable - Low risk of patient condition declining or worsening The patient's goals for the shift include comfort The clinical goals for the shift include safety and VSS Normal [facility] BASIC METABOLIC PANELon 11-2 Anion gap [Moles/Vol] 10 mmol/L Normal 7-20 [facility] Comment on above: Performed By: #### L [id number] ####[facility] ([facility])[address] [place] [address] Calcium [Mass/Vol] 8.7 mg/dL Normal 8.6-10.[address] [facility] Comment on above: Performed By: #### L [id number] ####[facility] [place] [address] Chloride [Moles/Vol] 110 mmol/L High 98-107 [facility] Comment on above: Performed By: #### L [id number] ####[facility] ([facility])[address] [place] [address] CO2 [Moles/Vol] 23 mmol/L Normal 21-31 [facility] Comment on above: Performed By: #### L [id number] ####[facility] [place] [address] Creatinine [Mass/Vol] 1.38 mg/dL High 0.70-1.30 [facility] Comment on above: Performed By: #### L [id number] ####[facility] ([facility])[address] [place] [address] GLOMERULAR FILTRATION RATE ML/MIN/1.73 SQ M.PREDICTED 63.1 mL/min/1.73m*2 Normal >60.0 [facility] Comment on above: Result Comment: The [facility]???s estimated glomerular filtration rate (eGFR) will no longer include consideration of race in its calculation. The National Kidney Foundation???s eGFR Task Force developed new recommendations for the estimation of the glomerular filtration rate in the [place] They recommend immediate implementation of the new equation refit without the race variable in all laboratories because the calculation does not include race. In addition to not including race in the calculation and reporting, it included diversity in its development, and has acceptable performance characteristics and potential consequences that do not disproportionately affect any one group of individuals. Performed By: #### L [id number] ####[facility] ([facility])[address] [place] [address] Glucose [Mass/Vol] 96 mg/dL Normal 70-[address] [facility] Comment on above: Performed By: #### L [id number] ####[facility] ([facility])[address] [place] [address] Potassium [Moles/Vol] 3.8 mmol/L Normal 3.5-5.1 [facility] Comment on above: Performed By: #### L [id number] ####[facility] ([facility])[address] [place] [address] Sodium [Moles/Vol] 139 mmol/L Normal 136-[address] [facility] Comment on above: Performed By: #### L [id number] ####[facility] [place] [address] Urea nitrogen [Mass/Vol] 16 mg/dL Normal 7-25 [facility] Comment on above: Performed By: #### L [id number] ####[facility] ([facility])[address] [place] [address] UREA NITROGEN/CREATININE (MASS RATIO) IN SER/PLAS 11.6 Normal [facility] Comment on above: Performed By: #### L [id number] ####[facility] ([facility])[address] [place] [address] CBC WITH AUTO DIFFERENTIALon 02-03-2024 Basophils (Bld) [#/Vol] 0.03 10*3/uL Normal 0.00-0.20 [facility] Comment on above: Performed By: #### L [id number] ####[facility] ([facility])[address] [place] [address] Basophils/100 WBC (Bld) 0.6 % Normal 0.0-1.0 [facility] Comment on above: Performed By: #### L [id number] ####[facility] ([facility])[address] [place] [address] Eosinophils (Bld) [#/Vol] 0.10 10*3/uL Normal 0.00-0.50 [facility] Comment on above: Performed By: #### L [id number] ####[facility] ([facility])[address] [place] [address] Eosinophils/100 WBC (Bld) 2.1 % Normal 0.0-6.0 [facility] Comment on above: Performed By: #### L [id number] ####[facility] ([facility])[address] [place] [address] Erythrocyte distribution width (RBC) [Ratio] 14.1 % Normal 11.5-15.0 [facility] Comment on above: Performed By: #### L [id number] ####[facility] ([facility])[address] [place] [address] ERYTHROCYTE MEAN CORPUSCULAR HEMOGLOBIN CONCENTRATION (G/DL) BY AUTOMATED 33.1 g/dL Normal 32.0-35.0 [facility] Comment on above: Performed By: #### L [id number] ####[facility] ([facility])[address] [place] [address] Hematocrit (Bld) [Volume fraction] 39.9 % Normal 39.0-55.0 [facility] Comment on above: Performed By: #### L [id number] ####[facility] ([facility])[address] [place] [address] Hemoglobin (Bld) [Mass/Vol] 13.2 g/dL Normal 13.0-17.0 [facility] Comment on above: Performed By: #### L [id number] ####[facility] ([facility])[address] [place] [address] Immature granulocytes (Bld) [#/Vol] 0.02 10*3/uL Normal 0.00-0.20 [facility] Comment on above: Performed By: #### L [id number] ####[facility] ([facility])[address] [place] [address] Immature granulocytes/100 WBC (Bld) 0.4 % Normal 0.0-1.0 [facility] Comment on above: Performed By: #### L [id number] ####[facility] ([facility])[address] [place] [address] Lymphocytes (Bld) [#/Vol] 1.07 10*3/uL Low 1.20-4.00 [facility] Comment on above: Performed By: #### L [id number] ####[facility] ([facility])[address] [place] [address] Lymphocytes/100 WBC (Bld) 22.2 % Normal 20.0-45.0 [facility] Comment on above: Performed By: #### L [id number] ####[facility] ([facility])[address] [place] [address] MCH (RBC) [Entitic mass] 28.1 pg Normal 27.0-33.0 [facility] Comment on above: Performed By: #### L [id number] ####[facility] ([facility])[address] [place] [address] MCV (RBC) [Entitic vol] 84.9 fL Normal 82.0-98.0 [facility] Comment on above: Performed By: #### L [id number] ####[facility] ([facility])[address] [place] [address] Monocytes (Bld) [#/Vol] 0.43 10*3/uL Normal 0.10-1.00 [facility] Comment on above: Performed By: #### L [id number] ####[facility] ([facility])[address] [place] [address] Monocytes/100 WBC (Bld) 8.9 % Normal 5.0-12.0 [facility] Comment on above: Performed By: #### L [id number] ####[facility] ([facility])[address] [place] [address] Neutrophils (Bld) [#/Vol] 3.16 10*3/uL Normal 1.60-7.60 [facility] Comment on above: Performed By: #### L [id number] ####[facility] ([facility])[address] [place] [address] Neutrophils/100 WBC (Bld) 65.8 % Normal 40.0-72.0 [facility] Comment on above: Performed By: #### L [id number] ####[facility] ([facility])[address] [place] [address] NRBC (PER 100 WBCS) BY AUTOMATED COUNT 0.0 % Normal 0 [facility] Comment on above: Performed By: #### L [id number] ####[facility] ([facility])[address] [place] [address] PLATELETS (10*3/UL) IN BLOOD AUTOMATED COUNT 188 10*3/uL Normal 150-400 [facility] Comment on above: Performed By: #### L [id number] ####[facility] ([facility])[address] [place] [address] RBC (Bld) [#/Vol] 4.70 10*6/uL Normal 4.20-5.70 [facility] Comment on above: Performed By: #### L [id number] ####[facility] ([facility])[address] [place] [address] WBC (Bld) [#/Vol] 4.81 10*3/uL Normal 4.00-10.60 [facility] Comment on above: Performed By: #### L [id number] ####[facility] ([facility])[address] [place] [address] MAGNESIUMon 02-03-2024 Magnesium [Mass/Vol] 2.0 mg/dL Normal 1.9-2.7 [facility] Comment on above: Performed By: #### L [id number] ####[facility] ([facility])[address] [place] [address] TSH3 REFLEX TO FT4on 024 THYROTROPIN (MIU/L) IN SER/PLAS BY DETECTION LIMIT <= 0.05 MIU/L 2.82 mIU/L Normal 0.34-5.60 [facility] Comment on above: Performed By: #### L [id number] ####[facility] ([facility])[address] [place] [address] 30on 02-02-2024 30 Daily Case Managemen t Update Multidisciplinary rounds have been completed. Barriers to Discharge: 02/01: ER admit. Syncope/CP/ABD pain. +stress test today. Plan for coronary CTA on Mon instead of cath as pt has recent infection (perf appendicitis in Dec) GS plan to perform appendectomy in 2 weeks. From home, currently staying with Mother Diet: Dietary Orders (From admission, onward) Start Ordered 02/02/24 1558 Regular Diet Heart Healthy/HTN, CABG,Stroke, (2gNA, low fat, low cholesterol) Diet effective now Question Answer Comment Room Service? Yes Fat restriction: Heart Healthy/HTN, CABG,Stroke, (2gNA, low fat, low cholesterol) 02/02/24 1557 02/01/24 1634 Special Kitchen Request Once Comments: Stuffed shells, chocolate cake, whole grain dinner roll. 02/01/24 1634 Physician Expected Discharge Date: 02/02/2024 Discharge Delays: PT Six Click Score: 24 OT Six Click Score: PT Recommendations: OT Recommendations: New Consults: Consult Orders (From admission, onward) Start Ordered 02/01/24 1256 Inpatient consult to Hospitalist Once Specialty: Internal Medicine Provider: (Not yet assigned) Question Answer Comment Consulting Group HOSPITALIST (ADMIT/FLOAT) Reason for Consult? syncope, appendicitis Level of Consultation Consultation and Management 02/01/24 1256 Normal [facility] BASIC METABOLIC PANELon 11- Anion gap [Moles/Vol] 11 mmol/L Normal 7-20 [facility] Comment on above: Performed By: #### L [id number] #### [facility] ([facility]) [address] [place] [address] Calcium [Mass/Vol] 8.5 mg/dL Low 8.6-10.[address] [facility] Comment on above: Performed By: #### L [id number] #### [facility] ([facility]) [address] [place] [address] Chloride [Moles/Vol] 110 mmol/L High 98-107 [facility] Comment on above: Performed By: #### L [id number] #### [facility] ([facility]) [address] [place] [address] CO2 [Moles/Vol] 21 mmol/L Normal 21-31 [facility] Comment on above: Performed By: #### L [id number] #### [facility] ([facility]) [address] [place] [address] Creatinine [Mass/Vol] 1.42 mg/dL High 0.70-1.30 [facility] Comment on above: Performed By: #### L [id number] #### [facility] ([facility]) [address] [place] [address] GLOMERULAR FILTRATION RATE ML/MIN/1.73 SQ M.PREDICTED 61.0 mL/min/1.73m*2 Normal >60.0 [facility] Comment on above: Result Comment: The [facility]???s estimated glomerular filtration rate (eGFR) will no longer include consideration of race in its calculation. The National Kidney Foundation???s eGFR Task Force developed new recommendations for the estimation of the glomerular filtration rate in the [place] They recommend immediate implementation of the new equation refit without the race variable in all laboratories because the calculation does not include race. In addition to not including race in the calculation and reporting, it included diversity in its development, and has acceptable performance characteristics and potential consequences that do not disproportionately affect any one group of individuals. Performed By: #### L [id number] #### [facility] ([facility]) [address] [place] [address] Glucose [Mass/Vol] 93 mg/dL Normal 70-[address] [facility] Comment on above: Performed By: #### L [id number] #### [facility] ([facility]) [address] [place] [address] Potassium [Moles/Vol] 3.3 mmol/L Low 3.5-5.1 [facility] Comment on above: Performed By: #### L [id number] #### [facility] ([facility]) [address] [place] [address] Sodium [Moles/Vol] 139 mmol/L Normal 136-[address] [facility] Comment on above: Performed By: #### L [id number] #### [facility] ([facility]) [address] [place] [address] Urea nitrogen [Mass/Vol] 21 mg/dL Normal 7-25 [facility] Comment on above: Performed By: #### L [id number] #### [facility] ([facility]) [address] [place] [address] UREA NITROGEN/CREATININE (MASS RATIO) IN SER/PLAS 14.8 Normal [facility] Comment on above: Performed By: #### L [id number] #### [facility] ([facility]) [address] [place] [address] CBCon 11-22-2024 Erythrocyte distribution width (RBC) [Ratio] 14.2 % Normal 11.5-15.0 [facility] Comment on above: Performed By: #### L [id number] #### [facility] [address] [place] [address] ERYTHROCYTE MEAN CORPUSCULAR HEMOGLOBIN CONCENTRATION (G/DL) BY AUTOMATED 32.7 g/dL Normal 32.0-35.0 [facility] Comment on above: Performed By: #### L [id number] #### [facility] [address] [place] [address] Hematocrit (Bld) [Volume fraction] 39.4 % Normal 39.0-55.0 [facility] Comment on above: Performed By: #### L [id number] #### [facility] [address] [place] [address] Hemoglobin (Bld) [Mass/Vol] 12.9 g/dL Low 13.0-17.0 [facility] Comment on above: Performed By: #### L [id number] #### [facility] [address] [place] [address] MCH (RBC) [Entitic mass] 27.9 pg Normal 27.0-33.0 [facility] Comment on above: Performed By: #### L [id number] #### [facility] ([facility]) [address] [place] [address] MCV (RBC) [Entitic vol] 85.1 fL Normal 82.0-98.0 [facility] Comment on above: Performed By: #### L [id number] #### [facility] ([facility]) [address] [place] [address] PLATELETS (10*3/UL) IN BLOOD AUTOMATED COUNT 174 10*3/uL Normal 150-400 [facility] Comment on above: Performed By: #### L [id number] #### [facility] ([facility]) [address] [place] [address] RBC (Bld) [#/Vol] 4.63 10*6/uL Normal 4.20-5.70 [facility] Comment on above: Performed By: #### L [id number] #### [facility] ([facility]) [address] [place] [address] WBC (Bld) [#/Vol] 6.86 10*3/uL Normal 4.00-10.60 [facility] Comment on above: Performed By: #### L [id number] #### [facility] ([facility]) [address] [place] [address] CONSULTon 02-02-2024 CONSULT -- Attestation with edits by Leonard Miranda MD at 02/02/2024 4:28 PM By using the attestations below, the signing clinician agrees that I have read and verify that the documentation has been personally reviewed by me and ensure that the documentation accurately reflects the encounter. GC: I personally saw this patient on the day of the encounter, performed the katz portion(s) of the service and participated in the management and confirm the resident's documentation. Please note there may be an additional personal documentation from me. Additional Comments: Patient with risk factors for atherosclerotic coronary artery disease. Describes 'syncopal' episodes for a few years now with no significant prodrome and no obvious explanations. Also had an episode of exertional chest pain albeit with sharp pain that lasted for about 5 minutes a few days ago. Stress test reported as showing transient ischemic dilatation without heterogenous perfusion defects. Given his recent appendicitis, would prefer to avoid invasive testing/intervention. On the other hand, he will need appropriate risk stratification prior to any abdominal surgery given abnormal stress test. A coronary CTA with FFR on 01/2524 should be a reasonable option Leonard Miranda MD, MPH, [facility], [facility], [facility] Interventional Cardiology Pager Email: [email or web address] Cardiology Consult Note Reason for Consult: syncope, appendicitis HPI: Marisela Hahn is a 48 y.o. male with PMH of recent ruptured appendicitis s/p IR drainage 12/2023, syncopal episodes, HTN, GERD who presents from home due to abdominal pain and syncope. Patient had 1 day of LLQ abdominal pain. Was walking to the bathroom and then had syncope, no prodromal symptoms, he woke up on the bathroom floor and does not remember passing out. Family was present, no seizure activity seen, no loss of bowel or bladder control. He states he did have syncopal episodes 2 years ago, once while walking and another at work with no prodromal symptoms and completed a holter monitor but he is unsure of results. He did have substernal sharp chest pain 2 days ago, did not radiate, no associated shortness of breath or palpitations and it resolved spontaneously after 5 min. He usually does not get chest pain with exertion, denies shortness of breath, palpitations. Denies significant family history of heart disease. Denies tobacco use, endorses social alcohol use. Denies history of diabetes. In the ED, Blood pressure low in 80s. Orthostatic vitals checked and were negative. Troponin 0.02 or less x3. EKG with NSR. Stress test obtained demonstrating negative perfusion testing, + Transient ischemic dilation. Echo obtained demonstrating preserved EF. Cardiology ROS: Negative except as mentioned. Past Medical History He has a past medical history of Anxiety, Essential hypertension, GERD (gastroesophageal reflux disease), Mixed hyperlipidemia, Morbid obesity with BMI of 40.0-44.9, adult ([facility] Morbid obesity with body mass index (BMI) of 40.0 to 44.9 in adult ([facility]) (11/24/2021), Resistant hypertension (11/24/2021), Spina bifida ([facility]) (05/11/2022), Syncope and collapse, and Tobacco dependence (11/24/2021). Surgical History He has a past surgical history that includes Myringotomy w/ tubes. Social History He reports that he has never smoked. He has never used smokeless tobacco. He reports that he does not currently use alcohol. He reports that he does not use drugs. Family History Family History Problem Relation Name Age of Onset Hypertension Mother Hypertension Father Hypertension Sister Other (CVA) Maternal Grandfather Diabetes type II Maternal Grandfather Allergies Keflex [cephalexin] Medications Current Outpatient Medications Medication Instructions acetaminophen (TYLENOL) 1,000 mg, oral, Every 8 hours aspirin 81 mg, oral, Nightly chlorthalidone (HYGROTON) 25 mg, oral, Every morning escitalopram (LEXAPRO) 20 mg, oral, Daily lisinopril 40 mg, oral, Daily NIFEdipine XL (PROCARDIA XL) 60 mg, oral, Daily, Do not crush, chew, or split. Stop taking amlodipine. Start with taking nifedipine 60mg once daily. Continue to monitor BP. spironolactone (ALDACTONE) 25 mg, oral, Daily spironolactone (ALDACTONE) 25 mg, oral, Daily topiramate (TOPAMAX) 25 mg, oral, 2 times daily, PT STATES TAKES ONE TABLET IN MORNING AND 2 AT NIGHT venlafaxine XR (EFFEXOR-XR) 75 mg, oral, Daily, Do not crush or chew. Medications Prior to Admission Medication Sig Dispense Refill Last Dose acetaminophen (Tylenol) 500 mg tablet Take 2 tablets (1,000 mg) by mouth every 8 (eight) hours for 290 doses. 30 tablet 0 aspirin 81 mg EC tablet Take 81 mg by mouth at bedtime. chlorthalidone (Hygr (more content not included)... Normal [facility] Erroneous Encounteron 2023 Erroneous Encounter [id number] Alexei Hahn 1975 M Date Provider Department [facility] 02[facility] Problem Relation Age of Onset Hypertension Mother Hypertension Father Hypertension Sister Other Maternal Grandfather Diabetes type II Maternal Grandfather Family Status - Relation Status Age at Mother Father Sister Maternal Grandfather Reason for Visit and Comments: Error (VOID this visit) [77] Normal [facility] TROPONIN Ion 02-02-2024 Troponin I.cardiac [Mass/Vol] 0.02 ng/mL Normal 0.00-0.04 [facility] Comment on above: Performed By: #### L [id number] ####[facility] [place] [address] CBC WITH AUTO DIFFERENTIALon 02-01-2024 Basophils (Bld) [#/Vol] 0.02 10*3/uL Normal 0.00-0.20 [facility] Comment on above: Performed By: #### L [id number] #### [facility] ([facility]) [address] [place] [address] Basophils/100 WBC (Bld) 0.2 % Normal 0.0-1.0 [facility] Comment on above: Performed By: #### L [id number] #### [facility] ([facility]) [address] [place] [address] Eosinophils (Bld) [#/Vol] 0.01 10*3/uL Normal 0.00-0.50 [facility] Comment on above: Performed By: #### L [id number] #### [facility] ([facility]) [address] [place] [address] Eosinophils/100 WBC (Bld) 0.1 % Normal 0.0-6.0 [facility] Comment on above: Performed By: #### L [id number] #### [facility] ([facility]) [address] [place] [address] Erythrocyte distribution width (RBC) [Ratio] 13.9 % Normal 11.5-15.0 [facility] Comment on above: Performed By: #### L [id number] #### [facility] [address] [place] [address] ERYTHROCYTE MEAN CORPUSCULAR HEMOGLOBIN CONCENTRATION (G/DL) BY AUTOMATED 33.1 g/dL Normal 32.0-35.0 [facility] Comment on above: Performed By: #### L [id number] #### [facility] [address] [place] [address] Hematocrit (Bld) [Volume fraction] 43.5 % Normal 39.0-55.0 [facility] Comment on above: Performed By: #### L [id number] #### [facility] ([facility]) [address] [place] [address] Hemoglobin (Bld) [Mass/Vol] 14.4 g/dL Normal 13.0-17.0 [facility] Comment on above: Performed By: #### L [id number] #### [facility] [address] [place] [address] Immature granulocytes (Bld) [#/Vol] 0.04 10*3/uL Normal 0.00-0.20 [facility] Comment on above: Performed By: #### L [id number] #### [facility] ([facility]) [address] [place] [address] Immature granulocytes/100 WBC (Bld) 0.5 % Normal 0.0-1.0 [facility] Comment on above: Performed By: #### L [id number] #### [facility] [address] [place] [address] Lymphocytes (Bld) [#/Vol] 0.53 10*3/uL Low 1.20-4.00 [facility] Comment on above: Performed By: #### L [id number] #### [facility] ([facility]) [address] [place] [address] Lymphocytes/100 WBC (Bld) 6.4 % Low 20.0-45.0 [facility] Comment on above: Performed By: #### L [id number] #### [facility] ([facility]) [address] [place] [address] MCH (RBC) [Entitic mass] 28.0 pg Normal 27.0-33.0 [facility] Comment on above: Performed By: #### L [id number] #### [facility] ([facility]) [address] [place] [address] MCV (RBC) [Entitic vol] 84.5 fL Normal 82.0-98.0 [facility] Comment on above: Performed By: #### L [id number] #### [facility] ([facility]) [address] [place] [address] Monocytes (Bld) [#/Vol] 0.37 10*3/uL Normal 0.10-1.00 [facility] Comment on above: Performed By: #### L [id number] #### [facility] ([facility]) [address] [place] [address] Monocytes/100 WBC (Bld) 4.5 % Low 5.0-12.0 [facility] Comment on above: Performed By: #### L [id number] #### [facility] ([facility]) [address] [place] [address] Neutrophils (Bld) [#/Vol] 7.26 10*3/uL Normal 1.60-7.60 [facility] Comment on above: Performed By: #### L [id number] #### [facility] ([facility]) [address] [place] [address] Neutrophils/100 WBC (Bld) 88.3 % High 40.0-72.0 [facility] Comment on above: Performed By: #### L [id number] #### [facility] ([facility]) [address] [place] [address] NRBC (PER 100 WBCS) BY AUTOMATED COUNT 0.0 % Normal 0 [facility] Comment on above: Performed By: #### L [id number] #### [facility] ([facility]) [address] [place] [address] PLATELETS (10*3/UL) IN BLOOD AUTOMATED COUNT 245 10*3/uL Normal 150-400 [facility] Comment on above: Performed By: #### L [id number] #### [facility] [address] [place] [address] RBC (Bld) [#/Vol] 5.15 10*6/uL Normal 4.20-5.70 [facility] Comment on above: Performed By: #### L [id number] #### [facility] ([facility] [address] [place] [address] WBC (Bld) [#/Vol] 8.23 10*3/uL Normal 4.00-10.60 [facility] Comment on above: Performed By: #### L [id number] #### [facility] ([facility] [address] [place] [address] COMPREHENSIVE METABOLIC PANE Ronald 02-01-2024 Albumin [Mass/Vol] 4.6 g/dL Normal 3.5-5.[address] [facility] Comment on above: Performed By: #### L [id number] ####[facility] ([facility] [place] [address] ALP [Catalytic activity/Vol] 70 U/L Normal 34-104 [facility] Comment on above: Performed By: #### L [id number] ####[facility] ([facility] [place] [address] ALT [Catalytic activity/Vol] 18 U/L Normal 7-52 [facility] Comment on above: Performed By: #### L [id number] ####[facility] ([facility] [place] [address] Anion gap [Moles/Vol] 14 mmol/L Normal 7-20 [facility] Comment on above: Performed By: #### L [id number] ####[facility] ([facility] [place] [address] AST [Catalytic activity/Vol] 15 U/L Normal 13-39 [facility] Comment on above: Performed By: #### L [id number] ####[facility] ([facility])[address] [place] [address] Bilirubin [Mass/Vol] 0.4 mg/dL Normal 0.3-1.0 [facility] Comment on above: Performed By: #### L [id number] ####[facility] ([facility] [place] [address] Calcium [Mass/Vol] 9.5 mg/dL Normal 8.6-10.[address] [facility] Comment on above: Performed By: #### L [id number] ####[facility] ([facility])[address] [place] [address] Chloride [Moles/Vol] 107 mmol/L Normal 98-107 [facility] Comment on above: Performed By: #### L [id number] ####[facility] ([facility])[address] [place] [address] CO2 [Moles/Vol] 20 mmol/L Low 21-31 [facility] Comment on above: Performed By: #### L [id number] ####[facility] ([facility])[address] [place] [address] Creatinine [Mass/Vol] 1.21 mg/dL Normal 0.70-1.30 [facility] Comment on above: Performed By: #### L [id number] ####[facility] ([facility])[address] [place] [address] GLOMERULAR FILTRATION RATE ML/MIN/1.73 SQ M.PREDICTED 73.9 mL/min/1.73m*2 Normal >60.0 [facility] Comment on above: Result Comment: The [facility]???s estimated glomerular filtration rate (eGFR) will no longer include consideration of race in its calculation. The National Kidney Foundation???s eGFR Task Force developed new recommendations for the estimation of the glomerular filtration rate in the [place] They recommend immediate implementation of the new equation refit without the race variable in all laboratories because the calculation does not include race. In addition to not including race in the calculation and reporting, it included diversity in its development, and has acceptable performance characteristics and potential consequences that do not disproportionately affect any one group of individuals. Performed By: #### L [id number] ####[facility] ([facility])[address] [place] [address] Glucose [Mass/Vol] 127 mg/dL High 70-[address] [facility] Comment on above: Performed By: #### L [id number] ####[facility] ([facility])[address] [place] [address] Potassium [Moles/Vol] 3.3 mmol/L Low 3.5-5.1 [facility] Comment on above: Performed By: #### L [id number] ####[facility] ([facility])[address] [place] [address] Protein [Mass/Vol] 7.2 g/dL Normal 6.0-8.[address] [facility] Comment on above: Performed By: #### L [id number] ####[facility] ([facility])[address] [place] [address] Sodium [Moles/Vol] 138 mmol/L Normal 136-[address] [facility] Comment on above: Performed By: #### L [id number] ####[facility] ([facility])[address] [place] [address] Urea nitrogen [Mass/Vol] 19 mg/dL Normal 7-25 [facility] Comment on above: Performed By: #### L [id number] ####[facility] ([facility])[address] [place] [address] UREA NITROGEN/CREATININE (MASS RATIO) IN SER/PLAS 15.7 Normal [facility] Comment on above: Performed By: #### L [id number] ####[facility] ([facility])[address] [place] [address] CONSULTon 02-01-2024 CONSULT -- Attestation signed by Alec Rodriges MD at 02/01/2024 3:15 PM I personally saw and examined the patient on the same date of service as resident Dr Auguste . I reviewed and edited the note that was written by the redsident. All entries reflect an accurate accounting of the evaluation and care rendered by me. As the teaching physician, I have personally performed or re-performed the history of present illness, physical exam and medical decision making activities of the encounter and verified the resident's documentation. I made pertinent changes as necessary to ensure accurate documentation. [facility] General Surgery CONSULTATION History of Present Illness: Marisela Hahn is a 48 y.o. male known to the surgery service for perforated appendicitis s/p perc drain on 01/03. Patient progressed well and was discharged home on 10 days of antibiotics. Perc drain removed on 01/10 in clinic. Patient was doing well until he began experiencing suprapubic/LLQ pain this morning. Patient also states he passed out twice during defecation today so he presented to the ED. In the ED WBC found to be normal. CT AP which demonstrated interval improvement in abscess with some residual inflammatory changes. General surgery consulted Patient denies any nausea, vomiting, fevers, or chills. States he used to follow with neurology for these syncopal events Review of Systems Constitutional: Negative for activity change, chills, fatigue and fever. Respiratory: Negative for cough, chest tightness and shortness of breath. Cardiovascular: Negative for chest pain, palpitations and leg swelling. Gastrointestinal: Positive for abdominal pain. Negative for abdominal distention, constipation, diarrhea, nausea and vomiting. Neurological: Positive for light-headedness. Past Medical History: Diagnosis Date Anxiety Essential hypertension GERD (gastroesophageal reflux disease) Mixed hyperlipidemia Morbid obesity with BMI of 40.0-44.9, adult ([facility]) Morbid obesity with body mass index (BMI) of 40.0 to 44.9 in adult ([facility]) 11/24/2021 Resistant hypertension 11/24/2021 Spina bifida ([facility]) 05/11/2022 Syncope and collapse Tobacco dependence 11/24/2021 Past Surgical History: Procedure Laterality Date MYRINGOTOMY W/ TUBES Allergies Allergen Reactions Keflex [Cephalexin] Rash Current Facility-Administered Medications: piperacillin-tazobacta m (Zosyn) 4.5 g in sodium chloride 0.9 % 100 mL IVPB, 4.5 g, intravenous, Once, Mariah Cazares MD, Last Rate: 200 mL/hr at 02/01/24 1246, 4.5 g at 02/01/24 1246 Current Outpatient Medications: acetaminophen (Tylenol) 500 mg tablet, Take 2 tablets (1,000 mg) by mouth every 8 (eight) hours for 290 doses., Disp: 30 tablet, Rfl: 0 aspirin 81 mg EC tablet, Take 81 mg by mouth at bedtime., Disp: , Rfl: chlorthalidone (Hygroton) 25 mg tablet, TAKE 1 TABLET BY MOUTH IN THE MORNING, Disp: 90 tablet, Rfl: 3 escitalopram (Lexapro) 10 mg tablet, Take 20 mg by mouth in the morning., Disp: , Rfl: lisinopril 40 mg tablet, Take 40 mg by mouth in the morning., Disp: , Rfl: NIFEdipine XL (Procardia XL) 60 mg 24 hr tablet, Take 1 tablet (60 mg) by mouth in the morning. Do not crush, chew, or split. Stop taking amlodipine. Start with taking nifedipine 60mg once daily. Continue to monitor BP., Disp: 90 tablet, Rfl: 3 spironolactone (Aldactone) 25 mg tablet, Take 1 tablet (25 mg) by mouth in the morning., Disp: 90 tablet, Rfl: 3 spironolactone (Aldactone) 25 mg tablet, Take 1 tablet (25 mg) by mouth in the morning., Disp: 90 tablet, Rfl: 3 topiramate (Topamax) 25 mg tablet, Take 25 mg by mouth two times daily., Disp: , Rfl: venlafaxine XR (Effexor-XR) 150 mg 24 hr capsule, Take 75 mg by mouth in the morning. Do not crush or chew., Disp: , Rfl: Social History Socioeconomic History Marital status: Spouse name: Not on file Number of children: Not on file Years of education: Not on file Highest education level: Not on file Occupational History Not on file Tobacco Use Smoking status: Never Smokeless tobacco: Never Substance and Sexual Activity Alcohol use: Not Currently Comment: 1-2 drinks/week Drug use: Never Sexual activity: Not on file Other Topics Concern Not on file Social History Narrative Not on file Social Determinants of Health Financial Resource Strain: Low Risk (01/11/2024) Overall Financial Resource Strain (CARDIA) Difficulty of Paying Living Expenses: Not very hard Food Insecurity: No Food Insecurity (01/11/2024) Hunger Vital Sign Worried About Running Out of Food in the Last Year: Never true Ran Out of Food in the Last Year: Not on file Transportation Needs: No Transportation Needs (01/11/2024) Transportation Lack of Transportation (Medical): (more content not included)... Normal [facility] CT ABDOMEN PELVIS W IV CONTR Champ 02-01-2024 CT ABDOMEN PELVIS W IV CONTRAST History: Lower abdominal pain Technique: Contiguous axial images through the abdomen pelvis were obtained following the intravenous administration of contrast material. Automated exposure control was utilized. Comparison: 01/04/2024 Findings: The periappendiceal abscess seen on previous examination is no longer demonstrated. There is however a tubular fluid-filled fluid-filled structure projecting from the cecum that has the appearance of a distended appendix. Correlation with patient's surgical history is recommended. If this is the appendix, it is distended and fluid-filled measuring 1.9 cm in diameter. It has a thickened wall and there are inflammatory changes in the adjacent fat. These findings are consistent with acute appendicitis. There is no evidence of any hepatic, splenic, renal, pancreatic, or gallbladder abnormalities. There are stable bilateral adrenal gland nodules. No abdominal or retroperitoneal masses or adenopathy are seen. No pelvic masses, adenopathy, fluid collections are identified. Limited images of the lung bases are unremarkable. IMPRESSION: Impression: * Resolution of the periappendiceal abscess seen on the previous examination dated 01/04/2024 * There are findings of acute appendicitis. There is a distended fluid-filled tubular structure with a large calcification within it has the appearance of inflamed appendix with inflammatory changes in adjacent fat.. Correlation with patient's surgical history is recommended. No perforation or abscess formation is demonstrated on the current study. * Stable bilateral adrenal gland nodules. All CT scans at this facility use dose modulation, iterative reconstruction, and/or weight based dosing when appropriate to reduce radiation dose to as low as reasonably achievable. Electronically signed: Marcella Urena. [facility] EDPROVon 02-01-2024 EDPROV History of Present Illness Chief Complaint Patient presents with ??? Abdominal Pain Pt reports abdominal pain starting 5 am this morning. Pt also reports bloody stool, diarrhea, and syncope x 2. Pt reports falling when he had a syncope, denies any injury at this time. Pt states he had a ruptured appendix appx 3-4 weeks ago. Initial evaluation completed by Dr. Cazares at 10:34 AM. Marisela Hahn, is a 48 y/o male presenting to the ED with c/o Abdominal Pain. Pt reports that he was seen here for perforated appendicitis mid december. Pt reports that he was admitted to the hospital for a couple days and had a drain placed. He states that he was given anti-biotics and states that he has finished his course of anti-biotics. Today, pt endorses sharp lower abdomen pain, coughing, and reports that he passed out twice this morning. Pt cannot recall feeling dizziness or light headedness at the time of him passing out. He also denies diarrhea, but states that he has increased urgency when he has to pass a bowel movement and also states to have maroon stool. He denies any nausea, vomiting, fever, chills, back pain, Pt reports to have a medical hx of Htn, but states he is on medication for this and even reports that his PCP told him that his blood pressure has come down. He denies any prior abd surgeries. History provided by: Patient Clayton Coma Scale Score: 15 History Past Medical History: Diagnosis Date ??? Anxiety ??? Essential hypertension ??? GERD (gastroesophageal reflux disease) ??? Mixed hyperlipidemia ??? Morbid obesity with BMI of 40.0-44.9, adult ([facility]) ??? Morbid obesity with body mass index (BMI) of 40.0 to 44.9 in adult ([facility]) 11/24/2021 ??? Resistant hypertension 11/24/2021 ??? Spina bifida ([facility]) 05/11/2022 ??? Syncope and collapse ??? Tobacco dependence 11/24/2021 Past Surgical History: Procedure Laterality Date ??? MYRINGOTOMY W/ TUBES Family History Problem Relation Name Age of Onset ??? Hypertension Mother ??? Hypertension Father ??? Hypertension Sister ??? Other (CVA) Maternal Grandfather ??? Diabetes type II Maternal Grandfather Social History Tobacco Use ??? Smoking status: Never ??? Smokeless tobacco: Never Substance Use Topics ??? Alcohol use: Not Currently Comment: 1-2 drinks/week ??? Drug use: Never Review of Systems Review of Systems Constitutional: Negative for diaphoresis and fever. Respiratory: Positive for cough. Negative for shortness of breath. Cardiovascular: Negative for chest pain. Gastrointestinal: Positive for abdominal pain and blood in stool. Negative for diarrhea, nausea and vomiting. Musculoskeletal: Negative for back pain. Neurological: Positive for syncope. Physical Exam ED Triage Vitals [02/01/24 1020] Temp Heart Rate Resp BP 36.2 ???C (97.2 ???F) 70 18 109/71 SpO2 Temp Source Heart Rate Source Patient Position 97 % Tympanic -- -- BP Location FiO2 (%) -- -- Physical Exam Vitals reviewed. Constitutional: Appearance: Normal appearance. HENT: Head: Normocephalic and atraumatic. Mouth/Throat: Mouth: Mucous membranes are moist. Eyes: Conjunctiva/sclera: Conjunctivae normal. Cardiovascular: Rate and Rhythm: Normal rate and regular rhythm. Pulses: Normal pulses. Heart sounds: Normal heart sounds. Pulmonary: Effort: Pulmonary effort is normal. Breath sounds: Normal breath sounds. Abdominal: General: Abdomen is flat. Palpations: Abdomen is soft. Tenderness: There is abdominal tenderness (Diffused lower left side of the abdomen to palpation). Musculoskeletal: Cervical back: Neck supple. Comments: Normal movement Skin: General: Skin is warm and dry. Capillary Refill: Capillary refill takes less than 2 seconds. Neurological: General: No focal deficit present. Mental Status: He is alert and oriented to person, place, and time. Psychiatric: Mood and Affect: Mood normal. Behavior: Behavior normal. Procedures ED Course & MDM ED Course as of 02/01/24 1258 Valeria Feb 01, 2024 1229 GS consulted [AT] 1250 Gen surg evaluated patient, plan to continue IV abx, request hospitalist for primary admitting team due to patient with syncope this am [AT] ED Course User Index [AT] Mariah Cazares MD Diagnoses as of 02/01/24 1258 Acute appendicitis with localized peritonitis, without perforation, abscess, or gangrene Syncope, unspecified syncope type Medical Decision Making General Surgery consulted for acute appendicitis Amount and/or Complexity of Data Reviewed Labs: ordered. Decision-making details documented in ED Course. Radiology: ordered. Decision-making details documented in ED Course. Risk Decision regarding hospitalization. I, Ronnie lam, documented on behalf of Dr. Cazares. Chief complaint: Abdominal Pain Plan of Care:Clostridioides difficile DNA amplification, Enteric bacteria DNA panel, CT abdomen pelvis w IV contra (more content not included)... Normal [facility] HEMOGLOBIN A1Con 02-01-2024 Glucose [Mass/Vol] 123 mg/dL Normal [facility] Comment on above: Performed By: #### L [id number] #### [facility] ([facility]) [address] [place] [address] HbA1c (Bld) [Mass fraction] 5.9 % Normal 4.0-6.0 [facility] Comment on above: Performed By: #### L [id number] #### [facility] [address] [place] [address] LIPID PANELon 02-01-2024 CHOL/HDL 5.0 mg/dL Normal [facility] Comment on above: Performed By: #### L [id number] #### [facility] [address] [place] [address] Cholesterol [Mass/Vol] 181 mg/dL Normal 120-200 [facility] Comment on above: Performed By: #### L [id number] #### [facility] ([facility]) [address] [place] [address] Magnesium [Mass/Vol] 185 mg/dL High 40-149 [facility] Comment on above: Result Comment: TRIG LYCERIDE REFERENCE RANGE: 20 YEARS AND OLDER CARDIOVASCULAR RISK LESS THAN 150 mg/dL LOW RISK 150 TO 199 mg/dL BORDERLINE RISK 200 mg/dL AND GREATER HIGH RISK Performed By: #### L [id number] #### [facility] ([facility]) [address] [place] [address] Magnesium [Mass/Vol] 108 mg/dL Normal 0-160 [facility] Comment on above: Performed By: #### L [id number] #### [facility] ([facility] [address] [place] [address] Magnesium [Mass/Vol] 36 mg/dL Normal 23-92 [facility] Comment on above: Performed By: #### L [id number] #### [facility] ([facility]) [address] [place] [address] NON HDL CHOL. (LDL+VLDL) 145 Normal [facility] Comment on above: Performed By: #### L [id number] #### [facility] ([facility]) [address] [place] [address] TOTAL VLDL-C 37 mg/dL Normal 0-40 [facility] Comment on above: Performed By: #### L [id number] #### [facility] ([facility]) [address] [place] [address] TROPONIN Ion 02-01-2024 Troponin I.cardiac [Mass/Vol] 0.00 ng/mL Normal 0.00-0.04 [facility] Comment on above: Performed By: #### L [id number] #### [facility] ([facility]) [address] [place] [address] Troponin I.cardiac [Mass/Vol] 0.00 ng/mL Normal 0.00-0.04 [facility] Comment on above: Performed By: #### L [id number] #### [facility] ([facility]) [address] [place] [address] BASIC METABOLIC PANELon 11-0 Anion gap [Moles/Vol] 12 mmol/L Normal 7-20 [facility] Comment on above: Performed By: #### L [id number] #### [facility] ([facility]) [address] [place] [address] Calcium [Mass/Vol] 9.3 mg/dL Normal 8.6-10.[address] [facility] Comment on above: Performed By: #### L [id number] #### [facility] ([facility]) [address] [place] [address] Chloride [Moles/Vol] 105 mmol/L Normal 98-107 [facility] Comment on above: Performed By: #### L [id number] #### [facility] [address] [place] [address] CO2 [Moles/Vol] 25 mmol/L Normal 21-31 [facility] Comment on above: Performed By: #### L [id number] #### [facility] ([facility]) [address] [place] [address] Creatinine [Mass/Vol] 1.22 mg/dL Normal 0.70-1.30 [facility] Comment on above: Performed By: #### L [id number] #### [facility] ([facility]) [address] [place] [address] GLOMERULAR FILTRATION RATE ML/MIN/1.73 SQ M.PREDICTED 73.1 mL/min/1.73m*2 Normal >60.0 [facility] Comment on above: Result Comment: The [facility]???s estimated glomerular filtration rate (eGFR) will no longer include consideration of race in its calculation. The National Kidney Foundation???s eGFR Task Force developed new recommendations for the estimation of the glomerular filtration rate in the [place] They recommend immediate implementation of the new equation refit without the race variable in all laboratories because the calculation does not include race. In addition to not including race in the calculation and reporting, it included diversity in its development, and has acceptable performance characteristics and potential consequences that do not disproportionately affect any one group of individuals. Performed By: #### L [id number] #### [facility] ([facility]) [address] [place] [address] Glucose [Mass/Vol] 132 mg/dL High 70-[address] [facility] Comment on above: Performed By: #### L [id number] #### [facility] ([facility]) [address] [place] [address] Potassium [Moles/Vol] 3.7 mmol/L Normal 3.5-5.1 [facility] Comment on above: Performed By: #### L [id number] #### [facility] ([facility]) [address] [place] [address] Sodium [Moles/Vol] 138 mmol/L Normal 136-[address] [facility] Comment on above: Performed By: #### L [id number] #### [facility] [address] [place] [address] Urea nitrogen [Mass/Vol] 20 mg/dL Normal 7-25 [facility] Comment on above: Performed By: #### L [id number] #### [facility] [address] [place] [address] UREA NITROGEN/CREATININE (MASS RATIO) IN SER/PLAS 16.4 Normal [facility] Comment on above: Performed By: #### L [id number] #### [facility] ([facility]) [address] [place] [address] CBCon 01-17-2024 Erythrocyte distribution width (RBC) [Ratio] 13.3 % Normal 11.5-15.0 [facility] Comment on above: Performed By: #### L [id number] ####[facility] ([facility])[address] [place] [address] ERYTHROCYTE MEAN CORPUSCULAR HEMOGLOBIN CONCENTRATION (G/DL) BY AUTOMATED 31.4 g/dL Low 32.0-35.0 [facility] Comment on above: Performed By: #### L [id number] ####[facility] ([facility])[address] [place] [address] Hematocrit (Bld) [Volume fraction] 42.7 % Normal 39.0-55.0 [facility] Comment on above: Performed By: #### L [id number] ####[facility] [place] [address] Hemoglobin (Bld) [Mass/Vol] 13.4 g/dL Normal 13.0-17.0 [facility] Comment on above: Performed By: #### L [id number] ####[facility] ([facility])[address] [place] [address] MCH (RBC) [Entitic mass] 27.5 pg Normal 27.0-33.0 [facility] Comment on above: Performed By: #### L [id number] ####[facility] ([facility])[address] [place] [address] MCV (RBC) [Entitic vol] 87.7 fL Normal 82.0-98.0 [facility] Comment on above: Performed By: #### L [id number] ####[facility] [place] [address] PLATELETS (10*3/UL) IN BLOOD AUTOMATED COUNT 383 10*3/uL Normal 150-400 [facility] Comment on above: Performed By: #### L [id number] ####[facility] ([facility])[address] [place] [address] RBC (Bld) [#/Vol] 4.87 10*6/uL Normal 4.20-5.70 [facility] Comment on above: Performed By: #### L [id number] ####[facility] ([facility])[address] [place] [address] WBC (Bld) [#/Vol] 6.12 10*3/uL Normal 4.00-10.60 [facility] Comment on above: Performed By: #### L [id number] ####[facility] ([facility])[address] [place] [address] Consulton 01-17-2024 Consult [id number] Alexei Hahn 1975 Provider Department [place] 01/17/2024 Larissa-BRITTNI SWIFT [facility] SURG Second Fl Family History Problem Relation Age of Onset Hypertension Mother Hypertension Father Hypertension Sister Other Maternal Grandfather Diabetes type II Maternal Grandfather Family Status - Relation Status Age at Mother Father Sister Maternal Grandfather Level of Service:77172 [place] OFFICE/OUTPATIENT NEW MODERATE MDM 45 MINUTES Reason for Visit and Comments: Colonoscopy [235] - Wants to see if he needs a colonoscopy Normal [facility] Labon 01-17-2024 Lab [id number] Alexei Hahn 1975 Provider Department [place] 01/17/2024 2245-[facility] OPD LAB RESOURCE [facility] Family History Problem Relation Age of Onset Hypertension Mother Hypertension Father Hypertension Sister Other Maternal Grandfather Diabetes type II Maternal Grandfather Family Status - Relation Status Age at Mother Father Sister Maternal Grandfather Normal [facility] Consulton 01-11-2024 Consult [id number] Alexei Hahn 1975 M Date Provider Department Center 01/11/2024 54826-CAHRAFY [facility] SURG Second Fl Family History Problem Relation Age of Onset Hypertension Mother Hypertension Father Hypertension Sister Other Maternal Grandfather Diabetes type II Maternal Grandfather Family Status - Relation Status Age at Mother Father Sister Maternal Grandfather Level of Service:92637 [place] OFFICE/OUTPATIENT ESTABLISHED LOW MDM 20 MIN Reason for Visit and Comments: Consult [484] - Marisela Hahn is here for a consult for Hospital Follow up: potential interval appendectomy [facility] 36on 01-08-2024 36 Patient notified Normal [facility] 36 Patient was started on Augmentin 875-125mg in 01/06/24, patient states pharmacy informed him that this medication is a cousin to Keflex which he is allergic to so patient is requesting a different medication to be sent to the pharmacy Patient is scheduled to come into the office on 01/11/24 [facility] BASIC METABOLIC PANELon 10-2 Anion gap [Moles/Vol] 11 mmol/L Normal 7-20 [facility] Comment on above: Performed By: #### L [id number] ####[facility] ([facility])[address] [place] [address] Calcium [Mass/Vol] 8.7 mg/dL Normal 8.6-10.[address] [facility] Comment on above: Performed By: #### L [id number] ####[facility] ([facility])[address] [place] [address] Chloride [Moles/Vol] 105 mmol/L Normal 98-107 [facility] Comment on above: Performed By: #### L [id number] ####[facility] ([facility])[address] [place] [address] CO2 [Moles/Vol] 24 mmol/L Normal 21-31 [facility] Comment on above: Performed By: #### L [id number] ####[facility] ([facility])[address] [place] [address] Creatinine [Mass/Vol] 1.19 mg/dL Normal 0.70-1.30 [facility] Comment on above: Performed By: #### L [id number] ####[facility] ([facility])[address] [place] [address] GLOMERULAR FILTRATION RATE ML/MIN/1.73 SQ M.PREDICTED 75.3 mL/min/1.73m*2 Normal >60.0 [facility] Comment on above: Result Comment: The [facility]???s estimated glomerular filtration rate (eGFR) will no longer include consideration of race in its calculation. The National Kidney Foundation???s eGFR Task Force developed new recommendations for the estimation of the glomerular filtration rate in the [place] They recommend immediate implementation of the new equation refit without the race variable in all laboratories because the calculation does not include race. In addition to not including race in the calculation and reporting, it included diversity in its development, and has acceptable performance characteristics and potential consequences that do not disproportionately affect any one group of individuals. Performed By: #### L [id number] ####[facility] ([facility])[address] [place] [address] Glucose [Mass/Vol] 112 mg/dL High 70-[address] [facility] Comment on above: Performed By: #### L [id number] ####[facility] ([facility])[address] [place] [address] Potassium [Moles/Vol] 3.3 mmol/L Low 3.5-5.1 [facility] Comment on above: Performed By: #### L [id number] ####[facility] ([facility])[address] [place] [address] Sodium [Moles/Vol] 137 mmol/L Normal 136-[address] [facility] Comment on above: Performed By: #### L [id number] ####[facility] ([facility])[address] [facility] [place] [address] Urea nitrogen [Mass/Vol] 19 mg/dL Normal 7-25 [facility] Comment on above: Performed By: #### L [id number] ####[facility] ([facility])[address] [place] [address] UREA NITROGEN/CREATININE (MASS RATIO) IN SER/PLAS 16.0 Normal [facility] Comment on above: Performed By: #### L [id number] ####[facility] ([facility])[address] [place] [address] CBC WITH AUTO DIFFERENTIALon 01-06-2024 Basophils (Bld) [#/Vol] 0.07 10*3/uL Normal 0.00-0.20 [facility] Comment on above: Performed By: #### L [id number] #### [facility] ([facility]) [address] [place] [address] Basophils/100 WBC (Bld) 0.8 % Normal 0.0-1.0 [facility] Comment on above: Performed By: #### L [id number] #### [facility] ([facility]) [address] [place] [address] Eosinophils (Bld) [#/Vol] 0.15 10*3/uL Normal 0.00-0.50 [facility] Comment on above: Performed By: #### L [id number] #### [facility] ([facility]) [address] [place] [address] Eosinophils/100 WBC (Bld) 1.7 % Normal 0.0-6.0 [facility] Comment on above: Performed By: #### L [id number] #### [facility] ([facility]) [address] [place] [address] Erythrocyte distribution width (RBC) [Ratio] 13.3 % Normal 11.5-15.0 [facility] Comment on above: Performed By: #### L [id number] #### [facility] ([facility]) [address] [place] [address] ERYTHROCYTE MEAN CORPUSCULAR HEMOGLOBIN CONCENTRATION (G/DL) BY AUTOMATED 32.6 g/dL Normal 32.0-35.0 [facility] Comment on above: Performed By: #### L [id number] #### [facility] [address] [place] [address] Hematocrit (Bld) [Volume fraction] 39.3 % Normal 39.0-55.0 [facility] Comment on above: Performed By: #### L [id number] #### [facility] [address] [place] [address] Hemoglobin (Bld) [Mass/Vol] 12.8 g/dL Low 13.0-17.0 [facility] Comment on above: Performed By: #### L [id number] #### [facility] [address] [facility] [place] [address] Immature granulocytes (Bld) [#/Vol] 0.37 10*3/uL High 0.00-0.20 [facility] Comment on above: Performed By: #### L [id number] #### [facility] ([facility]) [address] [place] [address] Immature granulocytes/100 WBC (Bld) 4.1 % High 0.0-1.0 [facility] Comment on above: Performed By: #### L [id number] #### [facility] ([facility]) [address] [place] [address] Lymphocytes (Bld) [#/Vol] 1.18 10*3/uL Low 1.20-4.00 [facility] Comment on above: Performed By: #### L [id number] #### [facility] ([facility]) [address] [place] [address] Lymphocytes/100 WBC (Bld) 13.1 % Low 20.0-45.0 [facility] Comment on above: Performed By: #### L [id number] #### [facility] ([facility]) [address] [place] [address] MCH (RBC) [Entitic mass] 28.1 pg Normal 27.0-33.0 [facility] Comment on above: Performed By: #### L [id number] #### [facility] ([facility]) [address] [place] [address] MCV (RBC) [Entitic vol] 86.2 fL Normal 82.0-98.0 [facility] Comment on above: Performed By: #### L [id number] #### [facility] ([facility]) [address] [place] [address] Monocytes (Bld) [#/Vol] 0.94 10*3/uL Normal 0.10-1.00 [facility] Comment on above: Performed By: #### L [id number] #### [facility] ([facility]) [address] [place] [address] Monocytes/100 WBC (Bld) 10.4 % Normal 5.0-12.0 [facility] Comment on above: Performed By: #### L [id number] #### [facility] ([facility]) [address] [place] [address] Neutrophils (Bld) [#/Vol] 6.29 10*3/uL Normal 1.60-7.60 [facility] Comment on above: Performed By: #### L [id number] #### [facility] ([facility]) [address] [place] [address] Neutrophils/100 WBC (Bld) 69.9 % Normal 40.0-72.0 [facility] Comment on above: Performed By: #### L [id number] #### [facility] ([facility]) [address] [place] [address] NRBC (PER 100 WBCS) BY AUTOMATED COUNT 0.0 % Normal 0 [facility] Comment on above: Performed By: #### L [id number] #### [facility] [address] [place] [address] PLATELETS (10*3/UL) IN BLOOD AUTOMATED COUNT 284 10*3/uL Normal 150-400 [facility] Comment on above: Performed By: #### L [id number] #### [facility] ([facility]) [address] [place] [address] RBC (Bld) [#/Vol] 4.56 10*6/uL Normal 4.20-5.70 [facility] Comment on above: Performed By: #### L [id number] #### [facility] ([facility]) [address] [place] [address] WBC (Bld) [#/Vol] 9.00 10*3/uL Normal 4.00-10.60 [facility] Comment on above: Performed By: #### L [id number] #### [facility] ([facility]) [address] [place] [address] DSon 01-06-2024 DS Admission Admitted 01/03/2024 for Acute perforated appendicitis with abscess Discharge Diagnosis Acute appendicitis with perforation, localized peritonitis, and abscess Discharge Disposition Home or Self Care () Discharge Medications Your medication list START taking these medications Instructions Last Dose Given Next Dose Due acetaminophen 500 mg tablet Commonly known as: Tylenol Take 2 tablets (1,000 mg) by mouth every 8 (eight) hours for 290 doses. amoxicillin-pot clavulanate 875-125 mg tablet Commonly known as: Augmentin Take 1 tablet by mouth two times daily for 10 days. oxyCODONE 5 mg immediate release tablet Commonly known as: Roxicodone Take 1 tablet (5 mg) by mouth every 8 (eight) hours if needed (moderate pain (4-7)) for up to 4 days. CONTINUE taking these medications Instructions Last Dose Given Next Dose Due aspirin 81 mg EC tablet chlorthalidone 25 mg tablet Commonly known as: Hygroton TAKE 1 TABLET BY MOUTH IN THE MORNING escitalopram 10 mg tablet Commonly known as: Lexapro lisinopril 40 mg tablet NIFEdipine XL 60 mg 24 hr tablet Commonly known as: Procardia XL Take 1 tablet (60 mg) by mouth in the morning. Do not crush, chew, or split. Stop taking amlodipine. Start with taking nifedipine 60mg once daily. Continue to monitor BP. spironolactone 25 mg tablet Commonly known as: Aldactone Take 1 tablet (25 mg) by mouth in the morning. spironolactone 25 mg tablet Commonly known as: Aldactone Take 1 tablet (25 mg) by mouth in the morning. topiramate 25 mg tablet Commonly known as: Topamax venlafaxine XR 150 mg 24 hr capsule Commonly known as: Effexor-XR Where to Get Your Medications You can get these medications from any pharmacy Bring a paper prescription for each of these medications acetaminophen 500 mg tablet amoxicillin-pot clavulanate 875-125 mg tablet oxyCODONE 5 mg immediate release tablet Activity Normal activity as tolerated Driving instructions: do not drive if still having significant pain or if taking narcotic pain medications. Showering instructions: ok to shower over drain, please be careful with drain to avoid accidental dislodgement. No tub baths or pools. Diet Low fiber diet. Drink plenty of water. Allergies Keflex [cephalexin] Hospital Course Marisela Hahn is a 48 male who presented with perforated acute appendicitis with associated abscess (5.2 cm). Patient was managed non operatively with IR drain placement. WBC has normalized, tolerating diet and having bowel function. Pain is minimal and well controlled with oral meds. Patient to go home on oral antibiotics for 10 more days and will follow up in surgery office with repeat CT scan to discuss potential interval appendectomy. All questions and concerns were answered. Pertinent Physical Exam At Time of Discharge Physical Exam General Appearance: Awake, Alert & Oriented x3, No Acute Distress Neck: Trachea Midline, No jugular venous distension Pulmonary: Unlabored breathing on room air. No expiratory wheeze. Cardiac: Regular rate Abdomen: soft, minimal tenderness, nondistended, no peritonitis. IR drain with scant purulent discharge. Extremity: No edema Bilateral Upper and lower Extremities Skin: warm and dry without rash Eyes: no scleral icterus Lab Results Labs Reviewed ABSCESS CULTURE - Abnormal Result Value Culture Moderate Growth Escherichia coli (*) Gram Stain Result Many Polymorphonuclear leukocytes Gram Stain Result Many Gram negative bacilli Gram Stain Result Many Gram positive bacilli Gram Stain Result Value: Many Gram positive cocci in pairs, chains and clusters COMPREHENSIVE METABOLIC PANEL - Abnormal Sodium 137 Potassium 3.6 Chloride 105 CO2 22 Anion Gap 14 BUN 26 (*) Creatinine 1.37 (*) BUN/Creatinine Ratio 19.0 Glucose 122 (*) Calcium 8.5 (*) AST 12 (*) ALT (SGPT) 19 Alkaline Phosphatase 58 Total Protein 6.7 Albumin 3.7 Total Bilirubin 0.5 eGFR 63.6 PROTIME-INR - Abnormal Protime 14.6 INR 1.14 (*) CBC WITH AUTO DIFFERENTIAL - Abnormal Auto WBC 12.98 (*) RBC 4.51 Hemoglobin 12.7 (*) Hematocrit 38.7 (*) MCV 85.8 MCH 28.2 MCHC 32.8 RDW 13.4 Platelets 288 nRBC % 0.0 POCT GLUCOSE METER UNSOLICITED RESULTS - Abnormal Glucose POC 140 (*) Narrative: Waived Testing in the ED is performed under the ED CLIA certificate #[id number]. BASIC METABOLIC PANEL - Abnormal Sodium 138 Potassium 3.3 (*) Chloride 107 CO2 24 BUN 26 (*) Creatinine 1.27 Glucose 125 (*) Calcium 8.4 (*) Anion Gap 10 eGFR 69.7 BUN/Creatinine Ratio 20.5 CBC WITH AUTO DIFFERENTIAL - Abnormal Auto WBC 11.82 (*) RBC 4.24 Hemoglobin 12.0 (*) Hematocrit 36.8 (*) MCV 86.8 MCH 28.3 MCHC 32.6 RDW 13.6 Platelets 249 nRBC % 0.0 POCT GLUCOSE METER UNSOLICITED RESULTS - Abnormal Glucose POC 153 (*) Narrative: Waived Testing in the ED is performed under the ED CLIA certificat (more content not included)... Normal [facility] MAGNESIUMon 01-06-2024 Magnesium [Mass/Vol] 2.2 mg/dL Normal 1.9-2.7 [facility] Comment on above: Performed By: #### L [id number] #### [facility] ([facility]) [address] [place] [address] PHOSPHORUSon 01-06-2024 Magnesium [Mass/Vol] 2.9 mg/dL Normal 2.5-5.0 [facility] Comment on above: Performed By: #### L [id number] #### [facility] ([facility]) [address] [place] [address] POCT GLUCOSE METER UNSOLICIT ED RESULTSon 01-06-2024 Glucose [Mass/Vol] 177 mg/dL High 70-105 [facility] Comment on above: Order Comment: Waive d Testing in the ED is performed under the ED CLIA certificate #[id number]. Result Comment: [email or web address] [email or web address] Performed By: #### L [id number] #### [facility]) [address] [place] [address] 30on 01-05-2024 30 The patient is Moderately Stable - Low risk of patient condition declining or worsening The patient's goals for the shift include The clinical goals for the shift include comfort Problem: Pain - Adult Goal: Verbalizes/displays adequate comfort level or baseline comfort level Outcome: Progressing Problem: Safety - Adult Goal: Free from fall injury Outcome: Progressing Problem: Discharge Planning Goal: Discharge to home or other facility with appropriate resources Outcome: Progressing Problem: Chronic Conditions and Co-morbidities Goal: Patient's chronic conditions and co-morbidity symptoms are monitored and maintained or improved Outcome: Progressing Normal [facility] 30 Daily Case Managemen t Update Multidisciplinary rounds have been completed. Barriers to Discharge: Patient is medically ready for discharge at this time. CT guided drain placement yest to periappendiceal abscess. Advancing diet. Likely MR for DC 01/05. PT/OT rec home w/ assist. Diet: Dietary Orders (From admission, onward) Start Ordered 01/05/24 07 Regular Diet Fiber Restricted Diet effective now Question Answer Comment Room Service? Yes Other restriction(s): Fiber Restricted 01/05/24711 Physician Expected Discharge Date: 01/05/2024 Discharge Delays: PT Six Click Score: 22 OT Six Click Score: 21 PT Recommendations: Home, With assist OT Recommendations: Home, With assist Does patient understand post acute plan of care? Yes Is expected discharge disposition appropriate for patient?: Yes New Consults: Consult Orders (From admission, onward) Start Ordered 01/03/24 233 Inpatient consult to General Surgery Once Specialty: General Surgery Provider: (Not yet assigned) Question Answer Comment Consulting Group GENERAL SURGERY TEAM Reason for Consult? Arrival of their surgery transfer Level of Consultation Hot Baller assumes full responsibility Did you contact the eap consultant? Yes 01/03/24 2332 Normal [facility] BASIC METABOLIC PANELon 12-12 Anion gap [Moles/Vol] 11 mmol/L Normal 7- [facility] Comment on above: Performed By: #### L [id number] ####[facility] ([facility])[address] [place] [address] Calcium [Mass/Vol] 8.5 mg/dL Low 8.6-10.[address] [facility] Comment on above: Performed By: #### L [id number] ####[facility] ([facility])[address] [place] [address] Chloride [Moles/Vol] 105 mmol/L Normal 98-107 [facility] Comment on above: Performed By: #### L [id number] ####[facility] ([facility])[address] [place] [address] CO2 [Moles/Vol] 23 mmol/L Normal 21-31 [facility] Comment on above: Performed By: #### L [id number] ####[facility] ([facility])[address] [place] [address] Creatinine [Mass/Vol] 1.11 mg/dL Normal 0.70-1.30 [facility] Comment on above: Performed By: #### L [id number] ####[facility] ([facility])[address] [place] [address] GLOMERULAR FILTRATION RATE ML/MIN/1.73 SQ M.PREDICTED 81.9 mL/min/1.73m*2 Normal >60.0 [facility] Comment on above: Result Comment: The [facility]???s estimated glomerular filtration rate (eGFR) will no longer include consideration of race in its calculation. The National Kidney Foundation???s eGFR Task Force developed new recommendations for the estimation of the glomerular filtration rate in the [place] They recommend immediate implementation of the new equation refit without the race variable in all laboratories because the calculation does not include race. In addition to not including race in the calculation and reporting, it included diversity in its development, and has acceptable performance characteristics and potential consequences that do not disproportionately affect any one group of individuals. Performed By: #### L [id number] ####[facility] ([facility])[address] [place] [address] Glucose [Mass/Vol] 135 mg/dL High 70-[address] [facility] Comment on above: Performed By: #### L [id number] ####[facility] [place] [address] Potassium [Moles/Vol] 3.4 mmol/L Low 3.5-5.1 [facility] Comment on above: Performed By: #### L [id number] ####[facility] ([facility])[address] [place] [address] Sodium [Moles/Vol] 136 mmol/L Normal 136-145 [facility] Comment on above: Performed By: #### L [id number] ####[facility] ([facility])[address] [place] [address] Urea nitrogen [Mass/Vol] 17 mg/dL Normal 7-25 [facility] Comment on above: Performed By: #### L [id number] ####[facility] ([facility])[address] [place] [address] UREA NITROGEN/CREATININE (MASS RATIO) IN SER/PLAS 15.3 Normal [facility] Comment on above: Performed By: #### L [id number] ####[facility] ([facility])[address] [place] [address] CBC WITH AUTO DIFFERENTIALon 01-05-2024 Basophils (Bld) [#/Vol] 0.04 10*3/uL Normal 0.00-0.20 [facility] Comment on above: Performed By: #### L [id number] #### [facility] ([facility]) [address] [place] [address] Basophils/100 WBC (Bld) 0.3 % Normal 0.0-1.0 [facility] Comment on above: Performed By: #### L [id number] #### [facility] [address] [place] [address] Eosinophils (Bld) [#/Vol] 0.08 10*3/uL Normal 0.00-0.50 [facility] Comment on above: Performed By: #### L [id number] #### [facility] [address] [place] [address] Eosinophils/100 WBC (Bld) 0.6 % Normal 0.0-6.0 [facility] Comment on above: Performed By: #### L [id number] #### [facility] ([facility]) [address] [place] [address] Erythrocyte distribution width (RBC) [Ratio] 13.3 % Normal 11.5-15.0 [facility] Comment on above: Performed By: #### L [id number] #### [facility] ([facility]) [address] [place] [address] ERYTHROCYTE MEAN CORPUSCULAR HEMOGLOBIN CONCENTRATION (G/DL) BY AUTOMATED 33.8 g/dL Normal 32.0-35.0 [facility] Comment on above: Performed By: #### L [id number] #### [facility] ([facility]) [address] [place] [address] Hematocrit (Bld) [Volume fraction] 37.9 % Low 39.0-55.0 [facility] Comment on above: Performed By: #### L [id number] #### [facility] ([facility]) [address] [place] [address] Hemoglobin (Bld) [Mass/Vol] 12.8 g/dL Low 13.0-17.0 [facility] Comment on above: Performed By: #### L [id number] #### [facility] ([facility]) [address] [place] [address] Immature granulocytes (Bld) [#/Vol] 0.30 10*3/uL High 0.00-0.20 [facility] Comment on above: Performed By: #### L [id number] #### [facility] [address] [place] [address] Immature granulocytes/100 WBC (Bld) 2.4 % High 0.0-1.0 [facility] Comment on above: Performed By: #### L [id number] #### [facility] [address] [place] [address] Lymphocytes (Bld) [#/Vol] 1.03 10*3/uL Low 1.20-4.00 [facility] Comment on above: Performed By: #### L [id number] #### [facility] [address] [place] [address] Lymphocytes/100 WBC (Bld) 8.4 % Low 20.0-45.0 [facility] Comment on above: Performed By: #### L [id number] #### [facility] ([facility]) [address] [place] [address] MCH (RBC) [Entitic mass] 28.8 pg Normal 27.0-33.0 [facility] Comment on above: Performed By: #### L [id number] #### [facility] ([facility]) [address] [place] [address] MCV (RBC) [Entitic vol] 85.2 fL Normal 82.0-98.0 [facility] Comment on above: Performed By: #### L [id number] #### [facility] [address] [place] [address] Monocytes (Bld) [#/Vol] 1.33 10*3/uL High 0.10-1.00 [facility] Comment on above: Performed By: #### L [id number] #### [facility] [address] [place] [address] Monocytes/100 WBC (Bld) 10.8 % Normal 5.0-12.0 [facility] Comment on above: Performed By: #### L [id number] #### [facility] [address] [place] [address] Neutrophils (Bld) [#/Vol] 9.54 10*3/uL High 1.60-7.60 [facility] Comment on above: Performed By: #### L [id number] #### [facility] ([facility]) [address] [place] [address] Neutrophils/100 WBC (Bld) 77.5 % High 40.0-72.0 [facility] Comment on above: Performed By: #### L [id number] #### [facility] [address] [place] [address] NRBC (PER 100 WBCS) BY AUTOMATED COUNT 0.0 % Normal 0 [facility] Comment on above: Performed By: #### L [id number] #### [facility] ([facility]) [address] [place] [address] PLATELETS (10*3/UL) IN BLOOD AUTOMATED COUNT 260 10*3/uL Normal 150-400 [facility] Comment on above: Performed By: #### L [id number] #### [facility] ([facility]) [address] [place] [address] RBC (Bld) [#/Vol] 4.45 10*6/uL Normal 4.20-5.70 [facility] Comment on above: Performed By: #### L [id number] #### [facility] ([facility]) [address] [place] [address] WBC (Bld) [#/Vol] 12.32 10*3/uL High 4.00-10.60 [facility] Comment on above: Performed By: #### L [id number] #### [facility] ([facility]) [address] [place] [address] MAGNESIUMon 01-05-2024 Magnesium [Mass/Vol] 1.9 mg/dL Normal 1.9-2.7 [facility] Comment on above: Performed By: #### L [id number] #### [facility] ([facility]) [address] [place] [address] PHOSPHORUSon 01-05-2024 Magnesium [Mass/Vol] 2.7 mg/dL Normal 2.5-5.0 [facility] Comment on above: Performed By: #### L [id number] #### [facility] [address] [place] [address] POCT GLUCOSE METER UNSOLICIT ED RESULTSon 01-05-2024 Glucose [Mass/Vol] 115 mg/dL High 70-[address] [facility] Comment on above: Order Comment: Waive d Testing in the ED is performed under the ED CLIA certificate #[id number]. Result Comment: [email or web address] [email or web address] Performed By: #### L [id number] ####[facility] ([facility])[address] [place] [address] Glucose [Mass/Vol] 167 mg/dL High 70-[address] [facility] Comment on above: Order Comment: Waive d Testing in the ED is performed under the ED CLIA certificate #[id number]. Result Comment: [email or web address] Performed By: #### L [id number] #### [facility] ([facility]) [address] [place] [address] Glucose [Mass/Vol] 131 mg/dL High 70-[address] [facility] Comment on above: Order Comment: Waive d Testing in the ED is performed under the ED CLIA certificate #[id number]. Result Comment: [email or web address] Performed By: #### L [id number] #### [facility] ([facility]) [address] [place] [address] 30on 01-04-2024 30 Daily Case Managemen t Update Multidisciplinary rounds have been completed. Barriers to Discharge: ER from outside hospital due to abd pain for 2 weeks and found to have perforated appendicitis and associated abscess. Plan for CT guided drain placement today. Diet: Dietary Orders (From admission, onward) Start Ordered 01/04/24202 Diet NPO Diet effective now Comments: Sips with medications Question: Reason for NPO: Answer: Operation/Procedure 01/04/24201 Physician Expected Discharge Date: 01/05/2024 Discharge Delays: PT Six Click Score: 24 OT Six Click Score: PT Recommendations: OT Recommendations: New Consults: Consult Orders (From admission, onward) Start Ordered 01/03/242332 Inpatient consult to General Surgery Once Specialty: General Surgery Provider: (Not yet assigned) Question Answer Comment [employer] GENERAL SURGERY TEAM Reason for Consult? Arrival of their surgery transfer Level of Consultation Hot Baller assumes full responsibility Did you contact the eap consultant? Yes 01/03/242331 Normal [facility] ABSCESS CULTUREon 01-04-2024 Bacteria identified Cx Nom (Unsp spec) ESCHERICHIA COLI Abnormal [facility] Comment on above: Result Comment: Mode rate Growth Escherichia coli Performed By: #### L [id number] ####[facility] ([facility])[address] [facility] [address] GRAM STAIN RESULT Normal [facility] Comment on above: Result Comment: Many Polymorphonuclear leukocytes Many Gram negative bacilli Many Gram positive bacilli Many Gram positive cocci in pairs, chains and clusters Performed By: #### L [id number] ####[facility] ([facility])[address] [facility] [address] APTTon 01-04-2024 ACTIVATED PARTIAL THROMBOPLASTIN TIME IN PPP BY COAGULATION ASSAY 29.0 Seconds Normal 25.0-35.0 [facility] Comment on above: Result Comment: Clin ical significance of the APTT is questionable in the presence of heparin. Performed By: #### L [id number] #### [facility] ([facility]) [address] [place] [address] BASIC METABOLIC PANELon 10-2 Anion gap [Moles/Vol] 10 mmol/L Normal 7-20 [facility] Comment on above: Performed By: #### L [id number] ####[facility] ([facility])[address] [facility] [address] Calcium [Mass/Vol] 8.4 mg/dL Low 8.6-10.[address] [facility] Comment on above: Performed By: #### L [id number] ####[facility] ([facility])[address] [facility] [address] Chloride [Moles/Vol] 107 mmol/L Normal 98-107 [facility] Comment on above: Performed By: #### L [id number] ####[facility] ([facility])[address] [facility] [address] CO2 [Moles/Vol] 24 mmol/L Normal 21-31 [facility] Comment on above: Performed By: #### L [id number] ####[facility] ([facility])[address] [place] [address] Creatinine [Mass/Vol] 1.27 mg/dL Normal 0.70-1.30 [facility] Comment on above: Performed By: #### L [id number] ####[facility] ([facility])[address] [place] [address] GLOMERULAR FILTRATION RATE ML/MIN/1.73 SQ M.PREDICTED 69.7 mL/min/1.73m*2 Normal >60.0 [facility] Comment on above: Result Comment: The [facility]???s estimated glomerular filtration rate (eGFR) will no longer include consideration of race in its calculation. The National Kidney Foundation???s eGFR Task Force developed new recommendations for the estimation of the glomerular filtration rate in the [place] They recommend immediate implementation of the new equation refit without the race variable in all laboratories because the calculation does not include race. In addition to not including race in the calculation and reporting, it included diversity in its development, and has acceptable performance characteristics and potential consequences that do not disproportionately affect any one group of individuals. Performed By: #### L [id number] ####[facility] ([facility])[address] [place] [address] Glucose [Mass/Vol] 125 mg/dL High 70-[address] [facility] Comment on above: Performed By: #### L [id number] ####[facility] ([facility])[address] [place] [address] Potassium [Moles/Vol] 3.3 mmol/L Low 3.5-5.1 [facility] Comment on above: Performed By: #### L [id number] ####[facility] ([facility])[address] [place] [address] Sodium [Moles/Vol] 138 mmol/L Normal 136-[address] [facility] Comment on above: Performed By: #### L [id number] ####[facility] ([facility])[address] [place] [address] Urea nitrogen [Mass/Vol] 26 mg/dL High 7-25 [facility] Comment on above: Performed By: #### L [id number] ####[facility] [place] [address] UREA NITROGEN/CREATININE (MASS RATIO) IN SER/PLAS 20.5 Normal [facility] Comment on above: Performed By: #### L [id number] ####[facility] ([facility])[address] [place] [address] CBC WITH AUTO DIFFERENTIALon 01-04-2024 Erythrocyte distribution width (RBC) [Ratio] 13.6 % Normal 11.5-15.0 [facility] Comment on above: Performed By: #### L [id number] ####[facility] ([facility])[address] [place] [address] ERYTHROCYTE MEAN CORPUSCULAR HEMOGLOBIN CONCENTRATION (G/DL) BY AUTOMATED 32.6 g/dL Normal 32.0-35.0 [facility] Comment on above: Performed By: #### L [id number] ####[facility] ([facility])[address] [place] [address] Hematocrit (Bld) [Volume fraction] 36.8 % Low 39.0-55.0 [facility] Comment on above: Performed By: #### L [id number] ####[facility] ([facility])[address] [place] [address] Hemoglobin (Bld) [Mass/Vol] 12.0 g/dL Low 13.0-17.0 [facility] Comment on above: Performed By: #### L [id number] ####[facility] ([facility])[address] [place] [address] MCH (RBC) [Entitic mass] 28.3 pg Normal 27.0-33.0 [facility] Comment on above: Performed By: #### L [id number] ####[facility] ([facility])[address] [place] [address] MCV (RBC) [Entitic vol] 86.8 fL Normal 82.0-98.0 [facility] Comment on above: Performed By: #### L [id number] ####[facility] ([facility])[address] [place] [address] NRBC (PER 100 WBCS) BY AUTOMATED COUNT 0.0 % Normal 0 [facility] Comment on above: Performed By: #### L [id number] ####[facility] ([facility])[address] [address] PLATELETS (10*3/UL) IN BLOOD AUTOMATED COUNT 249 10*3/uL Normal 150-400 [facility] Comment on above: Performed By: #### L [id number] ####[facility] ([facility])[address] [place] [address] RBC (Bld) [#/Vol] 4.24 10*6/uL Normal 4.20-5.70 [facility] Comment on above: Performed By: #### L [id number] ####[facility] ([facility])[address] [place] [address] WBC (Bld) [#/Vol] 11.82 10*3/uL High 4.00-10.60 [facility] Comment on above: Performed By: #### L [id number] ####[facility] ([facility])[address] [place], [place] [address] Erythrocyte distribution width (RBC) [Ratio] 13.4 % Normal 11.5-15.0 [facility] Comment on above: Performed By: #### L [id number] ####[facility] ([facility])[address] [place] [address] ERYTHROCYTE MEAN CORPUSCULAR HEMOGLOBIN CONCENTRATION (G/DL) BY AUTOMATED 32.8 g/dL Normal 32.0-35.0 [facility] Comment on above: Performed By: #### L [id number] ####[facility] ([facility])[address] [place], [place] [address] Hematocrit (Bld) [Volume fraction] 38.7 % Low 39.0-55.0 [facility] Comment on above: Performed By: #### L [id number] ####[facility] ([facility])[address] [place], [place] [address] Hemoglobin (Bld) [Mass/Vol] 12.7 g/dL Low 13.0-17.0 [facility] Comment on above: Performed By: #### L [id number] ####[facility] [place] [address] MCH (RBC) [Entitic mass] 28.2 pg Normal 27.0-33.0 [facility] Comment on above: Performed By: #### L [id number] ####[facility] ([facility])[address] [place] [address] MCV (RBC) [Entitic vol] 85.8 fL Normal 82.0-98.0 [facility] Comment on above: Performed By: #### L [id number] ####[facility] ([facility])[address] [place] [address] NRBC (PER 100 WBCS) BY AUTOMATED COUNT 0.0 % Normal 0 [facility] Comment on above: Performed By: #### L [id number] ####[facility] ([facility])[address] [place] [address] PLATELETS (10*3/UL) IN BLOOD AUTOMATED COUNT 288 10*3/uL Normal 150-400 [facility] Comment on above: Performed By: #### L [id number] ####[facility] [place] [address] RBC (Bld) [#/Vol] 4.51 10*6/uL Normal 4.20-5.70 [facility] Comment on above: Performed By: #### L [id number] ####[facility] ([facility])[address] [place] [address] WBC (Bld) [#/Vol] 12.98 10*3/uL High 4.00-10.60 [facility] Comment on above: Performed By: #### L [id number] ####[facility] ([facility])[address] [place] [address] COMPREHENSIVE METABOLIC PANE Ronald 01-04-2024 Albumin [Mass/Vol] 3.7 g/dL Normal 3.5-5.[address] [facility] Comment on above: Performed By: #### L [id number] ####[facility] ([facility])[address] [place] [address] ALP [Catalytic activity/Vol] 58 U/L Normal 34-104 [facility] Comment on above: Performed By: #### L [id number] ####[facility] ([facility])[address] [place] [address] ALT [Catalytic activity/Vol] 19 U/L Normal 7-52 [facility] Comment on above: Performed By: #### L [id number] ####[facility] ([facility])[address] [place] [address] Anion gap [Moles/Vol] 14 mmol/L Normal 7-20 [facility] Comment on above: Performed By: #### L [id number] ####[facility] ([facility])[address] [place] [address] AST [Catalytic activity/Vol] 12 U/L Low 13-39 [facility] Comment on above: Performed By: #### L [id number] ####[facility] ([facility])[address] [place] [address] Bilirubin [Mass/Vol] 0.5 mg/dL Normal 0.3-1.0 [facility] Comment on above: Performed By: #### L [id number] ####[facility] ([facility])[address] [place] [address] Calcium [Mass/Vol] 8.5 mg/dL Low 8.6-10.[address] [facility] Comment on above: Performed By: #### L [id number] ####[facility] ([facility])[address] [place] [address] Chloride [Moles/Vol] 105 mmol/L Normal 98-107 [facility] Comment on above: Performed By: #### L [id number] ####[facility] ([facility])[address] [place] [address] CO2 [Moles/Vol] 22 mmol/L Normal 21-31 [facility] Comment on above: Performed By: #### L [id number] ####[facility] ([facility])[address] [place] [address] Creatinine [Mass/Vol] 1.37 mg/dL High 0.70-1.30 [facility] Comment on above: Performed By: #### L [id number] ####[facility] ([facility])[address] [place] [address] GLOMERULAR FILTRATION RATE ML/MIN/1.73 SQ M.PREDICTED 63.6 mL/min/1.73m*2 Normal >60.0 [facility] Comment on above: Result Comment: The [facility]???s estimated glomerular filtration rate (eGFR) will no longer include consideration of race in its calculation. The National Kidney Foundation???s eGFR Task Force developed new recommendations for the estimation of the glomerular filtration rate in the [place] They recommend immediate implementation of the new equation refit without the race variable in all laboratories because the calculation does not include race. In addition to not including race in the calculation and reporting, it included diversity in its development, and has acceptable performance characteristics and potential consequences that do not disproportionately affect any one group of individuals. Performed By: #### L [id number] ####[facility] ([facility])[address] [place] [address] Glucose [Mass/Vol] 122 mg/dL High 70-[address] [facility] Comment on above: Performed By: #### L [id number] ####[facility] ([facility])[address] [place] [address] Potassium [Moles/Vol] 3.6 mmol/L Normal 3.5-5.1 [facility] Comment on above: Performed By: #### L [id number] ####[facility] ([facility])[address] [place] [address] Protein [Mass/Vol] 6.7 g/dL Normal 6.0-8.[address] [facility] Comment on above: Performed By: #### L [id number] ####[facility] ([facility])[address] [place] [address] Sodium [Moles/Vol] 137 mmol/L Normal 136-145 [facility] Comment on above: Performed By: #### L [id number] ####[facility] ([facility])[address] [place] [address] Urea nitrogen [Mass/Vol] 26 mg/dL High 7-25 [facility] Comment on above: Performed By: #### L [id number] ####[facility] ([facility])[address] [place] [address] UREA NITROGEN/CREATININE (MASS RATIO) IN SER/PLAS 19.0 Normal [facility] Comment on above: Performed By: #### L [id number] ####[facility] ([facility])[address] [place] [address] CT GUIDED PERCUTANEOUS PERIT WILDE OR RETROPERITONEAL FLUID COLLECTION DRAINAGEon 01-04-2024 CT GUIDED PERCUTANEOUS PERITONEAL OR RETROPERITONEAL FLUID COLLECTION DRAINAGE CLINICAL INDICATION: Ruptured appendicitis with right lower quadrant periappendiceal abscess COMPARISON: CT scan 01/04/2024 TECHNIQUE: Procedure performed by Interventional Radiologist Marcus Fisher M.D. All CT scans at this facility use dose modulation, iterative reconstruction, and/or weight based dosing when appropriate to reduce radiation dose to as low as reasonably achievable. CONSENT: The reason for the procedure was discussed with the patient. The procedure, expectations, risks, benefits, options and alternatives were discussed. All of the patients questions were answered. The patient understands that the results cannot be guaranteed. The procedure is indicated and the risks are acceptable. Consent was obtained. SEDATION: The patients cardiopulmonary status was evaluated and the patient is suitable for moderate sedation. During the course of the procedure, the patient was sedated with Fentanyl 50 mcg intravenously and Versed 1 mg intravenously, while being monitored with ECG, blood pressure monitoring, and pulse oximeter by appropriately trained personnel, for a total sedation time of 20 minutes. Following the procedure, the patient was recovered according to the moderate sedation policy. PROCEDURE: CT-guided placement of a 10-Panamanian percutaneous pigtail drain into periappendiceal abscess. Details of procedure: Patient place in the supine position on the CT table. A CT scan of the abdomen was performed. An appropriate skin entry site was marked over the right lower quadrant periappendiceal abscess. The skin was prepped and draped in usual sterile fashion. 1% lidocaine without epinephrine was used as a local anesthetic. At that time, under CT guidance, a 5-Panamanian 10 cm one-step drainage catheter and needle were advanced into the collection. Upon entry into the collection, there was return of purulent fluid. An 035 Amplatz wire was then coiled in the collection. The access needle was removed. The track was dilated. At that time, a 10-Panamanian matter resolved pigtail drain was advanced over the wire into the collection. The inner dilator and wire were removed. The pigtail was formed and locked within the collection. Approximately 30 mL of purulent fluid was aspirated and a sample was sent to laboratory for further evaluation. The drain was then connected to DAVIN suction bulb drainage. 0 silk suture was used to secure the drain in place. Sterile dressing was applied. The patient tolerated the procedure well and there are no immediate palpitations. FINDINGS: 1.There is a periappendiceal abscess with surrounding inflammation measuring up to [address]-guided placement of a 10-Panamanian matter result pigtail drainage catheter into the abscess. Approximately 30 mL of purulent fluid was aspirated at the time of drain placement and the sample sent to laboratory for further evaluation. 3.CT post drain placement demonstrates decompression of the collection with pigtail drain in satisfactory position. IMPRESSION: Successful CT-guided placement of a 10-Panamanian pigtail percutaneous drainage catheter into the periappendiceal abscess. Electronically signed: Marcus Fisher MD. Normal [facility] LACTIC ACID WITH 4 HOUR REFL EXon 01-04-2024 LACTATE (MMOL/L) IN SER/PLAS 0.7 mmol/L Normal 0.5-2.2 [facility] Comment on above: Performed By: #### L [id number] #### [facility] ([facility]) [address] [place] [address] LIPASEon 01-04-2024 LIPASE (U/L) IN SER/PLAS 19 U/L Normal 11-82 [facility] Comment on above: Performed By: #### L [id number] ####[facility] ([facility])[address] [place] [address] MAGNESIUMon 01-04-2024 Magnesium [Mass/Vol] 2.0 mg/dL Normal 1.9-2.7 [facility] Comment on above: Performed By: #### L [id number] ####[facility] ([facility])[address] [place] [address] MANUAL DIFFERENTIALon 2023 BASOPHILS (10*3/UL) IN BLOOD BY CALCULATION 0.00 10*3/uL Normal 0.00-0.20 [facility] Comment on above: Performed By: #### L [id number] ####[facility] ([facility])[address] [place] [address] BASOPHILS/100 LEUKOCYTES IN BLOOD BY AUTOMATED COUNT 0.0 % Normal 0.0-1.0 [facility] Comment on above: Performed By: #### L [id number] ####[facility] ([facility])[address] [place] [address] EOSINOPHILS (10*3/UL) IN BLOOD BY CALCULATION 0.00 10*3/uL Normal 0.00-0.50 [facility] Comment on above: Performed By: #### L [id number] ####[facility] ([facility])[address] [place] [address] EOSINOPHILS/100 LEUKOCYTES IN BLOOD BY AUTOMATED COUNT 0.0 % Normal 0.0-6.0 [facility] Comment on above: Performed By: #### L [id number] ####[facility] ([facility])[address] [place] [address] IMMATURE GRANULOCYTES (10*3/UL) IN BLOOD BY CALCULATION 0.24 10*3/uL High 0.00-0.20 [facility] Comment on above: Performed By: #### L [id number] ####[facility] ([facility])[address] [place] [address] IMMATURE GRANULOCYTES/100 LEUKOCYTES IN BLOOD BY AUTOMATED COUNT 2.0 % High 0.0-1.0 [facility] Comment on above: Performed By: #### L [id number] ####[facility] ([facility])[address] [place] [address] LYMPHOCYTES (10*3/UL) IN BLOOD BY CALCULATION 0.79 10*3/uL Low 1.20-4.00 [facility] Comment on above: Performed By: #### L [id number] ####[facility] [place] [address] LYMPHOCYTES/100 LEUKOCYTES IN BLOOD BY AUTOMATED COUNT 6.7 % Low 20.0-45.0 [facility] Comment on above: Performed By: #### L [id number] ####[facility] ([facility])[address] [place] [address] MONOCYTES (10*3/UL) IN BLOOD BY CALCUATION 1.26 10*3/uL High 0.10-1.00 [facility] Comment on above: Performed By: #### L [id number] ####[facility] ([facility])[address] [place] [address] MONOCYTES/100 LEUKOCYTES IN BLOOD BY AUTOMATED COUNT 10.7 % Normal 5.0-12.0 [facility] Comment on above: Performed By: #### L [id number] ####[facility] ([facility])[address] [place] [address] NEUTROPHILS (10*3/UL) IN BLOOD BY CALCULATION 9.8 10*3/uL High 1.6-7.6 [facility] Comment on above: Performed By: #### L [id number] ####[facility] ([facility])[address] [place] [address] NEUTROPHILS/100 LEUKOCYTES IN BLOOD BY AUTOMATED COUNT 82.6 % High 40.0-72.0 [facility] Comment on above: Performed By: #### L [id number] ####[facility] [place] [address] PLASMA CELLS/100 LEUKOCYTES IN BLOOD 0 % Normal 0 [facility] Comment on above: Performed By: #### L [id number] ####[facility] ([facility])[address] [place] [address] PLATELETS GIANT PRESENCE IN BLOOD BY LIGHT MICROSCOPY Present Normal [facility] Comment on above: Performed By: #### L [id number] ####[facility] ([facility])[address] [place] [address] VARIANT LYMPHOCYTES (10*3/UL) IN BLOOD BY CALCULATION 0.00 10*3/uL Normal 0.00 [facility] Comment on above: Performed By: #### L [id number] ####[facility] ([facility])[address] [place] [address] VARIANT LYMPHOCYTES/100 LEUKOCYTES IN BLOOD CELLAVISION 0.0 % Normal 0.0-0.0 [facility] Comment on above: Performed By: #### L [id number] ####[facility] ([facility])[address] [place] [address] BASOPHILS (10*3/UL) IN BLOOD BY CALCULATION 0.06 10*3/uL Normal 0.00-0.20 [facility] Comment on above: Performed By: #### L [id number] #### [facility] ([facility]) [address] [place] [address] BASOPHILS/100 LEUKOCYTES IN BLOOD BY AUTOMATED COUNT 0.5 % Normal 0.0-1.0 [facility] Comment on above: Performed By: #### L [id number] #### [facility] ([facility]) [address] [place] [address] EOSINOPHILS (10*3/UL) IN BLOOD BY CALCULATION 0.09 10*3/uL Normal 0.00-0.50 [facility] Comment on above: Performed By: #### L [id number] #### [facility] ([facility]) [address] [place] [address] EOSINOPHILS/100 LEUKOCYTES IN BLOOD BY AUTOMATED COUNT 0.7 % Normal 0.0-6.0 [facility] Comment on above: Performed By: #### L [id number] #### [facility] ([facility]) [address] [place] [address] IMMATURE GRANULOCYTES (10*3/UL) IN BLOOD BY CALCULATION 0.29 10*3/uL High 0.00-0.20 [facility] Comment on above: Performed By: #### L [id number] #### [facility] ([facility]) [address] [place] [address] IMMATURE GRANULOCYTES/100 LEUKOCYTES IN BLOOD BY AUTOMATED COUNT 2.2 % High 0.0-1.0 [facility] Comment on above: Performed By: #### L [id number] #### [facility] ([facility]) [address] [place] [address] LYMPHOCYTES (10*3/UL) IN BLOOD BY CALCULATION 1.21 10*3/uL Normal 1.20-4.00 [facility] Comment on above: Performed By: #### L [id number] #### [facility] ([facility]) [address] [place] [address] LYMPHOCYTES/100 LEUKOCYTES IN BLOOD BY AUTOMATED COUNT 9.3 % Low 20.0-45.0 [facility] Comment on above: Performed By: #### L [id number] #### [facility] ([facility]) [address] [place] [address] MONOCYTES (10*3/UL) IN BLOOD BY CALCUATION 1.70 10*3/uL High 0.10-1.00 [facility] Comment on above: Performed By: #### L [id number] #### [facility] ([facility]) [address] [place] [address] MONOCYTES/100 LEUKOCYTES IN BLOOD BY AUTOMATED COUNT 13.1 % High 5.0-12.0 [facility] Comment on above: Performed By: #### L [id number] #### [facility] ([facility]) [address] [place] [address] NEUTROPHILS (10*3/UL) IN BLOOD BY CALCULATION 9.6 10*3/uL High 1.6-7.6 [facility] Comment on above: Performed By: #### L [id number] #### [facility] ([facility]) [address] [place] [address] NEUTROPHILS/100 LEUKOCYTES IN BLOOD BY AUTOMATED COUNT 74.2 % High 40.0-72.0 [facility] Comment on above: Performed By: #### L [id number] #### [facility] ([facility]) [address] [place] [address] NON-WILDLIFE REFUGE SPECIALIST CYTOLOGY - CELLULAR EXAMon 01-04-2024 LAB AP CASE REPORT Normal [facility] Comment on above: Result Comment: Non- gynecologic Cytology Case: [id number] Authorizing Provider: Rafy Kingston Collected: 01/04/2024 1117 Ordering Location: [facility] 6AB Ortho Surgery Received: 01/05/2024 1304 Pathologist: Linda Mckeon MD Specimen: Appendix, fluid collection : periappendinceal drainage/ abcess Performed By: #### L [id number] #### [facility] ([facility]) [address] [place] [address] LAB AP CLINICAL INFORMATION Order Diagnoses Normal [facility] Comment on above: Result Comment: K35. 32 - Acute perforated appendicitis [ICD-10-CM] K35.33 - Acute appendicitis with perforation, localized peritonitis, and abscess, unspecified whether gangrene present [ICD-10-CM] Performed By: #### L [id number] #### [facility] ([facility]) [address] [place] [address] LAB AP GROSS DESCRIPTION Normal [facility] Comment on above: Result Comment: 15 m L cloudy, brown fluid Performed By: #### L [id number] #### [facility] ([facility]) [address] [place] [address] LAB AP REPORT FINAL DIAGNOSIS NARRATIVE Normal [facility] Comment on above: Result Comment: A. P eriappendiceal fluid collection, drainage: - Negative for malignancy - Marked acute inflammation Performed By: #### L [id number] #### [facility] ([facility]) [address] [place] [address] Orders Onlyon 01-04-2024 Orders Only [id number] Alexei Hahn 1975 M Date Provider Department Center 01/04/2024 PRATIK MCCULLOUGH [facility] OR [facility] Family History Problem Relation Age of Onset Hypertension Mother Hypertension Father Hypertension Sister Other Maternal Grandfather Diabetes type II Maternal Grandfather Family Status - Relation Status Age at Mother Father Sister Maternal Grandfather Normal [facility] PHOSPHORUSon 01-04-2024 Magnesium [Mass/Vol] 3.2 mg/dL Normal 2.5-5.0 [facility] Comment on above: Performed By: #### L [id number] ####[facility] ([employer])[address] [place] [address] POCT GLUCOSE METER UNSOLICIT ED RESULTSon 01-04-2024 Glucose [Mass/Vol] 130 mg/dL High 70-[address] [facility] Comment on above: Order Comment: Waive d Testing in the ED is performed under the ED CLIA certificate #[id number]. Result Comment: [email or web address] Performed By: #### L [id number] ####[facility] ([employer])[address] [place] [address] Glucose [Mass/Vol] 156 mg/dL High 70-[address] [facility] Comment on above: Order Comment: Waive d Testing in the ED is performed under the ED CLIA certificate #[id number]. Result Comment: [email or web address] Performed By: #### L [id number] #### [facility] ([employer]) [address] [place] [address] Glucose [Mass/Vol] 153 mg/dL High 70-[address] [facility] Comment on above: Order Comment: Waive d Testing in the ED is performed under the ED CLIA certificate #[id number]. Result Comment: [email or web address] Performed By: #### L [id number] ####[facility] ([employer])[address] [place] [address] Glucose [Mass/Vol] 140 mg/dL High 70-[address] [facility] Comment on above: Order Comment: Waive d Testing in the ED is performed under the ED CLIA certificate #[id number]. Result Comment: [email or web address] Performed By: #### L [id number] ####[facility] ([employer])[address] [place] [address] PROTIME-INRon 01-04-2024 INR IN PPP BY COAGULATION ASSAY 1.21 High 0.90-1.10 [facility] Comment on above: Result Comment: [facility] RECOMMENDED INR FOR WARFARIN THERAPY CONDITION INR PROPHYLAXIS OF VENOUS THROMBOSIS 2-3 (HIGH-RISK SURGERY) TREATMENT OF VENOUS THROMBOSIS 2-3 TREATMENT OF PULMONARY EMBOLISM 2-3 PREVENTION OF SYSTEMIC EMBOLISM: 2-3 ACUTE MYOCARDIAL INFARCTION TISSUE HEART VALVES VALVULAR HEART DISEASE ATRIAL FIBRILLATION RECURRENT SYSTEMIC EMBOLISM MECHANICAL HEART VALVE 2.5-3.5 FROM: ORAL ANTICOAGULANTS. MECHANISM OF ACTION, CLINICAL EFFECTIVENESS, AND OPTIMAL THERAPEUTIC RANGE. CHEST 1995;108:231S-246S. Performed By: #### L [id number] ####[facility] [place] ([facility])[address] [place] [address] PROTHROMBIN TIME (PT) IN PPP BY COAGULATION ASSAY 15.3 Seconds High 12.3-14.8 [facility] Comment on above: Performed By: #### L [id number] ####[facility] ([facility])[address] [place] [address] INR IN PPP BY COAGULATION ASSAY 1.14 High 0.90-1.10 [facility] Comment on above: Result Comment: [facility] P RECOMMENDED INR FOR WARFARIN THERAPY CONDITION INR PROPHYLAXIS OF VENOUS THROMBOSIS 2-3 (HIGH-RISK SURGERY) TREATMENT OF VENOUS THROMBOSIS 2-3 TREATMENT OF PULMONARY EMBOLISM 2-3 PREVENTION OF SYSTEMIC EMBOLISM: 2-3 ACUTE MYOCARDIAL INFARCTION TISSUE HEART VALVES VALVULAR HEART DISEASE ATRIAL FIBRILLATION RECURRENT SYSTEMIC EMBOLISM MECHANICAL HEART VALVE 2.5-3.5 FROM: ORAL ANTICOAGULANTS. MECHANISM OF ACTION, CLINICAL EFFECTIVENESS, AND OPTIMAL THERAPEUTIC RANGE. CHEST 1995;108:231S-246S. Performed By: #### L [id number] ####[facility] ([facility])[address] [place] [address] PROTHROMBIN TIME (PT) IN PPP BY COAGULATION ASSAY 14.6 Seconds Normal 12.3-14.8 [facility] Comment on above: Performed By: #### L [id number] ####[facility] ([facility])[address] [place] [address] TYPE AND SCREENon 01-04-2024 AB SCREEN Negative Normal [facility] Comment on above: Performed By: #### L [id number] ####[facility], ABO group Nom (Bld) A Normal [facility] Comment on above: Performed By: #### L [id number] ####[facility], RH TYPE IN BLOOD Positive Normal [facility] Comment on above: Performed By: #### L [id number] ####[facility], Anisocytosis LM Ql (Bld)on 1 Anisocytosis Ql (Bld) 1+ [facility] Basophils/100 WBC Manual cnt (Bld)on 01-03-2024 Basophils/100 WBC (Bld) 0.0 % Low 0.2-2.[address] [facility] [address] ABDOMEN PELVIS W IV CONTR Champ 01-03-2024 CT ABDOMEN PELVIS W IV CONTRAST CLINICAL INFORMATION: Right lower quadrant abdominal pain COMPARISON: None TECHNIQUE: Multidetector CT axial slices of the abdomen and pelvis with 100 mL Omnipaque 350 IV contrast. Multiplanar reformats were performed and viewed on a separate workstation and reviewed to further define anatomy and possible pathology. All CT scans at this facility use dose modulation, iterative reconstruction, and/or weight based dosing when appropriate to reduce radiation dose to as low as reasonably achievable. FINDINGS: LOWER CHEST: Calcified granuloma right lower lobe. Lung bases are clear. LIVER AND BILIARY: Nontraumatic morphology. Probable cholelithiasis. No intrahepatic or extrahepatic biliary ductal dilatation. PANCREAS: Unremarkable SPLEEN: Unremarkable ADRENALS: 2.5 cm left adrenal gland nodule, Hounsfield units measure roughly 50. 2.5 cm right adrenal gland nodule, Hounsfield units measure roughly 51. No prior imaging for comparison. KIDNEYS, URETERS, AND BLADDER: No suspicious renal mass or lesion. Contrast material partially opacifies the collecting system. Nonspecific attenuation is seen abutting the proximal left greater than right ureter, nonspecific. Urinary bladder is unremarkable appearing. GI TRACT AND PERITONEUM: Perforated appendicitis with a lobulated abscess measuring up to 5.2 cm abutting the appendix in the right lower quadrant/paracolic gutter. There is adjacent fat stranding and reactive inflammatory changes of the terminal ileum. Internal foci of gas seen within the fluid collection. There is no jordan free intraperitoneal gas. No evidence of bowel obstruction. VASCULATURE: Unremarkable LYMPH NODES: No enlarged lymph nodes by size criteria. REPRODUCTIVE ORGANS: Unremarkable MUSCULOSKELETAL: Diffuse hepatic skull hyperostosis. No acute osseous and metallic. IMPRESSION: *Perforated appendicitis with contained gas and fluid collection/abscess arising from the perforated appendiceal wall. This is likely amenable to percutaneous drainage if clinically indicated. *Incidental bilateral 2.5 cm adrenal gland nodules. No prior imaging for comparison. Consider biochemical assay is to determine functional status and exclude pheochromocytoma. Recommend further evaluation with nonemergent elective outpatient adrenal protocol CT or chemical shift MRI abdomen. Approved by:Moshe RameshLcolsdhvpi66/24/2024 1:02 AM. I, Mo Be,have reviewed the image(s) and agree with the findings in this report. Electronically signed: Mo Be. [facility] EDNURSon 01-03-2024 EDNURS Pt arrives via [facility] from [place] for Abdominal Pain. [place] reports Cts show acute appendicitis with distorted appendical wall, possible perforation. Pt received 30mg of Toradol at 1814, 1mg of Dilaudid at 2028, 4.5g of Zosyn at 2105, 4 mg of zofran at 2028, 650mg of tylenol at 2159, and has 40mEq ok potassium running at 250mL/hr through transport. Pt had a WBC count of 13.6 ad a Potassium of 3.0. Pt is A&Ox4, speaking in full sentences. Denies any chest pain or SOB. Normal [facility] EDPROVon 01-03-2024 EDPROV HPI Chief Complaint Patient presents with Abdominal Pain Patient is a 48-year-old male transferred from outside hospital as he was accepted by surgery group. He has had abdominal pain for 2 weeks and was found to have a possible ruptured appendix. There could be abscess associated with it. He has just some minor discomfort at this time. Denies nausea or vomiting. History provided by: Patient [place] Coma Scale Score: 15 Patient History Past Medical History: Diagnosis Date Anxiety Essential hypertension GERD (gastroesophageal reflux disease) Mixed hyperlipidemia Morbid obesity with BMI of 40.0-44.9, adult ([facility] Morbid obesity with body mass index (BMI) of 40.0 to 44.9 in adult ([facility]) 11/24/2021 Resistant hypertension 11/24/2021 Spina bifida ([facility]) 05/11/2022 Syncope and collapse Tobacco dependence 11/24/2021 Past Surgical History: Procedure Laterality Date MYRINGOTOMY W/ TUBES Family History Problem Relation Name Age of Onset Hypertension Mother Hypertension Father Hypertension Sister Other (CVA) Maternal Grandfather Diabetes type II Maternal Grandfather Social History Tobacco Use Smoking status: Never Smokeless tobacco: Never Substance Use Topics Alcohol use: Yes Comment: 1-2 drinks/week Drug use: Never Review of Systems Review of Systems Constitutional: Negative for chills and fever. Gastrointestinal: Positive for abdominal pain. Negative for nausea and vomiting. All other systems reviewed and are negative. Physical Exam ED Triage Vitals Temp Pulse Resp BP -- -- -- -- SpO2 Temp src Heart Rate Source Patient Position -- -- -- -- BP Location FiO2 (%) -- -- Physical Exam Vitals and nursing note reviewed. Constitutional: General: He is not in acute distress. Appearance: Normal appearance. He is not ill-appearing, toxic-appearing or diaphoretic. Cardiovascular: Rate and Rhythm: Normal rate and regular rhythm. Heart sounds: Normal heart sounds. Pulmonary: Effort: Pulmonary effort is normal. Breath sounds: Normal breath sounds. Abdominal: General: Abdomen is flat. Palpations: Abdomen is soft. Tenderness: There is abdominal tenderness. There is no guarding or rebound. Positive signs include McBurney's sign. Negative signs include Sinha's sign. Neurological: Mental Status: He is alert. Procedures ED Course & MDM Diagnoses as of 01/04/24 0113 Acute perforated appendicitis Medical Decision Making Surgery physician engineering assistant has been notified of patient's arrival. Have ordered some baseline labs. Repeat CT imaging was ordered as imaging was not sent from the outside hospital. The new pictures show a perforated appendicitis with evidence of abscess. Patient will be admitted by surgery service. They are considering percutaneous drainage Amount and/or Complexity of Data Reviewed External Data Reviewed: labs. Details: Reviewed CT report from outside hospital Labs: ordered. Decision-making details documented in ED Course. Radiology: ordered. Decision-making details documented in ED Course. Details: CT abdomen pelvis w IV contrast Final Result *Perforated appendicitis with contained gas and fluid collection/abscess arising from the perforated appendiceal wall. This is likely amenable to percutaneous drainage if clinically indicated. *Incidental bilateral 2.5 cm adrenal gland nodules. No prior imaging for comparison. Consider biochemical assay is to determine functional status and exclude pheochromocytoma. Recommend further evaluation with nonemergent elective outpatient adrenal protocol CT or chemical shift MRI abdomen. Approved by:Moshe Mann1 1:02 AM. I, Mo Be,have reviewed the image(s) and agree with the findings in this report. Electronically signed: Mo Be. Discussion of management or test interpretation with external provider(s): Surgery Risk Decision regarding hospitalization. Attestion Titi Wan MD 01/04/24 0459 Normal [facility] Eosinophils/100 WBC Manual c nt (Bld)on 01-03-2024 Eosinophils/100 WBC (Bld) 0.0 % Low 0.9-7.0 [facility] Erythrocyte distribution wid th Auto (RBC) [Ratio]on 01-03-2024 Erythrocyte distribution width (RBC) [Ratio] 13.2 % 11.0-15.0 [facility] Estimated glomerular filtrat ion rate (GFR) non- Americanon 01-03-2024 GFR/1.73 sq M.predicted among non-blacks MDRD (S/P/Bld) [Vol rate/Area] 50 mL/min/{1.73_m2} Low >=60 mL/min/1.73m 2 [facility] Globulin Calc (S) [Mass/Vol] on 01-03-2024 Globulin (S) [Mass/Vol] 4.6 g/dL [facility] HPon 01-03-2024 HP History Of Present Illness Marisela Hahn is a 48 y.o. male presenting with Abdominal Pain. Patient presented as transfer from [facility]. Patient had CT imaging performed showing acute appendicitis with possible perforation and abscess formation. According to reports abscess measures 4.0 x 3.3 x 3.6 cm. Patient reports lower abdominal pain which radiates from the right lower quadrant to the left and up to right upper quadrant. Patient reports nausea but denies vomiting. Patient denies chest pain, shortness of breath, headache, diarrhea, melena. Patient reports has experienced fever but unknown Tmax. Patient has not had previous abdominal surgeries. Patient was started on Zosyn at outside hospital. Patient arrived receiving 40 mill equivalents IV potassium over 4 hours. Past Medical History He has a past medical history of Anxiety, Essential hypertension, GERD (gastroesophageal reflux disease), Mixed hyperlipidemia, Morbid obesity with BMI of 40.0-44.9, adult ([facility]), Morbid obesity with body mass index (BMI) of 40.0 to 44.9 in adult ([facility]) (11/24/2021), Resistant hypertension (11/24/2021), Spina bifida ([facility]) (05/11/2022), Syncope and collapse, and Tobacco dependence (11/24/2021). Surgical History He has a past surgical history that includes Myringotomy w/ tubes. Social History He reports that he has never smoked. He has never used smokeless tobacco. He reports current alcohol use. He reports that he does not use drugs. Family History Family History Problem Relation Name Age of Onset Hypertension Mother Hypertension Father Hypertension Sister Other (CVA) Maternal Grandfather Diabetes type II Maternal Grandfather Allergies Keflex [cephalexin] Medications (Not in a hospital admission) Review of Systems 12 point review of systems completed. All pertinent positives and negatives annotated in HPI. All other systems negative. Last Recorded Vitals Visit Vitals BP 110/55 Pulse 84 Temp 37 ???C (98.6 ???F) (Oral) Resp 22 Ht 1.854 m (6' 1 ) Wt (!) 143 kg (315 lb) SpO2 94% BMI 41.56 kg/m??? Smoking Status Never BSA 2.71 m??? Physical Exam Vitals and nursing note reviewed. Constitutional: General: He is not in acute distress. Appearance: Normal appearance. He is obese. He is not diaphoretic. HENT: Head: Normocephalic and atraumatic. Nose: Nose normal. Mouth/Throat: Mouth: Mucous membranes are moist. Pharynx: Oropharynx is clear. Eyes: Extraocular Movements: Extraocular movements intact. Pupils: Pupils are equal, round, and reactive to light. Cardiovascular: Rate and Rhythm: Normal rate and regular rhythm. Pulses: Normal pulses. Heart sounds: Normal heart sounds. Pulmonary: Effort: Pulmonary effort is normal. Breath sounds: Normal breath sounds. Abdominal: Tenderness: There is abdominal tenderness in the right upper quadrant, right lower quadrant, suprapubic area and left lower quadrant. Musculoskeletal: Cervical back: Normal range of motion. Right lower leg: No edema. Left lower leg: No edema. Skin: General: Skin is warm and dry. Capillary Refill: Capillary refill takes less than 2 seconds. Neurological: General: No focal deficit present. Mental Status: He is alert and oriented to person, place, and time. Psychiatric: Mood and Affect: Mood normal. Behavior: Behavior normal. Relevant Lab Results Recent Results (from the past 24 hour(s)) Lactic acid with 4 hour reflex Collection Time: 01/04/24 12:03 AM Result Value Ref Range Lactate 0.7 0.5 - 2.2 mmol/L Comprehensive metabolic panel Collection Time: 01/04/24 12:03 AM Result Value Ref Range Sodium 137 136 - 145 mmol/L Potassium 3.6 3.5 - 5.1 mmol/L Chloride 105 98 - 107 mmol/L CO2 22 21 - 31 mmol/L Anion Gap 14 7 - 20 mmol/L BUN 26 (H) 7 - 25 mg/dL Creatinine 1.37 (H) 0.70 - 1.30 mg/dL BUN/Creatinine Ratio 19.0 Glucose 122 (H) 70 - 100 mg/dL Calcium 8.5 (L) 8.6 - 10.3 mg/dL AST 12 (L) 13 - 39 U/L ALT (SGPT) 19 7 - 52 U/L Alkaline Phosphatase 58 34 - 104 U/L Total Protein 6.7 6.0 - 8.3 g/dL Albumin 3.7 3.5 - 5.7 g/dL Total Bilirubin 0.5 0.3 - 1.0 mg/dL eGFR 63.6 >60.0 mL/min/1.73m*2 Lipase Collection Time: 01/04/24 12:03 AM Result Value Ref Range Lipase 19 11 - 82 U/L Protime-INR Collection Time: 01/04/24 12:03 AM Result Value Ref Range Protime 14.6 12.3 - 14.8 Seconds INR 1.14 (H) 0.90 - 1.10 APTT Collection Time: 01/04/24 12:03 AM Result Value Ref Range aPTT 29.0 25.0 - 35.0 Seconds CBC auto differential Collection Time: 01/04/24 12:03 AM Result Value Ref Range Auto WBC 12.98 (H) 4.00 - 10.60 10*3/uL RBC 4.51 4.20 - 5.70 10*6/uL Hemoglobin 12.7 (L) 13.0 - 17.0 g/dL Hematocrit 38.7 (L) 39.0 - 55.0 % MCV 85.8 82.0 - 98.0 fL MCH 28.2 27.0 - 33.0 pg MCHC 32.8 32.0 - 35.0 g/dL RDW 13.4 11.5 - 15.0 % Platelets 288 150 - 400 10*3/uL nRBC % 0.0 0 % Relevant Imaging Results Imaging for las (more content not included)... Normal [facility] Hematocrit Auto (Bld) [Volum e fraction]on 01-03-2024 Hematocrit (Bld) [Volume fraction] 42.8 % 42.0-54.0 [facility] Hemoglobin [Mass/volume] in Bloodon 01-03-2024 Hemoglobin (Bld) [Mass/Vol] 14.2 g/dL 14.0-18.0 [facility] INR in Platelet poor plasma by Coagulation assayon 01-03-2024 INR Coag (PPP) [Relative time] 1.08 {INR} [facility] Comment on above: DESIRED INR:2.0-3.0 CONDITIONS NOT LISTED BELOW2.5-3.5 FOR PROSTHETIC HEART VALVE REPLACEMENT2.5-3.5 RECURRENT THROMBOSIS Laboratory - Chemistry and C hemistry - challengeon 01-03-2024 Bilirubin Ql (U) Negative NEGATIVE [facility] Glucose (U) [Mass/Vol] Negative NEGATIVE [facility] Ketones Ql (U) Negative NEGATIVE [facility] pH (U) 5.5 [pH] 5.0-9.0 [facility] Specific gravity (U) [Rel density] 1.015 1.005-1.025 [facility] Urobilinogen Qn (U) 0.2 {Gloria'U}/dL 0.2-1.0 [facility] Albumin [Mass/Vol] 3.2 g/dL Low 3.4-5.0 [facility] ALP [Catalytic activity/Vol] 81 U/L 46-116 [facility] ALT [Catalytic activity/Vol] 32 U/L 16-63 [facility] AST [Catalytic activity/Vol] 13 U/L Low 15-37 [facility] Bilirubin [Mass/Vol] 0.4 mg/dL 0.2-1.0 [facility] Calcium [Mass/Vol] 9.7 mg/dL 8.5-10.1 [facility] Chloride [Moles/Vol] 101 mmol/L 98-107 [facility] CO2 [Moles/Vol] 24.5 mmol/L 21.0-32.0 [facility] Creatinine [Mass/Vol] 1.49 mg/dL High 0.70-1.30 [facility] GFR/1.73 sq M.predicted MDRD (S/P/Bld) [Vol rate/Area] mL/min/{1.73_m2} >=60 mL/min/1.73m 2 [facility] Glucose [Mass/Vol] 164 mg/dL High 74-106 [facility] Lactate [Moles/Vol] 1.1 mmol/L 0.4-2.0 [facility] Lipase [Catalytic activity/Vol] 48.0 U/L 16.0-77.0 [facility] Potassium [Moles/Vol] 3.0 mmol/L Low 3.5-5.1 [facility] Protein [Mass/Vol] 7.8 g/dL 6.4-8.2 [facility] Sodium [Moles/Vol] 139 mmol/L 136-145 [facility] Urea nitrogen [Mass/Vol] 24.0 mg/dL High 7.0-18.0 [facility] Urea nitrogen/Creatinine [Mass ratio] 16.1 mg/mg [facility] Laboratory - Hematology and Cell countson 01-03-2024 Band form neutrophils/100 WBC (Bld) 2.0 % 0-5 [facility] Lymphocytes/100 WBC (Bld) 13.0 % Low 20.5-60.0 [facility] Monocytes/100 WBC (Bld) 12.0 % 1.7-12.0 [facility] Laboratory - Specimen inform ationon 01-03-2024 Appearance (U) CLEAR CLEAR [facility] Color (U) YELLOW YELLOW [facility] Laboratory - Urinalysison Leukocyte esterase Test strip Ql (U) Negative NEGATIVE [facility] Nitrite Ql (U) Negative NEGATIVE [facility] Protein Ql (U) Negative NEG/TRACE [facility] Leukocytes [#/volume] correc linda for nucleated erythrocytes in Blood by Automated counon 01-03-2024 WBC corrected for nucl RBC Auto (Bld) [#/Vol] 13.6 10 3/uL High 4.0-11.0 [facility] MCH Auto (RBC) [Entitic mass ]on 01-03-2024 MCH (RBC) [Entitic mass] 28.3 pg 25.9-34.0 [facility] MCHC Auto (RBC) [Mass/Vol]on 01-03-2024 MCHC (RBC) [Mass/Vol] 33.2 g/dL 29.9-35.2 [facility] MCV Auto (RBC) [Entitic vol] on 01-03-2024 MCV (RBC) [Entitic vol] 85.4 fL 80.0-94.0 [facility] Microcytes LM Ql (Bld)on Microcytes Ql (Bld) 1+ [facility] No Panel Informationon 01-02 Urine Microscopic Review NO [facility] Urine Occult Blood Negative NEGATIVE [facility] Absolute Basophils (Manual) 0.00 10 3/uL 0.00-0.10 [facility] Band Neutrophils # (Manual) 0.3 10 3/uL 0.0-0.3 [facility] Eosinophils # (Manual) 0.00 10 3/uL 0.00-0.70 [facility] Lymphocytes # (Manual) 1.76 10 3/uL 1.20-3.80 [facility] Monocytes # (Manual) 1.63 10 3/uL High 0.30-0.80 [facility] Segmented Neutrophils # (Manual) 9.92 10 3/uL High 1.4-6.5 [facility] Platelet mean volume Auto (B ld) [Entitic vol]on 01-03-2024 Platelet mean volume (Bld) [Entitic vol] 9.7 fL 9.5-13.5 [facility] Platelets Auto (Bld) [#/Vol] on 01-03-2024 Platelets (Bld) [#/Vol] 313 10 3/uL 150-450 [facility] Prothrombin time (PT)on 12-12 PT Coag (PPP) [Time] 11.4 s 9.0-11.6 [facility] RBC Auto (Bld) [#/Vol]on RBC (Bld) [#/Vol] 5.01 10 6/uL 4.70-6.10 [facility] Segmented neutrophils/100 WB C Manual cnt (Bld)on 01-03-2024 Segmented neutrophils/100 WBC (Bld) 73.0 % 43.0-75.0 [facility] Serum or plasma albumin/glob ulin mass ratioon 01-03-2024 Albumin/Globulin [Mass ratio] 0.7 {ratio} [facility] Serum or plasma anion gap de terminationon 01-03-2024 Anion gap [Moles/Vol] 16.5 mmol/L [facility] Office Visiton 12-11-2023 Follow-up visit [id number] Alexei Hahn 1975 M Date Provider Department Center 12/11/2023 3848-[facility] Family History Problem Relation Age of Onset Hypertension Mother Hypertension Father Hypertension Sister Other Maternal Grandfather Diabetes type II Maternal Grandfather Family Status - Relation Status Age at Mother Father Sister Maternal Grandfather Level of Service:63416 [place] OFFICE/OUTPATIENT ESTABLISHED LOW MDM 20 MIN Normal [facility] Folate [Mass/volume] in Seru m or PlasmaOrdered By: Margo Rincon on 08-22-2023 Folate [Mass/Vol] 17.7 ng/mL >5.9 [facility] Comment on above: Folate reference ran ge: >5.9 ng/mlThe WHO technical consultation on folate and vitamin [id number] has determined that folate concentrations lessthan 4 ng/ml are considered deficient. Thyrotropin [Units/volume] i n Serum or PlasmaOrdered By: Margo Rincon on 08-22-2023 TSH Qn 1.47 m[IU]/L 0.45-5.33 [facility] Comment on above: Result Comment: PERF ORMED BY: [place] [address] PATHOLOGIST VEHICLE UPHOLSTERER NATHANAEL MCCLELLAND M.D. Performed By: #### T SH3, [id number] #### [facility] [address] [place] [address] Vit. B12/Folate Profileon Folate 17.7 ng/mL Normal >5.9 [facility] Comment on above: Result Comment: Madalyn te reference range: >5.9 ng/ml The WHO technical consultation on folate and vitamin b12 deficiencies has determined that folate concentrations less than 4 ng/ml are considered deficient. Performed By: #### T SH3, [id number] #### [facility] [address] [place] [address] Vitamin B12 ser/plasOrdered By: Margo Rincon on 08-22-2023 Cobalamin (Vitamin B12) [Mass/Vol] 304 pg/mL 180-914 [facility] Comment on above: Performed By: #### T SH3, [id number] #### [facility] [address] [id number] [facility] XR lumbar spine AP/LAT/FLX/E XTon 08-18-2023 XR lumbar spine AP/LAT/FLX/EXT [facility] [place] [address] [place], [place] [id number] XRay Report Signed Patient: Marisela Hahn MR#: [id number] 573 : 1975 Acct:[id number] Age/Sex: 48 / M ADM Date: 08/18/23 Loc: XD Room: Type: [facility] Attending Dr: Rivera Bermudez MD Copies to: [...] hypertrophic facet changes. SOFT TISSUES: Unremarkable BONY MINERALIZATION:Adequat e XR/XR lumbar spine AP/LAT/FLX/EXT IMPRESSION: No hypermobility. Extensive lower lumbar degeneration. Impression dictated by: Eligio Hidalgo M.D.08/18/2023 4:27 PM Dictation Location: [place] [address] Transcribed By: [facility] 08/18/23 1627 Dictated By: Eligio Hidalgo DO 08/18/23 1626 Signed By: 08/18/23 1627 Normal [facility] Office Visiton 06-12-2023 Follow-up visit [id number] Alexei Hahn nolberto Musa 1975 M Date Provider Department Center 06/12/2023 3848-[facility] [facility] Family History Problem Relation Age of Onset Hypertension Mother Hypertension Father Hypertension Sister Other Maternal Grandfather Diabetes type II Maternal Grandfather Family Status - Relation Status Age at Mother Father Sister Maternal Grandfather Level of Service:52136 [place] OFFICE/OUTPATIENT ESTABLISHED LOW MDM 20 MIN Reason for Visit and Comments: Follow-up [932358] - Review labs and echo Normal [facility] Estimated glomerular filtrat ion rate (GFR) non- Americanon 05-15-2023 GFR/1.73 sq M.predicted among non-blacks MDRD (S/P/Bld) [Vol rate/Area] 59 mL/min/{1.73_m2} >=60 [facility] Laboratory - Chemistry and C hemistry - challengeon 05-15-2023 Calcium [Mass/Vol] 9.1 mg/dL 8.5-10.1 [facility] Chloride [Moles/Vol] 103 mmol/L 98-107 [facility] CO2 [Moles/Vol] 29.5 mmol/L 21.0-32.0 [facility] Creatinine [Mass/Vol] 1.29 mg/dL 0.70-1.30 [facility] GFR/1.73 sq M.predicted MDRD (S/P/Bld) [Vol rate/Area] mL/min/{1.73_m2} >=60 [facility] Glucose [Mass/Vol] 97 mg/dL 74-106 [facility] Potassium [Moles/Vol] 4.1 mmol/L 3.5-5.1 [facility] Sodium [Moles/Vol] 141 mmol/L 136-145 [facility] Urea nitrogen [Mass/Vol] 20.0 mg/dL 7.0-18.0 [facility] Urea nitrogen/Creatinine [Mass ratio] 15.5 mg/mg [facility] Serum or plasma anion gap de terminationon 05-15-2023 Anion gap [Moles/Vol] 12.6 mmol/L [facility] MR cervical spine wo conon 1 04-21-2022 MR cervical spine wo con [place] [id number] MRI Report Signed Patient: Marisela Hahn MR#: [id number] 573 : 1975 Acct:[id number] Age/Sex: 47 / M ADM Date: 02/17/23 Loc: MR Room: Type: [facility] CLI Attending Dr: Deann 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 Copies to: Deann Ortega 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 Ordering Provider: Deann Ortega NP Date of [...] Mosley Jr., D.O.02/18/2023 8:57 AM Dictation Location: [place] [address] Transcribed By: [facility] 02/18/23 0857 Dictated By: Jorge Mosley Jr, DO 02/18/23 0853 Signed By: 02/18/23 0857 Normal [facility] XR cervical spine w flex/ext on 12-05-2022 XR cervical spine w flex/ext [place] [address] XRay Report Signed Patient: Marisela Hahn MR#: [id number] 573 : 1975 Acct:[id number] Age/Sex: 47 / M ADM Date: 12/05/22 Loc: XD Room: Type: [facility] Attending Dr: Rivera Bermudez MD Copies to: [...] Mosley Jr., D.ORas12/05/2022 3:46 PM Dictation Location: [place] [address] Transcribed By: [facility] 12/05/22 1546 Dictated By: Jorge Mosley Jr DO 12/05/22 1543 Signed By: 12/05/22 1546 Normal [facility] MRI BRAIN WO W CONon [...] JOSE L WATSON Date: 2022-07-15 08:08 Normal [facility] XR FOREIGN BODY EYEon 2022 XR FOREIGN BODY EYE EXAMINATION: XR FOREIGN BODY EYE HISTORY: Foreign body in eye COMPARISON: No relevant comparison available. FINDINGS: ORBITS: Negative for a metallic foreign body. OTHER: Negative. IMPRESSION: No metallic foreign body in orbits Electronically authenticated by: MARCELLA CLEVELAND Date: 2022-07-14 14:42 Normal [facility] PROF CHEM 8 (BAS METB)on Anion gap [Moles/Vol] 11.9 mmol/L Normal [facility] Comment on above: Performed By: #### B MP #### [facility] Laboratory [address] [address] [address] Tiana Luong Calcium [Mass/Vol] 9.3 mg/dL Normal 8.5-10.1 [facility] Comment on above: Performed By: #### B MP #### [facility] [address] [address] [address] Tiaan Luong Chloride [Moles/Vol] 108 mmol/L Critically high 98-107 [facility] Comment on above: Performed By: #### B MP #### [facility] [address] [place] [address] Dr. Tiana Luong CO2 [Moles/Vol] 27.9 mmol/L Normal 21.0-32.0 [facility] Comment on above: Performed By: #### B MP #### [facility] [address] [address] [address] Tiana Luong Creatinine [Mass/Vol] 1.07 mg/dL Normal 0.70-1.30 [facility] Comment on above: Performed By: #### B MP #### [facility] [address] [place] [address] Dr. Tiana Luong EGFR-AF VIETNAMESE >60 Normal >=60 [facility] Comment on above: Performed By: #### B MP #### [facility] [address] [address] [address] Tiana Luong EGFR-NON AF VIETNAMESE >60 Normal >=60 [facility] Comment on above: Performed By: #### B MP #### [facility] [address] [address] [address] Tiana Luong Glucose [Mass/Vol] 99 mg/dL Normal 74-106 [facility] Comment on above: Performed By: #### B MP #### [facility] [address] [place] [address] Dr. Tiana Luong Potassium [Moles/Vol] 3.8 mmol/L Normal 3.5-5.1 [facility] Comment on above: Performed By: #### B MP #### [facility] [address] [place] [address] Dr. Tinaa Luong Sodium [Moles/Vol] 144 mmol/L Normal 136-145 [facility] Comment on above: Performed By: #### B MP #### [facility] [address] [address] [address] Tiana Luong Urea nitrogen [Mass/Vol] 20.0 mg/dL Critically high 7.0-18.0 [facility] Comment on above: Performed By: #### B MP #### [facility] [address] [place] [address] Dr. Tiana Luong Urea nitrogen/Creatinine [Mass ratio] 18.7 mg/mg Normal [facility] Comment on above: Performed By: #### B MP #### [facility] [address] [place] [address] Dr. Tiana Luong PROF CHEM 8 (BAS METB)on Anion gap [Moles/Vol] 12.9 mmol/L Normal [facility] Comment on above: Performed By: #### B MP #### [facility] [address] [place] [address] Dr. Tiana Luong Calcium [Mass/Vol] 9.2 mg/dL Normal 8.5-10.1 [facility] Comment on above: Performed By: #### B MP #### [facility] [address] [place] [address] Dr. Tiana Luong Chloride [Moles/Vol] 105 mmol/L Normal 98-107 [facility] Comment on above: Performed By: #### B MP #### [facility] [address] [place] [address] Dr. Tiana Luong CO2 [Moles/Vol] 26.1 mmol/L Normal 21.0-32.0 [facility] Comment on above: Performed By: #### B MP #### [facility] [address] [place] [address] Dr. Tiana Luong Creatinine [Mass/Vol] 1.17 mg/dL Normal 0.70-1.30 [facility] Comment on above: Performed By: #### B MP #### [facility] [address] [address] [address] Tiana Luong EGFR-AF VIETNAMESE >60 Normal >=60 [facility] Comment on above: Performed By: #### B MP #### [facility] [address] [address] [address] Tiana Luong EGFR-NON AF VIETNAMESE >60 Normal >=60 [facility] Comment on above: Performed By: #### B MP #### [facility] [address] [address] [address] Tiana Luong Glucose [Mass/Vol] 93 mg/dL Normal 74-106 [facility] Comment on above: Performed By: #### B MP #### [facility] [address] [address] [address] Tiana Luong Potassium [Moles/Vol] 4.4 mmol/L Normal 3.5-5.1 [facility] Comment on above: Performed By: #### B MP #### [facility] [address] [address] [address] Tiana Luong Sodium [Moles/Vol] 140 mmol/L Normal 136-145 [facility] Comment on above: Performed By: #### B MP #### [facility] [address] [address] [address] Tiana Luong Urea nitrogen [Mass/Vol] 20.0 mg/dL Critically high 7.0-18.0 [facility] Comment on above: Performed By: #### B MP #### [facility] [address] [address] [address] Tiana Luong Urea nitrogen/Creatinine [Mass ratio] 17.1 mg/mg Normal [facility] Comment on above: Performed By: #### B MP #### [facility] [address] [place] [address] Dr. Tiana Luong XR FINGER MIN 2 [...] by: JOSE GENTILE Date: 2022-04-20 15:00 Normal [facility] Patient Educationon 11-17-19 Patient Education [...] for free or for a low cost: Shanda [email or web address] Summary ? HIV spreads through semen, blood, breast milk, rectal fluid, and vaginal fluid. ? HIV is commonly spread through sexual contact and sharing needles or (more content not included)... Normal [facility] Urology Office/Clinic Noteon 11-16-2021 Urology Office/Clinic Note [...] and history for this patient from Dr. Jarrell There have been no associated fever, chills, [...] the patient. 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 Pain medicines have been [...] outlined. Follow-up With When Contact Information Sam JARRELL MD, URL [address] [place], [place] [id number]- Additional Instructions: Patient Education Preventing HIV Infection and AIDS IJada, personally scribed for Dr. Jarrell on 11/16/2021 08:26:54. . Documentation recorded by the scribe, Jada Crowder, accurately reflects the services(s) I performed and decisions made by me. Authenticated by Dr. Jarrell on 11/16/2021 08:27:25. Problem List/Past Medical History Ongoing BPH without obstruction/lower urinary tract symptoms Deafness Depression Hypertension Spina bifida (more content not included)... Normal [facility] Comment on above: Result Comment: Elec tronically Signed By: Sam JARRELL MD\.br\Date and Time Signed: 11/16/21 08:29 EDT\.br\Electronically Co-Signed By: Jada Crowder\.br\Date and Time Co-Signed: 11/16/21 08:27 EDT Coding Summary.on 11-08-2021 Coding Summary. CD:[id number] Gh 0bWw+PGhlYWQ+MH4GWVBqZ 88pnRAvvI9DL0oWVZ2HSXH MSKVWQD2POM2ztSQ8IBxeU 2VybiAv ObfpfHReAR49KUz9TRV2iI ihLOcmkC8clGSzU3r3PgLo TP77lV28LTxnFTMxVmS9Hx ZpbjsgbWFy V1onEoLknQFgGht+PHRhYm xlIHdpZHRoPScxMDAlJyBz lQahMH0pJc2jNCTbMGGjnH xhcHNlOiBj o7xeQHIzVCnlLT2isEjjI4 EznOZ1TYAjf9d1Ja35gLJ+ AHNmVWX6oQczEXmzl600Xk Jzb4ziWHL6 tAQbWCqvJEA0Z02rk2Z0CJ RqPPEfNIP0iTS4xS6bjUrc djxtL1NbfJDkHnZ9NFH8kM KpjX0zxTys oamnnE8gNjz+C65TNN6JBF ERDY3HYjl5I0ThBnezoJL+ WR86YRZuEP16xAJvuWRdk8 vimQb2HfMa MYIiAIW7tHieQBvcv0AfUK McG99sdMPzs0W9SETjkQyj fDKtQhDdmLS8xS0rAUoaep pgs8dhecwm Hlerc7mnsr97vT45W63sVQ bxAMBuLWD5TSMwJWZdzTsx vv5klV1lSy3+CQqhj2ywk1 vuuIb0GjNj JHCjmuMskGhyCYD6s7JiHi 60G3MuvZqrn9KqWcv8pi35 uPQon4N1dFR3QDjvNHBjfM 0hARojSvZ8 USGnXqTnaG91vBRvMCnwZp 4lcKgjwBpqMI6aNDBuvhok SQCgaK3pKPDpuESuzEgzAM 4wNTBpbjtm w483WqDzMQG9QLGlxVKwT4 JhhN0oIrJiJWLtNNXbW5Of gISnRElhX803EBbsStD9UY YfqyChO4Eb GSTzpYjfYcM0k3B2Fe9Bx1 AvuaneWNQ5FHtvKYY1AxN5 RiHeShW9Z7OpWet2XZGpgY tiJV0qF0Uh NDPozelxgqfqhKB3MVCmVG GmfQ67pQHoROviYh0rk4C4 t665KWQpSQSmmJ71Us3clV ogMTBwdCBU uT5rmqbwt2imdmjjFuGuPW DjVTw2KOy7LKRcpKfgUhEc DNB2RhN4WHW1gSOaeJ9buS zttowncL4s Oyc+I32iyN1xBNM3ADF4fd ekEAQufkMaHF68AM59Q9Hj PjwvdGFibGU+PGRpdiBzdH ooPC8sWcRb i0gql3BdDMilB0CaOGQwII duQux3IJSfGPM8mIN7jN2s RTFnZSzvc2G3gZC5W9Shkf Oajd4pk5oi WEGcQUuvY64gbMBjv5U8YR XqmXL4NSJwvBjxFiQmwA59 Oyc+KPTtuYskh7ZyVvpdb0 cty5vruGc8 EgAuXOTjdbBfvFgqFTH0l8 ZqFd02X26oBPzsCABwXCDk XGIbPGRftWzkpu9rzW1dGx 8+PGNvbCB3 zWH3iH1uWTOcCrH4FGlqC3 00PlRrkDPtYkxxr3iui0mm zOf4EjNuNESkpyIznGbjGM G0a4SjKq06 W46aNVddVJIoHYCqSGNsSY XwaCintm2duF1hHv5+PC9j t6azvy64zN59qMS+PHRkIH E7gPlyPCwc GHQtpB7nAGvuYeN8DEOuDy IntU15nOAuONyoNf8jlJis hRmyOV9gWOUlesbfr821Ch Lpw0tiMSPz eJOyQGclEUN8R59qs9E6TP NvIZPvJYG1mEA9yS4dwCkw bjogbGVmdDsgdmVydGljYW llEAqgH096 IHRvcDsnPlBhdGllbnQgTm XqTUz8Y3NvKkg4WDLdcOho IR3yqCIhPVboAq6zqCktoK bqTC6iLPZe dktqp792LzZmo7gkBDNefZ DpQUqxAGL7L44vl0D4QKOi XAQeVHT0aZN3hS5mpQbbse ogbGVmdDsg lmKfwXguSNwfCLbzV355ZV RvcDsnPkJpcnRoIERhdGU6 SB32GY36jXXtk4O9cZL2M7 BhZGRpbmct osdhhSZ8PQPcHGBfgG56Nw 8hkLonPe8eATRcQDE4YAOz aRUaX1GyyV4xNpLzXPVxYP RmG8DgeFUj EAaeP864HNdgFcL0UHKsvo PfM3ZiELHyjHuzMlM4c4C3 Ih6BY8E3CS94XR17yZMzd4 A0wEM5Q8Uv EULannfaipecaPG7DDXiMJ JvkJ37Wg0rmMuqSe2iNWSj GVU8GRXyhSTmJ1NehY6sIa AjMDAwMDAw I3ZiiSHzOZxvF139JBdpMn Q1TVIpyyPxI6GhNTDodIjk GkP3u6Q8Ez8FMFg1SZ26NY 18aVKtz0E7 nLF2A9PgUNQnhqlfnisvnT B5MWBhHQTtaT92Ah6nnXaa Tj2vBZIrJTU5TCRxvZAuE0 BdmE7hWkEe SFSeMWYrM8NghZNwCNikP3 08YFleOmQ7KBRegqJzM4Dd BXTzsNehToX0m9Y7Ag0LWE GbEY73MMM0 uGC2ND51QR40H9TeNvdwqH FibGU+PHRhYmxlIHdpZHRo PXpbLEChGyPmoEblMC2wKw 9yZGVyLWNv hJlzsPQhMsDsr7wpLHEtZE ynBP8dwAktN2RumMW7MRRk r8b2Vy55V52pW6ZsnFI+PG YdmSZ7wIO1 mQ0yJwSiEzL9WBxfQ049Xs TmjDToOydiv9gao2hvhCv5 OpH4JUHelpGmmFtmCWB5p0 TbNy00V85v IHdpZHRoPSIxNSUiIHZhbG lhnt3qeU4bDf9+PGNvbCB3 fHW9pH6fMrDqNaK8GZdlQ3 49InRvcCIv Ivkab8fmf5gckHy9GoYnAU TcnsDfxLwbBCN8q0YsBe70 C2YcxOtab7MpDkt4ca62hJ Scl0B7wFZ9 P8IjXMTlxinozRAylDzqUK 9jLPCbcsrxASYcnU0rWTSz M6h9DjTcGeB6OOsyB2Sflq Q3KCZodRQc VZmeCWL9B41tz4J9MJRfEY ZfQHM1mPM6hB0tfQdcikdm bGVmdDsgdmVydGljYWwtYW npF202BNKd qRsvCQSeoR3bVQMvvYCatT xdFM9aSUDmwcirFkkTPOaZ QH7ZUTEVPndOJR85AA48gX Gac1Q2bYY7 H2YuVXSdlnnshyrgaLM3HD MiLLArsZ09nVYzPXpcAd9e x4A4a176KEXiSZDhkU61Ys 9udDogMTBw sVNIpG8oajzoe9dedxavMu IyTAHxMTw5ABo6IVZeoQnl IbCdDXD6NgG6ZKQ2eJJxeX 1hbGlnbjog iM3lDgf+YOKdYJKhUJb1Bh wvdGQ+QESwMJK0fKgsIPsz HUBhaI9uSJEhL8m0VcBxJi P5OHgwK3Md JYMaldwgLe33fA7lRcGaEk H8SQmeA1RpuyY4TXAgsLNn IJwhYMQ1V84go7B7OXNeQV BkQHU0gTW1 qX5ylPlfqubscHVenWwsnl BvxHasMCfyRPtcO798IQXv mMxcXpY6YBdqFDHaDL08SN 45sFXji9M5 vTI8Y5GtIAGmacpvsbjhfS S3ARJxGGFzdQ39bHRgMUnh Gf0bs3A3p595OAMiSWUxwE 84Ld0agAtb CVJpbDXKpQ3hjptoh6vxbk dgUePdFDSmMVn5IXy2EFAq hQmaRsMuHJB0GmP3HZU1aD AhnF8pgLmg frzfvK5cWgv+TWFsZTwvdG Q+NDFxAKA1fJcvQTdiLCFw gW1tMPIpN0l0IkXxJwU4PD lwM5EvSRQi wunuRf81nB7dKyJoZcO3GG zrZ8MrbhN2BEDcnCIbWWxs TYU9M14pu8Z3FECiRCDiDD J0tOO5rI5m bGlnbjogbGVmdDsgdmVydG izIEijEPtnJ336VHPlmHdy SnhbRvROaz3kHV1xOcienN Q+IZ64eb39 F6IoTkzpYho8GKUlFJJ8jX F8oJ1fMYAiOWgqa0B2pEK1 S7JggmAlqj0kt7vsRGOpCB zxA70drRHa p1U5LHUcnEK8TKDefCqiVo LuaH82Hvj+UWShpQeni6Pk Qbbnt4wob8vyyTq5VjYjYD IgdmFsaWdu OES1z1IdIp22C13lXBdhJY JkECSrKQUgJIPtwJyjfe6f dR0vLo1+CFCtwAJ7jJE1eB 4cZxWfYsO7 TNxlC607KmLxcMPuAwamq0 kyy6kpwTm2JlPfMJUytaLr gJjmGLX1e4HqAk82D5PagA wyo4HbFpy8 xz99aCLfy1O4hNU8I5ZaCG QbpjbraNVgsJdvEH2oDQCd lpcwWPBmuL8rDLYuP9j9Zp FsThM7BMyk M2HkotN3PEGbwCUbCGEgcL QCuJ8roehhj1djkyfgObIt JLFqWKz7ZXe3UGSrjYxcGv AnCNF6IgN1 JJC2nZIurE7efAxdmepxhG 9wOyc+ICv2a0fxtGSmXP5j oSW0EM65AK68qKSee3F6rX M0C4ZrFMOl mxzuviwzhGQ6QPMrZOAolT 61Qb5coCyqPk7hDVVwITL6 WKWfzWWjL3KuzL5tYsMgXV UrGEAnG3Nv zKSxJKexU332FSxgCnH7LZ XpxhIfL5MmOOHlgCgnSzF3 e7W1Uq0XHT77UQ28EL31eD Tvk2K9oLW7 C7HwWXVuzdiuepsgtTP5NX KwGRFuwV94Ot2pbUpdKd0j CERiMAL8SMOxuSRdD1UabA 9yOiAjMDAw ZHQkT1BzbTLlAWnbQ773AO wzEzM1CHWnblZvX6YwZAFd rItoTyK0l0H1Eo6RFz09MH 38BP54eTWt f7B4bYF5X8KbXEVgmiwaad xaiQD4BUNhXAIdmO22Kz5n oTzvTw8mHOJsSZV0EDJlmQ VeG2BnlT3j PtVkPYAgUUIyD4GpyQQrJT euC562TRcuOuC0BHAyhvZc N6IkATZxnFsfDeK3x5T1Ou 9RQIoydla2 T2YvBjjafRQ+LW74BOInAZ 03zPNuaIGwc8jlvFf0FxFl ZHYyPNH2uUhvJNquh4EdVV TbE31rkHCs c2U6 (more content not included)... [facility] Ambulatory Visit Summaryon 0 11-05-2021 Ambulatory Visit Summary MARISELA HAHN :1975 Visit Date:11/05/2021 Ambulatory Visit Instructions Your Diagnosis Encounter for vasectomy BPH without obstruction/lower urinary tract symptoms Your Care Team Attending Physician - Sam JARRELL MD Primary Care Physician - NONE, XXXX This Is Your Medications List tamsulosin (tamsulosin 0.4 mg Cap) Contact prescribing physician if questions or concerns acetaminophen-hydrocod one ([place] 325 mg-5 mg oral tablet) amlodipine (amLODIPine 5 mg Tab) busPIRone (busPIRone 10 mg Tab) carvedilol (carvedilol 25 mg Tab) diazepam (Valium 10 mg Tab) escitalopram (escitalopram 10 mg Tab) lisinopril (lisinopril 40 mg Tab) venlafaxine (venlafaxine 150 mg Cap-ER) Procedures Performed Cystoscope (11/05/2021), Vasectomy (11/05/2021). What to do next Scheduled Follow-Up Appointments Monday 8:30 AM EDT With: Sam JARRELL MD Where: [facility] Consent for Procedure/Surger yon 11-05-2021 Consent for Procedure/Surgery [id number]#[id number] 0CD:[id number] [facility] Patient Educationon 11-06-19 22 Patient Education Urology [...] these instructions at home: Medicines ? Take chiq-xpf-tiuhqez and prescription medicines only as told by [...] 09/16/2005 Document Revised: 02/09/2018 Document Reviewed: 05/26/2017 SinglePlatform Patient Education ? 2019 [employer] [facility] Urology Office/Clinic Noteon 11-05-2021 Urology Office/Clinic Note Chief Complaint Cysto/vasectomy HPI Staff This is a 46 year old male here for Cysto/vasectomy. History of Present Illness Tests reviewed: none. I have reviewed the previous health record information and history for this patient from Dr. Jarrell. I have reviewed and verified the staff [...] the patient. 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 Pain medicines have been [...] to the (more content not included)... Normal [facility] Comment on above: Result Comment: Elec tronically Signed By: Sam JARRELL MD\.br\Date and Time Signed: 11/05/21 08:24 EDT\.br\Electronically Co-Signed By: Tomeka Montalvo.br\Date and Time Co-Signed: 11/05/21 08:19 EDT ECHOCARDIO M/2D COMPLETEon 0 10-22-2021 ECHOCARDIO M/2D COMPLETE Patient: MARISELA HANHRas Exam Date: 10/22/2021 : 1975 Gender:M Ordering : DR BENITO BULLOCK M.D. Admission #: [id number] Family : Order #: [id number] CLICK HERE TO VIEW EXAM ECHOCARDIOGRAM REPORT [...] M.D. on 10/22/2021 at 16:29 Normal [facility] CBC AUTO DIFFon 08-06-2021 BASO # 0.0 103/ul Normal 0.0-0.1 [facility] Comment on above: Performed By: #### C BC #### [facility] [address] [place] [address] Dr. Tiana Luong Basophils/100 WBC (Bld) 0.8 % Normal 0.2-2.0 [facility] Comment on above: Performed By: #### C BC #### [facility] [address] [address] [address] Tiana Luong EO # 0.1 103/ul Normal 0.0-0.7 [facility] Comment on above: Performed By: #### C BC #### [facility] [address] [place] [address] Dr. Tiana Luong Eosinophils/100 WBC (Bld) 1.4 % Normal 0.9-7.0 [facility] Comment on above: Performed By: #### C BC #### [facility] [address] [place] [address] Dr. Tiana Luong Erythrocyte distribution width (RBC) [Ratio] 14.6 % Normal 11.0-15.0 [facility] Comment on above: Performed By: #### C BC #### [facility] [address] [place] [address] Dr. Tiana Luong Hematocrit (Bld) [Volume fraction] 49.2 % Normal 42.0-54.0 [facility] Comment on above: Performed By: #### C BC #### [facility] [address] [place] [address] Dr. Tiana Luong Hemoglobin (Bld) [Mass/Vol] 16.0 g/dL Normal 14.0-18.0 [facility] Comment on above: Performed By: #### C BC #### [facility] [address] [place] [address] Dr. Tiana Luong IG # 0.03 10e3/ul Normal 0.00-0.03 [facility] Comment on above: Performed By: #### C BC #### [facility] [address] [place] [address] Dr. Tiana Luong IG % 0.6 % Critically high 0.0-0.5 [facility] Comment on above: Performed By: #### C BC #### [facility] [address] [place] [address] Dr. Tiana Luong LYMPH # 0.9 103/ul Critically low 1.2-3.8 [facility] Comment on above: Performed By: #### C BC #### [facility] [address] [place] [address] Dr. Tiana Luong Lymphocytes/100 WBC (Bld) 18.8 % Critically low 20.5-60.0 [facility] Comment on above: Performed By: #### C BC #### [facility] [address] [place] [address] Dr. Tiana Luong MANUAL DIFF REQ NO Normal [facility] Comment on above: Performed By: #### C BC #### [facility] [address] [address] [address] Tiana Luong MCH (RBC) [Entitic mass] 28.4 pg Normal 25.9-34.0 [facility] Comment on above: Performed By: #### C BC #### [facility] [address] [place] [address] Dr. Tiana Luong MCHC (RBC) [Mass/Vol] 32.5 g/dL Normal 29.9-35.2 [facility] Comment on above: Performed By: #### C BC #### [facility] [address] [place] [address] Dr. Tiana Luong MCV (RBC) [Entitic vol] 87.4 fL Normal 80.0-94.0 [facility] Comment on above: Performed By: #### C BC #### [facility] [address] [place] [address] Dr. Tiana Luong MONO # 0.4 103/ul Normal 0.3-0.8 [facility] Comment on above: Performed By: #### C BC #### [facility] [address] [place] [address] Dr. Tiana Luong Monocytes/100 WBC (Bld) 8.7 % Normal 1.7-12.0 [facility] Comment on above: Performed By: #### C BC #### [facility] [address] [place] [address] Dr. Tiana Luong NEUT # 3.4 103/ul Normal 1.4-6.5 [facility] Comment on above: Performed By: #### C BC #### [facility] [address] [place] [address] Dr. Tiana Luong Neutrophils/100 WBC (Bld) 69.7 % Normal 43.0-75.0 [facility] Comment on above: Performed By: #### C BC #### [facility] [address] [place] [address] Dr. Tiana Luong Platelet mean volume (Bld) [Entitic vol] 9.7 fL Normal 9.5-13.5 [facility] Comment on above: Performed By: #### C BC #### [facility] [address] [place] [address] Dr. Tiana Luong PLT 167 103/ul Normal 150-450 [facility] Comment on above: Performed By: #### C BC #### [facility] [address] [place] [address] Dr. Tiana Luong RBC 5.63 106/ul Normal 4.70-6.10 [facility] Comment on above: Performed By: #### C BC #### [facility] [address] [place] [address] Dr. Tiana Luong WBC 4.9 103/ul Normal 4.0-11.0 [facility] Comment on above: Performed By: #### C BC #### [facility] [address] [place] [address] Dr. Tiana Luong FREE T4on 08-06-2021 Free T4 [Mass/Vol] 0.80 ng/dL Normal 0.76-1.46 [facility] Comment on above: Performed By: #### F T4 #### [facility] [address] [place] [address] Dr. Tiana Luong PROF 14(COMP METB)on 022 Albumin [Mass/Vol] 3.9 g/dL Normal 3.4-5.0 [facility] Comment on above: Performed By: #### C MP, TSH #### [facility] [address] [place] [address] Dr. Tiana Luong Albumin/Globulin [Mass ratio] 1.3 {ratio} Normal [facility] Comment on above: Performed By: #### C MP, TSH #### [facility] [address] [place] [address] Dr. Tiana Luong ALP [Catalytic activity/Vol] 60 U/L Normal 46-116 [facility] Comment on above: Performed By: #### C MP, TSH #### [facility] [address] [place] [address] Dr. Tiana Luong ALT [Catalytic activity/Vol] 21 U/L Normal 16-63 [facility] Comment on above: Performed By: #### C MP, TSH #### [facility] [address] [address] [address] Tiana Luong Anion gap [Moles/Vol] 11.0 mmol/L Normal [facility] Comment on above: Performed By: #### C MP, TSH #### [facility] [address] [address] [address] Tiana Luong AST [Catalytic activity/Vol] 17 U/L Normal 15-37 [facility] Comment on above: Performed By: #### C MP, TSH #### [facility] [address] [address] [address] Tiana Luong Bilirubin [Mass/Vol] 0.5 mg/dL Normal 0.2-1.0 [facility] Comment on above: Performed By: #### C MP, TSH #### [facility] [address] [place] [address] Dr. Tiana Luong Calcium [Mass/Vol] 9.0 mg/dL Normal 8.5-10.1 [facility] Comment on above: Performed By: #### C MP, TSH #### [facility] [address] [place] [address] Dr. Tiana Luong Chloride [Moles/Vol] 106 mmol/L Normal 98-107 [facility] Comment on above: Performed By: #### C MP, TSH #### [facility] [address] [address] [address] Tiana Luong CO2 [Moles/Vol] 27.2 mmol/L Normal 21.0-32.0 [facility] Comment on above: Performed By: #### C MP, TSH #### [facility] [address] [address] [address] Tiana Luong Creatinine [Mass/Vol] 0.93 mg/dL Normal 0.70-1.30 [facility] Comment on above: Performed By: #### C MP, TSH #### [facility] [address] [place] [address] Dr. Tiana Luong EGFR-AF VIET[place]ESE >60 Normal >=60 [facility] Comment on above: Performed By: #### C MP, TSH #### [facility] [address] [address] [address] Tiana Luong EGFR-NON AF [place]ESE >60 Normal >=60 [facility] Comment on above: Performed By: #### C MP, TSH #### [facility] [address] [address] [address] Tiana Luong Globulin (S) [Mass/Vol] 3.1 g/dL Normal [facility] Comment on above: Performed By: #### C MP, TSH #### [facility] [address] [address] [address] Tiana Luong Glucose [Mass/Vol] 96 mg/dL Normal 74-106 [facility] Comment on above: Performed By: #### C MP, TSH #### [facility] [address] [address] [address] Tiana Loung Potassium [Moles/Vol] 4.2 mmol/L Normal 3.5-5.1 [facility] Comment on above: Performed By: #### C MP, TSH #### [facility] [address] [address] [address] Tiana Luong Protein [Mass/Vol] 7.0 g/dL Normal 6.4-8.2 [facility] Comment on above: Performed By: #### C MP, TSH #### [facility] [address] [address] [address] Tiana Luong Sodium [Moles/Vol] 140 mmol/L Normal 136-145 [facility] Comment on above: Performed By: #### C MP, TSH #### [facility] [address] [address] [address] Tiana Luong Urea nitrogen [Mass/Vol] 19.0 mg/dL Critically high 7.0-18.0 [facility] Comment on above: Performed By: #### C MP, TSH #### [facility] [address] [address] [address] Tiana Luong Urea nitrogen/Creatinine [Mass ratio] 20.4 mg/mg Normal [facility] Comment on above: Performed By: #### C MP, TSH #### [facility] [address] [address] [address] Tiana Luong TSHon 08-06-2021 TSH 1.417 uIU/mL Normal 0.358-3.740 [facility] Comment on above: Performed By: #### C MP, TSH #### [facility] [address] [address] [address] Tiana Luong TSH RANGE SEE BELOW Normal [facility] Comment on above: Result Comment: <0.3 4 UIU/ml HYPERTHYROID 0.34-5.60 UIU/ml EUTHYROID >5.60 UIU/ml HYPOTHYROID Performed By: #### C MP, TSH #### [facility] [address] [address] [address] Tiana Luong COVID-19/INFLUENZA A,B MOLEC ULARon 02-18-2020 COVID-19/INFLUENZA A,B MOLECULAR SARS-COV-2 (NATALYA): Not Detected INFLUENZA A (NATALYA): Not Detected INFLUENZA B (NATALYA): Not Detected Normal Not Detected [facility] Comment on above: Order Comment: [...] at the following links: For Healthcare Providers: https://www.fda.gov/media/290540/download For Patients: https://www.fda.gov/media/782387/download Performed By: #### L [id number] #### [address] [address] Mike King MD [id number] PED CT DISSECTION WITH PELVISon 02-18-2020 CT [...] on MonFeb 18, 2020 1:23:37 AM EST [facility] Comment on above: Order Comment: Injur y/Trauma [...] at L5-S1 with vacuum disc phenomena present. Htto-hd-qosizejw facet arthropathy of the lumbar spine which is most pronounced distally. IMPRESSION: 1. No acute osseous abnormality of the lumbar spine. 2. Ucxx-ec-waiecqtt degenerative changes which are most pronounced distally at L5-S1. Workstation ID: [id number] Dictated by: MAKENNA BOYKIN on MonFeb 17, 2020 9:29:23 PM EST Transcribed by: MAKENNA BOYKIN on MonFeb 17, 2020 9:29:23 PM EST Finalized by: MAKENNA BOYKIN on MonFeb 17, 2020 9:29:[address] [facility] Comment on above: Order Comment: Injur y/Trauma or Illness?:Illness/Other How long have you had these symptoms (acute/chronic)?:Acute Reason for exam?:back pain History of cancer?:n Surgeries, chemotherapy, or radiation?:n Type of Exam?:Initial Additional signs and symptoms?:x many weeks but much worse pain today Vital Signs Date Time Vital Sign Value Performing Clinician Facility 04-11-2024 13:17050 Body height 185.42 cm [facility] 04-11-2024 13:170500 Body mass index (BMI) [Ratio] 39.9 kg/m2 [facility] 04-11-2024 13:050 Body weight 137.43 kg [facility] 04-11-2024 13:17-0500 Diastolic blood pressure 78 mm[Hg] [facility] 04-11-2024 13:17-0500 Heart rate 76 /min [facility] 04-11-2024 13:17-0500 Systolic blood pressure 111 mm[Hg] [facility] 04-08-2024 16:07-0500 Body mass index (BMI) [Ratio] 39.84 kg/m2 Margo Rincon 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 Work Phone: [facility] 04-08-2024 16:07-0500 Body weight 136.99 kg Margo Rincon 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 Work Phone: [facility] 04-08-2024 16:07-0500 Diastolic blood pressure 86 mm[Hg] Margo Rincon 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 Work Phone: [facility] 04-08-2024 16:07-0500 Heart rate 85 /min Margo Rincon 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 Work Phone: [facility] 04-08-2024 16:07-0500 SaO2% (BldA) [Mass fraction] 99 % Margo Rincon 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 Work Phone: [facility] 04-08-2024 16:07-0500 Systolic blood pressure 142 mm[Hg] Margo Rincon 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 Work Phone: [facility] 03-25-2024 14:16-0500 Body height 185.4 cm Jeff Brad DO Work Phone: [facility] 03-25-2024 14:16-0500 Body mass index (BMI) [Ratio] 39.79 kg/m2 Jeff Brad DO Work Phone: [facility] 03-25-2024 14:16-0500 Body weight 136.81 kg Jeff Brad DO Work Phone: [facility] 03-25-2024 14:16-0500 Diastolic blood pressure 94 mm[Hg] Jeff Brad DO Work Phone: [facility] 03-25-2024 14:16-0500 Heart rate 74 /min Jeff Brad DO Work Phone: [facility] 03-25-2024 14:16-0500 SaO2% (BldA) [Mass fraction] 95 % Jeff Brad DO Work Phone: [facility] 03-25-2024 14:16-0500 Systolic blood pressure 142 mm[Hg] Jeff Salinas DO Work Phone: [facility] 02-14-2024 09:18-0500 Body height 185.42 cm [facility] 02-14-2024 09:18-0500 Body mass index (BMI) [Ratio] 39.6 kg/m2 [facility] 02-14-2024 09:18-0500 Body weight 136.53 kg [facility] 02-14-2024 09:18-0500 Diastolic blood pressure 75 mm[Hg] [facility] 02-14-2024 09:18-0500 Heart rate 82 /min [facility] 02-14-2024 09:18-0500 Systolic blood pressure 107 mm[Hg] [facility] 02-13-2024 12:53-0500 Body height 185.4 cm Margo Rincon 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 Work Phone: [facility] 02-13-2024 12:53-0500 Body mass index (BMI) [Ratio] 40.5 kg/m2 Margo Rincon 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 Work Phone: [facility] 02-13-2024 12:53-0500 Body weight 139.25 kg Margo Rincon 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 Work Phone: [facility] 02-13-2024 12:53-0500 Diastolic blood pressure 82 mm[Hg] Margo Antoineoll 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 Work Phone: [facility] 02-13-2024 12:53-0500 Heart rate 77 /min Margo Rincon 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 Work Phone: [facility] 02-13-2024 12:53-0500 SaO2% (BldA) [Mass fraction] 96 % Margo Rincon 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 Work Phone: [facility] 02-13-2024 12:53-0500 Systolic blood pressure 138 mm[Hg] Margo Rincon 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 Work Phone: [facility] 01-11-2024 13:30-0400 Body height 185.42 cm [facility] 01-11-2024 13:30-0400 Body mass index (BMI) [Ratio] 40.5 kg/m2 [facility] 01-11-2024 13:30-0400 Body weight 139.25 kg [facility] 01-11-2024 13:30-0400 Diastolic blood pressure 80 mm[Hg] [facility] 01-11-2024 13:30-0400 Heart rate 82 /min [facility] 01-11-2024 13:30-0400 SaO2% (BldA) [Mass fraction] 97 % [facility] 01-11-2024 13:30-0400 Systolic blood pressure 118 mm[Hg] [facility] 10-16-2023 09:10-0400 Body weight 145.26 kg MD Benito Bullock Work Phone: [facility] 10-16-2023 09:10-0400 Diastolic blood pressure 90 mm[Hg] MD Benito Bullock Work Phone: [facility] 10-16-2023 09:10-0400 Heart rate 83 /min MD Benito Bullock Work Phone: [facility] 10-16-2023 09:10-0400 SaO2% (BldA) [Mass fraction] 98 % MD Benito Bullock Work Phone: [facility] 10-16-2023 09:10-0400 Systolic blood pressure 142 mm[Hg] MD Benito Bullock Work Phone: [facility] 09-11-2023 13:04-0400 Body height 185.42 cm MD Benito Bullock Work Phone: [facility] 09-11-2023 13:04-0400 Body mass index (BMI) [Ratio] 41.9 kg/m2 MD Benito Bullock Work Phone: [facility] 09-11-2023 13:04-0400 Body weight 144.24 kg MD Benito Bullock Work Phone: [facility] 09-11-2023 13:04-0400 Diastolic blood pressure 85 mm[Hg] MD Benito Bullock Work Phone: [facility] 09-11-2023 13:04-0400 Heart rate 79 /min MD Benito Bullock Work Phone: [facility] 09-11-2023 13:04-0400 Systolic blood pressure 135 mm[Hg] MD Benito Bullock Work Phone: [facility] 07-19-2023 13:16-0400 Body weight 151.1 kg MD Benito Bullock Work Phone: [facility] 07-19-2023 13:16-0400 Diastolic blood pressure 90 mm[Hg] MD Benito Bullock Work Phone: [facility] 07-19-2023 13:16-0400 Heart rate 92 /min MD Benito Bullock Work Phone: [facility] 07-19-2023 13:16-0400 SaO2% (BldA) [Mass fraction] 98 % MD Benito Bullock Work Phone: [facility] 07-19-2023 13:16-0400 Systolic blood pressure 150 mm[Hg] MD Benito Bullock Work Phone: [facility] 07-18-2023 10:06-0400 Body height 185.42 cm MD Benito Bullock Work Phone: [facility] 07-18-2023 10:06-0400 Body mass index (BMI) [Ratio] 43.2 kg/m2 MD Benito Bullock Work Phone: [facility] 07-18-2023 10:06-0400 Body weight 148.77 kg MD Benito Bullock Work Phone: [facility] 07-18-2023 10:06-0400 Diastolic blood pressure 85 mm[Hg] MD Benito Bullock Work Phone: [facility] 07-18-2023 10:06-0400 Heart rate 73 /min MD Benito Bullock Work Phone: [facility] 07-18-2023 10:06-0400 Systolic blood pressure 123 mm[Hg] MD Benito Bullock Work Phone: [facility] 06-21-2023 10:07-0400 Body height 185.42 cm MD Benito Bullock Work Phone: [facility] 06-21-2023 10:07-0400 Body mass index (BMI) [Ratio] 43.4 kg/m2 MD Benito Bullock Work Phone: [facility] 06-21-2023 10:07-0400 Body weight 149.23 kg MD Benito Bullock Work Phone: [facility] 06-21-2023 10:07-0400 Diastolic blood pressure 92 mm[Hg] MD Benito Bullock Work Phone: [facility] 06-21-2023 10:07-0400 Heart rate 75 /min MD Benito Bullock Work Phone: [facility] 06-21-2023 10:07-0400 SaO2% (BldA) [Mass fraction] 97 % MD Benito Bullock Work Phone: [facility] 06-21-2023 10:07-0400 Systolic blood pressure 138 mm[Hg] MD Benito Bullock Work Phone: [facility] 06-16-2023 10:10-0400 Body height 185.42 cm MD Benito Bullock Work Phone: [facility] 06-16-2023 10:10-0400 Body mass index (BMI) [Ratio] 43.4 kg/m2 MD Benito Bullock Work Phone: [facility] 06-16-2023 10:10-0400 Body weight 149.23 kg MD Benito Bullock Work Phone: [facility] 06-16-2023 10:10-0400 Diastolic blood pressure 85 mm[Hg] MD Benito Bullock Work Phone: [facility] 06-16-2023 10:10-0400 Heart rate 78 /min MD Benito Bullock Work Phone: [facility] 06-16-2023 10:10-0400 Systolic blood pressure 122 mm[Hg] MD Benito Bullock Work Phone: [facility] 05-31-2023 10:50-0400 Diastolic blood pressure 79 mm[Hg] MD Benito Bullock Work Phone: [facility] 05-31-2023 10:50-0400 Heart rate 71 /min MD Benito Bullock Work Phone: [facility] 05-31-2023 10:50-0400 Respiratory rate 18 /min MD Benito Bullock Work Phone: [facility] 05-31-2023 10:50-0400 SaO2% (BldA) [Mass fraction] 96 % MD Benito Bullock Work Phone: [facility] 05-31-2023 10:50-0400 Systolic blood pressure 131 mm[Hg] MD Benito Bullock Work Phone: [facility] 05-31-2023 09:34-0400 Body height 185.42 cm MD Benito Bullock Work Phone: [facility] 05-31-2023 09:34-0400 Body weight 149.68 kg MD Benito Bullock Work Phone: [facility] 05-17-2023 15:27-0500 Diastolic blood pressure 102 mm[Hg] MD Benito Bullock Work Phone: [facility] 05-17-2023 15:27-0500 Heart rate 101 /min MD Benito Bullock Work Phone: [facility] 05-17-2023 15:27-0500 SaO2% (BldA) [Mass fraction] 96 % MD Benito Bullock Work Phone: [facility] 05-17-2023 15:27-0500 Systolic blood pressure 158 mm[Hg] MD Benito Bullock Work Phone: [facility] 05-10-2023 10:22-0500 Diastolic blood pressure 96 mm[Hg] MD Benito Bullock Work Phone: [facility] 05-10-2023 10:22-0500 Heart rate 73 /min MD Benito Bullock Work Phone: [facility] 05-10-2023 10:22-0500 Respiratory rate 16 /min MD Benito Bullock Work Phone: [facility] 05-10-2023 10:22-0500 SaO2% (BldA) [Mass fraction] 98 % MD Benito Bullock Work Phone: [facility] 05-10-2023 10:22-0500 Systolic blood pressure 151 mm[Hg] MD Benito Bullock Work Phone: [facility] 05-10-2023 09:01-0500 Body height 185.42 cm MD Benito Bullock Work Phone: [facility] 05-10-2023 09:01-0500 Body weight 145.14 kg MD Benito Bullock Work Phone: [facility] 04-26-2023 15:53-0500 Body height 185.42 cm MD Benito Bullock Work Phone: [facility] 04-26-2023 15:53-0500 Body mass index (BMI) [Ratio] 43.5 kg/m2 MD Benito Bullock Work Phone: [facility] 04-26-2023 15:53-0500 Body weight 149.68 kg MD Benito Bullock Work Phone: [facility] 04-26-2023 15:53-0500 Heart rate 84 /min MD Benito Bullock Work Phone: [facility] 04-26-2023 15:53-0500 Respiratory rate 18 /min MD Benito Bullock Work Phone: [facility] 04-26-2023 15:53-0500 SaO2% (BldA) [Mass fraction] 95 % MD Benito Bullock Work Phone: [facility] 04-19-2023 09:23-0500 Diastolic blood pressure 88 mm[Hg] MD Benito Bullock Work Phone: [facility] 04-19-2023 09:23-0500 Heart rate 82 /min MD Benito Bullock Work Phone: [facility] 04-19-2023 09:23-0500 Respiratory rate 16 /min MD Benito Bullock Work Phone: [facility] 04-19-2023 09:23-0500 SaO2% (BldA) [Mass fraction] 97 % MD Benito Bullock Work Phone: [facility] 04-19-2023 09:23-0500 Systolic blood pressure 139 mm[Hg] MD Benito Bullock Work Phone: [facility] 04-19-2023 08:05-0500 Body height 185.42 cm MD Benito Bullock Work Phone: [facility] 04-19-2023 08:05-0500 Body weight 149.68 kg MD Benito Bullock Work Phone: [facility] 04-03-2023 11:45-0500 Body height 181.61 cm MD Benito Bullock Work Phone: [facility] 04-03-2023 11:45-0500 Diastolic blood pressure 92 mm[Hg] MD Benito Bullock Work Phone: [facility] 04-03-2023 11:45-0500 Systolic blood pressure 156 mm[Hg] MD Benito Bullock Work Phone: [facility] 03-03-2023 08:30-0500 Body height 181.61 cm Rivera Bermudez Other [facility] 03-03-2023 08:30-0500 Body mass index (BMI) [Ratio] 46.75 kg/m2 Rivera Bermudez Other [employer] Other 03-03-2023 08:30-0500 Body weight 154.22 kg Rivera Lara Other [facility] 03-03-2023 08:30-0500 Diastolic blood pressure 98 mm[Hg] Riveraroge Bermudez Other [facility] 03-03-2023 08:30-0500 Systolic blood pressure 150 mm[Hg] Riveraroge Bermudez Other [facility] 02-21-2023 09:00-0500 Body height 181.61 cm Riveraroge Bermudez Other [facility] 02-21-2023 09:00-0500 Body mass index (BMI) [Ratio] 46.48 kg/m2 Riveraroge Bermudez Other [employer] Other 02-21-2023 09:00-0500 Body weight 153.32 kg Rivera Riosky Other [employer] Other 02-21-2023 09:00-0500 Body weight 153.31 kg MD Benito Bullock Work Phone: [facility] 02-21-2023 09:00-0500 Diastolic blood pressure 90 mm[Hg] Riveraroge Bermudez Other [facility] 02-21-2023 09:00-0500 SaO2% (BldA) [Mass fraction] 97 % Riveraroge Bermudez Other [employer] Other 02-21-2023 09:00-0500 Systolic blood pressure 160 mm[Hg] Rivera Bermudez Other [facility] 02-20-2023 08:20-0500 Body height 181.61 cm Pattie Hardin Other [facility] 02-20-2023 08:20-0500 Body mass index (BMI) [Ratio] 46.34 kg/m2 Pattie Hardin Other [employer] Other 02-20-2023 08:20-0500 Body weight 152.86 kg Pattie Hardin Other [facility] 01-24-2023 13:30-0500 Body height 181.61 cm Deann Ortega Other [employer] Other 01-24-2023 13:30-0500 Body mass index (BMI) [Ratio] 46.64 kg/m2 Deann Ortega Other [employer] Other 01-24-2023 13:30-0500 Body weight 153.86 kg Deann Ortega Other [employer] Other 01-24-2023 13:30-0500 Diastolic blood pressure 96 mm[Hg] Deann Ortega Other [employer] Other 01-24-2023 13:30-0500 SaO2% (BldA) [Mass fraction] 98 % Deann Ortega Other [employer] Other 01-24-2023 13:30-0500 Systolic blood pressure 154 mm[Hg] Deann Ortega Other [employer] Other 11-02-2022 09:15-0400 Body height 181.61 cm Benito Bullock Other [employer] Other 11-02-2022 09:15-0400 Body mass index (BMI) [Ratio] 45.38 kg/m2 Benito Bullock Other [employer] Other 11-02-2022 09:15-0400 Body weight 149.69 kg Benito Bullock Other [employer] Other 11-02-2022 09:15-0400 Diastolic blood pressure 86 mm[Hg] Benito Bullock Other [employer] Other 11-02-2022 09:15-0400 Systolic blood pressure 150 mm[Hg] Benito Bullock Other [employer] Other 05-16-2022 09:00-0500 Body height 181.61 cm Benito Bullock Other [employer] Other 05-16-2022 09:00-0500 Body mass index (BMI) [Ratio] 43.73 kg/m2 Benito Bullock Other [employer] Other 05-16-2022 09:00-0500 Body weight 144.24 kg Benito Bullock Other [employer] Other 05-16-2022 09:00-0500 Diastolic blood pressure 100 mm[Hg] Benito Bullock Other [employer] Other 05-16-2022 09:00-0500 SaO2% (BldA) [Mass fraction] 97 % Benito Bullock Other [employer] Other 05-16-2022 09:00-0500 Systolic blood pressure 160 mm[Hg] Benito Bullock Other [employer] Other 05-09-2022 09:00-0500 Body height 181.61 cm Benito Bullock Other [employer] Other 05-09-2022 09:00-0500 Body mass index (BMI) [Ratio] 44.28 kg/m2 Benito Bullock Other [employer] Other 05-09-2022 09:00-0500 Body weight 146.06 kg Benito Bullock Other [facility] [employer] Other 05-09-2022 09:00-0500 Diastolic blood pressure 102 mm[Hg] Benito Bullcok Other [facility] [employer] Other 05-09-2022 09:00-0500 SaO2% (BldA) [Mass fraction] 97 % Benito Bullock Other [facility] [employer] Other 05-09-2022 09:00-0500 Systolic blood pressure 162 mm[Hg] Benito Bullock Other [facility] [employer] Other 11-16-2021 08:12-0400 Blood Pressure Location [facility] 11-16-2021 08:12-0400 Diastolic blood pressure 88 mm[Hg] [facility] 11-16-2021 08:12-0400 Heart rate 70 /min [employer] [facility] 11-16-2021 08:12-0400 Respiratory rate 16 /min [facility] 11-16-2021 08:12-0400 Systolic blood pressure 130 mm[Hg] [facility] 08-13-2021 10:19-0400 Blood Pressure Location [employer] [facility] 08-13-2021 10:19-0400 Diastolic blood pressure 89 mm[Hg] [facility] 08-13-2021 10:19-0400 Heart rate 77 /min Sam JARRELL [facility] 08-13-2021 10:19-0400 Systolic blood pressure 133 mm[Hg] Sam JARRELL [facility] Encounters Encounter Date Encounter Type Care Provider Facility Start: 04-17-2024 End: 04-17-2024 ambulatory EDWARDO ALEGRE [facility] Start: 04-16-2024 End: 04-16-2024 ambulatory BRITTNI SWIFT [facility] Start: 04-11-2024 End: 04-11-2024 ambulatory [facility] Work Phone: Start: 04-11-2024 End: 04-11-2024 Patient encounter procedure [facility] Work Phone: Start: 04-08-2024 End: 04-08-2024 Office outpatient visit 25 minutes Margo Rincon 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 Work Phone: [facility]OR[facility] Comment on above: Transient alteration of awareness (Primary Dx); Orthostatic hypotension; Chronic migraine without aura without status migrainosus, not intractable (CMS/HCC); Cognitive dysfunction; JESSICA (obstructive sleep apnea); Tremor Start: 04-08-2024 End: 04-08-2024 ambulatory MARGO RINCON Not Available Start: 04-08-2024 End: 04-08-2024 Bamboo flowsheet Margo Rincon 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 Work Phone: [facility] Start: 04-08-2024 End: 04-08-2024 Bamboo flowsheet Margo Rincon 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 Work Phone: [facility] Start: 04-03-2024 ambulatory [facility] Start: 03-25-2024 End: 03-25-2024 Office outpatient visit 25 minutes Jeff Brad DO Work Phone: [facility] Comment on above: JESSICA (obstructive sle ep apnea) (Primary Dx); Hypersomnia; Snoring; Chronic daily headache Start: 03-25-2024 End: 03-25-2024 ambulatory JEFF SALINAS Not Available Start: 03-25-2024 End: 03-25-2024 Bamboo flowsheet Jeff Salinas DO Work Phone: [facility] Start: 03-25-2024 End: 03-25-2024 Bamboo flowsheet Jeff Salinas DO Work Phone: [facility] Start: 02-14-2024 End: 02-14-2024 ambulatory MARGO RINCON Not Available Start: 02-14-2024 End: 02-14-2024 Patient encounter procedure [facility] Work Phone: Start: 02-13-2024 Non-patient / Non-visit [facility] Work Phone: Start: 02-13-2024 End: 02-13-2024 Office outpatient visit 25 minutes Margo Rincon 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 Work Phone: [facility] [address] Comment on above: Transient alteration of awareness (Primary Dx); Orthostatic hypotension; Chronic daily headache; Cognitive dysfunction; JESSICA (obstructive sleep apnea); Tremor Start: 02-13-2024 End: 02-13-2024 ambulatory MARGO RINCON Not Available Start: 02-12-2024 End: 02-12-2024 ambulatory RAFY QUEVEDO [facility] Start: 02-07-2024 Evaluation and management of inpatient ANNA T SARAH [facility] Start: 02-05-2024 Evaluation and management of inpatient LEONARD MIRANDA [facility] Start: 02-02-2024 Evaluation and management of inpatient POPPY [facility] Start: 02-01-2024 Emergency department patient visit POPPY SIMON [facility] Start: 02-01-2024 Emergency department patient visit MARIAH CAZARES [facility] Start: 02-01-2024 End: 02-07-2024 Evaluation and management of inpatient LUANNE FINK [facility] Start: 01-17-2024 End: 01-17-2024 ambulatory BRITTNI SWIFT [facility] Start: 01-11-2024 End: 01-11-2024 ambulatory [facility] Work Phone: Start: 01-11-2024 End: 01-11-2024 Patient encounter procedure [facility] Work Phone: Start: 01-11-2024 End: 01-11-2024 ambulatory R[facility] Start: 01-09-2024 Non-patient / Non-visit [facility] Work Phone: Start: 01-04-2024 [facility]: [facility] Start: 01-03-2024 End: 01-06-2024 Evaluation and management of inpatient POPPY GARNER [facility] Start: 01-03-2024 Non-patient / Non-visit [facility] [employer] Work Phone: Start: 12-11-2023 End: 12-11-2023 ambulatory RICO ORONA [facility] Start: 10-30-2023 End: 10-30-2023 ambulatory BAILEY FRYE Not Available Start: 10-16-2023 End: 10-16-2023 ambulatory MD Benito Bullock Work Phone: [facility] Work Phone: Start: 10-16-2023 End: 10-16-2023 Patient encounter procedure MD Benito Bullock Work Phone: [facility] Work Phone: Start: 09-13-2023 End: 09-13-2023 ambulatory ANJU DUNCAN Not Available Start: 09-11-2023 Patient encounter status MD Benito Bullock Work Phone: [facility] Start: 09-11-2023 End: 09-11-2023 ambulatory MD Benito Bullock Work Phone: [facility] Work Phone: Start: 09-11-2023 End: 09-11-2023 Encounter for general adult medical examination without abnormal findings MD Benito Bullock Work Phone: [facility] Start: 09-11-2023 End: 09-11-2023 Patient encounter procedure MD Benito Bullock Work Phone: [facility] Work Phone: Start: 08-30-2023 End: 08-30-2023 ambulatory MARGO RINCON Not Available Start: 08-29-2023 End: 08-29-2023 ambulatory ANJU DUNCAN Not Available Start: 08-22-2023 End: 08-22-2023 Patient encounter procedure MD Benito Bullock Work Phone: [facility] [place] Work Phone: Start: 08-22-2023 End: 08-22-2023 ambulatory MD Benito Bullock Work Phone: [facility] Work Phone: Start: 08-18-2023 End: 08-18-2023 Patient encounter procedure MD Benito Bullock Work Phone: [facility] [place] Work Phone: Start: 08-18-2023 End: 08-18-2023 ambulatory MD Benito Bullock Work Phone: [facility] Work Phone: Start: 07-19-2023 End: 07-19-2023 ambulatory MD Benito Bullock Work Phone: [facility] Work Phone: Start: 07-19-2023 End: 07-19-2023 Patient encounter procedure MD Benito Bullock Work Phone: [facility] Work Phone: Start: 07-18-2023 End: 07-18-2023 ambulatory MARGO RINCON Not Available Start: 07-18-2023 End: 07-18-2023 ambulatory MD Benito Bullock Work Phone: [facility] Work Phone: Start: 07-18-2023 End: 07-18-2023 Patient encounter procedure MD Benito Bullock Work Phone: [facility] Work Phone: Start: 07-05-2023 End: 07-05-2023 ambulatory MARGO RINCON Not Available Start: 07-03-2023 End: 07-03-2023 ambulatory NAM THEODOREJASEN Not Available Start: 06-21-2023 End: 06-21-2023 ambulatory MD Benito Bullock Work Phone: [facility] Work Phone: Start: 06-21-2023 End: 06-21-2023 Patient encounter procedure MD Benito Bullock Work Phone: [facility] Work Phone: Start: 06-16-2023 End: 06-16-2023 ambulatory MD Benito Bullock Work Phone: [facility] Work Phone: Start: 06-16-2023 End: 06-16-2023 Patient encounter procedure MD Benito Bullock Work Phone: [facility] Work Phone: Start: 06-12-2023 End: 06-12-2023 ambulatory RICO [facility] Start: 05-31-2023 Non-patient / Non-visit MD Sherri Bullock Work Phone: [facility] Work Phone: Start: 05-31-2023 End: 05-31-2023 Admission to same day surgery center MD Benito Bullock Work Phone: [facility] Work Phone: Start: 05-31-2023 End: 05-31-2023 ambulatory MD Benito Bullock Work Phone: [facility] Work Phone: Start: 05-17-2023 End: 05-17-2023 Patient encounter procedure MD Benito Bullock Work Phone: [facility] Work Phone: Start: 05-15-2023 Non-patient / Non-visit MD Sherri Bullock Work Phone: [facility] Work Phone: Start: 05-10-2023 Non-patient / Non-visit MD Sherri Bullock Work Phone: [facility] Work Phone: Start: 05-10-2023 End: 05-10-2023 Admission to same day surgery center MD Benito Bullock Work Phone: [facility] Work Phone: Start: 05-10-2023 End: 05-10-2023 ambulatory Rivera Bermudez Facility:[facility] Start: 04-26-2023 End: 04-26-2023 ambulatory MD Benito Bullock Work Phone: [facility] Work Phone: Start: 04-26-2023 End: 04-26-2023 Patient encounter procedure MD Benito Bullock Work Phone: [facility] Work Phone: Start: 04-19-2023 (PROC) PROCEDURE Rivera Bermudez [facility] Start: 04-19-2023 End: 04-19-2023 Admission to same day surgery center MD Benito Bullock Work Phone: [facility] Work Phone: Start: 04-19-2023 End: 04-19-2023 ambulatory MD Benito Bullock Work Phone: [facility] Work Phone: Start: 04-03-2023 End: 04-03-2023 Patient encounter procedure MD Benito Bullock Work Phone: [facility] Start: 03-03-2023 End: 03-03-2023 ambulatory Rivera Bermudez Other [employer] Other Start: 03-03-2023 Patient encounter procedure Rivera Bermudez [facility] Start: 03-03-2023 End: 03-03-2023 Patient encounter procedure MD Benito Bullock Work Phone: [facility] Work Phone: Start: 02-28-2023 End: 02-28-2023 ambulatory Deann Ortega Other [employer] Other Start: 02-28-2023 Telephone encounter Deann Ortega [facility] [employer] Start: 02-21-2023 End: 02-21-2023 ambulatory Rivera Lara Other [employer] Other Start: 02-21-2023 Office outpatient vi sit 25 minutes Riveraroge Berumdez [facility] Start: 02-21-2023 End: 02-21-2023 Patient encounter procedure MD Benito Bullock Work Phone: [facility] Work Phone: Start: 02-20-2023 End: 02-20-2023 ambulatory Pattie Hardin Other [employer] Other Start: 02-20-2023 Office outpatient ne w 45 minutes Pattie Hardin [facility] Start: 02-20-2023 End: 02-20-2023 Patient encounter procedure MD Benito Bullock Work Phone: [facility] Work Phone: Start: 02-17-2023 End: 02-17-2023 Patient encounter procedure MD Benito Bullock Work Phone: [facility] [place] Work Phone: Start: 02-17-2023 End: 02-17-2023 ambulatory MD Benito Bullock Work Phone: [facility] Work Phone: Start: 01-24-2023 End: 01-24-2023 ambulatory Deann Ortega Other [employer] Other Start: 01-24-2023 Office outpatient vi sit 15 minutes Deann Ortega [facility] Start: 01-24-2023 End: 01-24-2023 Patient encounter procedure MD Benito Bullock Work Phone: [facility] Work Phone: Start: 12-06-2022 End: 12-06-2022 ambulatory Rivera Bermudez Other [employer] Other Start: 12-06-2022 Telephone encounter Rivera Bermudez [facility] [employer] Start: 12-05-2022 End: 12-05-2022 Patient encounter procedure MD Benito Bullock Work Phone: [facility] [place] Work Phone: Start: 12-05-2022 End: 12-05-2022 ambulatory MD Benito Bullock Work Phone: [facility] Work Phone: Start: 11-02-2022 End: 11-02-2022 ambulatory Benito Bullock Other [employer] Other Start: 11-02-2022 Office outpatient vi sit 15 minutes Benito Bullock [facility] Start: 07-20-2022 Encounter for other specified special examinations BAILEY FRYE [facility] Start: 07-14-2022 End: 07-15-2022 ambulatory BAILEY FRYE Facility: Start: 07-14-2022 End: 07-15-2022 Encounter for other specified special examinations BAILEY FRYE Facility:[facility] Start: 07-01-2022 End: 07-02-[address] DOCTOR NAVAS Facility:[facility] Start: 05-16-2022 End: 05-16-2022 ambulatory Benito Bullock Other [employer] Other Start: 05-16-2022 Office outpatient vi sit 15 minutes Benito Bullock [facility] Start: 05-11-2022 End: 05-12-[address] BENITO BULLOCK Facility:[facility] Start: 05-09-2022 End: 05-09-2022 ambulatory Benito Bullock Other [employer] Other Start: 05-09-2022 Office outpatient vi sit 15 minutes Benito Bullock [facility] Start: 04-20-2022 End: 04-20-[address] MAI [place] . Facility: Start: 11-16-2021 End: 11-17-2021 ambulatory Sam JARRELL Facility:[facility] Start: 11-16-2021 End: 11-16-2021 Patient encounter procedure Sam JARRELL [facility] Start: 11-05-2021 End: 11-06-2021 ambulatory [place] JARRELL [place] [place]: 11-05-2021 End: 11-06-2021 ambulatory Sam JARRELL Facility:[facility] Start: 11-05-2021 End: 11-05-2021 Lab Drop off Sam JARRELL [facility] Start: 10-22-2021 End: 10-23-[address] BENITO BULLOCK Facility:[facility] Start: 08-13-2021 End: 08-13-2021 Patient encounter procedure Sam JARRELL [facility] Start: 08-06-2021 End: 08-07-[address] BENITO BULLOCK Facility: Start: 02-17-2020 End: 02-18-2020 Emergency department patient visit BENITO BULLOCK [facility] Procedures Date Procedure Procedure Detail [...] Work Phone: Start: 11-16-2021 H/O: vasectomy Sam JARRELL Start: 11-05-2021 Cystoscope, device (physical object) Sam JARRELL Start: 11-05-2021 Vasectomy aSm [place] Plan of Treatment Date Care Activity Detail Author Start: 06-18-2024 End: 06-18-2024 Patient encounter procedure 06/18/2024 9:45 AM EDT Office Visit JOSE E SORIANO [address] [place] [address] Jeff Salinas DO [address] [place] [address] JOSE E SORIANO Start: 06-06-2024 End: 06-06-2024 Patient encounter procedure 06/06/2024 3:00 PM EDT Office Visit JOSE E SORIANO [address] [place] [address] RinconMargo plasenciaDARRELL [address] [place] [address] JOSE E SORIANO Start: 04-08-2024 End: 04-08-2024 Patient encounter procedure MARICARMEN SORIANO [address] Comment on above: Arrived Start: 03-25-2024 End: 03-25-2024 Patient encounter procedure MARICARMEN SORIANO [address] Comment on above: Arrived Start: 02-14-2024 End: 02-14-2024 Clinical Support 02/14/2024 11:00 AM EST Clinical Support MARICARMEN SORIANO [address] [place] [address] [address]ORIAN[address] Start: 02-13-2024 End: 02-12-2025 EEG awake or drowsy EEG awake or drowsy Neurology Routine Transient alteration of awareness Expected: 02/13/2024 (Approximate), Expires: 02/12/2025 [facility] Work Phone: Comment on above: Expected: 02/13/2024 (Approximate), Expires: 02/12/2025 Start: 07-18-2023 Patient referral [facility] Work Phone: Start: 05-31-2023 [facility] Start: 05-10-2023 [facility] Start: 04-19-2023 [facility] Start: 02-17-2023 MR Cervical spine WO contrast [facility] Start: 02-17-2023 MRI of cervical spin e without contrast MR cervical spine wo con [facility] Start: 1975 Screening for malignant neoplasm of colon [facility] Patient Education [facility] Work Phone: Patient referral [facility] Work Phone: XR Lumbar spine 4 Views [facility] Immunizations Immunization Date Immunization Notes Care Provider Ezequiel edwards 12-05-2022 COVID-19 (PFIZER) 12Y and older MD Benito Bullock Work Phone: [facility] 11-15-2022 Influenza, injectabl e, Madin [place] Canine Kidney, preservative free, quadrivalent MD Benito Bullock Work Phone: [facility] 11-12-2021 influenza, injectabl e, quadrivalent, preservative free MD Benito Bullock Work Phone: [facility] 08-12-2021 COVID-19 Comirnaty (Pfizer) Tri-Sucrose 12+ MD Benito Bullock Work Phone: [facility] 08-12-2021 SARS-CoV-2 mRNA (tozinameran 5y-11y) vaccine Sam JARRELL [facility] 03-13-2021 SARS-CoV-2 mRNA (tozinameran 5y-11y) vaccine Sam JARRELL [facility] 11-24-2020 influenza, injectabl e, quadrivalent, preservative free MD Benito Bullock Work Phone: [facility] 11-24-2020 tetanus toxoid, redu latrice diphtheria toxoid, and acellular pertussis vaccine, adsorbed MD Benito Bullock Work Phone: [facility] 06-28-2020 COVID-19 mRNA, Comirnaty (Pfizer) MD Benito Bullock Work Phone: [facility] 06-11-2020 SARS-CoV-2 mRNA (tozinameran 5y-11y) vaccine Sam JARRELL [facility] 06-07-2020 COVID-19 mRNA, Comirnaty (Pfizer) MD Benito Bullock Work Phone: [facility] 05-11-2020 SARS-CoV-2 mRNA (tozinameran 5y-11y) vaccine Sam JARRELL [facility] 02-16-2020 Influenza, injectabl e, Madin Tonya Canine Kidney, preservative free, quadrivalent MD Benito Bullock Work Phone: [facility] Payers Date Payer Category Payer Self-pay 2022 Medicaid [facility] [id number] 2021 Medicaid [id number] 2020 Medicaid [id number] 1975 Unknown [id number] 2.16.840.1.797724.3.579.2.902 1975 Unknown [id number] 2.16.840.1.942868.3.579.2.593 1975 Unknown [id number] 2.16.840.1.151097.3.579.2.593 1975 Unknown [id number] 2.16.840.1.871946.3.579.2.593 1975 Unknown [id number] 2.16.840.1.614460.3.579.2.593 1975 Unknown [id number] 2.16.840.1.059637.3.579.2.593 1975 Unknown [id number] 2.16.840.1.492353.3.579.2.593 1975 Unknown [id number] 2.16.840.1.685072.3.579.2.727 1975 Unknown [id number] 2.16.840.1.117025.3.579.2.727 1975 Unknown [id number] 2.16.840.1.871430.3.579.2.727 1975 Unknown [id number] 2.16.840.1.542597.3.579.2.1258 1975 Unknown [id number] 2.16.840.1.303142.3.579.2.1258 1975 Unknown [id number] 2.16.840.1.563736.3.579.2.1258 1975 Unknown [id number] 2.16.840.1.478129.3.579.2.1258 1975 Unknown [id number] 2.16.840.1.312151.3.579.2.1258 1975 Unknown [id number] 2.16.840.1.352587.3.579.2.1258 1975 Unknown [id number] 2.16.840.1.299180.3.579.2.1258 1975 Unknown [id number] 2.16.840.1.949506.3.579.2.1258 1975 Unknown [id number] 2.16.840.1.089942.3.579.2.1258 1975 Unknown [id number] 2.16.840.1.802436.3.579.2.1258 1975 Unknown [id number] 2.16.840.1.893457.3.579.2.1258 1959 Unknown [id number] Unknown [id number] 2.16.840.1.660792.3.579.2.531 Unknown [id number] 2.16.840.1.815002.3.579.2.531 Unknown [id number] 2.16.840.1.147506.3.579.2.531 Unknown [id number] 2.16.840.1.680322.3.579.2.531 Unknown [id number] 2.16.840.1.498305.3.579.2.531 Unknown [id number] 2.16.840.1.240260.3.579.2.531 Unknown [id number] 2.16.840.1.562710.3.579.2.531 Social History Date Type Detail Facility Start: 08-13-2021 End: 05-10-2023 Tobacco smoking status Never smoked tobacco (finding) [facility] Tobacco smoking status Never [facility] [employer] Start: 07-01-2023 End: 03-25-2024 Sex Assigned At Male [facility] [employer] Start: 1975 Sex Assigned At Male [facility] Start: 04-03-2023 [facility] Start: 07-01-2023 Tobacco use and exposure Smokeless tobacco non-user [facility] Start: 02-13-2024 End: 03-25-2024 Alcoholic beverage intake Current drinker of alcohol (finding) [facility] Start: 07-01-2023 End: 03-25-2024 History of Social function [facility] How often to you hav e a drink containing alcohol? 2-3 time sa week [facility] How many standard drinks containing alcohol do you have on a typical day? 1 or 2 [facility] How often do you hav e 6 or more drinks on 1 occasion? 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 Santos Mckeon SEISMOGRAPH CHIEF: Dr Edwardo Alegre INDICATIONS FOR PROCEDURE: 1. SVT/AF surveillance CONSENT: Patient LOCATION: EP lab PROCEDURAL SEDATION: None FLUOROSCOPY TIME: 0min PREPARATION: Preoperative antibiotics was administered. EBL: 5cc SPECIMEN REMOVED: None PROCEDURES PERFORMED: 1. LOOP implant PROCEDURE NOTE: Patient was brought to the EP lab in the post absorptive state. A procedural pause was performed verifying the patient, the procedure. Sterile prep and drape were performed over the left precordium and anesthesia with 1% lidocaine was followed by a small incision was made in the 3rd intercostal space near the sternum on the left using the [employer] tool. The loop recorder was then injected subcutaneously and noted to have good sensing parameters. Technical details of the device as noted below. The skin was then closed with 3-0 absorbable monofilament suture and glue applied to hold the edges together. Tegaderm was applied to cover the wound. The patient appeared to tolerate the procedure well and was returned to the room in stable condition. No complications were immediately observed. Sensin.1mV. IMPRESSION: Successful placement of LOOP implant with excellent sensing parameters. COMPLICATIONS: None RECOMMENDATIONS: 1. Occlusive dressing to be changed after 7 days. 2. Do not wet the incision. Edwardo Alegre MD Cardiac Electrophysiology. [facility] 04-17-2024 Note Patient states he wi ll give office a call after procedure today to schedule appendectomy procedure [facility] 04-16-2024 Note Patient: Marisela Zimmer iams Procedure Summary Date: 04/16/24 Room / Location: [facility] OR / [facility] OR Anesthesia Start: 1120 Anesthesia Stop: 115 Procedure: COLONOSCOPY with hot snare polypectomy Diagnosis: Perforated appendicitis (Perforated appendicitis [K35.32]) Surgeons: Brittni Swift MD Responsible Provider: Gurmeet Villagomez MD Anesthesia Type: MAC ASA Status: 2 Anesthesia Type: MAC Vitals Value Taken Time BP 116/76 04/16/24 1154 Temp 37 ???C (98.6 ???F) 04/16/24 1154 Pulse 79 04/16/24 1154 Resp 18 04/16/24 1154 SpO2 99 % 04/16/24 1154 Anesthesia Post Evaluation Patient location during evaluation: PACU Patient participation: complete - patient participated Level of consciousness: awake Pain score: 0 Pain management: adequate Airway patency: patent Cardiovascular status: stable Respiratory status: acceptable Hydration status: balanced Patient is hemodynamically stable and is able to be discharged from PACU per anesthesia protocol. No notable events documented. [facility] 04-16-2024 Note Patient: Marisela Zimmer iams Procedure Summary Date: 04/16/24 Room / Location: [address] OR Anesthesia Start: 1120 Anesthesia Stop: Procedure: COLONOSCOPY with hot snare polypectomy Diagnosis: Perforated appendicitis (Perforated appendicitis [K35.32]) Surgeons: Brittni Swift MD Responsible Provider: Gurmeet Villagomez MD Anesthesia Type: MAC ASA Status: 2 Anesthesia Post Transport Note Transport to: [place] PACU O2 Route: face mask Oxygen Flow (L/min): 8 Patient Monitor: direct observation Transport: uneventful Patient condition is: stable [facility] 04-16-2024 Note Patient: Marisela Zimmer iams Procedure Information Date/Time: 04/16/24 1045 Procedure: COLONOSCOPY Location: [address] OR Surgeons: Brittni Swift MD Relevant Problems Cardio (+) Primary hypertension (+) Resistant hypertension GI (+) GERD (gastroesophageal reflux disease) Neuro/Psych (+) Chronic daily headache (+) Other headache syndrome Clinical information reviewed: Tobacco Allergies Meds Med Hx Surg Hx Fam Hx Soc Hx Physical Exam Airway Mallampati: II TM distance: >3 FB Neck ROM: full Cardiovascular Rhythm: regular Rate: normal Dental - normal exam Pulmonary Breath sounds clear to auscultation Abdominal - normal exam Anesthesia Plan ASA 2 MAC intravenous induction Anesthetic plan and risks discussed with patient. Use of blood products discussed with who consented to blood products. Plan discussed with CAA. Additional Equipment Requests [facility] 04-08-2024 History of Present illness Narrative Images from the original note were not included. Chief Complaint Patient presents with Headache Tremors Syncope Subjective Marisela Hahn, 49 y.o., male History of Present Illness The patient presents today for a follow-up appointment. He had an EEG completed for review. At the prior appointment, topiramate dose was increased. The patient is taking topiramate 50 mg twice a day. He has tolerated the medication well and denies any apparent adverse effects. He has noticed mild improvement in his headaches since the dose increase. The patient reports having approximately 5-6 headaches per week recently. These are located in the bilateral temporal or parietal region. They are severe, and he describes them as sharp, pressure, or throbbing. They can be accompanied by increased sensitivity to light and sounds. They are not accompanied by visual disturbance, nausea, or vomiting. They are aggravated by physical activity and relieved by rest. The patient states his headaches can be provoked by stress or eating, but other times, he can be doing, nothing, and develop a headache. They last up to 4-5 hours on average. He has tried Advil Migraine for his symptoms, and this provides moderate benefit. His tremor has remained generally unchanged. The patient denies any episodes of loss of consciousness, seizure-like activity, or alteration of awareness since the prior appointment on 02/13/2024. He states he has felt well and has had no chest pain recently. He continues to follow closely with cardiology. He states they recently completed a 30-day cardiac event monitor, and he plans to review the results with them at his upcoming appointment in April 2024. He denies any further new concerns. Review of Systems Constitutional: Negative for appetite change, chills, diaphoresis, fever and unexpected weight change. Eyes: Negative for double vision, change in vision, or vision loss Respiratory: Negative for chest tightness, shortness of breath and wheezing. Cardiovascular: Negative for chest pain and palpitations. Gastrointestinal: Negative for abdominal pain, nausea and vomiting. Neurological: Positive for tremors and headaches (accompanied by photophobia and phonophobia at times). Negative for dizziness, seizures, syncope, facial asymmetry, speech difficulty, weakness, light-headedness and numbness. Psychiatric/Behavioral: Positive for sleep disturbance. Negative for agitation, hallucinations, self-injury and suicidal ideas. The patient is nervous/anxious. Past Medical History: Diagnosis Date Hypertension (CMS/HCC) Kidney stone Past Surgical History: Procedure Laterality Date CT GUIDED IMAGING FOR ABSCESS DRAIN 01/04/2024 CT GUIDED IMAGING FOR ABSCESS DRAIN 01/04/2024 Family History Problem Relation Name Age of Onset Hypertension Mother Allergies Mother Hypertension Father Hypertension Sister Allergies Sister Social History Tobacco Use Smoking status: Never Smokeless tobacco: Never Substance Use Topics Alcohol use: Yes Allergies: Cephalexin Vitals: 04/08/24 1607 BP: 142/86 Pulse: 85 SpO2: 99% Body mass index is 39.84 kg/m . weight: 302 lb Neurologic exam: Mental status and general appearance: Awake and alert with unlabored respirations. Oriented to person, place, and time. Recent and remote memory are intact. Speech is clear and fluent without aphasia. Speech is non-dysarthric. Attention and concentration are normal. Fund of knowledge is appropriate for level of education. Pleasant. Cranial nerves: CN II: Visual acuity is normal. Visual maharaj full to confrontation. CN III, IV, : Pupils are equal, round, and reactive to light. Extraocular movements intact. No ptosis present. CN V: Facial sensation is normal. CN VII: Full and symmetric facial movement. CN VIII: Hearing is normal to finger rub bilaterally. CN IX and X: Palate elevates symmetrically. CN XI: Shoulder shrug is normal bilaterally. CN XII: Tongue is midline without atrophy or fasciculation. Motor: RUE strength deltoid , biceps , triceps , wrist extensors , wrist flexor , and principal developer strength 5/5. LUE strength deltoid , biceps , triceps , wrist extensors , wrist flexor , and principal developer strength 5/5. RLE strength iliopsoas, quadriceps, tibialis anterior, and plantar flexion strength 5/5. LLE strength iliopsoas, quadriceps, tibialis anterior, and plantar flexion strength 5/5. Tone and bulk are normal. No tremor appreciated on exam today. Sensory: Sensation is intact to light touch throughout all four extremities. Sensation is intact to temperature in all extremities. Reflexes: RUE biceps reflex 2+ , brachioradialis reflex 2+. LUE biceps reflex 2+ , brachioradialis reflex 2+. RLE knee reflex 1+. LLE knee reflex 1+. Coordination: Ibzdje-od-osaz testing normal. Rapid alternating movements are normal. Gait: Normal. Review and summary of old records: Routine EEG on 02/14/24: Normal. Orthostatic vital signs on 02/13/24: Negative. Laying - blood pressure 118/68, heart rate 75 beats/min Sitting - blood pressure 115/77, heart rate 80 beats/min Standing for 3 minutes - blood pressure 123/86, heart rate 100 beats/min Sleep study at [facility] on 08/27/23: The patient meets criteria for moderate obstructive sleep apnea (AHI 15-30). The patient does have signs that could be consistent with a periodic limb movement disorder. Labs at [facility] on 08/22/23: Vitamin B12 level 304. Folate 17.7. TSH 1.47. [facility]: Demonstrated, when focused and attentive, well-preserved cognition and memory. Findings were completely normal for his age. There is no supporting evidence of any residual cognitive sequelae associated with his episodes in 2019. Rather, severe depression, moderate anxiety, poor sleep, and suspicion for underlying JESSICA appeared to be sapping his attentional resources, thereby interfering with optimal memory and cognitive efficiency. Ambulatory EEG in 05/2023: Normal 64-hour ambulatory EEG Orthostatic vital signs at [facility] on 08/15/22: Positive. Routine EEG on 06/16/22: Normal. MRI brain w and w/o contrast at [facility] on 07/14/22: No intracranial masses or abnormal enhancement. No abnormal restricted diffusion or evidence of evolving infarct. No evidence of intracranial hemorrhage. No hydrocephalus. Mild generalized cerebral and cerebellar volume loss. Minimal small vessel gliosis. Assessment/Plan Diagnoses and all orders for this visit: Transient alteration of awareness Orthostatic hypotension The patient experienced multiple episodes of loss of consciousness (LOC) in 2021 and prior which he described as syncopal episodes with prodromal symptoms. MRI brain on 07/14/22 was unremarkable for cause, and routine EEG and ambulatory EEG were normal. The patient states he was evaluated by cardiology back then, and they did not identify a cause for his previous episodes of LOC. He does have a history of orthostatic hypotension, and I believe this could have been contributory to his past episodes. More recently, the patient experienced 2 syncopal episodes in January 2024 without prodromal symptoms or accompanying tonic-clonic movements, tongue/cheek biting, or incontinence. His recent episodes do not sound clinically consistent with typical seizure, and routine EEG on 02/14/24 was normal. Orthostatic vital signs from 01/2024 and 02/13/24 were negative. I believe cardiovascular etiology or adverse effects secondary to medications may have been contributory to his most recent episodes. PLAN: - Follow up closely with cardiology for further evaluation and monitoring. Reportedly, they recently completed a 30-day event monitor and have plans for possible Loop recorder - The patient is taking nifedipine, lisinopril, and carvedilol, all of which have the potential to cause syncope. I asked him to discuss these prescriptions with the prescribing providers, as he may benefit from dose reduction or discontinuation of some - Ensure adequate water intake and change positions slowly - The patient has been counseled on precautions, including no driving, no swimming or tub bathing alone, no swimming in dark vargas, no climbing ladders, and no operating heavy machinery until cleared by cardiology and neurology Chronic daily headache Chronic migraine without aura without status migrainous, not intractable (CMS/HCC) The patient reports daily headaches which do not perfectly meet criteria for one particular headache type. These seem to have some features of both migraine and tension-type headache. MRI brain on 07/14/22 was unremarkable for secondary headache cause. The patient has tried tizanidine (4 mg PO QHS PRN - ineffective), carvedilol, and venlafaxine without success. Topiramate has provided some benefit, however, the patient continues to report 5-6 headache days per week which can affect his quality of life. Will trial adjunctive treatment to help further improve headache control. Neurologic exam reveals no new deficits today. PLAN: - Start Ajovy 225 mg subcutaneous once every 30 days for migraine prevention. I counseled the patient on proper administration and possible adverse effects. He verbalizes understanding and wishes to proceed with use - Continue topiramate 50 mg by mouth twice a day for now - Avoid TCAs and other antidepressants for prevention, as the patient is already taking venlafaxine and escitalopram Cognitive dysfunction The patient reports intermittent cognitive impairment. He previously mentioned confusion upon arousal from sleep at times and could have difficulty remembering certain things. He remains independent with all ADLs. MRI brain on 07/14/22 was nonacute but revealed mild generalized cerebral and cerebellar volume loss and minimal small vessel gliosis. Ambulatory EEG in 05/2023 was normal, and the patient reports experiencing some brief confusion upon waking during this study. As such, I have low suspicion for epilepsy contributing to his symptoms. Neuropsychological evaluation on 07/05/23 demonstrated well-preserved cognition and memory. 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 Sleep quality is likely also contributory. PLAN: - Sleep hygiene, adequate hydration, and healthy diet - Follow up closely with primary care provider for management of psychiatric conditions JESSICA (obstructive sleep apnea) Sleep study on 08/27/23 was consistent with moderate JESSICA. PLAN: - Follow up with Dr. Salinas for management. Looks like they are having the patient scheduled for CPAP titration - Weight reduction measures Tremor The patient reports a chronic and intermittent mixed tremor of the bilateral upper extremities. This is not appreciated on exam today, and he has no family history of tremor or parkinsonian features otherwise. I question if this is functional or related to SSRI/SNRI use. PLAN: - Monitor clinically Diagnosis and treatment options discussed in detail. All questions answered. The patient verbalizes understanding and is agreeable to the plan. Discussion in layman's terms. Follow up in the office within 2 months; sooner if needed for new or worsening symptoms. [facility] Advanced Neurology documented in this encounter [facility] 04-08-2024 Instructions Margo Rincon NP - 04/08/2024 4:00 PM EST - Start Ajovy 225 mg subcutaneous once every 30 days for headache prevention documented in this encounter [facility] 04-03-2024 Note MS Electrophysiology Consult Note MS Cardiology - [facility] Reason for visit: syncope HPI: Marisela Hahn is a 49 y.o. year old with past medical history of spina bifida, morbid obesity, GERD, HTN, syncope, recent perforated appendicitis and associated abscess s/p IR drain placement and removal, here for follow up on syncope and event monitor findings. Patient underwent stress test during admission due to symptoms of sharp chest pain, stress test showed transient ischemic dilatation without perfusion defects. CTA coronary was done that showed minimal coronary artery calcifications. Patient today states he has been feeling well at home. Denies any episodes of syncope since he has been home. He states that nothing precipitates the episodes of syncope, denies chest pain, shortness of breath, dizziness or lightheadedness. Patient states he felt a few instances of palpitations while wearing the monitor. Event monitor showed prevalence of sinus rhythm 99% of the time. Few short episodes of SVT. PMH: Past Medical History: Diagnosis Date Anxiety Essential hypertension GERD (gastroesophageal reflux disease) Mixed hyperlipidemia Morbid obesity with BMI of 40.0-44.9, adult ([facility]) Morbid obesity with body mass index (BMI) of 40.0 to 44.9 in adult ([facility]) 11/24/2021 Resistant hypertension 11/24/2021 Spina bifida ([facility]) 05/11/2022 Syncope and collapse Tobacco dependence 11/24/2021 PSH: Past Surgical History: Procedure Laterality Date MYRINGOTOMY W/ TUBES SH: Social Determinants of Health Tobacco Use: Low Risk (03/25/2024) Received from [facility] Patient History Smoking Tobacco Use: Never Smokeless Tobacco Use: Never Passive Exposure: Not on file Alcohol Use: Not At Risk (02/01/2024) AUDIT-C Frequency of Alcohol Consumption: Monthly or less Average Number of Drinks: 1 or 2 Frequency of Binge Drinking: Never Financial Resource Strain: Low Risk (02/01/2024) Overall Financial Resource Strain (CARDIA) Difficulty of Paying Living Expenses: Not hard at all Food Insecurity: No Food Insecurity (02/01/2024) Hunger Vital Sign Worried About Running Out of Food in the Last Year: Never true Ran Out of Food in the Last Year: Never true Transportation Needs: No Transportation Needs (02/01/2024) Transportation Lack of Transportation (Medical): No Lack of Transportation (Non-Medical): No Physical Activity: Not on file Stress: Stress Concern Present (02/01/2024) [employer] - Occupational Stress Questionnaire Feeling of Stress : To some extent Social Connections: Moderately Isolated (02/01/2024) Social Connection and Isolation Panel [NHANES] Frequency of Communication with Friends and Family: More than three times a week Frequency of Social Gatherings with Friends and Family: More than three times a week Attends Rastafari Services: Never Active Member of Clubs or Organizations: Yes Attends Club or Organization Meetings: 1 to 4 times per year Marital Status: Intimate Partner Violence: Not At Risk (02/01/2024) Humiliation, Afraid, Rape, and Kick questionnaire Fear of Current or Ex-Partner: No Emotionally Abused: No Physically Abused: No Sexually Abused: No Depression: Not at risk (01/17/2024) PHQ-2 PHQ-2 Score: 0 Housing Stability: Low Risk (02/01/2024) Housing Stability Vital Sign Unable to Pay for Housing in the Last Year: No Number of Times Moved in the Last Year: 1 Homeless in the Last Year: No Utilities: Not At Risk (02/01/2024) [facility] Utilities Threatened with loss of utilities: No Health Literacy: Not on file Allergies: Allergies Allergen Reactions Keflex [Cephalexin] Rash Weight: No weight available Visit Vitals Smoking Status Never Meds: Current Outpatient Medications on File Prior to Visit Medication Sig Dispense Refill acetaminophen (Tylenol) 500 mg tablet Take 2 tablets (1,000 mg) by mouth every 8 (eight) hours for 290 doses. (Patient not taking: Reported on 02/12/2024) 30 tablet 0 aspirin 81 mg EC tablet Take 81 mg by mouth at bedtime. chlorthalidone (Hygroton) 25 mg tablet Take 1 tablet (25 mg) by mouth in the morning. 90 tablet 3 escitalopram (Lexapro) 10 mg tablet Take 20 mg by mouth in the morning. ibuprofen 200 mg tablet Take 200 mg by mouth every 6 (six) hours if needed for mild pain (1-3 pain score). lisinopril 40 mg tablet Take 40 mg by mouth in the morning. NIFEdipine XL (Procardia XL) 60 mg 24 hr tablet Take 1 tablet (60 mg) by mouth in the morning. Do not crush, chew, or split. Stop taking amlodipine. Start with taking nifedipine 60mg once daily. Continue to monitor BP. 90 tablet 3 potassium gluconate 595 mg (99 mg) tablet Take 99 mg by mouth in the morning. spironolactone (Aldactone) 25 mg tablet Take 1 tablet (25 mg) by mouth in the morning. 90 tablet 3 topiramate (Topamax) 25 mg tablet Take 25 mg by mouth two times d (more content not included)... [facility] 03-25-2024 History of Present illness Narrative Images from the original note were not included. Chief Complaint Patient presents with Sleep Apnea Subjective Marisela Hahn, 48 y.o., male HPI Sleep study on 08/27/23 was consistent with moderate JESSICA. The patient has not had a cpap machine. He did not have the ordered titration study completed. He states that he sleeps ok. He states that he wakes up to go to the bathroom 1-2 times a night but he is able to go back to sleep easily. He states that he gets about 7 hrs a night of sleep. He is a little tired during the day. Sleep ND Patient Symptoms Snores: No Wakes gasping for breath: No Dozes off if inactive: No Dozes off with activity: No Wakes a lot through the night: No Witnessed episodes of apnea: No Bedtime: 11pm-12am Is it hard or easy to fall asleep: Depends on the day, can be difficult due to mind racing. Morning wake time: 7am Do you feel rested: Sometimes Takes naps: Sometimes once or twice a week and will sleep for about 30 minutes Feels better after napping: Sometimes Sleepwalk: No Sleeptalk: No Vivid Dreams: No Acts out dreams: No Sleep related hallucinations: No Sleep paralysis: No Cataplexy: No Restless Leg: No Kicking/Jerking at night: Yes TV on while sleeping: No Smoke before bed: No Caffeine within 3 hours before bed: No CV exercise: Yes 5 days a week He does have a daily headache with but they are not migrainous. Past Medical History: Diagnosis Date Hypertension (CMS/HCC) Kidney stone Past Surgical History: Procedure Laterality Date CT GUIDED IMAGING FOR ABSCESS DRAIN 01/04/2024 CT GUIDED IMAGING FOR ABSCESS DRAIN 01/04/2024 Family History Problem Relation Name Age of Onset Hypertension Mother Allergies Mother Hypertension Father Hypertension Sister Allergies Sister Social History Tobacco Use Smoking status: Never Smokeless tobacco: Never Substance Use Topics Alcohol use: Yes Allergies: Cephalexin General: No fever or chills HEENT: No nasal congestion or runny nose Pulmonary: No shortness of breath or cough Cardiovascular: No chest pain or palpitations GI: No nausea or vomiting : No dysuria or hematuria Musculoskeletal: No new aches or pains or muscle weakness Infectious: no recurrent fevers or infections Dermatologic: No rashes or skin lesions Neurologic: No new headaches or dizziness Vitals: 03/25/24 1416 BP: (!) 142/94 Pulse: 74 SpO2: 95% Body mass index is 39.79 kg/m . weight: 301 lb 9.6 oz The patient was counseled to monitor their blood pressure and to follow up with PCP regarding the same. Neurologic exam: General: Normal body habitus, cooperative, pleasant Mental status: Awake, alert to person, place and time. Recent and remote memory are intact. Attention and concentration are normal. Fund of knowledge is appropriate for level of education. HEENT: NC/AT Cranial nerves: CN II: Visual maharaj full to confrontation. No loss of vision CN III, IV, : pupils equal round and reactive to light. Extraocular movements intact. No ptosis present. CN V: Facial sensation is normal. CN VII: Full and symmetric facial movement. CN VIII: Hearing is normal CN IX and X: Palate elevates symmetrically. CN XI: Shoulder shrug is normal bilaterally. CN XII: Tongue is midline without atrophy or fasciculation. Speech: Clear and fluent no aphasia or dysarthria Pronator drift: Negative bilateral upper extremity Coordination: Intact, no signs of dysmetria Good finger to nose and rapid alternating movements Sensory: Sensation is intact to light, temperature and vibratory touch throughout four extremities. Motor: LUE 5/5 RUE 5/5 LLE 5/5 RLE 5/5 Tone: Physiologic, no tremor, bradykinesia or rigidity DTR: Bilateral Biceps 2/4 Bilateral BR 2/4 Bilateral Patellar 2/4 No spasticity Gait: Normal to casual gait Romberg's Negative Review and summary of old records: Assessment/Plan Diagnoses and all orders for this visit: JESSICA (obstructive sleep apnea) Hypersomnia Snoring Chronic daily headache 48-year-old male with daytime hypersomnia snoring and daily headaches who was found to have a moderate obstructive sleep apnea with an apnea-hypopnea index of 22. Patient needs a CPAP titration study. He also has signs of periodic limb movement disorder and I would like to assess how many limb movements he has once he has a CPAP on to determine if this improves. I am hopeful that getting his sleep apnea treated will help his sleepiness and is headaches and overall make him feel better. He does meet criteria for obesity and a body mass index he will benefit from aggressive weight loss measures. Plan Set up with CPAP titration Assess the PLMD he is on the titration study The patient was counseled on the need for aggressive diet, exercise, and weight loss. The patient was counseled on proper sleep hygiene and adequate hours of sleep. The patient was counseled on the risks of stroke, MT, and sudden with JESSICA, along with the need for compliance with the CPAP/BiPAP treatment. The patient was counseled on the need for aggressive diet, exercise, and weight loss. The diagnosis was all discussed with the patient. All questions were answered and they agreed with the treatment plan. Patient will call if there are any new issues or questions. Pt has been fully educated on their diagnosis, treatment options, follow up plan, and return instructions Return to clinic: 3 months documented in this encounter [facility] 02-14-2024 Evaluation note Diagnosis Onset Date Resolution Adrenal nodule acute February 132023 9:13am Appendicitis with abscess acute February 13 9:13am Essential hypertension acute De 2023 9:13am Syncope acute February 14, 2024 9:13am [facility] Work Phone: [phone] 841-919912-03-2024 History of Present illness Narrative* Margo Rincon, DARRELL - 02/13/2024 1:00 PM EST Images from the original note were not included. Chief Complaint Patient presents with Headache Tremors Syncope Subjective Marisela Hahn, 48 y.o., male History of Present Illness The patient presents today for follow up. He was hospitalized at [facility] in January 2024 for 2 episodes of syncope and collapse. The patient states he was walking into the bathroom on 02/01/2024 when he suddenly lost consciousness. Duration was less than 1 minute. He states he woke up, attempted to stand up, and then briefly lost consciousness again. He denies prodromal symptomsincluding visual changes, dizziness, or lightheadedness. He denies accompanying muscle stiffness, jerking, tongue or cheek biting, or bowel/bladder incontinence. He was found down by his mother. He states he was mildly confused upon waking but otherwise denies any postictal-type symptoms. He mentions he did experience a sharp pain in his chest approximately 12 hours prior to losing consciousness.He otherwise felt well that morning. The patient also experienced episodes of syncope > 2 years ago but states those were all preceded by a, buzzing, sensation in his head which did not occur prior to his recent syncopal episodes. He reports good water intake. He underwent IR drain placement for appendicitis with perforation and abscess on 01/04/2024. His IR drain has since been removed. He denies family history of epilepsy. Hehas a follow-up appointment scheduled with cardiology on 03/19/2024 and plans to complete a 30-day cardiac event monitor prior to that. The patient is having headaches almost daily recently. These are unchanged in location. He describes them as throbbing or pressure. They are bilateral and can last up to several hours. They are not accompanied by nausea, vomiting, or increased sensitivity to light or sounds. He has tried Advil and CBD ointment for his symptoms, and these provide some relief. He states his tremor seems more prominent when his headaches are present. He denies any further new concerns. Review of Systems Constitutional: Negative for appetite change, chills, diaphoresis, fever and unexpected weight change. Respiratory: Negative for chest tightness, shortness of breath and wheezing. Cardiovascular: Negative for chest pain and palpitations. Gastrointestinal: Negative for abdominal pain, nausea and vomiting. Neurological: Positive for tremors, syncope and headaches (associated with phonophobia at times). Negative for dizziness, seizures, facial asymmetry, speech difficulty, weakness, light-headedness andnumbness. Psychiatric/Behavioral: Positive for confusion and sleep disturbance. Negative for agitation, hallucinations, self-injury and suicidal ideas. The patient is nervous/anxious. Past Medical History: Diagnosis Date Hypertension (CMS/HCC) Kidney stone Past Surgical History: Procedure Laterality Date CT GUIDED IMAGING FOR ABSCESS DRAIN 01/04/2024 CT GUIDED IMAGING FOR ABSCESS DRAIN 01/04/2024 Family History Problem Relation Name Age of Onset Hypertension Mother Allergies Mother Hypertension Father Hypertension Sister Allergies Sister Social History Tobacco Use Smoking status: Never Smokeless tobacco: Never Substance Use Topics Alcohol use: Yes Allergies: Cephalexin Vitals: 02/13/24 1253 BP: 138/82 Pulse: 77 SpO2: 96% Body mass index is 40.5 kg/m . weight: 307 lb Neurologic exam: Mental status and general appearance: Awake and alert with unlabored respirations. Oriented to person, place, and time. Recent and remotememory are intact. Speech is clear and fluent without aphasia. Speech is non-dysarthric. Attention and concentration are normal. Fund of knowledge is appropriate for level of education. Pleasant. Cranial nerves: CN II: Visual acuity is normal. Visual maharaj full to confrontation. CN III, IV, : Pupils are equal, round, and reactive to light. Extraocular movements intact. No ptosis present. CN V: Facial sensation is normal. CN VII: Full and symmetric facial movement. CN VIII: Hearing is normal to finger rub bilaterally. CN IX and X: Palate elevates symmetrically. CN XI: Shoulder shrug is normal bilaterally. CN XII: Tongue is midline without atrophy or fasciculation. Motor: RUE strength deltoid , biceps , triceps , wrist extensors , wrist flexor , and principal developer strength 5/5. LUE strength deltoid , biceps , triceps , wrist extensors , wrist flexor , and principal developer strength 5/5. RLE strength iliopsoas, quadriceps, tibialis anterior, and plantar flexion strength 5/5. LLE strength iliopsoas, quadriceps, tibialis anterior, and plantar flexion strength 5/5. Tone and bulk are normal. No tremor appreciated on exam today. Sensory: Sensation is intact to light touch throughout all four extremities. Sensation is intact to temperature in all extremities. Reflexes: RUE biceps reflex 2+ , brachioradialis reflex 2+. LUE biceps reflex 2+ , brachioradialis reflex 2+. RLE knee reflex 1+. LLE knee reflex 1+. Coordination: [id number] testing normal. Rapid alternating movements are normal. Gait: Normal. Review and summary of old records: Orthostatic vital signs on 02/13/24: Negative. Laying - blood pressure 118/68, heart rate 75 beats/min Sitting - blood pressure 115/77, heart rate 80 beats/min Standing for 3 minutes - blood pressure 123/86, heart rate 100 beats/min Sleep study at [facility] on 08/27/23: The patient meets criteria for moderate obstructive sleep apnea (AHI 15-30). The patient does have signs that could be consistent with a periodic limb movement disorder. Labs at [facility] on 08/22/23: Vitamin B12 level 304. Folate 17.7. TSH 1.47. Neuropsychological evaluation at [facility] on 07/05/23: Demonstrated, when focused and attentive, well-preserved cognition and memory. Findings were completely normal for his age. There is no supporting evidence of any residual cognitive sequelae associated with his episodes in 2019. Rather, severe depression, moderate anxiety, poor sleep, and suspicion for underlying JESSICA appeared to be sapping his attentional resources, thereby interfering with optimal memory and cognitive efficiency. Ambulatory EEG in 05/2023: Normal 64-hour ambulatory EEG Orthostatic vital signs at [facility] on 08/15/22: Positive. Routine EEG on 06/16/22: Normal. MRI brain w and w/o contrast at [facility] on 07/14/22: No intracranial masses or abnormalenhancement. No abnormal restricted diffusion or evidence of evolving infarct. No evidence of intracranial hemorrhage. No hydrocephalus. Mild generalized cerebral and cerebellar volume loss. Minimal small vessel gliosis. Assessment/Plan Diagnoses and all orders for this visit: Transient alteration of awareness Orthostatic hypotension The patient experienced multiple episodes of loss of consciousness (LOC) in 2021 and prior which hedescribed as syncopal episodes with prodromal symptoms. MRI brain on 07/14/22 was unremarkable for cause, and routine EEG and ambulatory EEG were normal. The patient states he has also been evaluated by cardiology who did not identify a cause for his previous episodes of LOC. He does have a history of orthostatic hypotension, and I believe this could have been contributory to his past episodes. Thepatient presents today reporting 2 recent syncopal episodes in January 2024 without prodromal symptoms or accompanying tonic- clonic movements, tongue/cheek biting, or incontinence. His recent episodes do not sound clinically consistent with typical seizure. However, will order an updated EEG giventhe recurrence of symptoms. Orthostatic vital signs were negative in 01/2024 and in the office today. I believe cardiovascular etiology or adverse effects secondary to medications may have been contributory to his recent episodes. PLAN: - Routine EEG to assess for seizure or epileptiform activity - I advised the patient to follow up closely with cardiology for further evaluation for possible cardiac causes of syncope, as these could be life- threatening if not properly identified and treated. He verbalizes understanding. He was discharged from the hospital in January 2024 with cardiac eventmonitor and follow-up appointment with cardiology - The patient is taking nifedipine, lisinopril, carvedilol, and tamsulosin, all of which have the potential to cause syncope. I asked him to discuss these prescriptions with the prescribing providers, as he may benefit from dose reduction or discontinuation of some - Ensure adequate water intake (which he states he does) and change positions slowly - The patient was counseled on precautions, including no driving, no swimming or tub bathing alone,no swimming in dark vargas, no climbing ladders, and no operating heavy machinery until cleared by cardiology and neurology Chronic daily headache The patient reports daily headaches which seem to fit most closely with tension- type headaches. MRIbrain on 07/14/22 was unremarkable for secondary headache cause. Tizanidine (4 mg PO QHS PRN) was ineffective previously. Topiramate has provided benefit, however, the patient reports an increase in headache frequency and duration recently. Neurologic exam reveals no new deficits today. PLAN: - Increase topiramate to 50 mg by mouth twice a day for headache prevention. I counseled the patient on potential adverse effects. I advised him to notify our office if he develops any side effects. He verbalizes understanding and wishes to proceed - Avoid TCAs and other antidepressants for prevention, as the patient is already taking venlafaxineand escitalopram Cognitive dysfunction The patient reports intermittent cognitive impairment. He previously mentioned confusion upon arousal from sleep at times and could have difficulty remembering certain things. He remains independent with all ADLs. MRI brain on 07/14/22 was nonacute but revealed mild generalized cerebral and cerebellar volume loss and minimal small vessel gliosis. Ambulatory EEG in 05/2023 was normal, and the patient reports experiencing some brief confusion upon waking during this study. As such, I have low suspicion for epilepsy contributing to his symptoms. Neuropsychological evaluation on 07/05/23 demonstrated well-preserved cognition and memory. 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 Poor sleep and untreated JESSICA are also likely contributory. PLAN: - Sleep hygiene, adequate hydration, and healthy diet - Follow up closely with primary care provider for management of psychiatric conditions JESSICA (obstructive sleep apnea) Sleep study on 08/27/23 was consistent with moderate JESSICA. PLAN: - I reviewed sleep study results with the patient - I educated the patient on potential risks associated with untreated JESSICA including daytime fatigue, inattention, cognitive deficits, hypertension, cardiovascular disease, arrhythmia, stroke, and diabetes - I will have the patient scheduled with Dr. Salinas for evaluation and treatment of JESSICA. He would likely benefit from CPAP therapy - Weight reduction measures Tremor The patient reports a chronic and intermittent mixed tremor of the bilateral upper extremities. This is not appreciated on exam today, and he has no family history of tremor or parkinsonian features otherwise. I question if this is functional or related to SSRI/SNRI use. PLAN: - As tremor does not significantly interfere with the patient's functionality or negatively impact his quality of life, will monitor clinically for now Diagnosis and treatment options discussed in detail. All questions answered. The patient verbalizesunderstanding and is agreeable to the plan. Discussion in layman's terms. Follow up in the office within 1 month; sooner if needed for new or worsening symptoms. AARON Fernández [facility] Advanced Neurology documented in this [facility]12-03-2024 Instructions* Patient Instructions* Margo Rincon NP - 02/13/2024 1:00 PM EST - Increase topiramate to 50 mg by mouth twice a day - Routine EEG - Schedule with Dr. Salinas for consultation for obstructive sleep apnea documented in this [facility]12-02-2024 NoteSubjective Patient ID: Marisela Hahn is a 48 y.o. male who presents for Hospital Follow-up (Marisela is here for a hospital follow up for Perforated appendicitis- per D/C note Will need appendectomy no earlier than 6 weeks after initial appendicitis episode.- Dr. Contreras seen patient in hospital.). HPI Patient is a 48 y/o man with hx of perforated appendicitis s/p IR drain 01/03 and drain removal 01/10 with noted syncopal episodes 02/01/24 here for follow up after recent admission. Patient noted no abdominal pain/fever/chills even since recent 02/01/24 admission and unsure if syncopal episodes related to appendicitis as he had no leukocytosis and CT noted resolution of abscess. Patient today feels well with no issues tolerating diet or having bowel function. Patient today denies any pain. Patient noted ungoing workup with cardiology and neurology to evaluate the syncopal episodes. Patient was noted to have an abnormal stress test while inpatient. Patient was referred by me to Dr. Swift previously for plans for colonoscopy prior to formal appendectomy prior to this recent admission. Review of Systems Constitutional: Negative for chills, fatigue and fever. HENT: Negative for nosebleeds. Eyes: Negative for visual disturbance. Respiratory: Negative for cough, chest tightness, shortness of breath and wheezing. Gastrointestinal: Negative for abdominal pain, blood in stool, constipation, diarrhea and nausea. Endocrine: Negative for cold intolerance and heat intolerance. Genitourinary: Negative for hematuria. Musculoskeletal: Negative for joint swelling and myalgias. Skin: Negative for color change and rash. Allergic/Immunologic: Negative for immunocompromised state. Neurological: Negative for dizziness, weakness, light-headedness, numbness and headaches. Hematological: Does not bruise/bleed easily. Psychiatric/Behavioral: The patient is not nervous/anxious. Objective Visit Vitals BP 115/76 (BP Location: Left arm, Patient Position: Sitting) Pulse 70 Temp 36.4 ???C (97.5 ???F) Physical Exam Constitutional: General: He is not in acute distress. Appearance: Normal appearance. He is not ill-appearing. HENT: Head: Normocephalic. Right Ear: External ear normal. Left Ear: External ear normal. Nose: Nose normal. Mouth/Throat: Mouth: Mucous membranes are moist. Eyes: General: No scleral icterus. Right eye: No discharge. Left eye: No discharge. Conjunctiva/sclera: Conjunctivae normal. Cardiovascular: Rate and Rhythm: Normal rate and regular rhythm. Pulses: Normal pulses. Heart sounds: Normal heart sounds. Pulmonary: Effort: Pulmonary effort is normal. No respiratory distress. Abdominal: General: There is no distension. Palpations: Abdomen is soft. Tenderness: There is no abdominal tenderness. Musculoskeletal: General: No swelling. Cervical back: Neck supple. Right lower leg: No edema. Left lower leg: No edema. Skin: General: Skin is warm. Capillary Refill: Capillary refill takes less than 2 seconds. Coloration: Skin is not jaundiced. Neurological: General: No focal deficit present. Mental Status: He is alert and oriented to person, place, and time. Psychiatric: Mood and Affect: Mood normal. Assessment/Plan Diagnoses and all orders for this visit: Syncope and collapse Patient is a 48 y.o. years old male here for Syncope and collapse [R55]. Plan - Will send letters to cardiology/neurology/PCP for clearance for surgical intervention. Will defer to Dr. Swift for colonoscopy and appendectomy planning after clearance. Problem(s) addressed: Stable Acute illness (Low) Data reviewed and analyzed: Labs 02/06, 02/05 were reviewed by me. Notes 02/07/24, 02/01/[address] 02/01/24 was/were independently interpreted/reviewed by me. Risk of complications and/or morbidity/mortality of management: Low risk of morbidity from studies/testing/treatment (Low) Diagnosis Plan [facility] Discharge Summary Final Discharge Diagnosis: Syncope and collapse Positive Fecal Occult Blood Hx of TIA OCD Resistant HTN Suspected JESSICA Bilateral adrenal nodules Admission Diagnosis: Syncope and collapse [R55] Syncope, unspecified syncope type [R55] Acute appendicitis with localized peritonitis, without perforation, abscess, or gangrene [K35.30] Hospital course: 48 y.o. male with a PMH of recent perforated appendicitis and associated abscess (5.2cm) s/p IR drain placement and removal, spina bifida, morbid obesity, GERD, and HTN who presents from home with a chief complaint of abdominal pain and syncope x2. Patient reportedly woke up with abdominal cramping and was on his way down stairs to have a bowel movement when he passed out once in the hallway, stood back up and then passed out again in the bathroom. His mom came around the corner and saw him down on the ground in the hallway and reports that he was not shaking, did not lose control of his bladder or bowel function and did not bite his tongue. Instead he reassured her that he could stand back up, did so, then fell again into the tub in the bathroom. He denies any recent hypertension medication changes but does report he had multiple episodes of syncope a couple years back. He does not remember these episodes well, but remembers waking back up in the bathtub. Upon arriving to our emergency department CT abdomen pelvis was performed with contrast which demonstrated resolution of the periappendiceal abscess, though there were concerns for acute appendicitis. General surgery were consulted and felt that his clinical picture was inconsistent with appendicitis considering most of his pain is left lower quadrant. He is afebrile. No leukocytosis. He had the IR drain removed multiple weeks ago and completed his course of Augmentin a couple weeks back. General surgery planning outpatient appendectomy 6 weeks after IR guided drain was placed and are recommending IV antibiotics for now to be conservative. Due to reports of sharp chest pain a few days prior to admission the patient underwent stress test that reported transient ischemic dilatation without heterogeneous perfusion defects. Cardiology was consulted and due to recent appendicitis, it was elected to undergo coronary CTA with FFR that showed minimal coronary artery calcifications. The patient was cleared for discharge with event monitor and follow-up with cardiology. Surgical, Invasive or Diagnostic Procedures Done During Admission: None Consultations During Admission: Cardiology Dear Dr. Kobe MD, Marisela is advised to follow up with you within 1-2 weeks. Items to follow up in ambulatory setting: Patient will be discharge with Event Monitor. Bilateral adrenal nodules stable on imaging, follow up as appropriate. If syncope or pre-syncope recurs, may require permanent discontinuation of nifedipine. Cardiology considering loop monitoring as outpatient depending on results of event monitor. Follow-up with: Cardiology Scheduled appointments: Future Appointments Date Time Provider Department Center 02/12/2024 1:30 PM Rafy Quevedo MD [facility] SURG Second Fl 03/04/2024 11:00 AM [facility] CT2 [facility] CT Radiology 03/19/2024 9:00 AM Amanda Silva PA-C [facility] C[facility] Your medication list CHANGE how you take these medications Instructions Last Dose Given Next Dose Due spironolactone 25 mg tablet Commonly known as: Aldactone What changed: Another medication with the same name was removed. Continue taking this medication, and follow the directions you see here. Take 1 tablet (25 mg) by mouth in the morning. CONTINUE taking these medications Instructions Last Dose Given Next Dose Due acetaminophen 500 mg tablet Commonly known as: Tylenol Take 2 tablets (1,000 mg) by mouth every 8 (eight) hours for 290 doses. aspirin 81 mg EC tablet chlorthalidone 25 mg tablet Commonly known as: [place] TAKE 1 TABLET BY MOUTH IN THE MORNING escitalopram 10 mg tablet Commonly known as: Lexapro lisinopril 40 mg tablet NIFEdipine XL 60 mg 24 hr tablet Commonly known as: Procardia XL Take 1 tablet (60 mg) by mouth in the morning. Do not crush, chew, or split. Stop taking amlodipine. Start with taking nifedipine 60mg once daily. Continue to monitor BP. topiramate 25 mg tablet Commonly known as: Topamax venlafaxine XR 150 mg 24 hr capsule Commonly known as: Effexor-XR Marisela is allergic to keflex [cephalexin]. Disposition: Home or Self Care () Discharge Condition: Stable Code Status: Full Code Diagnostic Results Hematology: Results from last 7 days Lab Units 02/07/24 0609 02/06/24 0531 WBC AUTO 10*3/uL 5.61 6.16 HEMOGLOBIN g/dL 14.3 14.4 HEMATOCRIT % 43.5 44.4 MCV fL 86.5 87.2 PLATELETS AUTO 10*3/uL 210 223 Chemistry: Results from last 7 days Lab Units 02/07/24 0609 02/06/24 0531 02/05/24 0550 02/04/24 0534 02/03/24 (more content not included)...[facility] NoteHospital Medicine Daily Progress Note - 02/06/2024 1:49 PM; Room: [address] [place] [address] Admission: 02/01/2024 10:26 AM; Length of stay: 5 days THE HOSPITALIST TEAM PREFERS TO USE [employer] FOR NON-URGENT COMMUNICATION 7AM-7PM. IF I DO NOT RESPOND WITHIN 20 MINUTES OR URGENT MATTERS, PLEASE CALL THROUGH THE SELVAGE MACHINE OPERATOR. FROM 7PM-7AM, PLEASE PAGE [phone](COVR). Code Status: Full Code Barriers to Discharge: None Expected Discharge Date: Tomorrow AM Discharge Destination: home Overview Patient is seen for evaluation and management of syncope. Subjective Patient seen and examined. Feels well and no acute complaints. Pending read for coronary CT Physical Exam Visit Vitals BP 133/85 (BP Location: Right arm, Patient Position: Lying) Pulse 83 Temp 36.3 ???C (97.3 ???F) (Oral) Resp 18 Intake/Output Summary (Last 24 hours) at 02/06/2024 1349 Last data filed at 02/06/2024 1015 Gross per 24 hour Intake 480 ml Output -- Net 480 ml Physical Exam Vitals and nursing note reviewed. Constitutional: Appearance: He is obese. HENT: Mouth/Throat: Mouth: Mucous membranes are moist. Eyes: Pupils: Pupils are equal, round, and reactive to light. Cardiovascular: Rate and Rhythm: Normal rate and regular rhythm. Pulses: Normal pulses. Pulmonary: Effort: Pulmonary effort is normal. Abdominal: Palpations: Abdomen is soft. Musculoskeletal: General: Normal range of motion. Cervical back: Normal range of motion. Skin: General: Skin is warm. Capillary Refill: Capillary refill takes less than 2 seconds. Neurological: Mental Status: He is alert and oriented to person, place, and time. Estimated body mass index is 39.03 kg/m??? as calculated from the following: Height as of this encounter: 1.854 m (6' 1 ). Weight as of this encounter: 134 kg (295 lb 12.8 oz). Active Inpatient Problems Principal Problem: Syncope and collapse Active Problems: Acute appendicitis Primary hypertension Assessment and Plan Generalized abdominal pain -improved Recent appendicitis w perforation and abscess s/p IR drain placement - General surgery feels he does not have acute appendicitis despite imaging. They're recommending he remain on zosyn while here and continue with 14 days of Augmentin on discharge. Requirement that interval appendectomy be performed no earlier than 6 weeks after initial appendicitis episode. Syncope and collapse Positive Fecal Occult Blood -TTE with normal EF systolic and diastolic function -Troponin all negative -EKG wit NSR -Orthostatic vitals -Tele -Stress test was positive for transient ischemia dilatation, cardiology consulted, coronary CTA with FFR today -Fecal occult blood was positive 01/31, patient's hemoglobin 12.9 which appears to be around his baseline, patient does report having hemorrhoids that sometimes bleed, stool collected yesterday with no blood present. Will continue to monitor -Hemoglobin stable -cardiology with plans for potential cardiac event monitor or implant of ILR -no driving x 1 month after syncopal episode -coronary CT unremarkable beyond that of minimal coronary calcifications Hx of TIA OCD - on Effexor and lexapro Resistant HTN - continue home regimen Suspected JESSICA - needs to follow up with his PCP for sleep study results Bilateral adrenal nodules - stable per imaging. Will need followed by his pcp Malnutrition Attestation: No dietitian assessment is available at this time. VTE Prophylaxis: Heparin subcutaneous Scheduled Meds acetaminophen, 1,000 mg, oral, q8h aspirin, 81 mg, oral, Nightly chlorthalidone, 25 mg, oral, q AM escitalopram, 20 mg, oral, Daily heparin (porcine), 5,000 Units, subcutaneous, q8h ISABEL iohexol, 100 mL, intravenous, Once in imaging kit prep Tc 99m-sestamibi no.1, 10 millicurie, intravenous, Once in imaging kit prep Tc 99m-sestamibi no.1, 30 millicurie, intravenous, Once in imaging lisinopril, 40 mg, oral, Daily [Held by provider] NIFEdipine XL, 60 mg, oral, Daily spironolactone, 25 mg, oral, Daily topiramate, 25 mg, oral, Daily topiramate, 50 mg, oral, Nightly venlafaxine XR, 75 mg, oral, Daily Pertinent Investigations Hematology: Results from last 7 days Lab Units 02/06/24 0531 02/05/24 0550 WBC AUTO 10*3/uL 6.16 5.05 HEMOGLOBIN g/dL 14.4 14.3 HEMATOCRIT % 44.4 44.0 MCV fL 87.2 86.4 PLATELETS AUTO 10*3/uL 223 201 Chemistry: Results from last 7 days Lab Units 02/06/24 0531 02/05/24 0550 02/04/24 0534 02/03/24 0857 SODIUM mmol/L 140 140 140 139 POTASSIUM mmol/L 3.2* 3.5 3.7 3.8 CHLORIDE mmol/L 110* 109* 110* 110* CO2 mmol/L 22 23 24 23 BUN mg/dL 16 15 16 16 CREATININE mg/dL 1.14 1.35* 1.46* 1.38* GLUCOSE mg/dL 121* 90 91 96 MAGNESIUM mg/dL -- -- -- 2.0 CALCIUM mg/dL 9.0 9.2 9.1 8.7 Results from last 7 days Lab Units 02/01/24 1054 AST U/L 15 ALT U/L 18 ALK PHOS U/L 70 BILIRUBIN TOTAL mg/dL 0.4 Historical Values: (Includes evie (more content not included)...[facility]24 NoteUTP CARDIOLOGY INPATIENT PROGRESS NOTE Reason for follow up: syncopal episodes Subjective Saw and evaluated patient today while patient was lying in bed. Reports feeling well. Has had no symptoms since admission; no chest pain, SOB, dizziness or lightheadedness. Awaiting results of CT yesterday. Tele: Sinus rhythm/tach 60-126 ALLERGIES Allergies Allergen Reactions Keflex [Cephalexin] Rash CURRENT MEDS acetaminophen, 1,000 mg, oral, q8h aspirin, 81 mg, oral, Nightly chlorthalidone, 25 mg, oral, q AM escitalopram, 20 mg, oral, Daily heparin (porcine), 5,000 Units, subcutaneous, q8h ISABEL iohexol, 100 mL, intravenous, Once in imaging kit prep Tc 99m-sestamibi no.1, 10 millicurie, intravenous, Once in imaging kit prep Tc 99m-sestamibi no.1, 30 millicurie, intravenous, Once in imaging lisinopril, 40 mg, oral, Daily [Held by provider] NIFEdipine XL, 60 mg, oral, Daily spironolactone, 25 mg, oral, Daily topiramate, 25 mg, oral, Daily topiramate, 50 mg, oral, Nightly venlafaxine XR, 75 mg, oral, Daily PRN medications: acetaminophen, melatonin, ondansetron ODT OR ondansetron Objective Patient Vitals for the past 24 hrs: BP Temp Temp src Pulse Resp SpO2 Weight 02/06/24 0657 133/85 36.3 ???C (97.3 ???F) Oral 83 18 99 % -- 02/06/24 0425 -- -- -- -- -- -- 134 kg (295 lb 12.8 oz) 02/05/24 1922 (!) 145/99 36.4 ???C (97.5 ???F) -- 93 20 100 % -- 02/05/24 1739 151/90 36.5 ???C (97.7 ???F) Oral 87 19 99 % -- 02/05/24 1610 -- -- -- -- (!) 2 -- -- 02/05/24 1535 116/74 -- -- 64 20 100 % -- 02/05/24 1520 128/77 -- -- 65 20 100 % -- 02/05/24 1515 110/74 -- -- 64 20 100 % -- 02/05/24 1500 116/80 -- -- 70 20 100 % -- 02/05/24 1445 117/66 -- -- 77 20 100 % -- 02/05/24 1415 129/77 -- -- 72 -- 100 % -- BP 133/85 (BP Location: Right arm, Patient Position: Lying) Pulse 83 Temp 36.3 ???C (97.3 ???F) (Oral) Resp 18 Ht 1.854 m (6' 1 ) Wt 134 kg (295 lb 12.8 oz) SpO2 99% BMI 39.03 kg/m??? Wt Readings from Last 3 Encounters: 02/06/24 134 kg (295 lb 12.8 oz) 01/17/24 (!) 141 kg (310 lb) 01/11/24 (!) 140 kg (309 lb) General: Awake, alert, appropriate mood / affect, NAD Eyes: anicteric sclera. Non-injected conjunctiva. No xanthelasmas Neck: No elevated JVP. No carotid bruit Pulm: Breath sounds clear to ascultation bilaterally with no wheeze, crackles or rhonchi Cards: HRRR. NL S1, S2. No S3 or S4 gallop. Murmur: none Abd: Soft, Nontender, physiologic bowel sounds are present Extr: Lower extremity edema: none. DP pulses present bilaterally Skin: warm, dry, well perfused Neuro: A&Ox3, No gross deficits Lab Results Component Value Date NA 140 02/06/2024 K 3.2 (L) 02/06/2024 CL 110 (H) 02/06/2024 ANIONGAP 11 02/06/2024 BUN 16 02/06/2024 CREATININE 1.14 02/06/2024 CALCIUM 9.0 02/06/2024 MG 2.0 02/03/2024 PHOS 2.9 01/06/2024 Lab Results Component Value Date BILITOT 0.4 02/01/2024 ALKPHOS 70 02/01/2024 AST 15 02/01/2024 ALT 18 02/01/2024 PROT 7.2 02/01/2024 ALBUMIN 4.6 02/01/2024 Lab Results Component Value Date CHOLESTEROL 181 02/01/2024 TRIGLYCERIDES 185 (H) 02/01/2024 HDL 36 02/01/2024 LDL CALC 108 02/01/2024 No results found for: BNP Lab Results Component Value Date TSH 2.82 02/03/2024 No results found for: DIGOXIN LVL Lab Results Component Value Date HGBA1C 5.9 02/01/2024 No results found for: BNP Lab Results Component Value Date WBC 6.16 02/06/2024 RBC 5.09 02/06/2024 HGB 14.4 02/06/2024 HCT 44.4 02/06/2024 MCV 87.2 02/06/2024 MCH 28.3 02/06/2024 MCHC 32.4 02/06/2024 RDW 14.2 02/06/2024 NEUTOPHILPCT 63.5 02/06/2024 LYMPHOPCT 22.4 02/06/2024 MONOPCT 10.2 02/06/2024 EOSPCT 2.3 02/06/2024 BASOPCT 0.6 02/06/2024 NEUTROABS 3.91 02/06/2024 LYMPHSABS 1.38 02/06/2024 MONOSABS 0.63 02/06/2024 EOSABS 0.14 02/06/2024 BASOSABS 0.04 02/06/2024 PLT 223 02/06/2024 NRBC 0.0 02/06/2024 No X-ray results found for the past 24 hours CV Testing: Encounter Date: 02/01/24 ECG 12 lead Result Value Ventricular Rate 62 Atrial Rate 62 SC Interval 180 QRS DURATION 98 QT Interval 450 QTC CALCULATION(BAZETT) 456 P Sebec -5 R-Sebec -29 T Wave Sebec -4 Impression Normal sinus rhythm Normal ECG No previous ECGs available Confirmed by Edwardo Alegre ([id number]) on 02/02/2024 8:47:58 AM Echo TTE 02/02/24: Conclusions Left Ventricle: The left ventricle is normal size. Global left ventricular systolic function is normal. The EF is 60 % visually. Left ventricular wall thickness is normal. No regional wall motion abnormality. Normal diastolic function. Right Ventricle: The right ventricle is normal in size. Normal right ventricular systolic function. Doppler studies suggest normal right sided pressures. Left Atrium: The left atrium is normal in size. Overall Conclusions: Due to suboptimal imaging Lumason contrast was administered for opacification and better delineation of endocardial borders. N (more content not included)... [facility]11-[facility] NoteHospital Medicine Daily Progress Note - 02/05/2024 10:16 AM; Room: [address] [place] [address] Admission: 02/01/2024 10:26 AM; Length of stay: 4 days THE HOSPITALIST TEAM PREFERS TO USE [employer] FOR NON-URGENT COMMUNICATION 7AM-7PM. IF I DO NOT RESPOND WITHIN 20 MINUTES OR URGENT MATTERS, PLEASE CALL THROUGH THE SELVAGE MACHINE OPERATOR. FROM 7PM-7AM, PLEASE PAGE [phone](COVR). Code Status: Full Code Barriers to Discharge: Coronary CT today Expected Discharge Date: pending CT results tomorrow Discharge Destination: home Overview Patient is seen for evaluation and management of syncope. Subjective Patient resting in bed, he denies any issues, no diarrhea, educated patient on signs of cdiff while he is on antibiotics. He is without blood in stool, fever, or chills Physical Exam Visit Vitals BP (!) 138/92 (BP Location: Left arm, Patient Position: Lying) Pulse 68 Temp 36.3 ???C (97.3 ???F) (Oral) Resp 18 Intake/Output Summary (Last 24 hours) at 02/05/2024 1016 Last data filed at 02/05/2024 0621 Gross per 24 hour Intake 100 ml Output 900 ml Net -800 ml Physical Exam Vitals and nursing note reviewed. Constitutional: Appearance: He is obese. HENT: Mouth/Throat: Mouth: Mucous membranes are moist. Eyes: Pupils: Pupils are equal, round, and reactive to light. Cardiovascular: Rate and Rhythm: Normal rate and regular rhythm. Pulses: Normal pulses. Pulmonary: Effort: Pulmonary effort is normal. Abdominal: Palpations: Abdomen is soft. Musculoskeletal: General: Normal range of motion. Cervical back: Normal range of motion. Skin: General: Skin is warm. Capillary Refill: Capillary refill takes less than 2 seconds. Neurological: Mental Status: He is alert and oriented to person, place, and time. Estimated body mass index is 40.11 kg/m??? as calculated from the following: Height as of this encounter: 1.854 m (6' 1 ). Weight as of this encounter: 138 kg (304 lb 0.2 oz). Active Inpatient Problems Principal Problem: Syncope and collapse Active Problems: Acute appendicitis Primary hypertension Assessment and Plan Generalized abdominal pain -improved Recent appendicitis w perforation and abscess s/p IR drain placement - General surgery feels he does not have acute appendicitis despite imaging. They're recommending he remain on zosyn while here and continue with 14 days of Augmentin on discharge. Requirement that interval appendectomy be performed no earlier than 6 weeks after initial appendicitis episode. Syncope and collapse Positive Fecal Occult Blood -TTE with normal EF systolic and diastolic function -Troponin all negative -EKG wit NSR -Orthostatic vitals -Tele -Stress test was positive for transient ischemia dilatation, cardiology consulted, coronary CTA with FFR today -Fecal occult blood was positive 01/31, patient's hemoglobin 12.9 which appears to be around his baseline, patient does report having hemorrhoids that sometimes bleed, stool collected yesterday with no blood present. Will continue to monitor -Hemoglobin stable -cardiology with plans for potential cardiac event monitor or implant of ILR -no driving x 1 month after syncopal episode -awaiting coronary CT results Hx of TIA OCD - on Effexor and lexapro Resistant HTN - continue home regimen Suspected JESSICA - needs to follow up with his PCP for sleep study results Bilateral adrenal nodules - stable per imaging. Will need followed by his pcp Malnutrition Attestation: Comment: VTE Prophylaxis: Heparin subcutaneous Scheduled Meds acetaminophen, 1,000 mg, oral, q8h aspirin, 81 mg, oral, Nightly chlorthalidone, 25 mg, oral, q AM escitalopram, 20 mg, oral, Daily heparin (porcine), 5,000 Units, subcutaneous, q8h ISABEL kit prep Tc 99m-sestamibi no.1, 10 millicurie, intravenous, Once in imaging kit prep Tc 99m-sestamibi no.1, 30 millicurie, intravenous, Once in imaging lisinopril, 40 mg, oral, Daily [Held by provider] NIFEdipine XL, 60 mg, oral, Daily spironolactone, 25 mg, oral, Daily topiramate, 25 mg, oral, Daily topiramate, 50 mg, oral, Nightly venlafaxine XR, 75 mg, oral, Daily Pertinent Investigations Hematology: Results from last 7 days Lab Units 02/05/24 0550 02/04/24 0534 WBC AUTO 10*3/uL 5.05 5.25 HEMOGLOBIN g/dL 14.3 13.5 HEMATOCRIT % 44.0 42.6 MCV fL 86.4 87.5 PLATELETS AUTO 10*3/uL 201 202 Chemistry: Results from last 7 days Lab Units 02/05/24 0550 02/04/24 0534 02/03/24 0857 SODIUM mmol/L 140 140 139 POTASSIUM mmol/L 3.5 3.7 3.8 CHLORIDE mmol/L 109* 110* 110* CO2 mmol/L 23 24 23 BUN mg/dL 15 16 16 CREATININE mg/dL 1.35* 1.46* 1.38* GLUCOSE mg/dL 90 91 96 MAGNESIUM mg/dL -- -- 2.0 CALCIUM mg/dL 9.2 9.1 8.7 Results from last 7 days Lab Units 02/01/24 1054 AST U/L 15 ALT U/L 18 ALK PHOS U/L 70 BILIRUBIN TOTAL mg/dL 0.4 Historical Values: (Includes values prior to this admission) Lab Results Component Value Date TS (more content not included)...[facility]11-25-2024 NoteUTP CARDIOLOGY INPATIENT PROGRESS NOTE Reason for follow up: syncopal episodes Subjective Saw and evaluated patient today while patient was lying in bed. He denies any chest pain, shortness of breath, lightheadedness/dizziness. No leg swelling. He denies any episodes of passing out since being at the hospital. Patient scheduled for cardiac CT today. Tele: SR [id number] ALLERGIES Allergies Allergen Reactions Keflex [Cephalexin] Rash CURRENT MEDS acetaminophen, 1,000 mg, oral, q8h aspirin, 81 mg, oral, Nightly chlorthalidone, 25 mg, oral, q AM escitalopram, 20 mg, oral, Daily heparin (porcine), 5,000 Units, subcutaneous, q8h ISABEL kit prep Tc 99m-sestamibi no.1, 10 millicurie, intravenous, Once in imaging kit prep Tc 99m-sestamibi no.1, 30 millicurie, intravenous, Once in imaging lisinopril, 40 mg, oral, Daily [Held by provider] NIFEdipine XL, 60 mg, oral, Daily spironolactone, 25 mg, oral, Daily topiramate, 25 mg, oral, Daily topiramate, 50 mg, oral, Nightly venlafaxine XR, 75 mg, oral, Daily PRN medications: acetaminophen, melatonin, ondansetron ODT OR ondansetron Objective Patient Vitals for the past 24 hrs: BP Temp Temp src Pulse Resp SpO2 Weight 02/05/24 0659 (!) 138/92 36.3 ???C (97.3 ???F) Oral 68 18 100 % -- 02/05/24 0439 -- -- -- -- -- -- (!) 138 kg (304 lb 0.2 oz) 02/04/24 1851 141/84 36.6 ???C (97.9 ???F) Oral 74 16 100 % -- 02/04/24 1437 153/86 37.1 ???C (98.8 ???F) -- 87 -- 100 % -- BP (!) 138/92 (BP Location: Left arm, Patient Position: Lying) Pulse 68 Temp 36.3 ???C (97.3 ???F) (Oral) Resp 18 Ht 1.854 m (6' 1 ) Wt (!) 138 kg (304 lb 0.2 oz) SpO2 100% BMI 40.11 kg/m??? Wt Readings from Last 3 Encounters: 02/05/24 (!) 138 kg (304 lb 0.2 oz) 01/17/24 (!) 141 kg (310 lb) 01/11/24 (!) 140 kg (309 lb) General: Awake, alert, appropriate mood / affect, NAD Eyes: anicteric sclera. Non-injected conjunctiva. No xanthelasmas Neck: No elevated JVP. No carotid bruit Pulm: Breath sounds clear to ascultation bilaterally with no wheeze, crackles or rhonchi Cards: HRRR. NL S1, S2. No S3 or S4 gallop. Murmur: none Abd: Soft, Nontender, physiologic bowel sounds are present Extr: Lower extremity edema: none. DP pulses present bilaterally Skin: warm, dry, well perfused Neuro: A&Ox3, No gross deficits Lab Results Component Value Date NA 140 02/05/2024 K 3.5 02/05/2024 CL 109 (H) 02/05/2024 ANIONGAP 12 02/05/2024 BUN 15 02/05/2024 CREATININE 1.35 (H) 02/05/2024 CALCIUM 9.2 02/05/2024 MG 2.0 02/03/2024 PHOS 2.9 01/06/2024 Lab Results Component Value Date BILITOT 0.4 02/01/2024 ALKPHOS 70 02/01/2024 AST 15 02/01/2024 ALT 18 02/01/2024 PROT 7.2 02/01/2024 ALBUMIN 4.6 02/01/2024 Lab Results Component Value Date CHOLESTEROL 181 02/01/2024 TRIGLYCERIDES 185 (H) 02/01/2024 HDL 36 02/01/2024 LDL CALC 108 02/01/2024 No results found for: BNP Lab Results Component Value Date TSH 2.82 02/03/2024 No results found for: DIGOXIN LVL Lab Results Component Value Date HGBA1C 5.9 02/01/2024 No results found for: BNP Lab Results Component Value Date WBC 5.05 02/05/2024 RBC 5.09 02/05/2024 HGB 14.3 02/05/2024 HCT 44.0 02/05/2024 MCV 86.4 02/05/2024 MCH 28.1 02/05/2024 MCHC 32.5 02/05/2024 RDW 14.0 02/05/2024 NEUTOPHILPCT 55.8 02/05/2024 LYMPHOPCT 28.9 02/05/2024 MONOPCT 9.7 02/05/2024 EOSPCT 3.8 02/05/2024 BASOPCT 0.8 02/05/2024 NEUTROABS 2.82 02/05/2024 LYMPHSABS 1.46 02/05/2024 MONOSABS 0.49 02/05/2024 EOSABS 0.19 02/05/2024 BASOSABS 0.04 02/05/2024 PLT 201 02/05/2024 NRBC 0.0 02/05/2024 No X-ray results found for the past 24 hours CV Testing: Encounter Date: 02/01/24 ECG 12 lead Result Value Ventricular Rate 62 Atrial Rate 62 SC Interval 180 QRS DURATION 98 QT Interval 450 QTC CALCULATION(BAZETT) 456 P Sebec -5 R-Sebec -29 T Wave Sebec -4 Impression Normal sinus rhythm Normal ECG No previous ECGs available Confirmed by Edwardo Alegre ([id number]) on 02/02/2024 8:47:58 AM Echo TTE 02/02/24: Conclusions Left Ventricle: The left ventricle is normal size. Global left ventricular systolic function is normal. The EF is 60 % visually. Left ventricular wall thickness is normal. No regional wall motion abnormality. Normal diastolic function. Right Ventricle: The right ventricle is normal in size. Normal right ventricular systolic function. Doppler studies suggest normal right sided pressures. Left Atrium: The left atrium is normal in size. Overall Conclusions: Due to suboptimal imaging Lumason contrast was administered for opacification and better delineation of endocardial borders. No significant valvular abnormalities Lexiscan Stress 02/02/24 Conclusions Negative perfusion stress test for ischemia, Normal myocardial perfusion with soft tissue artifact, Normal global left ventricular function, Transient ischemia dilatation of the left ventricle is seen that is asso (more content not included)...[facility]11-25-2024 Note 02/05/24 1010 Admission Assessment Questions Verify insurance with patient Yes Do you understand medical disease or what brought you into the hospital? Yes Who is your current PCP? Benito Bullock Can I schedule a follow up appointment for you at the time of discharge? Yes Do you understand why you are taking your current medications? Yes Are you taking your medications as prescribed? Yes Did patient provide teach back? No Pharmacy Bedside Delivery Status Interested Does the patient have a correctional case manager assigned to them through their insurance? No Living Arrangement (Current/Prior to Hospitalization) Home self care (Lives at home with mother) Does the patient have history of HHC or SNF? No Assistive Device Not applicable Patient's goal for discharge Plan is to discharge home Was patient reminded that goal for discharge is 11am? Yes Does the patient have transportation at discharge? Yes Type of Residence Private residence Is PT/OT appropriate? No Is PT/OT ordered? No Is SW consult appropriate? No Is SW consult ordered? No Do you understand the benefits of MyChart? Yes Were you able to send link and activate MyChart? [facility] In[facility] Progress Note Reason for Consult: Syncopal episode Awake and alert, resting in bed, has been out of bed to bathroom. No buzzing in head or any other sensations of vertigo or near syncope or syncope. Good oral hydration and eating and drinking. No findings on telemetry. Discussed plan for cardiac CT tomorrow to further evaluate for cardiac ischemia. Questions answered. Telemetry: Normal sinus rhythm, no significant arrhythmias. Allergies Keflex [cephalexin] Current scheduled meds acetaminophen, 1,000 mg, oral, q8h aspirin, 81 mg, oral, Nightly chlorthalidone, 25 mg, oral, q AM escitalopram, 20 mg, oral, Daily heparin (porcine), 5,000 Units, subcutaneous, q8h ISABEL kit prep Tc 99m-sestamibi no.1, 10 millicurie, intravenous, Once in imaging kit prep Tc 99m-sestamibi no.1, 30 millicurie, intravenous, Once in imaging lisinopril, 40 mg, oral, Daily [Held by provider] NIFEdipine XL, 60 mg, oral, Daily piperacillin-tazobactam, 4.5 g, intravenous, q8h spironolactone, 25 mg, oral, Daily topiramate, 25 mg, oral, Daily topiramate, 50 mg, oral, Nightly venlafaxine XR, 75 mg, oral, Daily PRN medications: acetaminophen, melatonin, ondansetron ODT OR ondansetron Outpatient Medications Current Outpatient Medications Medication Instructions acetaminophen (TYLENOL) 1,000 mg, oral, Every 8 hours aspirin 81 mg, oral, Nightly chlorthalidone (HYGROTON) 25 mg, oral, Every morning escitalopram (LEXAPRO) 20 mg, oral, Daily lisinopril 40 mg, oral, Daily NIFEdipine XL (PROCARDIA XL) 60 mg, oral, Daily, Do not crush, chew, or split. Stop taking amlodipine. Start with taking nifedipine 60mg once daily. Continue to monitor BP. spironolactone (ALDACTONE) 25 mg, oral, Daily spironolactone (ALDACTONE) 25 mg, oral, Daily topiramate (TOPAMAX) 25 mg, oral, 2 times daily, PT STATES TAKES ONE TABLET IN MORNING AND 2 AT NIGHT venlafaxine XR (EFFEXOR-XR) 75 mg, oral, Daily, Do not crush or chew. Last Recorded Vitals Patient Vitals for the past 24 hrs: BP Temp Temp src Pulse Resp SpO2 Weight 02/04/24 0705 137/86 36.4 ???C (97.5 ???F) -- 67 -- 100 % -- 02/04/24 0455 -- -- -- -- -- -- (!) 138 kg (304 lb 3.2 oz) 02/03/24 1831 128/80 36.2 ???C (97.2 ???F) Oral 74 14 100 % -- 02/03/24 1422 127/75 36.9 ???C (98.4 ???F) -- 83 -- 100 % -- Physical Examination: GENERAL: AOx3, in no acute distress. HEAD: Atraumatic, normocephalic. EYES: MOHINI, EOMI. NECK: No JVD present. CARDIAC: RRR. No murmur, rubs, or gallops. RESPIRATORY: CTAB, no increased effort of breathing. ABDOMEN: Soft, nontender, nondistended. EXTREMITIES: No lower extremity edema, peripheral pulses are 2+ bilaterally. NEURO: No focal deficits Relevant Lab Results Labs: Lab Results Component Value Date WBC 5.25 02/04/2024 HGB 13.5 02/04/2024 HCT 42.6 02/04/2024 MCV 87.5 02/04/2024 PLT 202 02/04/2024 Lab Results Component Value Date NA 140 02/04/2024 K 3.7 02/04/2024 CL 110 (H) 02/04/2024 ANIONGAP 10 02/04/2024 BUN 16 02/04/2024 CREATININE 1.46 (H) 02/04/2024 CALCIUM 9.1 02/04/2024 MG 2.0 02/03/2024 PHOS 2.9 01/06/2024 Lab Results Component Value Date BILITOT 0.4 02/01/2024 ALKPHOS 70 02/01/2024 AST 15 02/01/2024 ALT 18 02/01/2024 PROT 7.2 02/01/2024 ALBUMIN 4.6 02/01/2024 Lab Results Component Value Date CHOLESTEROL 181 02/01/2024 TRIGLYCERIDES 185 (H) 02/01/2024 HDL 36 02/01/2024 LDL CALC 108 02/01/2024 Lab Results Component Value Date TSH 2.82 02/03/2024 No results found for: DIGOXIN LVL Lab Results Component Value Date HGBA1C 5.9 02/01/2024 Lab Results Component Value Date TROPONIN I 0.02 02/02/2024 TROPONIN I 0.00 02/01/2024 TROPONIN I 0.00 02/01/2024 No results found for: BNP Last lab values have been reviewed with patient at today's visit. Encounter Date: 02/01/24 ECG 12 lead Result Value Ventricular Rate 62 Atrial Rate 62 SC Interval 180 QRS DURATION 98 QT Interval 450 QTC CALCULATION(BAZETT) 456 P Sebec -5 R-Sebec -29 T Wave Sebec -4 Impression Normal sinus rhythm Normal ECG No previous ECGs available Confirmed by Edwardo Alegre ([id number]) on 02/02/2024 8:47:58 AM Lab Results Component Value Date TROPONINI 0.02 02/02/2024 Complete Echo (TTE) w/wo Imaging Agent, Strain, 3D, Bubble Study Result Date: 02/02/2024 1 1 [facility] Heart Station [address] [place] [address] [phone] (fax) Echocardiogram-[facility] Name: MARISELA HAHN Study Date: 02/02/2024 12:47 PM B/P: 133 mmHg/86 mmHg HR: Date of : 1975 Location: [facility] Height: 73 in. Age: 48 year(s) Patient Room: [facility] Weight: 300 lb. Gender: Male Patient Status: OutPt BSA: 2.56 m2 Indication: Syncope Examination: Echocardiogram (Complete), Lumason Contrast Image Quality: Technically Difficult study Patient Consent: Procedure explained to patient Conclusions Left Ventricle: T (more content not included)...[facility]11-24-2024 NoteHospital Medicine Daily Progress Note - 02/04/2024 9:58 AM; Room: [facility]/6139-02 Admission: 02/01/2024 10:26 AM; Length of stay: 3 days THE HOSPITALIST TEAM PREFERS TO USE [employer] FOR NON-URGENT COMMUNICATION 7AM-7PM. IF I DO NOT RESPOND WITHIN 20 MINUTES OR URGENT MATTERS, PLEASE CALL THROUGH THE SELVAGE MACHINE OPERATOR. FROM 7PM-7AM, PLEASE PAGE [phone](COVR). Code Status: Full Code Barriers to Discharge: positive stress test will need Coronary CT Expected Discharge Date: pending cardiology workup Discharge Destination: home Overview Patient is seen for evaluation and management of syncope. Subjective Patient resting in bed, no overnight issues or concerns . No syncopal episodes Physical Exam Visit Vitals BP 137/86 Pulse 67 Temp 36.4 ???C (97.5 ???F) Resp 14 Intake/Output Summary (Last 24 hours) at 02/04/2024 0911 Last data filed at 02/04/2024 0635 Gross per 24 hour Intake 300 ml Output 350 ml Net -50 ml Physical Exam Vitals and nursing note reviewed. Constitutional: Appearance: He is obese. HENT: Mouth/Throat: Mouth: Mucous membranes are moist. Eyes: Pupils: Pupils are equal, round, and reactive to light. Cardiovascular: Rate and Rhythm: Normal rate and regular rhythm. Pulses: Normal pulses. Pulmonary: Effort: Pulmonary effort is normal. Abdominal: Palpations: Abdomen is soft. Musculoskeletal: General: Normal range of motion. Cervical back: Normal range of motion. Skin: General: Skin is warm. Capillary Refill: Capillary refill takes less than 2 seconds. Neurological: Mental Status: He is alert and oriented to person, place, and time. Estimated body mass index is 40.13 kg/m??? as calculated from the following: Height as of this encounter: 1.854 m (6' 1 ). Weight as of this encounter: 138 kg (304 lb 3.2 oz). Active Inpatient Problems Principal Problem: Syncope and collapse Active Problems: Acute appendicitis Primary hypertension Assessment and Plan Generalized abdominal pain -improved Recent appendicitis w perforation and abscess s/p IR drain placement - General surgery feels he does not have acute appendicitis despite imaging. They're recommending he remain on zosyn while here and continue with 14 days of Augmentin on discharge. Requirement that interval appendectomy be performed no earlier than 6 weeks after initial appendicitis episode. Syncope and collapse Positive Fecal Occult Blood -TTE with normal EF systolic and diastolic function -Troponin all negative -EKG wit NSR -Orthostatic vitals -Tele -Stress test was positive for transient ischemia dilatation, cardiology consulted, coronary CTA with FFR on Monday -Fecal occult blood was positive 01/31, patient's hemoglobin 12.9 which appears to be around his baseline, patient does report having hemorrhoids that sometimes bleed, stool collected yesterday with no blood present. 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 Will need followed by his pcp Malnutrition Attestation: Comment: VTE Prophylaxis: Heparin subcutaneous Scheduled Meds acetaminophen, 1,000 mg, oral, q8h aspirin, 81 mg, oral, Nightly chlorthalidone, 25 mg, oral, q AM escitalopram, 20 mg, oral, Daily heparin (porcine), 5,000 Units, subcutaneous, q8h ISABEL kit prep Tc 99m-sestamibi no.1, 10 millicurie, intravenous, Once in imaging kit prep Tc 99m-sestamibi no.1, 30 millicurie, intravenous, Once in imaging lisinopril, 40 mg, oral, Daily [Held by provider] NIFEdipine XL, 60 mg, oral, Daily piperacillin-tazobactam, 4.5 g, intravenous, q8h spironolactone, 25 mg, oral, Daily topiramate, 25 mg, oral, Daily topiramate, 50 mg, oral, Nightly venlafaxine XR, 75 mg, oral, Daily Pertinent Investigations Hematology: Results from last 7 days Lab Units 02/04/24 0534 02/03/24 0857 WBC AUTO 10*3/uL 5.25 4.81 HEMOGLOBIN g/dL 13.5 13.2 HEMATOCRIT % 42.6 39.9 MCV fL 87.5 84.9 PLATELETS AUTO 10*3/uL 202 188 Chemistry: Results from last 7 days Lab Units 02/04/24 0534 02/03/24 0857 02/02/24 0543 SODIUM mmol/L 140 139 139 POTASSIUM mmol/L 3.7 3.8 3.3* CHLORIDE mmol/L 110* 110* 110* CO2 mmol/L BUN mg/dL 16 16 21 CREATININE mg/dL 1.46* 1.38* 1.42* GLUCOSE mg/dL 91 96 93 MAGNESIUM mg/dL -- 2.0 -- CALCIUM mg/dL 9.1 8.7 8.5* Results from last 7 days Lab Units 02/01/24 1054 AST U/L 15 ALT U/L 18 ALK PHOS U/L 70 BILIRUBIN TOTAL mg/dL 0.4 Historical Values: (Includes values prior to this admission) Lab Results Component Value Date TSH 2.82 02/03/2024 HDL 36 02/01/2024 LDL 145 02/01/2024 No results found for: [id number] , IRON , TI (more content not included)... [facility]11-23-2024 NoteCardiology Inpatient Progress Note Reason for Consult: Syncopal episode Patient awake and alert, good spirits, has been OOB denies lightheadedness, presyncope/syncope, any SOB, RAMOS, Chest discomfort, palpitations. Eating and drinking. Allergies Keflex [cephalexin] Current scheduled meds acetaminophen, 1,000 mg, oral, q8h aspirin, 81 mg, oral, Nightly chlorthalidone, 25 mg, oral, q AM escitalopram, 20 mg, oral, Daily heparin (porcine), 5,000 Units, subcutaneous, q8h ISABEL kit prep Tc 99m-sestamibi no.1, 10 millicurie, intravenous, Once in imaging kit prep Tc 99m-sestamibi no.1, 30 millicurie, intravenous, Once in imaging lisinopril, 40 mg, oral, Daily [Held by provider] NIFEdipine XL, 60 mg, oral, Daily piperacillin-tazobactam, 4.5 g, intravenous, q8h spironolactone, 25 mg, oral, Daily topiramate, 25 mg, oral, Daily topiramate, 50 mg, oral, Nightly venlafaxine XR, 75 mg, oral, Daily PRN medications: acetaminophen, melatonin, ondansetron ODT OR ondansetron Outpatient Medications Current Outpatient Medications Medication Instructions acetaminophen (TYLENOL) 1,000 mg, oral, Every 8 hours aspirin 81 mg, oral, Nightly chlorthalidone (HYGROTON) 25 mg, oral, Every morning escitalopram (LEXAPRO) 20 mg, oral, Daily lisinopril 40 mg, oral, Daily NIFEdipine XL (PROCARDIA XL) 60 mg, oral, Daily, Do not crush, chew, or split. Stop taking amlodipine. Start with taking nifedipine 60mg once daily. Continue to monitor BP. spironolactone (ALDACTONE) 25 mg, oral, Daily spironolactone (ALDACTONE) 25 mg, oral, Daily topiramate (TOPAMAX) 25 mg, oral, 2 times daily, PT STATES TAKES ONE TABLET IN MORNING AND 2 AT NIGHT venlafaxine XR (EFFEXOR-XR) 75 mg, oral, Daily, Do not crush or chew. Last Recorded Vitals Patient Vitals for the past 24 hrs: BP Temp Temp src Pulse Resp SpO2 Weight 02/03/24 0715 129/90 36.8 ???C (98.2 ???F) -- 76 -- 99 % -- 02/03/24 0426 -- -- -- -- -- -- (!) 141 kg (309 lb 12.8 oz) 02/02/24 1850 125/68 36.3 ???C (97.3 ???F) Oral 82 14 99 % -- 02/02/24 1514 119/75 36.7 ???C (98.1 ???F) Oral 66 14 99 % -- Physical Examination: GENERAL: AOx3, in no acute distress. HEAD: Atraumatic, normocephalic. EYES: MOHINI, EOMI. NECK: No JVD present. CARDIAC: RRR. No murmur, rubs, or gallops. RESPIRATORY: CTAB, no increased effort of breathing. ABDOMEN: Soft, nontender, nondistended. EXTREMITIES: No lower extremity edema, peripheral pulses are 2+ bilaterally. NEURO: No focal deficits Relevant Lab Results Labs: Lab Results Component Value Date WBC 4.81 02/03/2024 HGB 13.2 02/03/2024 HCT 39.9 02/03/2024 MCV 84.9 02/03/2024 PLT 188 02/03/2024 Lab Results Component Value Date NA 139 02/03/2024 K 3.8 02/03/2024 CL 110 (H) 02/03/2024 ANIONGAP 10 02/03/2024 BUN 16 02/03/2024 CREATININE 1.38 (H) 02/03/2024 CALCIUM 8.7 02/03/2024 MG 2.2 01/06/2024 PHOS 2.9 01/06/2024 Lab Results Component Value Date BILITOT 0.4 02/01/2024 ALKPHOS 70 02/01/2024 AST 15 02/01/2024 ALT 18 02/01/2024 PROT 7.2 02/01/2024 ALBUMIN 4.6 02/01/2024 Lab Results Component Value Date CHOLESTEROL 181 02/01/2024 TRIGLYCERIDES 185 (H) 02/01/2024 HDL 36 02/01/2024 LDL CALC 108 02/01/2024 No results found for: THYROID , TSH , FREE T4 No results found for: DIGOXIN LVL Lab Results Component Value Date HGBA1C 5.9 02/01/2024 Lab Results Component Value Date TROPONIN I 0.02 02/02/2024 TROPONIN I 0.00 02/01/2024 TROPONIN I 0.00 02/01/2024 No results found for: BNP Last lab values have been reviewed with patient at today's visit. Encounter Date: 02/01/24 ECG 12 lead Result Value Ventricular Rate 62 Atrial Rate 62 SC Interval 180 QRS DURATION 98 QT Interval 450 QTC CALCULATION(BAZETT) 456 P Sebec -5 R-Sebec -29 T Wave Sebec -4 Impression Normal sinus rhythm Normal ECG No previous ECGs available Confirmed by Edwardo Alegre ([id number]) on 02/02/2024 8:47:58 AM Lab Results Component Value Date TROPONINI 0.02 02/02/2024 Complete Echo (TTE) w/wo Imaging Agent, Strain, 3D, Bubble Study Result Date: 02/02/2024 1 1 [facility] Heart Station [address] [place] [address] [phone] (fax) Echocardiogram-[facility] Name: MARISELA HAHN Study Date: 02/02/2024 12:47 PM B/P: 133 mmHg/86 mmHg HR: Date of : 1975 Location: [facility] Height: 73 in. Age: 48 year(s) Patient Room: 61 Weight: 300 lb. Gender: Male Patient Status: OutPt BSA: 2.56 m2 Indication: Syncope Examination: Echocardiogram (Complete), Lumason Contrast Image Quality: Technically Difficult study Patient Consent: Procedure explained to patient Conclusions Left Ventricle: The left ventricle is normal size. Global left ventricular systolic function is normal. The EF is 60 % visually. Left ventricular wall thickness is normal. No regional wall motion abnormality. Normal diastolic function. Right V (more content not included)... [facility]11-23-2024 NoteHospital Medicine Daily Progress Note - 02/03/2024 7:39 AM; Room: 6139/6139-02 Admission: 02/01/2024 10:26 AM; Length of stay: 0 days THE HOSPITALIST TEAM PREFERS TO USE [employer] FOR NON-URGENT COMMUNICATION 7AM-7PM. IF I DO NOT RESPOND WITHIN 20 MINUTES OR URGENT MATTERS, PLEASE CALL THROUGH THE SELVAGE MACHINE OPERATOR. FROM 7PM-7AM, PLEASE PAGE [phone](COVR). Code Status: Full Code Barriers to Discharge: positive stress test will need Coronary CT Expected Discharge Date: pending cardiology workup Discharge Destination: home Overview Patient is seen for evaluation and management of syncope. Subjective Patient resting in bed, no further syncopal episodes during admission. Physical Exam Visit Vitals BP 129/90 Pulse 76 Temp 36.8 ???C (98.2 ???F) Resp 14 Intake/Output Summary (Last 24 hours) at 02/03/2024 0739 Last data filed at 02/03/2024 0600 Gross per 24 hour Intake 300 ml Output 300 ml Net 0 ml Physical Exam Vitals and nursing note reviewed. Constitutional: Appearance: He is obese. HENT: Mouth/Throat: Mouth: Mucous membranes are moist. Eyes: Pupils: Pupils are equal, round, and reactive to light. Cardiovascular: Rate and Rhythm: Normal rate and regular rhythm. Pulses: Normal pulses. Pulmonary: Effort: Pulmonary effort is normal. Abdominal: Palpations: Abdomen is soft. Musculoskeletal: General: Normal range of motion. Cervical back: Normal range of motion. Skin: General: Skin is warm. Capillary Refill: Capillary refill takes less than 2 seconds. Neurological: Mental Status: He is alert and oriented to person, place, and time. Estimated body mass index is 40.87 kg/m??? as calculated from the following: Height as of this encounter: 1.854 m (6' 1 ). Weight as of this encounter: 141 kg (309 lb 12.8 oz). Active Inpatient Problems Principal Problem: Syncope and collapse Active Problems: Acute appendicitis Primary hypertension Assessment and Plan Generalized abdominal pain -improved Recent appendicitis w perforation and abscess s/p IR drain placement - General surgery feels he does not have acute appendicitis despite imaging. They're recommending he remain on zosyn while here and continue with 14 days of Augmentin on discharge. Requirement that interval appendectomy be performed no earlier than 6 weeks after initial appendicitis episode. Syncope and collapse Positive Fecal Occult Blood -TTE with normal EF systolic and diastolic function -Troponin all negative -EKG wit NSR -Orthostatic vitals -Tele -Stress test was positive for transient ischemia dilatation, cardiology consulted, team will see patient today and perform coronary CTA with FFR on Monday -Fecal occult blood was positive 01/31, patient's hemoglobin 12.9 which appears to be around his baseline, patient does report having hemorrhoids that sometimes bleed, stool collected yesterday with no blood present. Will continue to monitor Hx of TIA OCD - on Effexor and lexapro Resistant HTN - continue home regimen Suspected JESSICA - needs to follow up with his PCP for sleep study results Bilateral adrenal nodules - stable per imaging. Will need followed by his pcp Malnutrition Attestation: Comment: VTE Prophylaxis: Heparin subcutaneous Scheduled Meds acetaminophen, 1,000 mg, oral, q8h aspirin, 81 mg, oral, Nightly chlorthalidone, 25 mg, oral, q AM escitalopram, 20 mg, oral, Daily heparin (porcine), 5,000 Units, subcutaneous, q8h ISABEL kit prep Tc 99m-sestamibi no.1, 10 millicurie, intravenous, Once in imaging kit prep Tc 99m-sestamibi no.1, 30 millicurie, intravenous, Once in imaging lisinopril, 40 mg, oral, Daily [Held by provider] NIFEdipine XL, 60 mg, oral, Daily piperacillin-tazobactam, 4.5 g, intravenous, q8h spironolactone, 25 mg, oral, Daily topiramate, 25 mg, oral, Daily topiramate, 50 mg, oral, Nightly venlafaxine XR, 75 mg, oral, Daily Pertinent Investigations Hematology: Results from last 7 days Lab Units 02/02/24 0543 02/01/24 1054 WBC AUTO 10*3/uL 6.86 8.23 HEMOGLOBIN g/dL 12.9* 14.4 HEMATOCRIT % 39.4 43.5 MCV fL 85.1 84.5 PLATELETS AUTO 10*3/uL 174 245 Chemistry: Results from last 7 days Lab Units 02/02/24 0543 02/01/24 1054 SODIUM mmol/L 139 138 POTASSIUM mmol/L 3.3* 3.3* CHLORIDE mmol/L 110* 107 CO2 mmol/L 21 20* BUN mg/dL 21 19 CREATININE mg/dL 1.42* 1.21 GLUCOSE mg/dL 93 127* CALCIUM mg/dL 8.5* 9.5 Results from last 7 days Lab Units 02/01/24 1054 AST U/L 15 ALT U/L 18 ALK PHOS U/L 70 BILIRUBIN TOTAL mg/dL 0.4 Historical Values: (Includes values prior to this admission) Lab Results Component Value Date HDL 36 02/01/2024 LDL 145 02/01/2024 No results found for: [id number] , IRON , TIBC , C3 , C4 , JOSE E , CANCA , ASO , PSA , CEA , CA125 , CA199 , AFP , CA153 Imaging Complete Echo (TTE) w/wo Imaging Agent, Strain, 3D, Bubble Study 1 1 [facility] Hea (more content not included)... [facility]11-22-2024 NoteHospital Medicine Daily Progress Note - 02/02/2024 9:40 AM; Room: [address] [place] [address] Admission: 02/01/2024 10:26 AM; Length of stay: 0 days THE HOSPITALIST TEAM PREFERS TO USE [employer] FOR NON-URGENT COMMUNICATION 7AM-7PM. IF I DO NOT RESPOND WITHIN 20 MINUTES OR URGENT MATTERS, PLEASE CALL THROUGH THE SELVAGE MACHINE OPERATOR. FROM 7PM-7AM, PLEASE PAGE [phone](COVR). Code Status: Full Code Barriers to Discharge: positive stress test will need cath Expected Discharge Date: pending cardiology workup Discharge Destination: home Overview Patient is seen for evaluation and management of syncope. Subjective Resting in bed, he denies any shortness of breath, palpitations, chest pain, or any further syncopal episodes Physical Exam Visit Vitals BP 133/86 (BP Location: Left arm, Patient Position: Lying) Pulse 68 Temp 37.2 ???C (99 ???F) (Oral) Resp 14 Intake/Output Summary (Last 24 hours) at 02/02/2024 0940 Last data filed at 02/02/2024 0412 Gross per 24 hour Intake 930 ml Output -- Net 930 ml Physical Exam Vitals and nursing note reviewed. Constitutional: Appearance: He is obese. HENT: Mouth/Throat: Mouth: Mucous membranes are moist. Eyes: Pupils: Pupils are equal, round, and reactive to light. Cardiovascular: Rate and Rhythm: Normal rate and regular rhythm. Pulses: Normal pulses. Pulmonary: Effort: Pulmonary effort is normal. Abdominal: Palpations: Abdomen is soft. Musculoskeletal: General: Normal range of motion. Cervical back: Normal range of motion. Skin: General: Skin is warm. Capillary Refill: Capillary refill takes less than 2 seconds. Neurological: Mental Status: He is alert and oriented to person, place, and time. Estimated body mass index is 39.61 kg/m??? as calculated from the following: Height as of this encounter: 1.854 m (6' 1 ). Weight as of this encounter: 136 kg (300 lb 3.2 oz). Active Inpatient Problems Principal Problem: Syncope and collapse Active Problems: Acute appendicitis Primary hypertension Assessment and Plan Generalized abdominal pain -improved Recent appendicitis w perforation and abscess s/p IR drain placement - General surgery feels he does not have acute appendicitis despite imaging. They're recommending he remain on zosyn while here and continue with 14 days of Augmentin on discharge. Requirement that interval appendectomy be performed no earlier than 6 weeks after initial appendicitis episode. Syncope and collapse - history most consistent with orthostatic etiology. He is on many medications for hypertension. - TTE pending - Serial trops/EKGs - Given recent history of chest pain, - Orthostatic vitals -Tele -Stress test was positive for transient ischemia dilatation, cardiology consulted, team will see patient today and perform coronary CTA with FFR on Monday Hx of TIA OCD - on effexor and lexapro Resistant HTN - continue home regimen Suspected JESSICA - needs to follow up with his PCP for sleep study results Bilateral adrenal nodules - stable per imaging. Will need followed by his pcp Malnutrition Attestation: Comment: VTE Prophylaxis: Heparin subcutaneous Scheduled Meds acetaminophen, 1,000 mg, oral, q8h aspirin, 81 mg, oral, Nightly chlorthalidone, 25 mg, oral, q AM escitalopram, 20 mg, oral, Daily heparin (porcine), 5,000 Units, subcutaneous, q8h ISABEL kit prep Tc 99m-sestamibi no.1, 10 millicurie, intravenous, Once in imaging kit prep Tc 99m-sestamibi no.1, 30 millicurie, intravenous, Once in imaging lisinopril, 40 mg, oral, Daily [Held by provider] NIFEdipine XL, 60 mg, oral, Daily piperacillin-tazobactam, 4.5 g, intravenous, q8h spironolactone, 25 mg, oral, Daily topiramate, 25 mg, oral, Daily topiramate, 50 mg, oral, Nightly venlafaxine XR, 75 mg, oral, Daily Pertinent Investigations Hematology: Results from last 7 days Lab Units 02/02/24 0543 02/01/24 1054 WBC AUTO 10*3/uL 6.86 8.23 HEMOGLOBIN g/dL 12.9* 14.4 HEMATOCRIT % 39.4 43.5 MCV fL 85.1 84.5 PLATELETS AUTO 10*3/uL 174 245 Chemistry: Results from last 7 days Lab Units 02/02/24 0543 02/01/24 1054 SODIUM mmol/L 139 138 POTASSIUM mmol/L 3.3* 3.3* CHLORIDE mmol/L 110* 107 CO2 mmol/L 21 20* BUN mg/dL 21 19 CREATININE mg/dL 1.42* 1.21 GLUCOSE mg/dL 93 127* CALCIUM mg/dL 8.5* 9.5 Results from last 7 days Lab Units 02/01/24 1054 AST U/L 15 ALT U/L 18 ALK PHOS U/L 70 BILIRUBIN TOTAL mg/dL 0.4 Historical Values: (Includes values prior to this admission) Lab Results Component Value Date HDL 36 02/01/2024 LDL 145 02/01/2024 No results found for: ANDOLTEX43 , IRON , TIBC , C3 , C4 , JOSE E , CANCA , ASO , PSA , CEA , CA125 , CA199 , AFP , CA153 Imaging ECG 12 lead Normal sinus rhythm Normal ECG No previous ECGs available Confirmed by Edwardo Alegre ([id number]) on 02/02/2024 8:47:58 AM Discharge Planning Signed ELSIE TURCIOS [facility] 02/02/20 (more content not included)...[facility] 02-02-2024 Note Attestation signed by Alec Rodriges MD at 02/03/2024 6:11 PM Patient seen and examined with residents. Will sign off at this time. Follow up in clinic for interval appendectomy. [facility] General Surgery DAILY PROGRESS NOTE Subjective He was seen at bedside this morning, no acute events overnight. He states that he is having discomfort in the left side of his abdomen. He denies any aches, fevers, or chills, no n/v, and no SoB. No other complaints noted. Objective Vitals: Vitals: 02/02/24 0640 BP: 133/86 Pulse: 68 Resp: 14 Temp: 37.2 ???C (99 ???F) SpO2: 97% I/O last 3 completed shifts: In: 930 (6.8 mL/kg) [P.O.:130; I.V.:300 (2.2 mL/kg); IV Piggyback:500] Out: - (0 mL/kg) Weight: 136.2 kg No intake/output data recorded. Physical Exam General Appearance: AAOx3, NAD Neck: trachea midline, no JVD Pulmonary: good respiratory effort on room air, no audible wheezing Cardiac: RRR Abdomen: soft, non-distended, tender to palpation in LLQ, no tenderness in RLQ, no guarding, no rebound tenderness Extremity: no edema bilateral upper and lower extremities Skin: warm and dry without rash Eyes: no scleral icterus Labs: Results from last 7 days Lab Units 02/02/24 0543 02/01/24 1054 WBC AUTO 10*3/uL 6.86 8.23 HEMOGLOBIN g/dL 12.9* 14.4 HEMATOCRIT % 39.4 43.5 PLATELETS AUTO 10*3/uL 174 245 Results from last 7 days Lab Units 02/02/24 0543 02/01/24 1054 SODIUM mmol/L 139 138 POTASSIUM mmol/L 3.3* 3.3* CO2 mmol/L 21 20* BUN mg/dL 21 19 CREATININE mg/dL 1.42* 1.21 Medications: acetaminophen, 1,000 mg, oral, q8h aspirin, 81 mg, oral, Nightly chlorthalidone, 25 mg, oral, q AM escitalopram, 20 mg, oral, Daily heparin (porcine), 5,000 Units, subcutaneous, q8h ISABEL kit prep Tc 99m-sestamibi no.1, 10 millicurie, intravenous, Once in imaging kit prep Tc 99m-sestamibi no.1, 30 millicurie, intravenous, Once in imaging lisinopril, 40 mg, oral, Daily [Held by provider] NIFEdipine XL, 60 mg, oral, Daily piperacillin-tazobactam, 4.5 g, intravenous, q8h regadenoson, 0.4 mg, intravenous, Once spironolactone, 25 mg, oral, Daily topiramate, 25 mg, oral, Daily topiramate, 50 mg, oral, Nightly venlafaxine XR, 75 mg, oral, Daily Imaging: ECG 12 lead Normal sinus rhythm Normal ECG No previous ECGs available Confirmed by Edwardo Alegre ([id number]) on 02/02/2024 8:47:58 AM Assessment/Plan Marisela Hahn is a 48 y.o.male with perforated appendicitis s/p 01/03 percutaneous drainage. No recurrence of abscess on CT and WBC normal. Patient's pain different from his initial presentation in December. Undergoing syncopal workup. No acute surgical intervention. Continue IV antibiotics while inpatient. Recommend discharging on 14-day course of Augmentin. Interval appendectomy no earlier than 6 weeks after initial appendicitis episode Rest of care per primary General surgery will sign off at this time. Please feel free to contact with any questions or concerns. Yuan Mckeon MD General Surgery Resident, PGY-5 I can be reached via [employer] 6a-6p Sim Morales MD General Surgery Resident, PGY-2 02/02/24 GENERAL SURGERY CONTACT INFORMATION ASCOM 2510 WILL BE DEACTIVATED AT 0800 02/05/2024 For emergent patient issues, please call for the RAPID RESPONSE TEAM or a CODE. To reach the general surgery team from 6:00AM to 6:30PM, please page [phone] with details. (Include: Patient Room Number, Patient Name, MRN, Reason for page, Urgency level : Routine vs Urgent , who is paging, and a call back number) If the general surgery team has not responded in a timely manner, please page again with details and/or escalate to the primary surgical attending/surgical attending water reclamation systems operator. To reach the general surgery or trauma team from 6:30PM to 6:00AM, please call [phone] (ASCOM [id number]).[facility]11-21-2024 Note 02/01/24 162 Financial Resource Strain How hard is it for you to pay for the very basics like food, housing, medical care, and heating? Not hard Housing Stability In the last 12 months, was there a time when you were not able to pay the mortgage or rent on time? N In the past 12 months, how many times have you moved where you were living? 1 (Lives at home w/ mother) At any time in the past 12 months, were you homeless or living in a half-way (including now)? N Transportation Needs In the past 12 months, has lack of transportation kept you from medical appointments or from getting medications? no In the past 12 months, has lack of transportation kept you from meetings, work, or from getting things needed for daily living? No Food Insecurity Within the past 12 months, you worried that your food would run out before you got the money to buy more. Never true Within the past 12 months, the food you bought just didn't last and you didn't have money to get more. Never true Stress Do you feel stress - tense, restless, nervous, or anxious, or unable to sleep at night because your mind is troubled all the time - these days? To some exte (provided MH resources) Social Connections In a typical week, how many times do you talk on the phone with family, friends, or neighbors? More than 3 How often do you get together with friends or relatives? More than 3 How often do you attend yazidism or rastafarian services? Never Do you belong to any clubs or organizations such as yazidism groups, unions, fraternal or athletic groups, or school groups? Yes (lego group) How often do you attend meetings of the clubs or organizations you belong to? 1 to 4 Are you , , , , never , or living with a partner? Intimate Partner Violence Within the last year, have you been afraid of your partner or ex-partner? No Within the last year, have you been humiliated or emotionally abused in other ways by your partner or ex-partner? No Within the last year, have you been kicked, hit, slapped, or otherwise physically hurt by your partner or ex-partner? No Within the last year, have you been raped or forced to have any kind of sexual activity by your partner or ex-partner? No Alcohol Use Q1: How often do you have a drink containing alcohol? Monthly or l Q2: How many drinks containing alcohol do you have on a typical day when you are drinking? 1 or 2 Q3: How often do you have six or more drinks on one occasion? Never Utilities In the past 12 months has the [employer], gas, oil, or water [place] threatened to shut off services in your home? No 02/01/24 3528 Referral Data Referral Source table worker packager Referral Reason Psychosocial assessment Patient Information Primary Caregiver Self Activities of Daily Living Assistive Device Not applicable Living Arrangement (Current/Prior to Hospitalization) Private residence (Lives at home w/ mother) Ambulation Independent Dressing Independent Feeding Independent Behavior Oriented (A&Ox4) Communication Can write;Talks;Understands speaking;Understands Croatian;Reads Income Information Income Source Government aid (SSDI) Discharge Planning Support Systems None (denied) Type of Residence Private residence Will patient need Precert for Post Acute needs? No Patient's goal for discharge Home Does the patient need discharge transport arranged? No Completed social work assessment and SDoH screening. Patient was A&Ox4 at this time. Patient reported that he lives at home with his mother, Prabha, and he denied having a current support system. Patient endorsed that he is socially active. Patient reported that he is independent with ADLs without the use of any DME. Patient reported that he receives SSDI and he denied the need for assistance with obtaining basic needs. Patient also denied the need for assistance with transportation for medical appointments and he denied the need for assistance with transportation to return home from the hospital upon discharge. Patient endorsed experiencing a moderate level of stress in his everyday life. Patient denied having a current mental health provider and he endorsed interest in getting connected with one. Sleeve Presser Operator provided the patient with a list of mental health resources including mental health crisis resources, community mental health agencies, and psychiatry providers. Patient denied experiencing any form of IPV within the past year, endorsed occasional alcohol consumption, and endorsed drug use of medical marijuana.[facility] 02-01-2024 NoteHospital Medicine History and Physical 02/01/2024 1:29 PM THE HOSPITALIST TEAM PREFERS TO USE [employer] FOR COMMUNICATION 7AM-7PM. IF I DO NOT RESPOND WITHIN 15 MINUTES, PLEASE PAGE ME/CALL THROUGH THE SELVAGE MACHINE OPERATOR. FROM 7PM-7AM, PLEASE PAGE [phone](COVR) Chief Complaint Chief Complaint Patient presents with Abdominal Pain Pt reports abdominal pain starting 5 am this morning. Pt also reports bloody stool, diarrhea, and syncope x 2. Pt reports falling when he had a syncope, denies any injury at this time. Pt states he had a ruptured appendix appx 3-4 weeks ago. History of Present Illness Marisela Hahn is an 48 y.o. male with a PMH of recent perforated appendicitis and associated abscess (5.2cm) s/p IR drain placement and removal, spina bifida, morbid obesity, GERD, and HTN who presents from home with a chief complaint of abdominal pain and syncope x2. Patient reportedly woke up with abdominal cramping and was on his way down stairs to have a bowel movement when he passed out once in the hallway, stood back up and then passed out again in the bathroom. His mom came around the corner and saw him down on the ground in the hallway and reports that he was not shaking, did not lose control of his bladder or bowel function and did not bite his tongue. Instead he reassured her that he could stand back up, did so, then fell again into the tub in the bathroom. He denies any recent hypertension medication changes but does report he had multiple episodes of syncope a couple years back. He does not remember these episodes well, but remembers waking back up in the bathtub. Patient reports remote stress test which he believes was negative. He does endorse some sharp chest pain yesterday which resolved with rest, though it seems to be related to inspiration. He denies knowing if he hit his head. Upon arriving to our emergency department CT abdomen pelvis was performed with contrast which demonstrated resolution of the periappendiceal abscess, though there were concerns for acute appendicitis. General surgery were consulted and felt that his clinical picture was inconsistent with appendicitis considering most of his pain is left lower quadrant. He is afebrile. No leukocytosis. He had the IR drain removed multiple weeks ago and completed his course of Augmentin a couple weeks back. General surgery planning outpatient appendectomy 6 weeks after IR guided drain was placed and are recommending IV antibiotics for now to be conservative. Review of System and Physical Exam Temp: [36.2 ???C (97.2 ???F)] 36.2 ???C (97.2 ???F) Heart Rate: [69-74] 73 Resp: [12-20] 15 BP: (94-114)/(64-80) 113/68 Physical Exam Vitals and nursing note reviewed. Constitutional: Appearance: Normal appearance. He is normal weight. HENT: Head: Normocephalic. Nose: Nose normal. Mouth/Throat: Mouth: Mucous membranes are moist. Eyes: Pupils: Pupils are equal, round, and reactive to light. Cardiovascular: Rate and Rhythm: Normal rate and regular rhythm. Pulses: Normal pulses. Heart sounds: Normal heart sounds. No murmur heard. No friction rub. No gallop. Pulmonary: Effort: Pulmonary effort is normal. Breath sounds: Normal breath sounds. Abdominal: General: Abdomen is flat. Bowel sounds are normal. Palpations: Abdomen is soft. Tenderness: There is abdominal tenderness (generalized, focused predominately to LLQ). Musculoskeletal: General: Normal range of motion. Cervical back: Normal range of motion. Skin: General: Skin is warm. Capillary Refill: Capillary refill takes less than 2 seconds. Neurological: General: No focal deficit present. Mental Status: He is alert and oriented to person, place, and time. Psychiatric: Mood and Affect: Mood normal. Behavior: Behavior normal. Judgment: Judgment normal. Review of Systems Constitutional: Negative for chills and fever. Respiratory: Negative for cough and shortness of breath. Cardiovascular: Positive for chest pain. Gastrointestinal: Negative for abdominal pain, constipation, diarrhea, nausea and vomiting. Musculoskeletal: Negative for back pain. Neurological: Positive for syncope. Negative for weakness, numbness and headaches. Psychiatric/Behavioral: Negative for confusion. All other systems reviewed and are negative. Problem List Patient Active Problem List Diagnosis Date Noted Other headache syndrome 11/01/2022 Resistant hypertension 11/24/2021 Syncope and collapse 11/24/2021 Anxiety 11/24/2021 Mixed hyperlipidemia 11/24/2021 GERD (gastroesophageal reflux disease) 11/24/2021 Morbid obesity with body mass index (BMI) of 40.0 to 44.9 in adult ([facility] 11/24/2021 Acute appendicitis with perforation, localized peritonitis, and abscess 01/04/2024 Acute appendicitis with perforation, localized peritonitis, and abscess, unspecified whether gangrene present 01/04/2024 Obsessive-compulsive disorder 09/13/2023 (more content not included)...[facility]11-21-2024 Note H/P reviewed a/p [facility] and [facility] NoteSubjective Patient ID: Marisela Hahn is a 48 y.o. male who presents for Colonoscopy (Wants to see if he needs a colonoscopy ). Marisela Hahn is a 48 y.o. male who presents for Colonoscopy scheduling. 2 weeks ago he had a perforated appendicitis and had a drain placed. The drain is now removed. Overall he feels that the pain has improved but notes some continued RLQ soreness. He denies any other complains. No fevers or chills. His last colonoscopy was 2019 and he does not note any abnormalities. He denies family hx of colon cancer. All of his images and studies were reviewed and the case was discussed with Dr. Quevedo. Review of Systems Constitutional: Negative. HENT: Negative. Eyes: Negative. Respiratory: Negative. Cardiovascular: Negative. Gastrointestinal: Positive for abdominal pain. Genitourinary: Negative. Musculoskeletal: Negative. Neurological: Negative. Hematological: Negative. Objective Visit Vitals BP 130/73 Pulse 85 Temp 36.4 ???C (97.6 ???F) Physical Exam Constitutional: Appearance: Normal appearance. HENT: Head: Normocephalic and atraumatic. Nose: Nose normal. Cardiovascular: Rate and Rhythm: Normal rate. Pulmonary: Effort: Pulmonary effort is normal. Abdominal: General: Abdomen is flat. Palpations: Abdomen is soft. Tenderness: There is abdominal tenderness (RLQ). Musculoskeletal: General: Normal range of motion. Cervical back: Normal range of motion. Skin: General: Skin is warm. Neurological: General: No focal deficit present. Mental Status: He is alert and oriented to person, place, and time. Psychiatric: Mood and Affect: Mood normal. Behavior: Behavior normal. Thought Content: Thought content normal. Judgment: Judgment normal. Assessment/Plan There are no diagnoses linked to this encounter. -Plan to order CT abd pelvis with contrast for continued RLQ pain. Will check a CBC. -Plan for colonoscopy after 6 weeks of no abd pain No diagnosis found. No orders of the defined types were placed in this encounter. No results found for this or any previous visit (from the past 36 hour(s)). No follow-ups on file. Mando Curry, MS3 The above patient was seen with the medical student and the physical exam was done by myself with the student present, assisting and observing. The plan was discussed in detail with the student and the patient.[facility]10-31-2024 NoteSubjective Patient ID: Marisela Hahn is a 48 y.o. male who presents for Consult (Marisela Hahn is here for a consult for Hospital Follow up: potential interval appendectomy). HPI Patient is a 48 y/o man with BMI of 40.77 and hx of syncope, HTN here for follow up after recent hospitalization for perforated appendicitis from 01/03/2024-01/06/2024 with IR drain placement. Patient has done well since then and taking his antibiotics without issues. Patient noted mild constipation and will try some bowel regimen. Patient denies fever, chills, nausea, vomiting, diarrhea, skin changes, vision changes, chest pain, shortness of breath, or headaches. Patient noted drain output to be 10-20 cc in the past 2-3 days and output has cleared up to clear serous output. Patient noted pain has improved and now mild. Patient noted colonoscopy in 2019 in [place] but unsure why that was performed but noted he is due for another one. Review of Systems Constitutional: Negative for chills, fatigue and fever. HENT: Negative for nosebleeds. Eyes: Negative for visual disturbance. Respiratory: Negative for cough, chest tightness, shortness of breath and wheezing. Gastrointestinal: Positive for abdominal pain (right side). Negative for blood in stool, constipation, diarrhea and nausea. Endocrine: Negative for cold intolerance and heat intolerance. Genitourinary: Negative for hematuria. Musculoskeletal: Negative for joint swelling and myalgias. Skin: Negative for color change and rash. Allergic/Immunologic: Negative for immunocompromised state. Neurological: Positive for headaches. Negative for dizziness, weakness, light-headedness and numbness. Hematological: Does not bruise/bleed easily. Psychiatric/Behavioral: The patient is not nervous/anxious. Objective Visit Vitals BP 120/73 (BP Location: Left arm, Patient Position: Sitting) Pulse 79 Temp 36.8 ???C (98.3 ???F) Physical Exam Constitutional: General: He is not in acute distress. Appearance: Normal appearance. He is not ill-appearing. HENT: Head: Normocephalic. Right Ear: External ear normal. Left Ear: External ear normal. Nose: Nose normal. Mouth/Throat: Mouth: Mucous membranes are moist. Eyes: General: No scleral icterus. Right eye: No discharge. Left eye: No discharge. Conjunctiva/sclera: Conjunctivae normal. Cardiovascular: Rate and Rhythm: Normal rate and regular rhythm. Pulses: Normal pulses. Heart sounds: Normal heart sounds. Pulmonary: Effort: Pulmonary effort is normal. No respiratory distress. Abdominal: General: There is no distension. Palpations: Abdomen is soft. Tenderness: There is abdominal tenderness (mild RLQ). Comments: RLQ drain with serous output. Musculoskeletal: General: No swelling. Cervical back: Neck supple. Right lower leg: No edema. Left lower leg: No edema. Skin: General: Skin is warm. Capillary Refill: Capillary refill takes less than 2 seconds. Coloration: Skin is not jaundiced. Neurological: General: No focal deficit present. Mental Status: He is alert and oriented to person, place, and time. Psychiatric: Mood and Affect: Mood normal. Assessment/Plan Diagnoses and all orders for this visit: Perforated appendicitis Patient is a 48 y.o. years old male here for Perforated appendicitis [K35.32]. Plan - Continue finish antibiotics course. IR drain low output with clear output, removed today without issues. - Will refer to colorectal surgery for Colonoscopy and interval appendectomy Problem(s) addressed: Stable Acute illness (Low) Data reviewed and analyzed: Notes 01/06/24 and 01/03/24 were reviewed by me. Labs 01/06/[address] 01/04/24 was/were independently interpreted/reviewed by me. Risk of complications and/or morbidity/mortality of management: Low risk of morbidity from studies/testing/treatment (Low) Diagnosis Plan 1. [facility]for[facility] append[facility]isUn[facility] 01/04/24 1406 Admission Assessment Questions Verify insurance with patient Yes Do you understand medical disease or what brought you into the hospital? Yes Who is your current PCP? Benito Bullock MD Can I schedule a follow up appointment for you at the time of discharge? Yes Do you understand why you are taking your current medications? Yes Are you taking your medications as prescribed? Yes Did patient provide teach back? No Pharmacy Bedside Delivery Status Interested Does the patient have a correctional case manager assigned to them through their insurance? Yes Living Arrangement (Current/Prior to Hospitalization) Private residence (lives with mother, has ramp to get in, 2 story, bathroom on 1st floor) Does the patient have history of HHC or SNF? No Assistive Device Not applicable Patient's goal for discharge home Was patient reminded that goal for discharge is 11am? Yes Does the patient have transportation at discharge? Yes Type of Residence Private residence Is PT/OT appropriate? Yes Is PT/OT ordered? No (will reach out to provider) Is SW consult appropriate? No (not at this time, pending clinical course) Is SW consult ordered? No Do you understand the benefits of MyChart? Yes Were you able to send link and activate MyChart? MyChart already active [facility] DAILY PROGRESS NOTE Subjective No acute events overnight, tolerating diet, no nausea or vomiting, having bowel function. No fevers. Objective Vitals: Vitals: 01/06/24 0640 BP: 119/79 Pulse: 66 Resp: 18 Temp: 36.4 ???C (97.5 ???F) SpO2: 99% I/O last 3 completed shifts: In: 1425.8 (9.8 mL/kg) [I.V.:1025.8 (7 mL/kg); IV Piggyback:400] Out: 180 (1.2 mL/kg) [Urine:150 (0 mL/kg/hr); Drains:30] Weight: 145.8 kg I/O this shift: In: 360 [P.O.:360] Out: - Physical Exam General Appearance: Awake, Alert & Oriented x3, No Acute Distress Neck: Trachea Midline, No jugular venous distension Pulmonary: Unlabored breathing on room air. No expiratory wheeze. Cardiac: Regular rate Abdomen: soft, minimal tenderness, nondistended, no peritonitis. IR drain with scant purulent discharge. Extremity: No edema Bilateral Upper and lower Extremities Skin: warm and dry without rash Eyes: no scleral icterus Labs: Results from last 7 days Lab Units 01/06/24 0554 01/05/24 0516 01/04/24 0637 01/04/24 0003 WBC AUTO 10*3/uL 9.00 12.32* 11.82* 12.98* HEMOGLOBIN g/dL 12.8* 12.8* 12.0* 12.7* HEMATOCRIT % 39.3 37.9* 36.8* 38.7* PLATELETS AUTO 10*3/uL 284 260 249 288 Results from last 7 days Lab Units 01/06/24 0554 01/05/24 0515 01/04/24 0637 01/04/24 0003 SODIUM mmol/L 137 136 138 137 POTASSIUM mmol/L 3.3* 3.4* 3.3* 3.6 CO2 mmol/L 24 22 BUN mg/dL 19 17 26* 26* CREATININE mg/dL 1.19 1.11 1.27 1.37* Results from last 7 days Lab Units 01/04/24 0637 01/04/24 0003 INR 1.21* 1.14* Medications: acetaminophen, 1,000 mg, oral, q8h aspirin, 81 mg, oral, Nightly escitalopram, 20 mg, oral, Daily heparin (porcine), 5,000 Units, subcutaneous, BID piperacillin-tazobactam, 4.5 g, intravenous, q8h topiramate, 25 mg, oral, BID venlafaxine XR, 75 mg, oral, Daily Imaging: CT guided percutaneous peritoneal or retroperitoneal fluid collection drainage Narrative: CLINICAL INDICATION: Ruptured appendicitis with right lower quadrant periappendiceal abscess COMPARISON: CT scan 01/04/2024 TECHNIQUE: Procedure performed by Interventional Radiologist Marcus Fisher M.D. All CT scans at this facility use dose modulation, iterative reconstruction, and/or weight based dosing when appropriate to reduce radiation dose to as low as reasonably achievable. CONSENT: The reason for the procedure was discussed with the patient. The procedure, expectations, risks, benefits, options and alternatives were discussed. All of the patients questions were answered. The patient understands that the results cannot be guaranteed. The procedure is indicated and the risks are acceptable. Consent was obtained. SEDATION: The patients cardiopulmonary status was evaluated and the patient is suitable for moderate sedation. During the course of the procedure, the patient was sedated with Fentanyl 50 mcg intravenously and Versed 1 mg intravenously, while being monitored with ECG, blood pressure monitoring, and pulse oximeter by appropriately trained personnel, for a total sedation time of 20 minutes. Following the procedure, the patient was recovered according to the moderate sedation policy. PROCEDURE: CT-guided placement of a 10-Panamanian percutaneous pigtail drain into periappendiceal abscess. Details of procedure: Patient place in the supine position on the CT table. A CT scan of the abdomen was performed. An appropriate skin entry site was marked over the right lower quadrant periappendiceal abscess. The skin was prepped and draped in usual sterile fashion. 1% lidocaine without epinephrine was used as a local anesthetic. At that time, under CT guidance, a 5-Panamanian 10 cm one-step drainage catheter and needle were advanced into the collection. Upon entry into the collection, there was return of purulent fluid. An 035 Amplatz wire was then coiled in the collection. The access needle was removed. The track was dilated. At that time, a 10-Panamanian matter resolved pigtail drain was advanced over the wire into the collection. The inner dilator and wire were removed. The pigtail was formed and locked within the collection. Approximately 30 mL of purulent fluid was aspirated and a sample was sent to laboratory for further evaluation. The drain was then connected to DAVIN suction bulb drainage. 0 silk suture was used to secure the drain in place. Sterile dressing was applied. The patient tolerated the procedure well and there are no immediate palpitations. FINDINGS: 1.There is a periappendiceal abscess with surrounding inflammation measuring up to [address]-guided placement of a 10-Panamanian matter result pigtail drainage catheter into the abscess. Approximately 30 mL of purulent fluid was aspirated at the time of drain placement and the sample sent to laboratory for further evaluation. 3.CT post drain placement demonstrates decompression of the co (more content not included)...[facility]10-25-2024 NoteOccupational Therapy Occupational Therapy Evaluation Patient Name: Marisela Hahn : 1975 Today's Date: 01/05/2024 Time in: 1141 Time out: 1204 General Subjective: 48yoM to ED with and pain. Pt was t/f from OSH to [facility]. Pt with lower abd pain radiating from R lower quad to L and up to R upper quad x2 weeks. CT shows acute appendicitis with possible perforation and abscess formation. Pt underwent drain placement 01/03. OT Diagnosis: Pt with decreased indepedence in functional tasks 2o acute appendicitis with perforation, abscess. RN ok for pt to be seen at this time. Pt semi-fowlers upon arrival and agreeable to session. Pt completed functional tasks and functional ambulation in room and hallway. Pt was left sitting in chair with call light and needs in reach. RN aware of pt performance. Patient Active Problem List Diagnosis Resistant hypertension Syncope and collapse Anxiety Mixed hyperlipidemia GERD (gastroesophageal reflux disease) Morbid obesity with body mass index (BMI) of 40.0 to 44.9 in adult ([facility]) Spina bifida ([facility]) Depressive disorder Benign prostatic hyperplasia Deafness Vasectomy evaluation Other headache syndrome Chronic daily headache Cognitive dysfunction Essential tremor Obsessive-compulsive disorder Panic disorder Resting tremor Seasonal affective disorder ([facility]) Transient alteration of awareness Acute appendicitis with perforation, localized peritonitis, and abscess Acute appendicitis with perforation, localized peritonitis, and abscess, unspecified whether gangrene present Past Medical History: Diagnosis Date Anxiety Essential hypertension GERD (gastroesophageal reflux disease) Mixed hyperlipidemia Morbid obesity with BMI of 40.0-44.9, adult ([facility]) Morbid obesity with body mass index (BMI) of 40.0 to 44.9 in adult ([facility]) 11/24/2021 Resistant hypertension 11/24/2021 Spina bifida ([facility]) 05/11/2022 Syncope and collapse Tobacco dependence 11/24/2021 Past Surgical History: Procedure Laterality Date MYRINGOTOMY W/ TUBES Precautions Precautions Medical Precautions: drain, IV, telemetry Pain Pain Assessment Pain Assessment: 0-10 Pain Score: 4 Pain Type: Acute pain Pain Location: Abdomen Pain Orientation: Right, Lower Cognition Cognition Overall Cognitive Status: Within Functional Limits Arousal/Alertness: Appropriate responses to stimuli Orientation Level: Oriented X4 Following Commands: Follows all commands and directions without difficulty Safety Judgment: Good awareness of safety precautions Awareness of Errors: Good awareness of errors made Deficits: Fully aware of deficits Attention Span: Appears intact Memory: Appears intact Problem Solving: Able to problem solve independently Communication: Intact General Assessment General Assessment Hearing: Pt is deaf in L ear. Skin Integrity: Drain site is covered, all visible skin intact. Home Living Home Living Type of Home: House Lives With: Other (Comment) (pt reports he lives with his mother.) Home Adaptive Equipment: (Pt reports there is DME available if needed. does not give specifics but ambulation devices available.) Home Living Comments: Typically pts bedroom is on 2nd floor but states he can stay on main level if needed. Home Layout: Two level, Full bath main level, Stairs to alternate level with rails (bedrrom on 2nd.) Alternate Level Stairs-Rails: Left Alternate Level Stairs-Number of Steps: 15 Home Access: Stairs to enter with rails, Ramped entrance Entrance Stairs-Rails: Both Entrance Stairs-Number of Steps: 4 Bathroom Shower/Tub: Tub/shower unit Bathroom Toilet: Standard Bathroom Equipment: Grab bars in shower (believed there may be shower chair in storage.) Prior Level of Function Prior Function Level of [place]: Independent with ADLs and functional transfers, Independent with homemaking with ambulation Prior Functional Mobility: Independent without device Receives Help From: Family ADL Assistance: Independent Homemaking Assistance: Independent Driving: Independent Vocational: Unemployed Prior Function Comments: Pt Prior IADLs Static Sitting Balance Static Sitting Balance Static Sitting-Balance Support: Right upper extremity supported, Left upper extremity supported, Unilateral upper extremity supported, Feet supported Static Sitting-Level of Assistance: Independent Dynamic Sitting Balance Dynamic Sitting Balance Dynamic Sitting-Balance Support: Right upper extremity supported, Left upper extremity supported, Unilateral upper extremity supported, Feet supported Dynamic Sitting-Balance: Forward lean, Reaching for objects Dynamic Sitting Balance-Level of Assistance: Close supervision Static Standing Balance Static Standing Balance Static Standing-Balance Support: No upper extremity supported Static Standing-Level of Assistance: Close (more content not included)... [facility]10-25-2024 NotePhysical Therapy Physical Therapy Evaluation Patient Name: Marisela Hahn : 1975 Today's Date: 01/05/2024 General Family/Caregiver Present: No Subjective: 48 y.o. male transfer from OSH w/ possible ruptured appendix. C/o abdominal pain x2 wks. CT shows perforated appendicitis w/ contained gas and fluid collection/abscess arising from perf. appendiceal wall. Drain placed in IR on 01/04/24. Pt supine upon arrival, agreeable to PT. Amb in escudero and performed stairs. Returned to sit in recliner with LEs elevated. Call light given. PT Diagnosis: Decreased functional mobility d/t perforated appendix Patient Active Problem List Diagnosis Resistant hypertension Syncope and collapse Anxiety Mixed hyperlipidemia GERD (gastroesophageal reflux disease) Morbid obesity with body mass index (BMI) of 40.0 to 44.9 in adult ([facility]) Spina bifida ([facility]) Depressive disorder Benign prostatic hyperplasia Deafness Vasectomy evaluation Other headache syndrome Chronic daily headache Cognitive dysfunction Essential tremor Obsessive-compulsive disorder Panic disorder Resting tremor Seasonal affective disorder ([facility]) Transient alteration of awareness Acute appendicitis with perforation, localized peritonitis, and abscess Acute appendicitis with perforation, localized peritonitis, and abscess, unspecified whether gangrene present Past Medical History: Diagnosis Date Anxiety Essential hypertension GERD (gastroesophageal reflux disease) Mixed hyperlipidemia Morbid obesity with BMI of 40.0-44.9, adult ([facility]) Morbid obesity with body mass index (BMI) of 40.0 to 44.9 in adult ([facility]) 11/24/2021 Resistant hypertension 11/24/2021 Spina bifida ([facility]) 05/11/2022 Syncope and collapse Tobacco dependence 11/24/2021 Past Surgical History: Procedure Laterality Date MYRINGOTOMY W/ TUBES Precautions Precautions Medical Precautions: drain, IV, telemetry Pain Pain Assessment Pain Assessment: 0-10 Pain Score: 4 Pain Type: Acute pain Pain Location: Abdomen Pain Orientation: Right, Lower Cognition Cognition Overall Cognitive Status: Within Functional Limits Arousal/Alertness: Appropriate responses to stimuli Following Commands: Follows all commands and directions without difficulty Safety Judgment: Good awareness of safety precautions Awareness of Errors: Good awareness of errors made Deficits: Fully aware of deficits Attention Span: Appears intact Communication: Intact General Assessment General Assessment Hearing: Deaf L ear Skin Integrity: Drain site- bandaged. All other areas visualized- intact. Home Living Home Living Type of Home: House Lives With: Other (Comment) (Mother) Home Adaptive Equipment: (Pt reports there is a selection of DME available to him at home if needed.) Home Living Comments: Bedroom is on second floor, but has option of staying on 1st floor if needed. Home Layout: Two level, Full bath main level (Bed upstairs.) Home Access: Stairs to enter with rails, Ramped entrance Entrance Stairs-Rails: Both Entrance Stairs-Number of Steps: 4 Bathroom Shower/Tub: Tub/shower unit Bathroom Toilet: Standard Bathroom Equipment: Grab bars in shower (May have shower chair in storage.) Prior Level of Function Prior Function Level of [place]: Independent with ADLs and functional transfers, Independent with homemaking with ambulation Prior Functional Mobility: Independent without device Receives Help From: Family ADL Assistance: Independent Homemaking Assistance: Independent Driving: Independent Vocational: Unemployed Prior Function Comments: Volunteers [employer]. Vision Basic Assessment Vision - Basic Assessment Current Vision: Wears glasses all the time Activity Tolerance Activity Tolerance Endurance: Stage IV Stage IV (METs 3.0-3.5) - Standin-20 mins General Assessments Activity Tolerance Endurance: Stage IV Stage IV (METs 3.0-3.5) - Standin-20 mins Sensation Light Touch: No apparent deficits Coordination Movements are Fluid and Coordinated: Yes Postural Control Posture Assessment: WFL Postural Control: Within Functional Limits Static Sitting Balance Static Sitting-Balance Support: Right upper extremity supported, Left upper extremity supported, Feet supported Static Sitting-Level of Assistance: Independent Dynamic Sitting Balance Dynamic Sitting-Balance Support: Right upper extremity supported, Left upper extremity supported, Feet supported Dynamic Sitting-Balance: Forward lean Static Standing Balance Static Standing-Balance Support: No upper extremity supported Static Standing-Level of Assistance: Close supervision Dynamic Standing Balance Dynamic Standing-Balance Support: No upper extremity supported Dynamic Standing Balance-Level of Assistance: Close supervision Functional Assessments Bed Mobility Bed Mobility: Yes (more content not included)...[facility]10-25-2024 Note Attestation signed by Alec Rodriges MD at 01/06/2024 12:15 AM I personally saw and examined the patient on the same date of service as resident Dr Sanches . I reviewed and edited the note that was written by the resident. All entries reflect an accurate accounting of the evaluation and care rendered by me. As the teaching physician, I have personally performed or re-performed the history of present illness, physical exam and medical decision making activities of the encounter and verified the resident's documentation. I made pertinent changes as necessary to ensure accurate documentation. [facility] General Surgery DAILY PROGRESS NOTE Subjective No acute events overnight. Drain placed yesterday. Reports pain is controlled. Mild nausea, no emesis. Drain 115 ml serosanguinous output. Objective Vitals: Vitals: 01/05/24 0711 BP: 137/75 Pulse: 78 Resp: 16 Temp: 36.7 ???C (98.1 ???F) SpO2: 98% I/O last 3 completed shifts: In: 1594.2 (10.9 mL/kg) [I.V.:1194.2 (8.2 mL/kg); IV Piggyback:400] Out: 465 (3.2 mL/kg) [Urine:350 (0.1 mL/kg/hr); Drains:115] Weight: 145.6 kg No intake/output data recorded. Physical Exam General Appearance: Awake, Alert & Oriented x3, No Acute Distress Neck: Trachea Midline, No jugular venous distension Pulmonary: Unlabored breathing on room air. No expiratory wheeze. Cardiac: Regular rate Abdomen: soft, minimal tenderness, nondistended, no peritonitis Extremity: No edema Bilateral Upper and lower Extremities Skin: warm and dry without rash Eyes: no scleral icterus Labs: Results from last 7 days Lab Units 01/05/24 0516 01/04/24 0637 01/04/24 0003 WBC AUTO 10*3/uL 12.32* 11.82* 12.98* HEMOGLOBIN g/dL 12.8* 12.0* 12.7* HEMATOCRIT % 37.9* 36.8* 38.7* PLATELETS AUTO 10*3/uL 260 249 288 Results from last 7 days Lab Units 01/05/24 0515 01/04/24 0637 01/04/24 0003 SODIUM mmol/L 136 138 137 POTASSIUM mmol/L 3.4* 3.3* 3.6 CO2 mmol/L 23 24 22 BUN mg/dL 17 26* 26* CREATININE mg/dL 1.11 1.27 1.37* Results from last 7 days Lab Units 01/04/24 0637 01/04/24 0003 INR 1.21* 1.14* Medications: acetaminophen, 1,000 mg, oral, q8h insulin lispro, 0-5 Units, subcutaneous, q6h ISABEL piperacillin-tazobactam, 4.5 g, intravenous, q8h Imaging: CT guided percutaneous peritoneal or retroperitoneal fluid collection drainage Narrative: CLINICAL INDICATION: Ruptured appendicitis with right lower quadrant periappendiceal abscess COMPARISON: CT scan 01/04/2024 TECHNIQUE: Procedure performed by Interventional Radiologist Marcus Fisher M.D. All CT scans at this facility use dose modulation, iterative reconstruction, and/or weight based dosing when appropriate to reduce radiation dose to as low as reasonably achievable. CONSENT: The reason for the procedure was discussed with the patient. The procedure, expectations, risks, benefits, options and alternatives were discussed. All of the patients questions were answered. The patient understands that the results cannot be guaranteed. The procedure is indicated and the risks are acceptable. Consent was obtained. SEDATION: The patients cardiopulmonary status was evaluated and the patient is suitable for moderate sedation. During the course of the procedure, the patient was sedated with Fentanyl 50 mcg intravenously and Versed 1 mg intravenously, while being monitored with ECG, blood pressure monitoring, and pulse oximeter by appropriately trained personnel, for a total sedation time of 20 minutes. Following the procedure, the patient was recovered according to the moderate sedation policy. PROCEDURE: CT-guided placement of a 10-Panamanian percutaneous pigtail drain into periappendiceal abscess. Details of procedure: Patient place in the supine position on the CT table. A CT scan of the abdomen was performed. An appropriate skin entry site was marked over the right lower quadrant periappendiceal abscess. The skin was prepped and draped in usual sterile fashion. 1% lidocaine without epinephrine was used as a local anesthetic. At that time, under CT guidance, a 5-Panamanian 10 cm one-step drainage catheter and needle were advanced into the collection. Upon entry into the collection, there was return of purulent fluid. An 035 Amplatz wire was then coiled in the collection. The access needle was removed. The track was dilated. At that time, a 10-Panamanian matter resolved pigtail drain was advanced over the wire into the collection. The inner dilator and wire were removed. The pigtail was formed and locked within the collection. Approximately 30 mL of purulent fluid was aspirated and a sample was sent to laboratory for further evaluation. The drain was then connected to DAVIN suction bulb drainage. 0 silk suture was used to secure t (more content not included)...[facility] 01-04-2024 NoteClinician attempted to provide brief BETZY intervention. Pt was receptive but reported minimal alcohol use- states over the past 6 months he has drank the equivalent of about 2 6-packs of beer. Pt denies alcohol ever being a concern or denies not being able to control his alcohol use. Clinician lft rethinking drinking brochure but did not assess a need to continue the intervention at this time.[facility]10-24-2024 NoteA. Satisfactory for evaluation. Examination of the ThinPrep slide and cell block reveals marked acut e inflammation, bacteria, focal fecal debris, and inflammatory debris.[facility] HospitalComment on above:Performed By: #### [id number] #### [facility] [address], [place] [id number] Note Attestation signed by Alec Rodriges MD at 01/04/2024 1:44 PM I personally saw and examined the patient on the same date of service as resident Dr Sanches . I reviewed and edited the note that was written by the resident. All entries reflect an accurate accounting of the evaluation and care rendered by me. As the teaching physician, I have personally performed or re-performed the history of present illness, physical exam and medical decision making activities of the encounter and verified the resident's documentation. I made pertinent changes as necessary to ensure accurate documentation. [facility] General Surgery DAILY PROGRESS NOTE Subjective No acute events overnight. Reports pain is well controlled. No nausea or emesis overnight. Passing gas. Plans for CT guided drain placement today. Objective Vitals: Vitals: 01/04/24 0640 BP: 122/73 Pulse: 73 Resp: 18 Temp: 37 ???C (98.6 ???F) SpO2: 99% I/O last 3 completed shifts: In: 268.3 (1.9 mL/kg) [I.V.:168.3 (1.2 mL/kg); IV Piggyback:100] Out: - (0 mL/kg) Weight: 141.5 kg No intake/output data recorded. Physical Exam General Appearance: Awake, Alert & Oriented x3, No Acute Distress Neck: Trachea Midline, No jugular venous distension Pulmonary: Unlabored breathing on room air. No expiratory wheeze. Cardiac: Regular rate Abdomen: soft, RLQ tenderness, no peritonitis Extremity: No edema Bilateral Upper and lower Extremities Skin: warm and dry without rash Eyes: no scleral icterus \ Labs: Results from last 7 days Lab Units 01/04/24 0003 WBC AUTO 10*3/uL 12.98* HEMOGLOBIN g/dL 12.7* HEMATOCRIT % 38.7* PLATELETS AUTO 10*3/uL 288 Results from last 7 days Lab Units 01/04/24 0003 SODIUM mmol/L 137 POTASSIUM mmol/L 3.6 CO2 mmol/L 22 BUN mg/dL 26* CREATININE mg/dL 1.37* Results from last 7 days Lab Units 01/04/24 0003 INR 1.14* Medications: acetaminophen, 1,000 mg, oral, q8h insulin lispro, 0-5 Units, subcutaneous, q6h ISABEL piperacillin-tazobactam, 4.5 g, intravenous, q8h lactated Ringer's, 50 mL/hr, Last Rate: 50 mL/hr (01/04/24 0529) Imaging: CT abdomen pelvis w IV contrast Narrative: CLINICAL INFORMATION: Right lower quadrant abdominal pain COMPARISON: None TECHNIQUE: Multidetector CT axial slices of the abdomen and pelvis with 100 mL Omnipaque 350 IV contrast. Multiplanar reformats were performed and viewed on a separate workstation and reviewed to further define anatomy and possible pathology. All CT scans at this facility use dose modulation, iterative reconstruction, and/or weight based dosing when appropriate to reduce radiation dose to as low as reasonably achievable. FINDINGS: LOWER CHEST: Calcified granuloma right lower lobe. Lung bases are clear. LIVER AND BILIARY: Nontraumatic morphology. Probable cholelithiasis. No intrahepatic or extrahepatic biliary ductal dilatation. PANCREAS: Unremarkable SPLEEN: Unremarkable ADRENALS: 2.5 cm left adrenal gland nodule, Hounsfield units measure roughly 50. 2.5 cm right adrenal gland nodule, Hounsfield units measure roughly 51. No prior imaging for comparison. KIDNEYS, URETERS, AND BLADDER: No suspicious renal mass or lesion. Contrast material partially opacifies the collecting system. Nonspecific attenuation is seen abutting the proximal left greater than right ureter, nonspecific. Urinary bladder is unremarkable appearing. GI TRACT AND PERITONEUM: Perforated appendicitis with a lobulated abscess measuring up to 5.2 cm abutting the appendix in the right lower quadrant/paracolic gutter. There is adjacent fat stranding and reactive inflammatory changes of the terminal ileum. Internal foci of gas seen within the fluid collection. There is no jordan free intraperitoneal gas. No evidence of bowel obstruction. VASCULATURE: Unremarkable LYMPH NODES: No enlarged lymph nodes by size criteria. REPRODUCTIVE ORGANS: Unremarkable MUSCULOSKELETAL: Diffuse hepatic skull hyperostosis. No acute osseous and metallic. Impression: *Perforated appendicitis with contained gas and fluid collection/abscess arising from the perforated appendiceal wall. This is likely amenable to percutaneous drainage if clinically indicated. *Incidental bilateral 2.5 cm adrenal gland nodules. No prior imaging for comparison. Consider biochemical assay is to determine functional status and exclude pheochromocytoma. Recommend further evaluation with nonemergent elective outpatient adrenal protocol CT or chemical shift MRI abdomen. Approved by:Moshe Geaogdofnc31/24/2024 1:02 AM. I, Mo Be,have reviewed the image(s) and agree with the findings in this report. Electronically signed: Mo Be. Assessment/Plan Marisela Hahn is a 48 y.o. male whom is admitted with pe (more content not included)...[facility]09-30-2024 NoteUTP CARDIOLOGY PROGRESS NOTE HPI: Marisela Hahn is a 48 [...] care discussed with patient. (more content not included)...[facility]04-01-2024 NoteUTP CARDIOLOGY PROGRESS NOTE HPI: Marisela Hahn is a 48 [...] exercise and lifestyle modific (more content not included)...[facility]03-20-2024 Procedure note [facility]12-22-2023 Evaluation note* Encounter Date Diagnosis Assessment Notes [...] - G89.29) Continue with current treatment plan [facility] Other 12-12-2023 Evaluation note* Encounter Date Diagnosis [...] - G89.29) Continue with current treatment plan [facility] Other 12-11-2023 Evaluation note* Encounter Date Diagnosis Assessment Notes Treatment Notes Treatment Clinical Notes Feb, Cervicalgia (ICD-10 - M54.2) Independently reviewed the MRI of the cervical spine from 02/17/2023 [id number] with the patient and which shows at [...] headache, unspecified headache type (ICD-10 - R51.9) [facility] Other 11-14-2023 Evaluation note* Encounter Date Diagnosis [...] - G89.29) Continue with current treatment plan [facility] 08-23-2023 Evaluation note* Encounter Date Diagnosis [...] low-salt diet advised daily exercise as tolerated. [facility] Other 03-06-2023 Evaluation note* Encounter Date Diagnosis Assessment Notes Treatment Notes Treatment Clinical Notes May, Resting tremor (ICD-10 - G25.2) Will set up w Neurology for further diagnosis and treatment May, Essential hypertension (ICD-10 - I10) BP remains elevated. Will see cardio next month. On several medications. [facility] Other 02-27-2023 Evaluation note* Encounter Date Diagnosis Assessment Notes Treatment Notes Treatment Clinical Notes Apr, Paronychia of finger of left hand (ICD-10 - L03.012) Restart antibiotic. Call if area worsens. Could need referral to ortho if continues. Apr, Essential hypertension (ICD-10 - I10) Continues to be elevated. Has first appt w cardio on 05/11. [facility] Other 09-06-2022 Evaluation + Plan note Diagnostic Tests Pending * Semen Analysis Post Vasectomy 11/16/21 [facility] 09-06-2022 Hospital Discharge instructions Patient Education 11/16/2021 [...] 02/14/2017 Document Revised: 06/21/2019 Document Reviewed: 02/14/2017 [employer] Patient Education 2020 [employer] Follow Up Care 08/13/2021 11:00:11 With:SHAAN HALE Sam Velazco, URL Address: [address] [place] [id number]- When: Unknown [facility] [place] [id number] Hospital Discharge instructions Patient Education 08/13/2021 10:36:04 [...] Follow these instructions at home: Medicines Take hdyd-[id number]-[id number] and prescription medicines only as told by [...] 09/16/2005 Document Revised: 02/09/2018 Document Reviewed: 05/26/2017 [employer] Patient Education 2020 [employer] Follow Up Care 06/07/2021 11:43:46 With:SHAAN HALE, Sam Velazco, URL Address: [address] [place] [id number]- When: Unknown [facility] Chikf complaint+Reason for visit Narrative* Chief Complaint Arthritis Arthritis Form for work follow up after cervical facet RFA mental health referral 6 week follow up after cervical facet RFA G57.10 Reason for Visit Physically able to w ork Cervical spondylosis Chronic pain Occipital neuralgia Chronic tension-type headache, intractable Depression Essential hypertension Cervical spondylosis Chronic pain Meralgia paraesthetica [facility] Work Phone: Chiwg complaint+Reason for visit Narrative* Chief Complaint Arthritis Arthritis Form for work follow up after cervical facet RFA mental health referral 6 week follow up after cervical facet RFA G57.10 F09 Reason for Visit Physically able to w ork Cervical spondylosis Chronic pain Occipital neuralgia Chronic tension-type headache, intractable Depression Essential hypertension Cervical spondylosis Chronic pain Meralgia paraesthetica [facility] Work Phone: chief complaint+Reason for visit Narrative* Chief Complaint Form for work follow up after cervical facet RFA mental health referral 6 week follow up after cervical facet RFA G57.10 F09 Wellness Reason for Visit Physically able to w ork Cervical spondylosis Chronic pain Occipital neuralgia Chronic tension-type headache, intractable Depression Essential hypertension Cervical spondylosis Chronic pain Meralgia paraesthetica [facility] Work Phone: chief complaint+Reason for visit Narrative* Chief Complaint mental health referr al 6 week follow up after cervical facet RFA G57.10 F09 Wellness review imaging Reason for Visit Chronic tension-type headache, intractable Depression Essential hypertension Cervical spondylosis Chronic pain Meralgia paraesthetica Wellness examination Chronic pain Lumbar radiculopathy Lumbosacral spondylosis [facility] Work Phone: Evaluation + Plan note Future Appointments Appointment Date:11/05/2021 07:30:00 AM Scheduled Provider:Sam JARRELL MD Location:[facility] [place] Appointment Type:URO Office Visit Appointment Date:11/16/2021 08:30:00 AM Scheduled Provider:Sam JARRELL MD Location:[facility] [place] Appointment Type:URO Office Visit [facility] Evaluation + Plan note Future Appointments Appointment Date:11/16/2021 08:30:00 AM Scheduled Provider:Sam JARRELL MD Location:[facility] Appointment Type:URO [facility] information available [facility] Work Phone: evaluation noteNo InformationNort [facility] Other evaluation note* Diagnosis Onset Date Resolution Status Cervical spondylosis acute Chronic pain acute Occipital neuralgia acute [facility] Work Phone: Evaluation note* Diagnosis Onset Date Resolution Status Cervical spondylosis acute Chronic pain acute Occipital neuralgia acute Cervical spondylosis acute Chronic pain acute Occipital neuralgia acute [facility] Work Phone: evaluation note* Diagnosis Onset Date Resolution Status Cervical spondylosis acute Chronic pain acute Occipital neuralgia acute Cervical spondylosis acute Chronic pain acute Occipital neuralgia acute Physically able to work acut e Cervical spondylosis acute Chronic pain acute Occipital neuralgia acute [facility] Work Phone: Evaluation note* Diagnosis Onset Date Resolution Status Cervical spondylosis acute Chronic pain acute Occipital neuralgia acute Cervical spondylosis acute Chronic pain acute Occipital neuralgia acute Physically able to work acut e Cervical spondylosis acute Chronic pain acute Occipital neuralgia acute Chronic tension-type headache, intractable acute Depression acute Essential hypertension acute [facility] Work Phone: evaluation note* Diagnosis Onset Date Resolution Status Cervical spondylosis acute Chronic pain acute Occipital neuralgia acute Cervical spondylosis acute Chronic pain acute Occipital neuralgia acute Physically able to work acut e Cervical spondylosis acute Chronic pain acute Occipital neuralgia acute Chronic tension-type headache, intractable acute Depression acute Essential hypertension acute Cervical spondylosis acute Chronic pain acute Meralgia paraesthetica acute [facility] Work Phone: evaluation note* Diagnosis Onset Date Resolution Status Physically able to work acut e Cervical spondylosis acute Chronic pain acute Occipital neuralgia acute Chronic tension-type headache, intractable acute Depression acute Essential hypertension acute Cervical spondylosis acute Chronic pain acute Meralgia paraesthetica acute [facility] Work Phone: evaluation note* Diagnosis Onset Date Resolution Status Chronic tension-type headache, intractable acute Depression acute Essential hypertension acute Cervical spondylosis acute Chronic pain acute Meralgia paraesthetica acute Wellness examination acute Chronic pain acute Lumbar radiculopathy acute Lumbosacral spondylosis [facility] Work Phone: Evaluation note* Diagnosis Onset Date Resolution Status Chronic pain acute Lumbar radiculopathy acute Lumbosacral spondylosis [facility] Work Phone: Evaluation note* Diagnosis Transient alteration of awareness- Primary Orthostatic hypotension Chronic daily headache Headache Cognitive dysfunction Unspecified persistent mental disorders due to conditions classified elsewhere JESSICA (obstructive sleep apnea) Obstructive sleep apnea (adult) (pediatric) Tremor Abnormal involuntary movements documented in this encounter [facility] HealthcareEvaluation note* Diagnosis JESSICA (obstructive sleep apnea)- Primary Obstructive sleep apnea (adult) (pediatric) Hypersomnia Hypersomnia, unspecified Snoring Other dyspnea and respiratory abnormality Chronic daily headache Headache documented in [facility] Healthcare[facility] note* Diagnosis Transient alteration of awareness- Primary Orthostatic hypotension Chronic migraine without aura without status migrainosus, not intractable (CMS/HCC) Cognitive dysfunction Unspecified persistent mental disorders due to conditions classified elsewhere JESSICA (obstructive sleep apnea) Obstructive sleep apnea (adult) (pediatric) Tremor Abnormal involuntary movements documented in this encounter [facility] general Narrative - Reported* Type Description Date Medical History Gastroesophageal reflux disease Medical History Hypercholesterolemia Medical History Depression Medical History Essential hypertension Medical History Anxiety and depression Medical History Syncope and collapse Medical History Resting tremor Medical History Abnormal weight gain Medical History Diverticulosis Medical History Hyperlipemia, mixed Surgical History MYRINGOTOMY WITH TUBE REPLACEME NT - BILATERAL 2019 Hospitalization History SEE SURGICAL HX [facility]onic Other History general Narrative - Reported* Type Description [...] BILATERAL 2019 Hospitalization History SEE SURGICAL HX ASSET4 [facility] Other Hospital course Narrative No data available for this section [facility] Hospital Discharge instructions No data available for this section [facility] Orders* Referral to Psychiatry Time Frame: 07/18/23, Location: None [facility] Work Phone: Progress note No data available for this section [facility] Summary Purpose Family History No Family [...] Diagnosis 1 Cervical spondylosis (M47.812) Referral Organization [facility] Pain Managemen t Referring Provider First Name Deann Referring Provider Last Name Jordan Referring Provider Specialty Nurse Pract itioner Referred Organization [facility] urosurgery Referred Provider Martín Bullock Referred Address [address] [address] ,[place],[phone] Referred Provider Specialty Neurological Surgery Referral Priority Routine General Notes Jose Gomez 01/25 04:00:11 PM > Referral received, sent P2P Clinical Notes Angel Carrillo 2022 02:20:15 PM >XR cervical spine 2022-12-05: MILD SPONDYLOSIS C5-C7. POSTERIOR SUBLUXATION OF C4 ON C5 AND C5 ON C6 OF APPROXIMATELY 3 MM ON EXTENSION WHICH RESOLVES ON FLEXION AND NEUTRAL IMAGING SUGGESTIVE OF PATHOLOGICAL MOTION. Reason 06/15/22 [place] office. Labs scanned in from 2021. Resting tremor. Also had labs last week from Cardiology. Thank you Diagnosis 1 Resting tremor (G25. 2) Referral Organization [facility] Referring Provider First Name Benito Referring Provider Last Name Kobe Referring Provider Specialty Family [facility] [place] [facility] Referred Organization [facility] Referred Provider Bailey Frye Referred Address [address] [place],[address] Referred Provider Specialty Neurology Referral Priority Routine [...] hypertension Cervical spondylosis Chronic pain Meralgia paraesthetica Chief Complaint review imaging Amb Documentation [place] f/u Reason for Visit Chronic pain Lumbar radiculopathy Lumbosacral spondylosis Chief Complaint Admit Date Amb Documentation February 13, 2024 1 :13pm [facility] follow/up February 14, 2024 9 :13am Surgical Clearance, [place] April 11 1:12pm Reason for Visit Admit Date Adrenal nodule February 14, 2024 9 :13am Appendicitis with abscess February 14, 2024 9:13am Essential hypertension February 13 9:13am Syncope February 14, 2024 9 :13am Additional Source Comments (unrecognized sect ion and content) No Status Records FoundNo Status Records FoundNo Status Records FoundNo Status Records FoundNo Status Records FoundNo Status Records Found INFORMATION SOURCE (unrecogn ized section and content) DATE CREATED AUTHOR 02/21/2020 [facility] DATE CREATED AUTHOR AUTHOR'S ORGANIZ ATION 07/21/2022 [facility] DATE CREATED AUTHOR AUTHOR'S ORGANIZ ATION 08/23/2022 [facility] DATE CREATED AUTHOR AUTHOR'S ORGANIZ ATION 09/03/2023 [facility] DATE CREATED AUTHOR AUTHOR'S ORGANIZ ATION 04/09/2024 [facility] EPIC DATE CREATED AUTHOR AUTHOR'S ORGANIZ ATION 04/21/2024 [facility] Care Team (unrecognized sect ion and content) Team Status: Active Member Role Status Dates Benito Bullock MD Primary Care Provider Active Team Status: Active Member Role Status Dates Benito Bullock MD Primary Care Provider Active Start: February 13, 2024 Felicia Fuller CMA Attending Provider Active Start: February 13, 2024 Team Status: Inactive Member Role Status Dates Benito Bullock MD Primary Care Provide r, Attending Provider Active Start: February 14, 2024 End: February 14, 2024 Team Status: Inactive Member Role Status Dates Benito Bullock MD Primary Care Provide r, Attending Provider Active Start: April 11, 2024 End: April 11, 2024 [employer]ement [employer]aster Relationship Specialty Start Date End Date Benito Bullock MD [address] [place] [id number] PCP - General Family Medicine 05/24/23 Bailey Frye [address] [place] [address] Referring Physician Neurology 05/24/23 Team Status: Active Member Role Status Dates Benito Bullock MD Primary Care Provider Active Team Status: Inactive Member Role Status Dates Benito Bullock MD Primary Care Provider Active Rivera Bermudez MD Attending Provider Active Personnel Name: BENITO BULLOCK MD Address: [address] [place] [address]- REASON FOR VISIT (unrecogniz ed section and content) Reason Comments Headache Tremors Syncope Reason Comments Sleep Apnea Goals (unrecognized section and content) Goals may [...] BE BASED ON THE PRIMARY CLINICAL RECORDS. [employer] provides no warranty or guarantee of the accuracy or completeness of information in this document.
[2024-04-22 22:49] VITALS: BP 126/80; PULSE 71; TEMP 36.4; O2SAT 100; BMI 39.6
[2024-04-22 22:55] VITALS: BP 126/80
--- NOTE | 2024-04-22 23:02 | CT_ITS ---
The [address] [address] Patient Name: MARISELA HAHN MRN: [id number] date: 1975 Sex: M Assigned Patient Location: ER Current Patient Location: Accession/Order Number: [id number] Exam Date: 04/22/2024 23:59 Report Date: 04/23/2024 02:05 At the request of: SHARMILA GARNER Procedure: CT abdomen pelvis w con EXAM: CT abdomen pelvis w con HISTORY: low pain, ruptured allen. in Dec, removal on Monday COMPARISON: CT abdomen and pelvis examination dated 02/19/2024. TECHNIQUE: Axial CT images through the abdomen and pelvis were obtained after the intravenous administration of contrast. Coronal and sagittal reformats were obtained. Dose reduction techniques were achieved by using automated exposure control and/or adjustment of mA and/or kV according to patient size and/or use of iterative reconstruction technique. FINDINGS: The visualized portions of the lung bases are clear. Abdomen: The liver and spleen enhance homogeneously without focal lesion. There is no intra or extrahepatic biliary duct dilatation. The gallbladder is unremarkable. The spleen is enlarged measuring up to 14.7 cm. Bilateral adrenal adenomas are again noted. The pancreas, kidneys, and bowel loops are unremarkable. There is no mesenteric or retroperitoneal lymphadenopathy. Appendicoliths are seen. The appendix is dilated measuring up to 1.9 cm with appendiceal wall thickening and surrounding inflammatory changes and fluid. There is a tiny fat-containing umbilical hernia. Pelvis: The bladder and rectum are unremarkable. There is no iliac or inguinal lymphadenopathy. There is a small fat-containing right inguinal hernia. Bone windows show no aggressive osseous lesions. CT/CT abdomen pelvis w con IMPRESSION: 1. Acute appendicitis. 2. Splenomegaly. 3. Bilateral adrenal adenomas. #[address] Garner by Dr. Solano at 2:03 AM ET on 04/23/2024. Electronically authenticated by: Odilia SOLANO Date: 04/23/2024 02:05
--- NOTE | 2024-04-22 23:04 | ED.GENADUL1 ---
HPI HPI - General Adult General Chief complaint: Abdominal Pain Stated complaint: ABDOMINAL PAIN, DO TO HAVE APPENDIX OUT FRI Time Seen by Provider: 04/22/24 22:39 Source: patient Mode of arrival: walk-in Limitations: no limitations History of Present Illness HPI narrative: 49-year-old male presents for low abdominal pain. He states he had a ruptured appendix in December and he is scheduled to have it removed this week, in 4 days. This afternoon his pain developed and then it went away and then it came back worse tonight and now its severe. He points across his lower abdomen to indicate area of pain. No fever. He has been nauseous but no vomiting or constipation or diarrhea. Related Data Home Medications ?Medication ?Instructions ?Recorded ?Confirmed aspirin 81 mg capsule 81 mg PO DAILY 01/03/24 01/03/24 chlorthalidone 25 mg tablet mg 01/03/24 escitalopram oxalate 20 mg tablet mg 01/03/24 lisinopril 40 mg tablet mg 01/03/24 nifedipine 60 mg tablet,extended mg PO 01/03/24 release 24 hr potassium chloride 20 mEq 10 meq PO DAILY 01/03/24 01/03/24 tablet,extended release(part/cryst) spironolactone 25 mg tablet mg 01/03/24 topiramate 25 mg tablet mg 01/03/24 venlafaxine 75 mg capsule,extended mg PO 01/03/24 release 24 hr Allergies Allergy/AdvReac Type Severity Reaction Status Date / Time cephalexin (From Keflex) Allergy Mild Rash Verified 04/22/24 22:57 Opioid HPI Opioid Management Most Recent Opioid Data: Last Pain Scale 9 04/22/24 23:26 04/22/24 Review of Systems ROS Narrative A ten point review of systems is negative except as noted above. PFSH PFSH Social History Little interest or pleasure in doing things: not at all Feeling down, depressed, or hopeless: not at all Exam Narrative Exam Narrative: Nurses note and vital signs reviewed and patient is not hypoxic. General: The patient appears uncomfortable and is in no respiratory distress. Skin: Warm, dry, no pallor noted. There is no rash noted. Head: Normocephalic, atraumatic Eye: Normal conjunctiva, no drainage Ears, Nose, Mouth, and Throat: oral mucosa is moist. Nares patent. Cardiovascular: Regular Rate and Rhythm Respiratory: Patient is in no distress, no accessory muscle use, lungs are clear to auscultation, no wheezing, rales or rhonchi Back: non-tender GI: Obese. Tenderness across his lower abdomen. Musculoskeletal: The patient has no evidence of calf tenderness, no pitting edema, symmetrical pulses noted bilaterally Neurological: A&O, normal speech Psychiatric: Cooperative Constitutional Vital Signs, click to edit/add: Last Vital Signs Temp 97.5 F L 04/22/24 22:49 Pulse 71 04/22/24 22:49 Resp 20 04/22/24 22:49 BP 126/80 04/22/24 22:49 Pulse Ox 97 04/23/24 00:52 O2 Del Method Nasal Cannula 04/23/24 00:52 O2 Flow Rate 2 04/23/24 00:52 Course Vital Signs Vital signs: Vital Signs Temperature 97.5 F L 04/22/24 22:49 Pulse Rate 71 04/22/24 22:49 Respiratory Rate 20 04/22/24 22:49 Blood Pressure 126/80 04/22/24 22:49 Pulse Oximetry 100 04/22/24 22:49 Temperature 97.5 F L 04/22/24 22:49 Pulse Rate 71 04/22/24 22:49 Respiratory Rate 20 04/22/24 22:49 Blood Pressure 126/80 04/22/24 22:49 Pulse Oximetry 97 04/23/24 00:52 Oxygen Delivery Method Nasal Cannula 04/23/24 00:52 Oxygen Delivery Flow Rate 2 04/23/24 00:52 Medical Decision Making MDM Narrative Medical decision making narrative: Increased inflammation around his appendix is identified. He does not have an elevated white blood cell count and does not have a fever. Case discussed with Dr. Lima who request that the patient be transferred to [facility]. This was discussed with the patient and he is agreeable and stable for transfer. Differential Diagnosis Differential Diagnosis: Acute appendicitis, small bowel obstruction, colitis, diverticulitis Lab Data Lab results reviewed: Yes I reviewed the patient's lab results Labs: Lab Results 04/22/24 04/23/24 Range/Units 23:15 02:00 WBC 8.8 (4.0-11.0) 10^3/uL RBC 5.33 (4.70-6.10) 10^6/uL Hgb 15.3 (14.0-18.0) g/dL Hct 44.9 (42.0-54.0) % MCV 84.2 (80.0-94.0) fL MCH 28.7 (25.9-34.0) pg MCHC 34.1 (29.9-35.2) g/dL RDW 13.2 (11.0-15.0) % Plt Count 133 L (150-450) 10^3/uL MPV 10.1 (9.5-13.5) fL Neut % (Auto) 74.9 (43.0-75.0) % Lymph % (Auto) 14.5 L (20.5-60.0) % [place] % (Auto) 8.1 (1.7-12.0) % Eos % (Auto) 0.5 L (0.9-7.0) % Baso % (Auto) 0.6 (0.2-2.0) % Neut # (Auto) 6.6 H (1.4-6.5) 10^3/uL Lymph # (Auto) 1.3 (1.2-3.8) 10^3/uL [place] # (Auto) 0.7 (0.3-0.8) 10^3/uL Eos # (Auto) 0.0 (0.0-0.7) 10^3/uL Baso # (Auto) 0.1 (0.0-0.1) 10^3/uL Abs Immat Gran (auto) 0.12 H (0.00-0.03) 10^3/uL Imm/Tot Granulo (auto) 1.4 H (0.0-0.5) % Sodium 142 (136-145) mmol/L Potassium 3.7 (3.5-5.1) mmol/L Chloride 105 (98-107) mmol/L Carbon Dioxide 22.2 (21.0-32.0) mmol/L Anion Gap 18.5 BUN 21.0 H (7.0-18.0) mg/dL Creatinine 1.48 H (0.70-1.30) mg/dL Est GFR ( Amer) >60 (>=60 mL/min/1.73m^2) Est GFR (Non-Af Amer) 51 L (>=60 mL/min/1.73m^2) BUN/Creatinine Ratio 14.2 Glucose 141 H (74-106) mg/dL Calcium 9.4 (8.5-10.1) mg/dL Urine Color Yellow (YELLOW) Urine Clarity Clear (CLEAR) Urine pH 8.0 (5.0-9.0) Ur Specific [place] 1.015 (1.005-1.025) Urine Protein Negative (NEG/TRACE) mg/dL Urine Glucose (UA) Negative (NEGATIVE) mg/dL Urine Ketones Negative (NEGATIVE) mg/dL Urine Occult Blood Negative (NEGATIVE) Urine Nitrite Negative (NEGATIVE) Urine Bilirubin Negative (NEGATIVE) Urine Urobilinogen 0.2 (0.2-1.0) EU/dL Ur Leukocyte Esterase Negative (NEGATIVE) Urine RBC 0-2 (0-2) #/HPF Urine WBC 0-2 A (NONE SEEN) #/HPF Ur Squamous Epith Cells Moderate A (NONE/RARE) #/LPF Urine Crystals Seen A (None Seen) #/HPF Amorphous Sediment Moderate Urine Bacteria Small A (NONE SEEN) #/HPF Urine Casts None seen (NONE SEEN) #/LPF Urine Mucus None seen (NONE SEEN) Imaging Data CT scan - abdomen: Radiologist's impression: ITS Impressions Abdomen/Pelvis CT 04/22/24 23:02 IMPRESSION: 1. Acute appendicitis. 2. Splenomegaly. 3. Bilateral adrenal adenomas. #[address] Burris by Dr. Solano at 2:03 AM ET on 04/23/2024. Electronically authenticated by: Odilia SOLANO Date: 04/23/2024 02:05 Discharge Plan Discharge Chief Complaint: Abdominal Pain Clinical Impression: Acute appendicitis Patient Disposition: [facility] Time of Disposition Decision: 03:01 Discharge Location: [facility] Condition: Fair Mode of Transportation: EMS
[2024-04-22] MEDS: MORPHINE SULFATE 4 MG/ML VIAL IV (23:33)
[2024-04-22] MEDS: ONDANSETRON PF 4 MG/2 ML VIAL IV (23:33)
[2024-04-22] MEDS: 0.9 % SODIUM CHLORIDE 1,000 ML 1000 ML IV (23:33)
[2024-04-22 23:36] LABS: Basophils Absolute Auto 0.1 10^3/uL (0.0-0.1); Basophils Percent Auto 0.6 % (0.2-2.0); Eosinophils Percent Auto 0.5 % (0.9-7.0); Hematocrit 44.9 % (42.0-54.0); Hemoglobin 15.3 g/dL (14.0-18.0); Immature Granulocytes Abs Auto 0.12 10^3/uL (0.00-0.03); Immature Granulocytes Pct Auto 1.4 % (0.0-0.5); Lymphocytes Absolute Auto 1.3 10^3/uL (1.2-3.8); Lymphocytes Percent Auto 14.5 % (20.5-60.0); Mean Corpuscular HGB Conc 34.1 g/dL (29.9-35.2); Mean Corpuscular Hemoglobin 28.7 pg (25.9-34.0); Mean Corpuscular Volume 84.2 fL (80.0-94.0); Mean Platelet Volume 10.1 fL (9.5-13.5); Monocytes Absolute Auto 0.7 10^3/uL (0.3-0.8); Monocytes Percent Auto 8.1 % (1.7-12.0); Neutrophils Absolute Auto 6.6 10^3/uL (1.4-6.5); Neutrophils Percent Auto 74.9 % (43.0-75.0); Platelet Count 133 10^3/uL (150-450); Red Blood Count 5.33 10^6/uL (4.70-6.10); Red Cell Distribution Width 13.2 % (11.0-15.0); White Blood Count 8.8 10^3/uL (4.0-11.0)
[2024-04-22 23:47] LABS: Anion Gap 18.5; BUN Creatinine Ratio 14.2; Calcium 9.4 mg/dL (8.5-10.1); Carbon Dioxide 22.2 mmol/L (21.0-32.0); Chloride 105 mmol/L (98-107); Estimated GFR (African America >60 (>=60 mL/min/1.73m^2); Estimated GFR (Non-African Ame 51 (>=60 mL/min/1.73m^2); Glucose 141 mg/dL (74-106); Potassium 3.7 mmol/L (3.5-5.1); Sodium 142 mmol/L (136-145)
[2024-04-23] VITALS (16 sets, daily range): BP systolic 114–122; BP diastolic 67–73; O2SAT 85–99
[2024-04-23 02:21] LABS: Bilirubin Urine NEGATIVE (NEGATIVE); Blood Urine NEGATIVE (NEGATIVE); Clarity Urine CLEAR (CLEAR); Color Urine YELLOW (YELLOW); Glucose Urine UA NEGATIVE (NEGATIVE); Ketones Urine NEGATIVE (NEGATIVE); Leukocyte Esterase Urine NEGATIVE (NEGATIVE); Nitrite Urine NEGATIVE (NEGATIVE); Protein Urine NEGATIVE (NEG/TRACE); Specific Gravity Urine 1.015 (1.005-1.025); Urobilinogen Urine 0.2 EU/dL (0.2-1.0)
[2024-04-23] MEDS: MORPHINE SULFATE 4 MG/ML VIAL IV (02:29)
[2024-04-23 02:37] LABS: WBC Urine 0-2 #/HPF (NONE SEEN)
[2024-04-23 02:38] LABS: Bacteria Urine SMALL #/HPF (NONE SEEN); Crystals Seen? Seen #/HPF (None Seen); Mucus Urine NONE SEEN (NONE SEEN); RBC Urine 0-2 #/HPF (0-2); Squamous Epithelial Cell Urine MODERATE #/LPF (NONE/RARE)
[2024-04-23 02:39] LABS: Amorphous Sediment Urine MODERATE; Cast Seen? NONE SEEN #/LPF (NONE SEEN)
[2024-04-23] MEDS: PIPERACILLIN SODIUM/TAZOBACTAM 3.375 GM in 0.9 % SODIUM CHLORIDE 50 ML IV (03:26)
== END 2024-04-23 04:45 | disposition short-term general hospital (02) ==
PROVIDERS: Emergency Provider Emergency Medicine; PCP Psychiatry & Neurology Neurology
DX: K35.80 Unspecified acute appendicitis (principal); R16.1 Splenomegaly, not elsewhere classified; D35.02 Benign neoplasm of left adrenal gland; D35.01 Benign neoplasm of right adrenal gland
CPT/HCPCS: 36415; 74177; 80048; 81001; 85025; 96365; 96375; 96376; 99285; J2270; J2405; J2543; Q9967